=== PATIENT | male | born 1970 | race Caucasian/White ===

== ENCOUNTER 2016-11-17 18:11 | Emergency (ER) | payer OTHER ==
[~2016-11-17] VITALS: Ht 172.7 cm; Wt 118.9 kg
[~2016-11-17 18:11] MED LIST: ACTUNK; AMX500 PO; GLC500 PO; GLYUNK; LPRUNK; LPTUNK; MAGN400T6 PO
[2016-11-17 18:17] VITALS: Ht 172.7 cm; Wt 118.9 kg
[2016-11-17] MEDS ORDERED: PROPARACAINE HCL 0.5% OP SOLN 15 ML BTL OP STA (18:36)
[2016-11-17] MEDS ORDERED: EMPA1TAB3 PO (18:43)
[2016-11-17] MEDS ORDERED: ROSU40TA PO (18:43)
[2016-11-17] MEDS ORDERED: REPA2TAB13 PO (18:43)
[2016-11-17] MEDS ORDERED: DOCU-94 PO (18:43)
[2016-11-17] MEDS ORDERED: PRLSR20 PO (18:43)
[2016-11-17] MEDS ORDERED: LIRA18IN SC (18:43)
[2016-11-17] MEDS ORDERED: INSDGI SC (18:43)
[2016-11-17] MEDS ORDERED: MAGN400T6 PO (18:43)
[2016-11-17] MEDS ORDERED: METO50TA7 PO (18:43)
[2016-11-17] MEDS ORDERED: ASPI81TA28 PO (18:43)
[2016-11-17] MEDS ORDERED: ACT30 PO (18:43)
[2016-11-17] MEDS ORDERED: METF-384 PO (18:43)
[2016-11-17 19:31] VITALS: BP 138/86; PULSE 92; TEMP 36.5; O2SAT 95
--- NOTE | 2016-11-17 20:21 | EMERGENCY ROOM VISIT NOTE ---
History First contact with patient: 18:36 Chief Complaint: EYE ASSESSMENT Stated Complaint: L EYE REDNESS AND PRESSURE ON L SIDE OF FACE History of Present Illness The patient is a 46 year old male who presents to the Emergency Room with complaints of redness of his left eye. The patient reports that he and his were out eating dinner when she noticed that his eye was red. He then went to [place] and was referred to the emergency department for evaluation. The patient denies any trauma to the eye. He also does not recall extensive coughing, sneezing or other activities that could have caused this. He reports minimal pressure on the left side of his face here he has not noticed any rash, blurred vision or pain with movement of the eye. The patient denies any prior history of eye disease or glaucoma. He does have a history of diabetes. He denies any pain. Review of Systems 10 system review was performed and was negative except for pertinent positives and negatives as indicated in history of present illness Past Medical/Surgical History Medical Problems: (1) Anxiety State Nos (2) Diabetes type 2, controlled (3) Esophageal Reflux (4) Hypertension (5) Tobacco Use Disorder Surgical Problems: (1) No history of previous surgery Family History Unremarkable Social History Smoking Status: Former Smoker Alcohol Use: occasionally Marital Status: single Housing Status: lives alone Occupation Status: unemployed Current/Historical Medications Scheduled Aspirin (Aspirin Ec), 81 MG PO DAILY Docusate Sodium (Colace), 100 MG PO BID Empagliflozin (Jardiance), 25 MG PO DAILY Insulin Glargine (Lantus), 46 UNITS SC HS Liraglutide (Victoza), 1.2 MG SC DAILY Magnesium Oxide (Mag-Ox), 400 MG PO DAILY Metformin Hcl (Glucophage), 1,000 MG PO BIDM Metoprolol Succ (Toprol Xl) (Toprol-Xl), 75 MG PO DAILY Omeprazole (Prilosec), 20 MG PO DAILY Pioglitazone (Actos), 30 MG PO DAILY Repaglinide (Prandin), 2 MG PO AC Rosuvastatin Calcium (Crestor), 40 MG PO DAILY Physical Exam Vital Signs Date Time Temp Pulse Resp B/P (MAP) Pulse Ox O2 Delivery O2 Flow Rate FiO2 11/17/16 19:31 36.5 92 18 138/86 95 11/17/16 18:17 36.5 92 18 138/86 95 Room Air Right Eye Acuity: 20/25 Left Eye Acuity: 20/25 Pain Rating (0-10): 0 Physical Exam CONSTITUTIONAL: Healthy and well nourished. Alert and oriented X 3 with positive affect. Patient is not appear in any acute distress. HEENT: Examination shows what appears to be a subconjunctival hemorrhage over the lateral border of the left cornea. Pupils equal, round and reactive. EOMs intact without discomfort. No mucopurulent or bloody drainage from the eye. His and nares are clear. OROPHARYNX: No posterior pharyngeal erythema or tonsillar hypertrophy. NECK: Full active range of motion without discomfort. RESPIRATORY: Clear to auscultation bilaterally with no wheezing, crackles, rhonchi or stridor. CARDIOVASCULAR: Regular rate and rhythm with no murmurs, rubs or gallops. INTEGUMENTARY: No rash or other significant dermatologic conditions noted. NEUROLOGIC: Cranial nerves II-XII grossly intact. No focal neurologic deficits noted. Medical Decision & Procedures Medications Administered Medications (Trade) Dose Ordered Sig/Ramses Route Start Time Stop Time Status Last Admin Dose Admin Proparacaine HCl (Alcaine 0.5% Oph Soln) 2 drops NOW STAT OP 11/17/16 18:36 11/17/16 18:37 DC 11/17/16 18:44 2 DROPS Procedure Slit lamp and fluorescein exam were performed. 2 Alcaine drops were instilled into the left eye. Autonomic tonometry shows elevated intraocular pressures in both eyes with 24.3 on the right, 26.8 on the left. Soap exam shows no evidence for mucopurulent drainage. Negative hyphema, negative cell and flare. No mucopurulent drainage. No foreign debris is noted with eversion of the lower or upper eyelids. Fluorescein exam shows no corneal lesions, abrasions or foreign bodies. ED Course Patient history and physical exam were performed. Nurse's notes were reviewed. Vital signs were reviewed and normal. Visual acuity was also reviewed and normal. Slit lamp and fluorescein exam were performed and were normal. The patient was advised that his clinical exam is most consistent with a subconjunctival hemorrhage which is benign. However, because he does have elevated intraocular pressures, I did suggest that he follow up with Dr. Scott, investigative analyst aviation safety officer. He was instructed to return to the emergency department for any developing facial rash which could be herpes zoster. He was also instructed to return for any acute visual change, fever or other concerning symptoms. The patient was happy with plan of care, and denied any pain at the conclusion of my exam. Medical Decision See previous section. The patient does have mildly elevated intraocular pressures bilaterally. Extraocular is certainly a concern. I do not feel that emergent ophthalmology consultation is warranted given his equal pressures bilaterally. Examination also does not show any evidence for any abrasions or foreign bodies. Because he does have some mild left facial discomfort as well, herpes zoster was also considered. Medication Reconcilliation Current Medication List: was personally reviewed by me Blood Pressure Screening Patient's blood pressure: Normal blood pressure Impression Primary Impression: Subconjunctival hemorrhage of left eye Departure Information Dispostion Home / Self-Care Referrals Fred Scott MD Forms HOME CARE DOCUMENTATION FORM, IMPORTANT VISIT INFORMATION Patient Instructions Subconjunctival Hemorrhage, [facility] Additional Instructions Intermittently apply a cool compress to the eye. You may have mildly increasing redness of the eye which is not dangerous. Suggest follow-up with an investigative analyst (Dr. Scott) for reassessment as you have elevated pressure in both eyes. Definitely follow-up with ophthalmology, or return to the emergency department for any developing pain, blurred vision or facial rash.
== END 2016-11-17 19:32 | disposition home or self-care (01) ==
LOC: C.EDB 18:12 → C.EDD 19:32
DX: H11.33 Conjunctival hemorrhage, bilateral (principal); I10 Essential (primary) hypertension; E11.9 Type 2 diabetes mellitus without complications; K21.9 Gastro-esophageal reflux disease without esophagitis; F41.9 Anxiety disorder, unspecified; Z87.891 Personal history of nicotine dependence; Z79.82 Long term (current) use of aspirin; Z79.4 Long term (current) use of insulin; Z79.84 Long term (current) use of oral hypoglycemic drugs; Z79.899 Other long term (current) drug therapy

== ENCOUNTER → 2017-11-17 | Outpatient (CLI) | payer OTHER ==
[~2017-11-17] MED LIST changes: -ACTUNK; -AMX500 PO; +ASPI81TA28 PO; +EMPA1TAB3 PO; -GLC500 PO; -GLYUNK; +INSDGI SC; +LOSA50TA6 PO; -LPRUNK; -LPTUNK; +METF-384 PO; +METO50TA8 PO; +PRLSR20 PO; +ROSU40TA PO; +SEMA2INJ INJ
[2017-11-17 15:51] LABS: BASO % 0.6 %; BASO ABS # 0.03 K/uL (0-0.2); EOS % 3.7 %; EOS ABS # 0.18 K/uL (0-0.5); HEMATOCRIT 43.8 % (42-52); HEMOGLOBIN 15.5 g/dL (14.0-18.0); IG# 0.04 K/uL (0.00-0.02); LYMPH % 25.8 %; LYMPH ABS # 1.27 K/uL (1.2-3.4); MEAN CELL VOLUME 89.6 fL (80-100); MEAN CORPUSCULAR HEMOGLOBIN 31.7 pg (25-34); MEAN CORPUSCULAR HGB CONC 35.4 g/dl (32-36); MEAN PLATELET VOLUME 9.5 fL (7.4-10.4); MONO % 7.7 %; MONO ABS # 0.38 K/uL (0.11-0.59); NEUT % 61.4 %; NEUT ABS # 3.03 K/uL (1.4-6.5); PLATELET COUNT 168 K/uL (130-400); RED CELL DISTRIBUTION WIDTH CV 13.8 % (11.5-14.5); RED CELL DISTRIBUTION WIDTH SD 45.4 fL (36.4-46.3); WHITE BLOOD COUNT 4.93 K/uL (4.8-10.8)
[2017-11-17 16:10] LABS: BLOOD UREA NITROGEN 15 mg/dl (7-18); CALCIUM 9.1 mg/dl (8.5-10.1); CARBON DIOXIDE 26 mmol/L (21-32); CREATININE 0.78 mg/dl (0.60-1.40); GLUCOSE 257 mg/dl (70-99); POTASSIUM 4.2 mmol/L (3.5-5.1); SODIUM 133 mmol/L (136-145)
[2017-11-18 06:19] LABS: HEMOGLOBIN A1C 8.3 % (4.5-5.6)
== END | disposition home or self-care (01) ==
LOC: C.CPL 14:22
PROVIDERS: ATTEND Urology
DX: Z01.810 Encounter for preprocedural cardiovascular examination (principal); Z01.812 Encounter for preprocedural laboratory examination; R94.31 Abnormal electrocardiogram [ECG] [EKG]

== ENCOUNTER 2017-11-29 05:29 | Inpatient (IN) | payer OTHER ==
[2017-11-17 14:52] VITALS: BMI 37.0
--- NOTE | 2017-11-17 14:54 | PAT Medication Instructions ---
Service Date Nov 17, 2017. Current Home Medication List Aspirin (Aspirin Ec), 81 MG PO QPM Empagliflozin (Jardiance), 25 MG PO QAM Insulin Glargine (Lantus), 54 UNITS SC HS Losartan Potassium (Cozaar), 50 MG PO NOON Magnesium Oxide (Mag-Ox), 400 MG PO NOON Metformin Hcl (Glucophage), 1,000 MG PO BIDM Metoprolol Succ (Toprol Xl) (Toprol-Xl), 75 MG PO NOON Omeprazole (Prilosec), 20 MG PO NOON Rosuvastatin Calcium (Crestor), 40 MG PO HS Semaglutide (Ozempic), 0.5 DOSE INJ FRIDAYS Medication Instructions For Your Scheduled Surgery -Check with your surgeon: Aspirin (Aspirin Ec), 81 MG PO QPM -Continue as directed: Semaglutide (Ozempic), 0.5 DOSE INJ FRIDAYS - Hold the following medications the morning of surgery: Empagliflozin (Jardiance), 25 MG PO QAM Metformin Hcl (Glucophage), 1,000 MG PO BIDM - Take the following medications as scheduled the afternoon/night before surgery --NOTHING TO EAT OR DRINK AFTER MIDNIGHT: Insulin Glargine (Lantus), 54 UNITS SC HS Losartan Potassium (Cozaar), 50 MG PO NOON Magnesium Oxide (Mag-Ox), 400 MG PO NOON Metformin Hcl (Glucophage), 1,000 MG PO BIDM Metoprolol Succ (Toprol Xl) (Toprol-Xl), 75 MG PO NOON Omeprazole (Prilosec), 20 MG PO NOON Rosuvastatin Calcium (Crestor), 40 MG PO HS If you have any questions please call us at [phone] or [phone] or [phone]
[~2017-11-29] VITALS: Ht 172.7 cm; Wt 110.3 kg
[2017-11-29] VITALS (9 sets, daily range): BP systolic 135–160; BP diastolic 73–93; PULSE 92–112; TEMP 36.5–37.3; O2SAT 95–98; Ht 172.7 cm; Wt 110.3 kg
[2017-11-29] MEDS ORDERED: CEFAZOLIN 2000MG IV PUSH 15 ML IV SCH (06:00)
[2017-11-29] MEDS ORDERED: LACTATED RINGER'S 1000ML 1,000 ML IV SCH (06:00)
[2017-11-29] MEDS ORDERED: BUPIVACAINE 0.25% 30 ML VIAL ONE (06:58)
[2017-11-29] MEDS ORDERED: MIDAZOLAM HCL 1 MG/ML 2ML VIAL ONE (07:09)
[2017-11-29] MEDS ORDERED: LIDOCAINE HCL 2% 2 ML VIAL (20MG/ML) ONE (07:09)
[2017-11-29] MEDS ORDERED: FENTANYL CITRATE INJ 50 MCG/1 ML 2 ML VIAL ONE (07:09)
[2017-11-29] MEDS ORDERED: ROCURONIUM BROMIDE 10 MG/ML 5 ML VIAL ONE ×2 (07:09→08:22)
[2017-11-29] MEDS ORDERED: PROPOFOL IV EMULSION 10 MG/ML 20 ML VIAL ONE ×2 (07:09→08:34)
[2017-11-29] MEDS ORDERED: ACETAMINOPHEN 1000 MG/100 ML IV IV ONE (07:13)
[2017-11-29] MEDS ORDERED: MANNITOL 25% 50 ML VIAL ONE ×2 (07:13→12:33)
--- NOTE | 2017-11-29 07:33 | History & Physical Bridge Note ---
H&P Re-Evaluation Bridge Note: I have examined the patient, reviewed the History & Physical and in the interval since the performance of the History & Physical I have noted the following changes of clinical significance: No changes noted
[2017-11-29] MEDS ORDERED: ONDANSETRON INJ 2 MG/ML 2 ML VIAL ONE ×2 (08:19→09:57)
[2017-11-29] MEDS ORDERED: KETAMINE HCL INJ 50 MG/ML 10 ML VIAL ONE (08:20)
[2017-11-29] MEDS ORDERED: METOPROLOL TARTRATE 1 MG/ML VIAL ONE (08:34)
[2017-11-29] MEDS ORDERED: LABETALOL HCL IV 5 MG/ML 20ML ONE (08:34)
[2017-11-29] MEDS ORDERED: ONDANSETRON INJ 2 MG/ML 2 ML VIAL IV PRN ×2 (09:15→10:15)
[2017-11-29] MEDS ORDERED: EpHEDrine SULFATE INJ 50 MG/ML AMP IV PRN (09:15)
[2017-11-29] MEDS ORDERED: ATROPINE SULFATE 0.1 MG/ML 5ML SYR IV PRN (09:15)
[2017-11-29] MEDS ORDERED: PHENYLEPHRINE 100MCG/ML 5ML SYR IV PRN (09:15)
[2017-11-29] MEDS ORDERED: TISSEEL FIBRIN SEALANT 10ML TOP ONE (09:23)
[2017-11-29] MEDS ORDERED: GLYCOPYRROLATE INJ 0.2 MG/ML VIAL ONE (09:57)
[2017-11-29] MEDS ORDERED: NEOSTIGMINE METHYLSULFATE 5 MG/5 ML SYR ONE (09:57)
[2017-11-29] MEDS ORDERED: HYDROmorphone INJ 2 MG/ML SYR/VIAL ONE (10:00)
--- NOTE | 2017-11-29 10:06 | [facility] Post Operative Brief Note ---
Immediate Operative Summary Operative Date Nov 29, 2017. Pre-Operative Diagnosis Renal neoplasm Post-Operative Diagnosis Renal neoplasm Procedure(s) Performed Right hand assisted laparoscopic nephrectomy Surgeon Dr. Efraín Lam MD Certified Medication Aide Surgeon(s) JELANI Douglass Estimated Blood Loss 50ml Findings Consistent with Post-Op Diagnosis Specimens A. Right kidney Drains None Anesthesia Type General Disposition Accompanied Pt To Recover: yes Disposition: Recovery Room / PACU
[2017-11-29] MEDS ORDERED: MoRPHine SULFATE 4 MG/ML 1 ML CARP\\VIAL IV PRN (10:15)
[2017-11-29] MEDS ORDERED: ACETAMINOPHEN 325 MG TAB PO PRN (10:15)
[2017-11-29] MEDS ORDERED: ACETAMINOPHEN/CODEINE 300/30MG TAB PO PRN (10:15)
[2017-11-29] MEDS: HYDROmorphone INJ 2 MG/ML SYR/VIAL IV PRN ×2 (10:30→10:38)
[2017-11-29 10:34] LABS: BASO % 0.4 %; BASO ABS # 0.03 K/uL (0-0.2); EOS % 0.5 %; EOS ABS # 0.04 K/uL (0-0.5); HEMATOCRIT 44.1 % (42-52); HEMOGLOBIN 15.3 g/dL (14.0-18.0); IG# 0.03 K/uL (0.00-0.02); LYMPH % 12.5 %; LYMPH ABS # 1.02 K/uL (1.2-3.4); MEAN CELL VOLUME 90.7 fL (80-100); MEAN CORPUSCULAR HEMOGLOBIN 31.5 pg (25-34); MEAN PLATELET VOLUME 9.6 fL (7.4-10.4); MONO % 6.5 %; MONO ABS # 0.53 K/uL (0.11-0.59); NEUT % 79.7 %; NEUT ABS # 6.54 K/uL (1.4-6.5); PLATELET COUNT 168 K/uL (130-400); RED CELL DISTRIBUTION WIDTH CV 14.1 % (11.5-14.5); RED CELL DISTRIBUTION WIDTH SD 46.5 fL (36.4-46.3); WHITE BLOOD COUNT 8.19 K/uL (4.8-10.8)
[2017-11-29 10:39] LABS: MEAN CORPUSCULAR HGB CONC 34.7 g/dl (32-36)
--- NOTE | 2017-11-29 10:45 | [facility] Operative Report ---
Operative Report Operative Date Nov 29, 2017. Pre-Operative Diagnosis Renal neoplasm Post-Operative Diagnosis Renal neoplasm Procedure(s) Performed Right hand assisted laparoscopic nephrectomy Surgeon Dr. Efraín Lam MD Promotional Representative Surgeon(s) JELANI Douglass Estimated Blood Loss 50ml Specimens A. Right kidney Drains None Anesthesia Type General Complication(s) none Disposition yes Recovery Room / PACU Description of Procedure Patient was identified in the preoperative holding area, appropriate informed consents reviewed and completed and the patient was transported to the operating suite. Upon arrival in the operative suite, imaging was reviewed and brought on the large screens in the room. Patient subsequently received anesthesia and was placed in a left-sided down right-sided up lateral decubitus position where he was appropriately padded and braced. He received perioperative antibiotics in the form of Ancef. Following sterile prep and drape, I made a Pfannenstiel style incision in the right lower quadrant extending from the lateral border of the rectus muscle through approximately 8 cm of the oblique musculature. We carefully dissected each layer before sharply opening the peritoneum performing a finger sweep. There is no evidence of adhesive disease in this region. I expanded my peritoneal incision to match my skin incision, and placed a hand port. Utilizing this open incision, mobilized the colon by incising the white line of Toldt utilizing Metzenbaum scissors. And then put the gel port on top of the hand port and insufflated the abdomen through the GelPort to 15 mmHg. Passed a 10mm 30 lens and inspected the abdomen. There is no adhesive disease, the kidney was easily visualized, identified the lateral border of the rectus muscle near the costal margin and marked 2 sites on the skin side for port placement. I placed 2 - 12 mm ports, the higher of the 2 ports was at the rectus border, approximately 2 fingerbreadths below the costal margin. The second part was approximately 8 cm inferior to this. Both of these ports were placed onto my hand which had been inserted through the GelPort. To begin the laparoscopic portion of the case, continued mobilizing the white line of Toldt until the colon had been entirely medialized of the kidney. I then identified the duodenum and kocherized sharply to expose the medial aspect of the kidney. Turned my attention back to the inferior most aspect of the kidney, elevated the lower cone of Gerota's fascia and identified the gonadal vein. I dissected just lateral to it until I reached the psoas muscle and I left the ureter and remaining aspects Gerota's intact and elevated these towards the anterior abdominal wall. I traced the lateral edge of the gonadal vein to the IVC and then followed the anterior surface of the IVC until I visualized the renal vein. I dissected the tissue inferior to the renal vein, allowing my hand to move against and posterior to the hilar structures as I elevated the kidney. The renal artery was identified immediately superior to the renal vein, it was skeletonized and passage window immediately superior to the renal artery was created utilizing a finger passed posteriorly behind the hilar structures and dissection from the anterior surface utilizing the instruments. After feeling that those windows were adequately opened, I passed a staple device and stapled the renal artery and vein en bloc with a vascular staple load. A second staple load was placed further superior, separate the adrenal and the upper pole of the kidney. Given the size of the specimen, third device was placed further along the superior surface of the kidney. I then turned my attention the lateral edge of the kidney and mobilized it along the kidney to be entirely freed. The final connection was the most superior lateral corner adjacent to the liver, this was dissected utilizing the harmonic scalpel until the kidney was free. The ureter in the inferior cone of Gerota's fascia and fired a staple load across this area. I attempted to point to extract the specimen through my hand port, however the specimen was too large to fit through this port without expansion. I therefore talked it into the right lower quadrant and inspected the renal fossa. There is no active bleeding, however I did place Tisseel coagulant across the hilar structures and the fossa. I then removed the gel port and slightly expanded my incision to allow extraction of the specimen. The lap ports had their fascia closed using 0 Vicryl in simple interrupted fashion. Skin of these incisions was closed with 4-0 Monocryl and Dermabond. The hand port was closed in numerous layers, beginning with 0 Vicryl to reapproximate the peritoneum followed by closure of the transversalis with an additional 0 Vicryl followed by the internal oblique and ultimately the external oblique utilizing 0 Vicryl for all of these layers. The skin was reapproximated using 4-0 Monocryl and Dermabond. Quarter percent Marcaine was utilized to infiltrate all the incisions as well as the fascial layers. The case was subsequently concluded the patient was extubated and taken to the PACU in stable condition. Of note, Idalia Foley assisted me throughout the case from initial incision to closure. I attest to the content of the Intraoperative Record and any orders documented therein. Any exceptions are noted below.
[2017-11-29 10:53] LABS: CALCIUM 8.2 mg/dl (8.5-10.1); CREATININE 0.86 mg/dl (0.60-1.40)
[2017-11-29] MEDS ORDERED: GLUCOSE 10 TABS/TUBE PO PRN (12:15)
[2017-11-29] MEDS ORDERED: DEXTROSE 50% 50 ML SYR IV PRN (12:15)
[2017-11-29] MEDS ORDERED: GLUCOSE 40% GEL 15 GM TUBE PO PRN (12:15)
[2017-11-29] MEDS ORDERED: GLUCAGON FOR INJ 1 MG VIAL IM PRN (12:15)
[2017-11-29] MEDS ORDERED: PHARMACY GLYCEMIC MGMT CONSULT PRN (12:15)
[2017-11-29] MEDS ORDERED: CARBOHYDRATES FOR HYPOGLYCEMIA PO PRN (12:15)
[2017-11-29] MEDS: ACETAMINOPHEN/CODEINE 300/30MG TAB PO PRN ×2 (12:42→20:16)
[2017-11-29] MEDS: LACTATED RINGER'S 1000ML 1,000 ML IV SCH ×3 (12:43→23:59)
[2017-11-29] MEDS ORDERED: INSULIN GLARGINE SOLOSTAR 100 UNITS/ML 3 ML PEN SC ONE (12:45)
[2017-11-29] MEDS: PANTOprazole SOD 40 MG TAB PO SCH (13:18)
--- NOTE | 2017-11-29 13:18 | Anesthesiology Progress Note ---
Anesthesia Post Op Note Date & Time Nov 29, 2017 at 13:18 Vital Signs Pain Intensity: 6.0 Vital Signs Past 12 Hours Date Time Temp Pulse Resp B/P (MAP) Pulse Ox O2 Delivery O2 Flow Rate FiO2 11/29/17 12:24 36.9 102 16 160/81 (107) 96 2.0 11/29/17 11:45 92 16 158/82 (107) 95 2.0 11/29/17 11:15 98 Nasal Cannula 2.0 11/29/17 11:15 36.9 93 16 143/89 (107) 98 Nasal Cannula 2.0 11/29/17 11:15 98 Nasal Cannula 2.0 11/29/17 11:00 36.9 84 16 150/81 97 Nasal Cannula 4 11/29/17 10:50 86 12 165/88 98 Nasal Cannula 4 11/29/17 10:40 92 13 158/97 98 Nasal Cannula 4 11/29/17 10:30 81 19 157/95 99 Oxymask 10 11/29/17 10:20 87 20 160/88 100 Oxymask 10 11/29/17 10:14 36 88 17 155/82 99 Oxymask 10 11/29/17 06:05 36.8 92 18 147/93 96 Room Air Notes Mental Status: alert / awake / arousable, participated in evaluation Pt Amnestic to Procedure: Yes Nausea / Vomiting: adequately controlled Pain: adequately controlled Airway Patency, RR, SpO2: stable & adequate BP & HR: stable & adequate Hydration State: stable & adequate Anesthetic Complications: no major complications apparent
[2017-11-29] MEDS: INSULIN ASPART 100 UNITS/ML 3 ML PEN SC SCH ×3 (13:22→21:47)
--- NOTE | 2017-11-29 14:37 | Pharmacy Progress Note ---
Glycemic Control Intl Consult Date of Service Nov 29, 2017. Scope Glycemic Pharmacist consulted by JELANI Stiles on 11/29/17 for glycemic control and to write orders per [facility] inpatient glycemic control protocol. Objective Weight (Kilograms): 110.300 Accuchecks BSG (last 24hrs): Test 11/29/17 05:52 11/29/17 06:37 11/29/17 10:18 11/29/17 10:22 Bedside Glucose 116 mg/dl (70-99) 122 mg/dl (70-99) 222 mg/dl (70-99) Random Glucose 231 mg/dl (70-99) Test 11/29/17 12:07 Bedside Glucose 229 mg/dl (70-99) Laboratory Data (last 24hrs) Test 11/29/17 10:22 Anion Gap 13.0 mmol/L BUN/Creatinine Ratio 9.2 Blood Urea Nitrogen 8 mg/dl Creatinine 0.86 mg/dl Potassium Level 4.0 mmol/L Sodium Level 134 mmol/L White Blood Count 8.19 K/uL Red Blood Count 4.86 M/uL Hemoglobin 15.3 g/dL Hematocrit 44.1 % Mean Corpuscular Volume 90.7 fL Mean Corpuscular Hemoglobin 31.5 pg Mean Corpuscular Hemoglobin Concent 34.7 g/dl Platelet Count 168 K/uL Mean Platelet Volume 9.6 fL Neutrophils (%) (Auto) 79.7 % Lymphocytes (%) (Auto) 12.5 % Monocytes (%) (Auto) 6.5 % Eosinophils (%) (Auto) 0.5 % Basophils (%) (Auto) 0.4 % Neutrophils # (Auto) 6.54 K/uL Lymphocytes # (Auto) 1.02 K/uL Monocytes # (Auto) 0.53 K/uL Eosinophils # (Auto) 0.04 K/uL Basophils # (Auto) 0.03 K/uL Recent Pertinent Medications Outpatient Anti-diabetic Regimen: * Lantus 54 units SQ HS * Metformin 1000mg PO BID * Jardiance 25mg PO qAM * Semaglutide SQ weekly * A1c = 8.3% (11/17/17) Risk Factors for Insulin Resistance: * Steroids: n/a * Infection: Ancef angelique-operatively * IVF: LR @ 150mL/hr * Recent Surgery: POD 0, s/p laparoscopic nephrectomy * Diet: clear liquid Assessment & Plan ASSESSMENT: * Mr Campos is a 47yo diabetic male s/p laparoscopic nephrectomy this morning. * Post-op BSG elevated, likely d/t skipping Lantus dose last night. PLAN FOR INPATIENT GLYCEMIC CONTROL: * Basal insulin with LANTUS 54 units SQ qHS --> first dose given SHAYAN on arrival to floor post-op * Correctional Insulin with NOVOLOG per scale ACHS or Q6hrs while NPO * Goal Range: Low 110 mg/dL - High 140 mg/dL * Correction Factor: 20 mg/dL/unit * Nutritional / Prandial insulin per carb ratio of 1 unit per 7 grams CHO consumed * Metformin 1,000mg PO BID * Hold other home meds, as they are non-formulary * Please note that the plan above was derived based on current level of insulin resistance and hospital stress. These recommendations are appropriate for inpatient admission only. Plan of care upon discharge will need to be reassessed to avoid potential outpatient hypo/hyperglycemia. Thank you.
[2017-11-29] MEDS: CEFAZOLIN IV 1,000 MG in SYRINGE 0 ML IV SCH ×2 (15:58→23:58)
[2017-11-29] MEDS ORDERED: NURSING VERBAL MED ORDER ONE ×2 (18:30→22:45)
[2017-11-29] MEDS ORDERED: METOCLOPRAMIDE HCL INJ 5 MG/ML 2 ML VIAL IV PRN (18:45)
[2017-11-29] MEDS ORDERED: SUCRALFATE 1 GM/10 ML UDC PO PRN (18:45)
[2017-11-29] MEDS: DOCUSATE SODIUM 100 MG CAP PO SCH (20:15)
[2017-11-29] MEDS: ROSUVASTATIN CALCIUM 20 MG TAB PO SCH (20:16)
[2017-11-29] MEDS ORDERED: INSULIN GLARGINE SOLOSTAR 100 UNITS/ML 3 ML PEN SC SCH (21:00)
[2017-11-29] MEDS: HEPARIN SOD 5000 UNIT/0.5 ML CARP SQ SCH (21:46)
[2017-11-29] MEDS ORDERED: LORAZEPAM INJ 1 MG in SYRINGE 0.5 ML IV PRN (22:45)
[2017-11-30 03:08] VITALS: BP_SYST 164; BP_SYST 166; BP_DIAS 83; BP_DIAS 92; PULSE 111; TEMP 37.1; O2SAT 91
[2017-11-30] MEDS: LACTATED RINGER'S 1000ML 1,000 ML IV SCH ×3 (05:42→18:32)
[2017-11-30 06:28] LABS: BASO % 0.4 %; BASO ABS # 0.02 K/uL (0-0.2); EOS % 0.6 %; EOS ABS # 0.03 K/uL (0-0.5); HEMATOCRIT 40.4 % (42-52); HEMOGLOBIN 13.7 g/dL (14.0-18.0); IG# 0.01 K/uL (0.00-0.02); LYMPH % 20.2 %; MEAN CELL VOLUME 90.8 fL (80-100); MEAN CORPUSCULAR HEMOGLOBIN 30.8 pg (25-34); MEAN CORPUSCULAR HGB CONC 33.9 g/dl (32-36); MEAN PLATELET VOLUME 9.3 fL (7.4-10.4); MONO % 15.4 %; MONO ABS # 0.84 K/uL (0.11-0.59); NEUT % 63.2 %; NEUT ABS # 3.44 K/uL (1.4-6.5); PLATELET COUNT 174 K/uL (130-400); RED CELL DISTRIBUTION WIDTH CV 14.5 % (11.5-14.5); RED CELL DISTRIBUTION WIDTH SD 48.2 fL (36.4-46.3); WHITE BLOOD COUNT 5.44 K/uL (4.8-10.8)
[2017-11-30 07:00] LABS: CALCIUM 7.9 mg/dl (8.5-10.1); CREATININE 1.19 mg/dl (0.60-1.40); POTASSIUM 3.4 mmol/L (3.5-5.1)
[2017-11-30 07:30] VITALS: BP 147/79; PULSE 107; TEMP 36.9; O2SAT 94
--- NOTE | 2017-11-30 08:12 | Anesthesiology Progress Note ---
Anesthesia Post Op Note Date & Time Nov 30, 2017 at 08:11 Vital Signs Vital Signs Past 12 Hours Date Time Temp Pulse Resp B/P (MAP) Pulse Ox O2 Delivery O2 Flow Rate FiO2 11/30/17 07:30 36.9 107 16 147/79 (101) 94 Room Air 11/30/17 03:08 37.1 111 17 166/83 (110) 91 Room Air 164/92 (116) 11/29/17 22:44 37.3 112 18 145/73 (97) 95 Room Air 11/29/17 22:10 37.1 16 135/80 (98) 96 Room Air Notes Mental Status: alert / awake / arousable, participated in evaluation Pt Amnestic to Procedure: Yes Nausea / Vomiting: adequately controlled Pain: adequately controlled Airway Patency, RR, SpO2: stable & adequate BP & HR: stable & adequate Hydration State: stable & adequate Anesthetic Complications: no major complications apparent
--- NOTE | 2017-11-30 09:02 | Progress Note ---
Subjective Date of Service: Nov 30, 2017. Subjective Pt evaluation today including: conversation w/ patient, physical exam, chart review, lab review Voiding: no voiding problems Patient progressing very well since his right laparoscopic hand-assisted nephrectomy Minimal pain Ambulating Was nauseated yesterday afternoon, but no current problems Voiding without difficulty Labs stable and appropriate Problem List Medical Problems: (1) Subconjunctival hemorrhage of left eye Status: Acute Review of Systems Constitutional: No see HPI, No fever, No chills, No sweats, No weight loss, No weakness, No fatigue, No problem reported Eyes: No see HPI, No worsening of vision, No eye pain, No redness, No discharge , No diplopia, No problem reported Abdomen: + pain, + nausea Objective Vital Signs Date Time Temp Pulse Resp B/P (MAP) Pulse Ox O2 Delivery O2 Flow Rate FiO2 11/30/17 07:30 36.9 107 16 147/79 (101) 94 Room Air 11/30/17 03:08 37.1 111 17 166/83 (110) 91 Room Air 164/92 (116) 11/29/17 22:44 37.3 112 18 145/73 (97) 95 Room Air 11/29/17 22:10 37.1 16 135/80 (98) 96 Room Air 11/29/17 16:00 Nasal Cannula 11/29/17 15:26 36.9 111 18 138/83 (101) 95 Nasal Cannula 2.0 11/29/17 14:20 36.5 104 16 157/83 (107) 95 2.0 11/29/17 13:15 106 16 146/82 (103) 96 2.0 11/29/17 12:24 36.9 102 16 160/81 (107) 96 2.0 11/29/17 11:45 92 16 158/82 (107) 95 2.0 11/29/17 11:15 98 Nasal Cannula 2.0 11/29/17 11:15 36.9 93 16 143/89 (107) 98 Nasal Cannula 2.0 11/29/17 11:15 98 Nasal Cannula 2.0 11/29/17 11:00 36.9 84 16 150/81 97 Nasal Cannula 4 11/29/17 10:50 86 12 165/88 98 Nasal Cannula 4 11/29/17 10:40 92 13 158/97 98 Nasal Cannula 4 11/29/17 10:30 81 19 157/95 99 Oxymask 10 11/29/17 10:20 87 20 160/88 100 Oxymask 10 11/29/17 10:14 36 88 17 155/82 99 Oxymask 10 Physical Exam General Appearance: no apparent distress Eyes: normal inspection Abdomen: soft (Incisions appropriate, no signs of infection, appropriately tender) Laboratory Results Last 24 Hours Test 11/29/17 10:18 11/29/17 10:22 11/29/17 12:07 11/29/17 12:25 Bedside Glucose 222 mg/dl 229 mg/dl White Blood Count 8.19 K/uL Red Blood Count 4.86 M/uL Hemoglobin 15.3 g/dL Hematocrit 44.1 % Mean Corpuscular Volume 90.7 fL Mean Corpuscular Hemoglobin 31.5 pg Mean Corpuscular Hemoglobin Concent 34.7 g/dl Platelet Count 168 K/uL Mean Platelet Volume 9.6 fL Neutrophils (%) (Auto) 79.7 % Lymphocytes (%) (Auto) 12.5 % Monocytes (%) (Auto) 6.5 % Eosinophils (%) (Auto) 0.5 % Basophils (%) (Auto) 0.4 % Neutrophils # (Auto) 6.54 K/uL Lymphocytes # (Auto) 1.02 K/uL Monocytes # (Auto) 0.53 K/uL Eosinophils # (Auto) 0.04 K/uL Basophils # (Auto) 0.03 K/uL RDW Standard Deviation 46.5 fL RDW Coefficient of Variation 14.1 % Immature Granulocyte % (Auto) 0.4 % Immature Granulocyte # (Auto) 0.03 K/uL Sodium Level 134 mmol/L Potassium Level 4.0 mmol/L Chloride Level 100 mmol/L Carbon Dioxide Level 22 mmol/L Anion Gap 13.0 mmol/L Blood Urea Nitrogen 8 mg/dl Creatinine 0.86 mg/dl Est Creatinine Clear Calc Drug Dose 126.5 ml/min Estimated GFR () 118.8 Estimated GFR (Non- 102.5 BUN/Creatinine Ratio 9.2 Random Glucose 231 mg/dl Calcium Level 8.2 mg/dl Prothrombin Time 10.2 SECONDS Prothromb Time International Ratio 1.0 Test 11/29/17 17:10 11/29/17 21:40 11/30/17 05:53 11/30/17 08:17 Bedside Glucose 180 mg/dl 179 mg/dl 146 mg/dl White Blood Count 5.44 K/uL Red Blood Count 4.45 M/uL Hemoglobin 13.7 g/dL Hematocrit 40.4 % Mean Corpuscular Volume 90.8 fL Mean Corpuscular Hemoglobin 30.8 pg Mean Corpuscular Hemoglobin Concent 33.9 g/dl Platelet Count 174 K/uL Mean Platelet Volume 9.3 fL Neutrophils (%) (Auto) 63.2 % Lymphocytes (%) (Auto) 20.2 % Monocytes (%) (Auto) 15.4 % Eosinophils (%) (Auto) 0.6 % Basophils (%) (Auto) 0.4 % Neutrophils # (Auto) 3.44 K/uL Lymphocytes # (Auto) 1.10 K/uL Monocytes # (Auto) 0.84 K/uL Eosinophils # (Auto) 0.03 K/uL Basophils # (Auto) 0.02 K/uL RDW Standard Deviation 48.2 fL RDW Coefficient of Variation 14.5 % Immature Granulocyte % (Auto) 0.2 % Immature Granulocyte # (Auto) 0.01 K/uL Sodium Level 136 mmol/L Potassium Level 3.4 mmol/L Chloride Level 102 mmol/L Carbon Dioxide Level 22 mmol/L Anion Gap 12.0 mmol/L Blood Urea Nitrogen 8 mg/dl Creatinine 1.19 mg/dl Est Creatinine Clear Calc Drug Dose 91.4 ml/min Estimated GFR () 83.2 Estimated GFR (Non- 71.8 BUN/Creatinine Ratio 6.8 Random Glucose 128 mg/dl Calcium Level 7.9 mg/dl Assessment and Plan Postop day #1 status post right hand-assisted left nephrectomy Labs stable, kidney function appropriate Good urine output Voiding without difficulty Pain controlled We will observe him for the morning and see if he is ready for discharge home tonight versus tomorrow
[2017-11-30] MEDS: DOCUSATE SODIUM 100 MG CAP PO SCH ×2 (10:21→21:37)
[2017-11-30] MEDS: METOPROLOL SUCC 25MG EXT REL TAB PO SCH (10:22)
[2017-11-30] MEDS: MAGNESIUM OXIDE 400 MG TAB PO SCH (10:22)
[2017-11-30] MEDS: LOSARTAN POTASSIUM 50 MG TAB PO SCH (10:22)
[2017-11-30] MEDS: HEPARIN SOD 5000 UNIT/0.5 ML CARP SQ SCH ×2 (10:28→21:42)
[2017-11-30] MEDS: INSULIN ASPART 100 UNITS/ML 3 ML PEN SC SCH ×4 (10:29→21:40)
[2017-11-30] MEDS ORDERED: DOCU-94 PO (10:50)
[2017-11-30] MEDS ORDERED: ACET300T2 PO (10:50)
--- NOTE | 2017-11-30 10:53 | Discharge Instructions ---
Discharge Instructions Date of Service Nov 30, 2017. Admission Reason for Admission: Renal Mass Discharge Discharge Diagnosis / Problem: Renal mass Discharge Goals Goal(s): Improve disease control, Prevent Disease Progression Activity Recommendations Activity Limitations: as noted below 1. Do not lift >15lbs x 6 weeks. 2. No heavy exercise x 6 weeks. You may engage in light activity such as walking and stairs as tolerated. 3. Do not drive x [address] while taking narcotics. 4. Follow-up as scheduled. Please call our office at [phone] if you need to reschedule for any reason. . . Current Hospital Diet Patient's current hospital diet: Clear Liquid Diet Discharge Diet Recommended Diet: Diabetes Type 2 Diet Procedures Procedures Performed: Right hand assisted laparoscopic nephrectomy Pending Studies Studies pending at discharge: yes List of pending studies: Pathology Laboratory Results Hemoglobin A1c Test 11/17/17 15:10 Range/Units Estimated Average Glucose 192 mg/dl Hemoglobin A1c 8.3 H 4.5-5.6 % Medical Emergencies . Who to Call and When: Medical Emergencies: If at any time you feel your situation is an emergency, please call 911 immediately. . Non-Emergent Contact Non-Emergency issues call your: Urologist Call Non-Emergent contact if: temperature is above 101, your pain is not controlled, your pain is concerning you, wound has increased drainage, wound has increased redness, wound has increased pain, you have any medication questions . . "Provider Documentation" section prepared by Idalia Foley. . [place] Drug Monitoring Program Search Results: patient reviewed within database, no issues identified
[2017-11-30 11:35] VITALS: BP 148/80; PULSE 104; TEMP 36.9; O2SAT 95
[2017-11-30] MEDS: PANTOprazole SOD 40 MG TAB PO SCH (13:01)
[2017-11-30 15:09] VITALS: BP 150/87; PULSE 92; TEMP 36.8; O2SAT 95
[2017-11-30] MEDS: METFORMIN HCL 500 MG TAB PO SCH (18:09)
[2017-11-30] MEDS: ROSUVASTATIN CALCIUM 20 MG TAB PO SCH (21:37)
[2017-11-30 23:22] VITALS: BP_SYST 172; BP_SYST 177; BP_DIAS 100; BP_DIAS 95; PULSE 99; TEMP 37.2; O2SAT 94
[2017-12-01] MEDS: ACETAMINOPHEN/CODEINE 300/30MG TAB PO PRN (00:30)
[2017-12-01] MEDS: LACTATED RINGER'S 1000ML 1,000 ML IV SCH ×2 (01:46→08:44)
[2017-12-01 01:52] VITALS: BP 133/84
[2017-12-01 07:45] VITALS: BP 152/84; PULSE 99; TEMP 37.3; O2SAT 96
[2017-12-01 08:10] LABS: BASO % 0.8 %; BASO ABS # 0.04 K/uL (0-0.2); EOS % 2.4 %; EOS ABS # 0.12 K/uL (0-0.5); HEMATOCRIT 42.9 % (42-52); HEMOGLOBIN 14.6 g/dL (14.0-18.0); IG# 0.01 K/uL (0.00-0.02); LYMPH % 24.4 %; LYMPH ABS # 1.24 K/uL (1.2-3.4); MEAN CELL VOLUME 91.7 fL (80-100); MEAN CORPUSCULAR HEMOGLOBIN 31.2 pg (25-34); MEAN PLATELET VOLUME 9.3 fL (7.4-10.4); MONO % 11.2 %; MONO ABS # 0.57 K/uL (0.11-0.59); NEUT ABS # 3.11 K/uL (1.4-6.5); PLATELET COUNT 161 K/uL (130-400); RED CELL DISTRIBUTION WIDTH CV 14.2 % (11.5-14.5); RED CELL DISTRIBUTION WIDTH SD 47.1 fL (36.4-46.3); WHITE BLOOD COUNT 5.09 K/uL (4.8-10.8)
[2017-12-01 08:48] LABS: CALCIUM 8.7 mg/dl (8.5-10.1); CREATININE 1.14 mg/dl (0.60-1.40); POTASSIUM 3.7 mmol/L (3.5-5.1)
[2017-12-01] MEDS: INSULIN ASPART 100 UNITS/ML 3 ML PEN SC SCH (09:07)
--- NOTE | 2017-12-01 09:07 | Urology Progress Note ---
Progress Note Date of Service Dec 01, 2017. Subjective Pt evaluation today including: conversation w/ patient, physical exam, chart review, lab review Pain: diffuse abdominal, 3/10 PO Intake: tolerating Voiding: no voiding problems 47YO male, POD#2 s/p right HALN. Patient reports feeling well. Pain is well controlled. Tolerating diet, has been up walking the halls without difficulty. Has not moved bowels though he is passing gas. Voiding without difficulty. Constitutional: No fever, No chills Respiratory: No shortness of breath Cardiovascular: No chest pain Abdomen: + pain (diffuse; hand incision), No nausea, No vomiting Male : No dysuria, No urinary frequency, No incontinence, No slowing stream, No hematuria Neurologic: No numbness/tingling Objective Vital Signs Date Time Temp Pulse Resp B/P (MAP) Pulse Ox O2 Delivery O2 Flow Rate FiO2 12/01/17 07:45 37.3 99 18 152/84 (106) 96 Room Air 12/01/17 01:52 133/84 (100) 11/30/17 23:22 37.2 99 18 177/100 (125) 94 Room Air 172/95 (120) 11/30/17 16:00 Room Air 11/30/17 15:09 36.8 92 17 150/87 (108) 95 Room Air 11/30/17 11:35 36.9 104 14 148/80 (102) 95 Room Air 11/30/17 09:30 Room Air Physical Exam General Appearance: no apparent distress Eyes: normal inspection ENT: hearing grossly normal Neck: supple, no JVD Respiratory/Chest: no respiratory distress, no accessory muscle use Cardiovascular: no JVD Abdomen: soft, + tenderness Extremities: normal inspection Neurologic/Psychiatric: alert, normal mood/affect, oriented x 3 Skin: normal color Laboratory Results Last 24 Hours Test 11/30/17 12:11 11/30/17 17:04 11/30/17 20:56 12/01/17 07:53 Bedside Glucose 185 mg/dl 166 mg/dl 195 mg/dl White Blood Count 5.09 K/uL Red Blood Count 4.68 M/uL Hemoglobin 14.6 g/dL Hematocrit 42.9 % Mean Corpuscular Volume 91.7 fL Mean Corpuscular Hemoglobin 31.2 pg Mean Corpuscular Hemoglobin Concent 34.0 g/dl Platelet Count 161 K/uL Mean Platelet Volume 9.3 fL Neutrophils (%) (Auto) 61.0 % Lymphocytes (%) (Auto) 24.4 % Monocytes (%) (Auto) 11.2 % Eosinophils (%) (Auto) 2.4 % Basophils (%) (Auto) 0.8 % Neutrophils # (Auto) 3.11 K/uL Lymphocytes # (Auto) 1.24 K/uL Monocytes # (Auto) 0.57 K/uL Eosinophils # (Auto) 0.12 K/uL Basophils # (Auto) 0.04 K/uL RDW Standard Deviation 47.1 fL RDW Coefficient of Variation 14.2 % Immature Granulocyte % (Auto) 0.2 % Immature Granulocyte # (Auto) 0.01 K/uL Sodium Level 135 mmol/L Potassium Level 3.7 mmol/L Chloride Level 100 mmol/L Carbon Dioxide Level 26 mmol/L Anion Gap 9.0 mmol/L Blood Urea Nitrogen 7 mg/dl Creatinine 1.14 mg/dl Est Creatinine Clear Calc Drug Dose 95.4 ml/min Estimated GFR () 87.7 Estimated GFR (Non- 75.6 BUN/Creatinine Ratio 6.3 Random Glucose 136 mg/dl Calcium Level 8.7 mg/dl Test 12/01/17 08:07 Bedside Glucose 136 mg/dl Assessment and Plan 47YO male, POD#2 s/p right HALN. Incisions healing well. Ready for discharge. Follow up in outpatient office as scheduled. Discharge planning: home
[2017-12-01] MEDS: HEPARIN SOD 5000 UNIT/0.5 ML CARP SQ SCH (09:14)
[2017-12-01] MEDS: METFORMIN HCL 500 MG TAB PO SCH (09:30)
[2017-12-01] MEDS: DOCUSATE SODIUM 100 MG CAP PO SCH (09:31)
[2017-12-01] MEDS: LOSARTAN POTASSIUM 50 MG TAB PO SCH (09:32)
[2017-12-01] MEDS: MAGNESIUM OXIDE 400 MG TAB PO SCH (09:34)
[2017-12-01] MEDS: METOPROLOL SUCC 25MG EXT REL TAB PO SCH (09:35)
[2017-12-01 09:42] VITALS: BP 152/84; PULSE 99; TEMP 37.3; O2SAT 96
[2017-12-01 09:45] VITALS: O2SAT 96
[2017-12-02] MEDS ORDERED: ACET300T3 PO (11:44)
== END 2017-12-01 10:51 | disposition home or self-care (01) | DRG 658 ==
LOC: C.ACU 05:29 → C.MSW 07:32 → ENRESERV 10:30
PROVIDERS: ADMIT Urology; ATTEND Urology
PROC: 0TT00ZZ Resection of Right Kidney, Open Approach (ICD-10-PCS; principal; 2017-11-29 07:30)
DX: C64.1 Malignant neoplasm of right kidney, except renal pelvis (principal); Z79.4 Long term (current) use of insulin; Z79.82 Long term (current) use of aspirin; Z79.84 Long term (current) use of oral hypoglycemic drugs; Z79.899 Other long term (current) drug therapy

== ENCOUNTER 2017-12-02 10:24 | Inpatient (IN) | payer OTHER ==
[~2017-12-02] VITALS: Ht 172.7 cm; Wt 103.6 kg
[~2017-12-02 10:24] MED LIST changes: +ACET300T2 PO; -ASPI81TA28 PO; +DOCU-94 PO
[2017-12-02] MEDS ORDERED: SODIUM CHLORIDE 0.9% 500ML 500 ML IV STA (10:45)
[2017-12-02] MEDS ORDERED: SODIUM CHLORIDE 0.9% 1000ML 1,000 ML IV STA (10:45)
--- NOTE | 2017-12-02 10:49 | EMERGENCY ROOM VISIT NOTE ---
History Report prepared by Eric: Lulu Perez Under the Supervision of: Dr. Sharron Chong M.D. First contact with patient: 10:42 Chief Complaint: CONSTIPATION Stated Complaint: S/P KIDNEY REMOVAL,ABD PAIN,CONSTIPATION History of Present Illness The patient is a 47 year old male who presents to the Emergency Room with complaints of constipation beginning 4 days ago. He reports that his stomach is now "full" and states that his last bowel movement was 4 days ago. The patient states that he had a kidney removal done [address] Lam and was released yesterday. He reports having reflux but denies vomiting. The patient states that he is diabetic and that he has not taken his medications for his diabetes secondary to his symptoms. The patient states that he has not checked his blood sugar and states that he has been unable to eat. He states that he has taken Tylenol with codeine. Source of History: patient Onset: 4 days ago Position: abdomen Quality: other (constipation ) Timing: constant Associated Symptoms: No vomiting Review of Systems See HPI for pertinent positives & negatives. A total of 10 systems reviewed and were otherwise negative. Past Medical & Surgical Medical Problems: (1) Anxiety State Nos (2) DM type 2 (diabetes mellitus, type 2) (3) Esophageal Reflux (4) GERD (gastroesophageal reflux disease) (5) HLD (hyperlipidemia) (6) HTN (hypertension) (7) Hypertension (8) Renal neoplasm (9) Subconjunctival hemorrhage of left eye (10) Tobacco Use Disorder Surgical Problems: (1) H/O kidney removal (2) H/O kidney removal (3) S/p nephrectomy Family History Patient reports no known family medical history. Social History Smoking Status: Never Smoker Alcohol Use: occasionally Marital Status: single Housing Status: lives alone Occupation Status: unemployed Current/Historical Medications Scheduled Empagliflozin (Jardiance), 25 MG PO QAM Insulin Glargine (Lantus), 52 UNITS SC HS Losartan Potassium (Cozaar), 50 MG PO NOON Magnesium Oxide (Mag-Ox), 400 MG PO NOON Metformin Hcl (Glucophage), 1,000 MG PO BIDM Metoprolol Succ (Toprol Xl) (Toprol-Xl), 75 MG PO NOON Omeprazole (Prilosec), 20 MG PO NOON Rosuvastatin Calcium (Crestor), 40 MG PO HS Semaglutide (Ozempic), 1 MG INJ WK Scheduled PRN Acetaminophen/Codeine (Tylenol W/Codeine #3), 1 TAB PO Q6 PRN for Pain Allergies Coded Allergies: Iodinated Diagnostic Agents (Verified Allergy, Intermediate, NAUSEA, ) Physical Exam Vital Signs Date Time Temp Pulse Resp B/P (MAP) Pulse Ox O2 Delivery O2 Flow Rate FiO2 12/02/17 14:28 100 20 160/100 96 Room Air 12/02/17 13:18 104 12/02/17 12:11 104 20 149/91 96 Room Air 12/02/17 11:00 107 12/02/17 10:28 37.0 113 18 167/93 94 Room Air Physical Exam Vital signs reviewed. General: Disheveled, obese male, in no significant distress. HEENT: No scleral icterus, PERRLA, neck supple. Atraumatic. Poor dentition. Cardiovascular: Regular rate and rhythm, no extra sounds. Pulmonary: Clear to auscultation bilaterally, normal work of breathing. Abdomen: Soft, nontender, slightly distended, positive bowel sounds. No tympany. Well healing incision to the right mid abdomen. No surrounding erythema or drainage. Musculoskeletal: Atraumatic, no peripheral edema. Neurologic: Patient awake alert and oriented x 3 Skin: Warm, dry, no rash Medical Decision & Procedures ER Provider Diagnostic Interpretation: Radiology results as stated below per my review and radiologist interpretation: KUB CLINICAL HISTORY: contipation, post nephrectomy COMPARISON STUDY: No previous studies for comparison. FINDINGS: Air-filled colon. No significant small bowel distention. No secondary signs of free air or pneumatosis. IMPRESSION: Mild nonobstructive colonic ileus. The above report was generated using voice recognition software. It may contain grammatical, syntax or spelling errors. Electronically signed by: Judd Jackson M.D. 12/02/2017 12:00 PM Dictated Date/Time: 12/02/2017 12:00 PM Laboratory Results Test 12/02/17 11:10 Immature Granulocyte % (Auto) 0.3 % White Blood Count 6.63 K/uL (4.8-10.8) Red Blood Count 5.13 M/uL (4.7-6.1) Hemoglobin 16.0 g/dL (14.0-18.0) Hematocrit 46.6 % (42-52) Mean Corpuscular Volume 90.8 fL (80-100) Mean Corpuscular Hemoglobin 31.2 pg (25-34) Mean Corpuscular Hemoglobin Concent 34.3 g/dl (32-36) Platelet Count 182 K/uL (130-400) Mean Platelet Volume 9.5 fL (7.4-10.4) Neutrophils (%) (Auto) 79.5 % Lymphocytes (%) (Auto) 8.0 % Monocytes (%) (Auto) 11.3 % Eosinophils (%) (Auto) 0.6 % Basophils (%) (Auto) 0.3 % Neutrophils # (Auto) 5.27 K/uL (1.4-6.5) Lymphocytes # (Auto) 0.53 K/uL (1.2-3.4) Monocytes # (Auto) 0.75 K/uL (0.11-0.59) Eosinophils # (Auto) 0.04 K/uL (0-0.5) Basophils # (Auto) 0.02 K/uL (0-0.2) Immature Granulocyte # (Auto) 0.02 K/uL (0.00-0.02) Total Bilirubin 1.0 mg/dl (0.2-1) Direct Bilirubin 0.2 mg/dl (0-0.2) Aspartate Amino Transf (AST/SGOT) 14 U/L (15-37) Alanine Aminotransferase (ALT/SGPT) 25 U/L (12-78) Alkaline Phosphatase 100 U/L (45-117) Total Protein 8.0 gm/dl (6.4-8.2) Albumin 3.3 gm/dl (3.4-5.0) Lipase 67 U/L (73-393) Laboratory results per my review. Medications Administered Medications (Trade) Dose Ordered Sig/Ramses Route Start Time Stop Time Status Last Admin Dose Admin Sodium Chloride 500 ml @ 999 mls/hr Q31M STAT IV 12/02/17 10:45 12/02/17 11:15 DC 12/02/17 11:10 999 MLS/HR Sodium Chloride 1,000 ml @ 125 mls/hr Q8H STAT IV 12/02/17 10:45 12/02/17 16:36 DC 12/02/17 11:10 125 MLS/HR Morphine Sulfate (MoRPHine SULFATE INJ) 4 mg NOW STAT IV 12/02/17 14:11 12/02/17 14:12 DC 12/02/17 14:24 4 MG Ondansetron HCl (Zofran Inj) 4 mg NOW STAT IV 12/02/17 14:11 12/02/17 14:12 DC 12/02/17 14:23 4 MG Lactulose (Chronulac Syrup) 30 gm NOW STAT PO 12/02/17 15:04 12/02/17 15:21 DC 12/02/17 15:51 30 GM ED Course 1044: Past medical records reviewed. The patient was evaluated in room C8. A complete history and physical examination was performed. 1310: I checked on the patient. 1417: Upon reevaluation, the patient is still in pain. I discussed laboratory and radiographic results with him. He verbalized agreement of the treatment plan. The patient will be evaluated for further management and care by Wendy Rivera PA-C. Medical Decision Differential diagnosis: Etiologies such as appendicitis, diverticulitis, PUD, biliary pathology, UTI, pancreatitis, obstruction, mesenteric ischemia, aortic pathology, infections, inflammatory bowel disease, renal colic, as well as others were entertained. This patient was evaluated and appeared to be in no significant distress. Patient was given IV hydration with normal saline solution, IV morphine and Zofran. Abdominal x-ray series reveals evidence of ileus, there is no significant fecal retention appreciated. Laboratory work is fairly unrevealing. The patient was in significant discomfort on my reevaluation. The patient will require IV hydration until symptoms resolve. The hospitalist service was consulted and will evaluate the patient for definitive management. Medication Reconcilliation Current Medication List: was personally reviewed by me Blood Pressure Screening Patient's blood pressure: Elevated blood pressure will be monitored by hospitalist Consults Time Called: 1415 Consulting Physician: Wendy Juarez Returned Call: 1417 I reviewed the patient's case with Wendy Juarez. She will evaluate the patient for further management. Impression Primary Impression: Ileus Scribe Attestation The scribe's documentation has been prepared under my direction and personally reviewed by me in its entirety. I confirm that the note above accurately reflects all work, treatment, procedures, and medical decision making performed by me. Departure Information Dispostion Being Evaluated By Hospitalist Referrals Andreas Orona D.O. (PCP) Patient Instructions [facility]
[2017-12-02 11:26] LABS: BASO % 0.3 %; BASO ABS # 0.02 K/uL (0-0.2); EOS % 0.6 %; EOS ABS # 0.04 K/uL (0-0.5); HEMATOCRIT 46.6 % (42-52); IG# 0.02 K/uL (0.00-0.02); LYMPH ABS # 0.53 K/uL (1.2-3.4); MEAN CELL VOLUME 90.8 fL (80-100); MEAN CORPUSCULAR HEMOGLOBIN 31.2 pg (25-34); MEAN CORPUSCULAR HGB CONC 34.3 g/dl (32-36); MEAN PLATELET VOLUME 9.5 fL (7.4-10.4); MONO % 11.3 %; MONO ABS # 0.75 K/uL (0.11-0.59); NEUT % 79.5 %; NEUT ABS # 5.27 K/uL (1.4-6.5); PLATELET COUNT 182 K/uL (130-400); RED CELL DISTRIBUTION WIDTH CV 13.8 % (11.5-14.5); RED CELL DISTRIBUTION WIDTH SD 45.8 fL (36.4-46.3); WHITE BLOOD COUNT 6.63 K/uL (4.8-10.8)
[2017-12-02] MEDS ORDERED: ACET300T3 PO (11:44)
[2017-12-02 11:48] LABS: ALBUMIN 3.3 gm/dl (3.4-5.0); CALCIUM 8.9 mg/dl (8.5-10.1); CREATININE 1.06 mg/dl (0.60-1.40); POTASSIUM 4.3 mmol/L (3.5-5.1)
--- NOTE | 2017-12-02 12:01 | DIAGNOSTIC IMAGING REPORT ---
KUB CLINICAL HISTORY: contipation, post nephrectomy COMPARISON STUDY: No previous studies for comparison. FINDINGS: Air-filled colon. No significant small bowel distention. No secondary signs of free air or pneumatosis. IMPRESSION: Mild nonobstructive colonic ileus. The above report was generated using voice recognition software. It may contain grammatical, syntax or spelling errors. Electronically signed by: Judd Jackson M.D. 12/02/2017 12:00 PM Dictated Date/Time: 12/02/2017 12:00 PM
[2017-12-02] MEDS ORDERED: MoRPHine SULFATE 4 MG/ML 1 ML CARP\\VIAL IV STA (14:11)
[2017-12-02] MEDS ORDERED: ONDANSETRON INJ 2 MG/ML 2 ML VIAL IV STA (14:11)
[2017-12-02] MEDS ORDERED: LACTULOSE SYRUP 30 GM/45 ML UDP PO STA (15:04)
[2017-12-02] MEDS ORDERED: ONDANSETRON INJ 2 MG/ML 2 ML VIAL IV PRN (15:15)
[2017-12-02] MEDS ORDERED: CARBOHYDRATES FOR HYPOGLYCEMIA PO PRN (15:15)
[2017-12-02] MEDS ORDERED: DEXTROSE 50% 50 ML SYR IV PRN (15:15)
[2017-12-02] MEDS ORDERED: GLUCOSE 10 TABS/TUBE PO PRN (15:15)
[2017-12-02] MEDS ORDERED: GLUCOSE 40% GEL 15 GM TUBE PO PRN (15:15)
[2017-12-02] MEDS ORDERED: GLUCAGON FOR INJ 1 MG VIAL SQ PRN (15:15)
[2017-12-02] MEDS ORDERED: ACETAMINOPHEN 325 MG TAB PO PRN (15:15)
[2017-12-02] MEDS ORDERED: LACTULOSE SYRUP 30 GM/45 ML UDP PO PRN (15:15)
[2017-12-02] MEDS ORDERED: METOPROLOL SUCC 50MG EXT REL TAB PO STA (15:19)
[2017-12-02] MEDS ORDERED: LOSARTAN POTASSIUM 50 MG TAB PO STA (15:19)
[2017-12-02] MEDS ORDERED: PHARMACY GLYCEMIC MGMT CONSULT PRN (15:29)
--- NOTE | 2017-12-02 16:19 | History and Physical ---
History & Physical Date & Time of Service: Dec 02, 2017 at 15:21 Chief Complaint: S/P Kidney Removal,Abd Pain,Constipation Primary Care Physician: Andreas Orona D.O. History of Present Illness Source: patient, clinic records, hospital records Pt is 47 y/o M with PMH DM II, HTN, GERD, HLD, R renal mass s/p R nephrectomy on 11/29/[address] Lam presented to ER with c/o constipation. Patient was discharged yesterday at 12/01/17. Patient states returned home and drank a bottle of 7-Up and started with bloating sensation to abdomen. States throughout the evening abdomen became more uncomfortable and was only able to eat a few bites of watermelon. States took one Tylenol#3 yesterday. Recent inpatient, he also did receive narcotics s/p surgery. Pt reports last BM 4 days ago. Patient states that he has been unable to pass gas, stating "feel gas bubble in my butt, but it will not come out". He did not take any of his home medications as didn't feel he could drink anything. He states since here in the ER noticed once that when he took a deep breath he had a "twinge" to mid chest, denies further discomfort. Denies SOB. Patient states in ER had episode of dysuria, denies hematuria, urinary frequency, urinary urgency, urinary retention. Denies fever/chills, diaphoresis, vomiting, MALAVE, dizziness, syncope, vision changes, neck pain, orthopnea, palpitations, cough, extremity edema, rashes. Past Medical/Surgical History Medical Problems: (1) DM type 2 (diabetes mellitus, type 2) Status: Chronic (2) GERD (gastroesophageal reflux disease) Status: Chronic (3) HLD (hyperlipidemia) Status: Chronic (4) HTN (hypertension) Status: Chronic (5) Hypertension Status: Chronic (6) Renal neoplasm Status: Chronic (7) Subconjunctival hemorrhage of left eye Status: Resolved Surgical Problems: (1) H/O kidney removal Status: Resolved (2) H/O kidney removal Status: Resolved (3) S/p nephrectomy Permanent Comment: L nephrectomy - [facility] Dr Lam 11/29/17. Pathology report: clear cell renal cell carcinoma Status: Resolved Family History Patient reports no known family medical history. Social History Smoking Status: Former Smoker Smokeless Tobacco Use: No Alcohol Use: occasionally Drug Use: none Marital Status: single Occupational Status: unemployed Allergies Coded Allergies: Iodinated Diagnostic Agents (Verified Allergy, Intermediate, NAUSEA, ) Home Medications Scheduled Empagliflozin (Jardiance), 25 MG PO QAM Insulin Glargine (Lantus), 52 UNITS SC HS Losartan Potassium (Cozaar), 50 MG PO NOON Magnesium Oxide (Mag-Ox), 400 MG PO NOON Metformin Hcl (Glucophage), 1,000 MG PO BIDM Metoprolol Succ (Toprol Xl) (Toprol-Xl), 75 MG PO NOON Omeprazole (Prilosec), 20 MG PO NOON Rosuvastatin Calcium (Crestor), 40 MG PO HS Semaglutide (Ozempic), 1 MG INJ WK Scheduled PRN Acetaminophen/Codeine (Tylenol W/Codeine #3), 1 TAB PO Q6 PRN for Pain Review of Systems See HPI for pertinent positives & negatives. All other systems reviewed and were otherwise negative Physical Exam Vital Signs Date Time Temp Pulse Resp B/P (MAP) Pulse Ox O2 Delivery O2 Flow Rate FiO2 12/02/17 14:28 100 20 160/100 96 Room Air 12/02/17 13:18 104 12/02/17 12:11 104 20 149/91 96 Room Air 12/02/17 11:00 107 12/02/17 10:28 37.0 113 18 167/93 94 Room Air General Appearance: + pertinent finding (overweight, no apparent distress) Head: normocephalic, atraumatic Eyes: normal inspection, sclerae normal ENT: hearing grossly normal, pharynx normal, + pertinent finding (mucous membranes moist) Neck: supple, trachea midline Respiratory/Chest: lungs clear, normal breath sounds, no respiratory distress Cardiovascular: no murmur, + tachycardia (102, regular rhythm) Abdomen/GI: soft, + pertinent finding (hypoactive BS throughout, +diffuse tenderness to palpation, worse right side over incision site, incision site without discharge) Extremities/Musculoskelatal: no calf tenderness, normal capillary refill, no pedal edema, normal range of motion Neurologic/Psych: alert, normal mood/affect, oriented x 3 Skin: warm/dry Diagnostics Laboratory Results Results Past 24 Hours Test 12/02/17 11:10 12/02/17 14:53 12/02/17 15:15 Range/Units White Blood Count 6.63 4.8-10.8 K/uL Red Blood Count 5.13 4.7-6.1 M/uL Hemoglobin 16.0 14.0-18.0 g/dL Hematocrit 46.6 42-52 % Mean Corpuscular Volume 90.8 80-100 fL Mean Corpuscular Hemoglobin 31.2 25-34 pg Mean Corpuscular Hemoglobin Concent 34.3 32-36 g/dl Platelet Count 182 130-400 K/uL Mean Platelet Volume 9.5 7.4-10.4 fL Neutrophils (%) (Auto) 79.5 % Lymphocytes (%) (Auto) 8.0 % Monocytes (%) (Auto) 11.3 % Eosinophils (%) (Auto) 0.6 % Basophils (%) (Auto) 0.3 % Neutrophils # (Auto) 5.27 1.4-6.5 K/uL Lymphocytes # (Auto) 0.53 1.2-3.4 K/uL Monocytes # (Auto) 0.75 0.11-0.59 K/uL Eosinophils # (Auto) 0.04 0-0.5 K/uL Basophils # (Auto) 0.02 0-0.2 K/uL RDW Standard Deviation 45.8 36.4-46.3 fL RDW Coefficient of Variation 13.8 11.5-14.5 % Immature Granulocyte % (Auto) 0.3 % Immature Granulocyte # (Auto) 0.02 0.00-0.02 K/uL Sodium Level 130 136-145 mmol/L Potassium Level 4.3 3.5-5.1 mmol/L Chloride Level 98 98-107 mmol/L Carbon Dioxide Level 17 21-32 mmol/L Anion Gap 15.0 3-11 mmol/L Blood Urea Nitrogen 11 7-18 mg/dl Creatinine 1.06 0.60-1.40 mg/dl Est Creatinine Clear Calc Drug Dose 99.7 ml/min Estimated GFR () 95.7 Estimated GFR (Non- 82.6 BUN/Creatinine Ratio 10.0 10-20 Random Glucose 168 70-99 mg/dl Calcium Level 8.9 8.5-10.1 mg/dl Total Bilirubin 1.0 0.2-1 mg/dl Direct Bilirubin 0.2 0-0.2 mg/dl Aspartate Amino Transf (AST/SGOT) 14 15-37 U/L Alanine Aminotransferase (ALT/SGPT) 25 12-78 U/L Alkaline Phosphatase 100 45-117 U/L Total Protein 8.0 6.4-8.2 gm/dl Albumin 3.3 3.4-5.0 gm/dl Lipase 67 73-393 U/L Diagnostic Radiology KUB: IMPRESSION: Mild nonobstructive colonic ileus. Impression Assessment and Plan Pt is 47 y/o M with PMH DM II, HTN, GERD, HLD, R renal mass s/p R nephrectomy on 11/29/[address] Lam presented to ER with c/o constipation. POST-OP ILEUS ABDOMINAL DISCOMFORT Pt with no BM reported for 4 days and not having flatus. Increased bloating and abdominal discomfort today. No vomiting In ER afebrile, No leukocytosis, KUB: nonobstructive colonic ileus. Given total 1500ml NSS, zofran, 4mg morphine IV. -normal lactic acid -IVF -npo except for sips and ice chips for now -lactulose prn constipation -ambulate -incentive spirometry -try to avoid narcotic pain meds if able secondary to ileus, try to avoid NSAIDs post op and now solitary kidney, will try IV Tylenol -if no improvement consider surgery consult -KUB in am -cbc, prp, magnesium lab in AM S/P RIGHT NEPHRECTOMY FOR RIGHT RENAL MASS, POD#[address] Lam pathology report: clear cell renal cell carcinoma Pt reported some dysuria today. Cr: 1.06 and stable -pending UA -urology consult TACHYCARDIA PLEURITIC CHEST PAIN P:113 down to 100 after IVF. O2 sats: 94-96% on RA. No respiratory distress tachycardia may be secondary to dehydration and missed metoprolol dose -monitor -VQ scan to R/O PE, trying to avoid IV contrast with pt's solitary kidney -IVF METABOLIC ACIDOSIS compensated ABG: pH: 7.35, CO2: 33, O2: 81, HCO3: 18. normal lactic acid. Gluc: 168 -repeat prp at 1700 HYPONATREMIA Na: 131 corrected for glucose: 168 -IVF -monitor prp HTN 149/91, 160/100 in ER. Pt has not taken his BP meds -will give dose of home meds now -continue metoprolol, losartan DM II A1c: 8.3 on 10/2017. Gluc: 168 -hold metformin, jardiance, ozempic -basal bolus insulin per protocol, appreciate glycemic pharmacist management GERD -continue PPI HLD -continue crestor DVT Prophylaxis -heparin SQ Admit tele Full code Follows with Dr Orona for routine care Pt was seen with Dr Arreaga. See addendum ATTENDING ADDENDUM care coordinated with YANETH Bowser. please refer to her notes for full details, I agree with her notes patient seen and examined, records reviewed by myself as well on exam, patient seen resting in bed, comfortable states he still has intermittent abdominal cramps, but no nausea/vomiting (+) flatus no chest pain, dyspnea, palpitations no other symptoms VS noted and reviewed oriented x 3, not in distress, speaks in sentences with no effort nor accessory muscle use normal rate, regular rhythm, no murmurs clear breath sounds bilaterally non distended, soft, nontender, surgical scars healing well no bipedal edema, erythema, warmth no neuro deficits HCO3 16 AG [address] abdomen Ileus ASSESSMENT/PLAN> POST OPERATIVE ILEUS NPO, IV fluids monitor electrolytes Lactulose, and Tap water enema ACIDOSIS, LIKELY STARVATION KETOACIDOSIS HCO3 drip 500cc repeat Labs at 1am Nephro consulted, appreciate the recommendations other diagnoses and plan of care as per YANETH Bowser notes Dario Arreaga MD Resuscitation Status VTE Prophylaxis Will order VTE Prophylaxis: Yes Additional Copies To Andreas Orona D.O.
[2017-12-02 16:27] VITALS: BP 179/92; PULSE 108; TEMP 36.9; O2SAT 97; Ht 172.7 cm; Wt 103.6 kg
[2017-12-02] MEDS ORDERED: IV FLUIDS COMPLETED PRN (16:30)
[2017-12-02] MEDS ORDERED: SODIUM CHLORIDE 0.9% 1000ML 1,000 ML IV SCH (16:45)
[2017-12-02] MEDS ORDERED: INSULIN GLARGINE SOLOSTAR 100 UNITS/ML 3 ML PEN SC STA (16:56)
[2017-12-02 17:44] LABS: CALCIUM 8.6 mg/dl (8.5-10.1); CREATININE 1.01 mg/dl (0.60-1.40); POTASSIUM 4.2 mmol/L (3.5-5.1)
--- NOTE | 2017-12-02 18:01 | DIAGNOSTIC IMAGING REPORT ---
CT OF THE ABDOMEN AND PELVIS WITHOUT CONTRAST CLINICAL HISTORY: Abdominal pain. Ileus. Constipation. Status post right nephrectomy November 29, 2017. COMPARISON STUDY: CT of the abdomen and pelvis October 27, 2017 and [facility] December 02, 2017. TECHNIQUE: Axial images of the abdomen and pelvis were obtained without IV contrast. Images were reviewed in the axial, sagittal, and coronal planes. A dose lowering technique was utilized adhering to the principles of ALARA. FINDINGS: A calcified granuloma within the left lower lobe is noted. Evaluation of the abdomen and pelvis is suboptimal as unenhanced exam. Fatty infiltration of the liver is noted. The spleen, adrenal glands and pancreas are normal. There is no biliary or pancreatic ductal dilatation. A small pocket of low-attenuation fluid within the right nephrectomy bed measures 5.3 x 3.6 cm. Trace blood products are noted within the dependent aspect of this collection. These findings are not unexpected in the early postoperative setting. There is minimal infiltration and small amount of gas within the operative bed. There is no evidence for a bowel obstruction. Moderate colonic distention is noted. A small amount of stool is noted within the rectum and a sending colon. Trace gas within the bladder is present. There is no lymphadenopathy. There are no suspicious osseous lesions. The proximal appendix is mildly distended but is fluid-filled. There is no evidence for acute appendicitis. IMPRESSION: 1. Small amount of low-attenuation fluid which contains trace blood products within the right nephrectomy bed. Small amount of operative bed gas and infiltration. These findings are not unexpected in the early postoperative setting. 2. Moderate distention of the colon with a small to moderate amount of stool within the colon and rectum. The findings favor an ileus. No evidence for a bowel obstruction. 3. Trace gas within the bladder which is likely related to recent augmentation. Mild distention of the bladder. 4. Mildly dilated appendix. However, appendix gas-filled. No evidence for acute appendicitis. Electronically signed by: Herbert Rae M.D. 12/02/2017 6:00 PM Dictated Date/Time: 12/02/2017 5:47 PM
--- NOTE | 2017-12-02 19:03 | DIAGNOSTIC IMAGING REPORT ---
NUCLEAR MEDICINE VENTILATION/PERFUSION SCAN CLINICAL HISTORY: Status post nephrectomy. Abdominal pain. COMPARISON: Chest CT October 27, 2017. TECHNIQUE: For the ventilation portion of this exam, 30 2. mCi of DTPA was inhaled at 6:00 PM on December 02, 2017. Immediately following inhalation, imaging of the chest was carried out in the anterior, posterior, left lateral, right lateral, LPO, RPO, HEBREW and COSTELLO projections. For the perfusion portion of exam, 5.5 mCi of technetium 99m MAA was injected IV at 6:25 PM on December 02, 2017. Immediately following injection, imaging of the chest was carried out in the same projections. FINDINGS: Expected radiotracer deposition is noted on the ventilation and perfusion portions of this examination. There are no mismatched defects on this exam. This study is considered very low probability for pulmonary embolus. IMPRESSION: Very low probability for pulmonary embolus. Electronically signed by: Herbert Rae M.D. 12/02/2017 7:02 PM Dictated Date/Time: 12/02/2017 7:00 PM
[2017-12-02] MEDS: INSULIN ASPART 100 UNITS/ML 3 ML PEN SC SCH (19:05)
[2017-12-02 19:30] VITALS: BP 136/90; PULSE 107; TEMP 37; O2SAT 95
[2017-12-02] MEDS ORDERED: TAP WATER ENEMA PR ONE (19:45)
[2017-12-02] MEDS ORDERED: PANTOprazole INJ 40 MG in SYRINGE 0 ML IV ONE (19:45)
[2017-12-02] MEDS ORDERED: SODIUM BICARBONATE 8.4% INJ 150 MEQ in DEXTROSE 5% 1000ML 1,000 ML IV SCH (20:00)
--- NOTE | 2017-12-02 20:23 | Nephrology Consultation ---
Nephrology Consultation Date of Consultation: Dec 02, 2017. Requesting Physician: Gibson Bishop MD Reason for Consultation: Metabolic acidosis History of Present Illness Patient is a 47 year old male with history of type 2 diabetes, hypertension and renal cell mass status post right nephrectomy performed on 29 November who was admitted with constipation. Patient has not been eating well since the operation. Is a diabetic but his sugars fairly well controlled. He is being treated for ileus and currently receiving IV normal saline. Patient otherwise feels well denies any shortness of breath. We have been asked to evaluate him for etiology and management of his metabolic acidosis. Past Medical/Surgical History Medical Problems: (1) Ileus Status: Acute (2) Subconjunctival hemorrhage of left eye Status: Acute Family History Patient reports no known family medical history. Social History Smoking Status: Former Smoker Alcohol Use: occasionally Drug Use: none Marital Status: single Housing Status: lives alone Occupation Status: unemployed Allergies Coded Allergies: Iodinated Diagnostic Agents (Verified Allergy, Intermediate, NAUSEA, ) Medications Current Inpatient Medications Medications (Trade) Dose Ordered Sig/Ramses Route Start Time Stop Time Status Last Admin Dose Admin Acetaminophen (Tylenol Tab) 650 mg Q4H PRN PO 12/02/17 15:15 01/01/18 15:14 Ondansetron HCl (Zofran Inj) 4 mg Q6H PRN IV 12/02/17 15:15 01/01/18 15:14 Sodium Chloride 1,000 ml @ 125 mls/hr Q8H IV 12/02/17 16:45 01/01/18 16:44 12/02/17 17:11 125 MLS/HR Lactulose (Chronulac Syrup) 30 gm TID PRN PO 12/02/17 15:15 01/01/18 15:14 Heparin Sodium (Porcine) (Heparin Sq 5000 Unit/0.5ml) 5,000 unit Q8 SQ 12/02/17 22:00 01/01/18 21:59 Insulin Aspart (novoLOG ASPART) SLIDING SCALE If C... Q6 SC 12/02/17 18:00 01/01/18 17:59 12/02/17 19:05 1 UNITS Glucose (Glucose 40% Gel) 15-30 GRAMS 15 GRAMS... UD PRN PO 12/02/17 15:15 01/01/18 15:14 Glucose (Glucose Chew Tab) 4-8 Tablets 4 Tabl... UD PRN PO 12/02/17 15:15 01/01/18 15:14 Dextrose (Dextrose 50% 50ML Syringe) 25-50ML 25ML FOR ... UD PRN IV 12/02/17 15:15 01/01/18 15:14 Glucagon (Glucagon Inj) 1 mg UD PRN SQ 12/02/17 15:15 01/01/18 15:14 Carbohydrates (Carbohydrates For Hypoglycemia) 15-30 GRAMS 15 grams if BSG 54-69... UD PRN PO 12/02/17 15:15 01/01/18 15:14 Miscellaneous Information (Consult Glycemic Management Pharmacy) 1 ea UD PRN N/A 12/02/17 15:29 01/01/18 15:28 Losartan Potassium (coZAAR TAB) 50 mg DAILY PO 12/03/17 09:00 01/02/18 08:59 Magnesium Oxide (Mag-Ox Tab) 400 mg DAILY PO 12/03/17 09:00 01/02/18 08:59 Metoprolol Succinate (Toprol Xl Tab) 75 mg DAILY PO 12/03/17 09:00 01/02/18 08:59 Rosuvastatin Calcium (Crestor Tab) 40 mg HS PO 12/02/17 21:00 01/01/18 20:59 Pantoprazole Sodium (Protonix Tab) 40 mg DAILY PO 12/03/17 09:00 01/02/18 08:59 Acetaminophen 650 mg/Empty Bag 65 ml @ 260 mls/hr Q6H PRN IV 12/02/17 16:15 01/01/18 16:14 Miscellaneous (Iv Fluids Completed) 1 ea PRN PRN N/A 12/02/17 16:30 12/02/18 16:29 Insulin Glargine (Lantus Solostar Pen) PLEASE SEE PROTOCOL TE... HS ONCE SC 12/02/17 21:00 12/02/17 21:01 Sodium Bicarbonate 150 meq/Dextrose 1,150 ml @ 100 mls/hr [id number] IV 12/02/17 20:00 12/03/17 07:29 Home Meds and Scripts Medications Dose Route/Sig Max Daily Dose Days Date Category Dose Instructions Tylenol W/Codeine #3 (Acetaminophen/Codeine Phosphate) 300 Mg/30 Mg Tab 1 Tab PO Q6 PRN 12/02/17 Reported Cozaar (Losartan Potassium) 50 Mg Tab 50 Mg PO NOON 11/10/17 Reported Ozempic (Semaglutide) 2 Mg/1.5 Ml Inj 1 Mg INJ WK 11/10/17 Reported AM Toprol-Xl (Metoprolol Succinate) 50 Mg Tabcr 75 Mg PO NOON 11/17/16 Reported Crestor (Rosuvastatin Calcium) 40 Mg Tab 40 Mg PO HS 11/17/16 Reported Prilosec (Omeprazole) 20 Mg Capcr 20 Mg PO NOON 11/17/16 Reported Glucophage (Metformin Hcl) 1,000 Mg Tab 1,000 Mg PO BIDM 11/17/16 Reported Mag-Ox (Magnesium Oxide) 400 Mg Tab 400 Mg PO NOON 11/17/16 Reported Jardiance (Empagliflozin) 25 Mg Tab 25 Mg PO QAM 11/17/16 Reported Lantus (Insulin Glargine) 100 Unit/Ml Inj 52 Units SC HS 11/17/16 Reported Review of Systems Constitutional: No fever, No chills Eyes: No problem reported ENT: No hearing loss, No unusual epistaxis Respiratory: No cough, No shortness of breath Cardiac: No chest pain, No orthopnea Abdomen: + constipation, No pain Musculoskeletal: No joint pain Male : No dysuria, No urinary frequency Neuro: No memory loss Psych: No depression symptoms Heme: No abnormal bleeding/bruising Endo: No fatigue Skin: No rash Physical Exam Date Time Temp Pulse Resp B/P (MAP) Pulse Ox O2 Delivery O2 Flow Rate FiO2 12/02/17 19:30 37.0 107 24 136/90 (105) 95 Room Air 12/02/17 16:27 36.9 108 16 179/92 97 Room Air 12/02/17 15:59 93 20 155/95 97 12/02/17 14:28 100 20 160/100 96 Room Air 12/02/17 13:18 104 12/02/17 12:11 104 20 149/91 96 Room Air 12/02/17 11:00 107 12/02/17 10:28 37.0 113 18 167/93 94 Room Air General Appearance: no apparent distress Eyes: normal inspection, PERRL ENT: hearing grossly normal, TMs normal Neck: no adenopathy, no JVD Respiratory/Chest: lungs clear, normal breath sounds Cardiovascular: regular rate, rhythm, no edema, no gallop Abdomen: normal bowel sounds, non tender, soft, no organomegaly (Fresh surgical incision on the right lower quadrant) Extremities: normal range of motion, no pedal edema Neurologic/Psych: 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 as tested, alert, normal mood/affect, oriented x 3 Skin: no rash Diagnostics Last 24 Hours Test 12/02/17 11:10 12/02/17 15:15 12/02/17 15:25 12/02/17 16:36 White Blood Count 6.63 K/uL Red Blood Count 5.13 M/uL Hemoglobin 16.0 g/dL Hematocrit 46.6 % Mean Corpuscular Volume 90.8 fL Mean Corpuscular Hemoglobin 31.2 pg Mean Corpuscular Hemoglobin Concent 34.3 g/dl Platelet Count 182 K/uL Mean Platelet Volume 9.5 fL Neutrophils (%) (Auto) 79.5 % Lymphocytes (%) (Auto) 8.0 % Monocytes (%) (Auto) 11.3 % Eosinophils (%) (Auto) 0.6 % Basophils (%) (Auto) 0.3 % Neutrophils # (Auto) 5.27 K/uL Lymphocytes # (Auto) 0.53 K/uL Monocytes # (Auto) 0.75 K/uL Eosinophils # (Auto) 0.04 K/uL Basophils # (Auto) 0.02 K/uL RDW Standard Deviation 45.8 fL RDW Coefficient of Variation 13.8 % Immature Granulocyte % (Auto) 0.3 % Immature Granulocyte # (Auto) 0.02 K/uL Sodium Level 130 mmol/L Potassium Level 4.3 mmol/L Chloride Level 98 mmol/L Carbon Dioxide Level 17 mmol/L Anion Gap 15.0 mmol/L Blood Urea Nitrogen 11 mg/dl Creatinine 1.06 mg/dl Est Creatinine Clear Calc Drug Dose 99.7 ml/min Estimated GFR () 95.7 Estimated GFR (Non- 82.6 BUN/Creatinine Ratio 10.0 Random Glucose 168 mg/dl Calcium Level 8.9 mg/dl Magnesium Level 2.2 mg/dl Total Bilirubin 1.0 mg/dl Direct Bilirubin 0.2 mg/dl Aspartate Amino Transf (AST/SGOT) 14 U/L Alanine Aminotransferase (ALT/SGPT) 25 U/L Alkaline Phosphatase 100 U/L Total Protein 8.0 gm/dl Albumin 3.3 gm/dl Lipase 67 U/L Lactic Acid Level 1.0 mmol/L Arterial Blood pH 7.35 Arterial Blood Partial Pressure CO2 33 mmHg Arterial Blood Partial Pressure O2 81 mm/Hg Arterial Blood HCO3 18 mmol/L Arterial Blood Oxygen Saturation 96.0 % Arterial Blood Base Excess -6.8 mEq/L Arterial Blood Gas Delivery ROOM AIR Jagjit Test POS Bedside Glucose 133 mg/dl Test 12/02/17 17:18 12/02/17 19:01 Sodium Level 133 mmol/L Potassium Level 4.2 mmol/L Chloride Level 103 mmol/L Carbon Dioxide Level 16 mmol/L Anion Gap 14.0 mmol/L Blood Urea Nitrogen 11 mg/dl Creatinine 1.01 mg/dl Est Creatinine Clear Calc Drug Dose 104.6 ml/min Estimated GFR () 101.5 Estimated GFR (Non- 87.5 BUN/Creatinine Ratio 11.0 Random Glucose 143 mg/dl Calcium Level 8.6 mg/dl Beta-Hydroxybutyric Acid 45.55 mg/dL Bedside Glucose 165 mg/dl Assessment & Plan This is a 47-year-old male with type 2 diabetes, renal cell mass status post right nephrectomy 3 days ago was admitted with constipation now being evaluated for metabolic acidosis. 1. Metabolic acidosis: Etiology is likely in setting of ketoacidosis given patient has been not eating well for the past few days. It appears he has also not been getting his insulin regularly and this has driven ketosis. Is requiring some minimal maintenance fluids. Recommend stopping normal saline. Start isotonic bicarbonate infusion at 75 mL/h for 750 mL total. Check his BMP midway through the infusion to ensure patient does not get hypokalemia. He is likely to improve as the ketones are metabolized. 2.Hypertension: Partly due to pain. Monitor and resume his home medications when able to take p.o. Thank you for the contents of the consultation
[2017-12-02] MEDS ORDERED: NURSING VERBAL MED ORDER ONE ×2 (20:30→23:45)
[2017-12-02] MEDS: HEPARIN SOD 5000 UNIT/0.5 ML CARP SQ SCH (20:38)
[2017-12-02] MEDS ORDERED: ROSUVASTATIN CALCIUM 20 MG TAB PO SCH (21:00)
[2017-12-02] MEDS ORDERED: INSULIN GLARGINE SOLOSTAR 100 UNITS/ML 3 ML PEN SC ONE (21:00)
--- NOTE | 2017-12-02 22:48 | Pharmacy Progress Note ---
Glycemic Control Intl Consult Date of Service Dec 02, 2017. Scope Glycemic Pharmacist consulted by Buck on 12/02/17 for glycemic control and to write orders per [facility] inpatient glycemic control protocol Objective Weight (Kilograms): 104.200 Accuchecks BSG (last 24hrs): Test 12/02/17 11:10 12/02/17 16:36 12/02/17 17:18 12/02/17 19:01 Random Glucose 168 mg/dl (70-99) 143 mg/dl (70-99) Bedside Glucose 133 mg/dl (70-99) 165 mg/dl (70-99) Test 12/02/17 20:35 Bedside Glucose 178 mg/dl (70-99) Laboratory Data (last 24hrs) Test 12/02/17 11:10 12/02/17 17:18 Anion Gap 15.0 mmol/L 14.0 mmol/L BUN/Creatinine Ratio 10.0 11.0 Blood Urea Nitrogen 11 mg/dl 11 mg/dl Creatinine 1.06 mg/dl 1.01 mg/dl Potassium Level 4.3 mmol/L 4.2 mmol/L Sodium Level 130 mmol/L 133 mmol/L White Blood Count 6.63 K/uL Red Blood Count 5.13 M/uL Hemoglobin 16.0 g/dL Hematocrit 46.6 % Mean Corpuscular Volume 90.8 fL Mean Corpuscular Hemoglobin 31.2 pg Mean Corpuscular Hemoglobin Concent 34.3 g/dl Platelet Count 182 K/uL Mean Platelet Volume 9.5 fL Neutrophils (%) (Auto) 79.5 % Lymphocytes (%) (Auto) 8.0 % Monocytes (%) (Auto) 11.3 % Eosinophils (%) (Auto) 0.6 % Basophils (%) (Auto) 0.3 % Neutrophils # (Auto) 5.27 K/uL Lymphocytes # (Auto) 0.53 K/uL Monocytes # (Auto) 0.75 K/uL Eosinophils # (Auto) 0.04 K/uL Basophils # (Auto) 0.02 K/uL Recent Pertinent Medications Outpatient Anti-diabetic Regimen: * Lantus 52units HS, Metformin 1g BIDM, Jardiance 25mg QAM * A1c = 8.3 % 11/17/17 Risk Factors for Insulin Resistance: * Recent Surgery: S/p nephrectomy last week Assessment & Plan ASSESSMENT: * Mr. Campos is a 47yo M known to the pharmacy glycemic service from his admission earlier this week. He p/w BSG of 168, AG=15 CO2=17, and a serum osmolarity WNL. Ketosis likely due to poor PO intake 2/2 post-op ileus. A1C 8.3 % indicative of poor outpt glycemic management. Given his NPO status will ere on the side of conservatism with his home lantus dose. He is receiving a bicarb gtt, mixed in D5. Minimal other risk factors for insulin resistance at this point in time. PLAN FOR INPATIENT GLYCEMIC CONTROL: * Holding outpatient oral diabetes medications * Basal insulin with LANTUS 35 units this afternoon then lantus scale was set for tonight: he was given a total of 40 units of metabolic coverage, 77% of his home dose. No further lantus ordered at this juncture. * Correctional Insulin with NOVOLOG per scale Q6hrs while NPO * Goal Range: Low 110 mg/dL - High 140 mg/dL * Correction Factor: 25 mg/dL/unit * Nutritional / Prandial insulin per carb ratio of 1 unit per 8 grams CHO consumed * Adding 0400 check to ensure euglycemia * Please note that the plan above was derived based on current level of insulin resistance and hospital stress. These recommendations are appropriate for inpatient admission only. Plan of care upon discharge will need to be reassessed to avoid potential outpatient hypo/hyperglycemia. Thank you.
[2017-12-02 23:37] VITALS: BP 159/98; PULSE 104; TEMP 36.7; O2SAT 97
[2017-12-03] VITALS (8 sets, daily range): BP systolic 144–174; BP diastolic 86–101; PULSE 78–99; TEMP 36.6–37; O2SAT 95–98
[2017-12-03] MEDS ORDERED: SODIUM CHLORIDE 0.9% 1000ML 1,000 ML IV SCH (00:45)
[2017-12-03 01:27] LABS: CALCIUM 8.2 mg/dl (8.5-10.1); CREATININE 1.12 mg/dl (0.60-1.40); POTASSIUM 3.9 mmol/L (3.5-5.1)
[2017-12-03] MEDS ORDERED: INSULIN ASPART 100 UNITS/ML 3 ML PEN SC ONE (04:00)
[2017-12-03] MEDS: INSULIN ASPART 100 UNITS/ML 3 ML PEN SC SCH ×3 (05:56→18:10)
[2017-12-03] MEDS: HEPARIN SOD 5000 UNIT/0.5 ML CARP SQ SCH ×3 (05:58→21:14)
[2017-12-03 07:34] LABS: HEMATOCRIT 41.7 % (42-52); HEMOGLOBIN 14.3 g/dL (14.0-18.0); MEAN CELL VOLUME 90.7 fL (80-100); MEAN CORPUSCULAR HEMOGLOBIN 31.1 pg (25-34); MEAN CORPUSCULAR HGB CONC 34.3 g/dl (32-36); MEAN PLATELET VOLUME 9.2 fL (7.4-10.4); PLATELET COUNT 204 K/uL (130-400); RED CELL DISTRIBUTION WIDTH CV 14.1 % (11.5-14.5); RED CELL DISTRIBUTION WIDTH SD 46.6 fL (36.4-46.3); WHITE BLOOD COUNT 5.52 K/uL (4.8-10.8)
[2017-12-03 08:01] LABS: CALCIUM 8.6 mg/dl (8.5-10.1); CREATININE 1.06 mg/dl (0.60-1.40); POTASSIUM 3.9 mmol/L (3.5-5.1)
[2017-12-03] MEDS: MAGNESIUM OXIDE 400 MG TAB PO SCH (08:46)
[2017-12-03] MEDS: LOSARTAN POTASSIUM 50 MG TAB PO SCH (08:47)
[2017-12-03] MEDS: METOPROLOL SUCC 50MG EXT REL TAB PO SCH (08:47)
[2017-12-03] MEDS ORDERED: PANTOprazole SOD 40 MG TAB PO SCH (09:00)
[2017-12-03] MEDS ORDERED: INSULIN GLARGINE SOLOSTAR 100 UNITS/ML 3 ML PEN SC SCH (09:00)
--- NOTE | 2017-12-03 09:20 | DIAGNOSTIC IMAGING REPORT ---
[facility] CLINICAL HISTORY: Ileus. FINDINGS: 2 AP, portable, supine abdominal radiographs are compared to [facility] and abdominal CT dated 12/02/2017. There is no radiographic evidence of bowel obstruction. There is persistent gaseous distention of the colon, modestly improved from yesterday. There is diminished fecal burden in the right colon from yesterday. No evidence of intraperitoneal free air is seen on these supine images. There are no abnormal abdominal calcifications. Suture material is noted in the right upper quadrant. The bony structures are grossly intact. IMPRESSION: 1. Nonobstructed abdominal bowel gas pattern. 2. There is persistent gaseous distention of the colon, which has modestly improved from yesterday. 3. Fecal burden the right colon has decreased from yesterday. Electronically signed by: Israel Kumar M.D. 12/03/2017 9:19 AM Dictated Date/Time: 12/03/2017 9:17 AM
--- NOTE | 2017-12-03 09:48 | Pharmacy Progress Note ---
Pharmacy Glycemic Short Note 2 Date of Service Dec 03, 2017. OUTPATIENT ANTIDIABETIC REGIMEN: * Lantus 52units HS, Metformin 1g BIDM, Jardiance 25mg QAM * A1c = 8.3 % 11/17/17 Test 12/02/17 11:10 12/02/17 16:36 12/02/17 17:18 12/02/17 19:01 Random Glucose 168 mg/dl (70-99) 143 mg/dl (70-99) Bedside Glucose 133 mg/dl (70-99) 165 mg/dl (70-99) Test 12/02/17 20:35 12/02/17 23:57 12/03/17 00:58 12/03/17 03:37 Bedside Glucose 178 mg/dl (70-99) 200 mg/dl (70-99) 136 mg/dl (70-99) Random Glucose 162 mg/dl (70-99) Test 12/03/17 05:55 12/03/17 07:16 Bedside Glucose 131 mg/dl (70-99) Random Glucose 133 mg/dl (70-99) ASSESSMENT: 12/03/17 * Mr. Campos received 44 units of insulin yesterday with BSGs reasonably well controlled * He remains NPO * Will continue with similar reduced outpatient dose of basal but split evenly into BID dosing in case further adjustments need made * No changes to Novolog parameters 12/02/17 * Mr. Campos is a 47yo M known to the pharmacy glycemic service from his admission earlier this week. He p/w BSG of 168, AG=15 CO2=17, and a serum osmolarity WNL. Ketosis likely due to poor PO intake 2/2 post-op ileus. A1C 8.3 % indicative of poor outpt glycemic management. Given his NPO status will ere on the side of conservatism with his home lantus dose. He is receiving a bicarb gtt, mixed in D5. Minimal other risk factors for insulin resistance at this point in time. PLAN FOR INPATIENT GLYCEMIC CONTROL: * Continue to hold outpatient oral diabetes medications * Basal insulin - reduce slightly and split BID * Lantus 18 units SQ BID * Bolus insulin - no change * NovoLog per scale ACHS or Q6hrs while NPO * Goal Range: Low 110 mg/dL - High 140 mg/dL * Correction Factor: 25 mg/dL/unit * Nutritional / Prandial insulin per carb ratio of 1 unit per 8 grams CHO consumed PLAN FOR DISCHARGE: * A1c slightly above goal for age * Patient may need bolus insulin with meals if he is already compliant with current medications. Can consider recommending this for PCP to initiate.
--- NOTE | 2017-12-03 10:46 | Nephrology Progress Note ---
Nephrology Progress Note Date of Service: Dec 03, 2017. Subjective Patient feels better, denies any shortness of breath. He does have some angelique- incisional pain in the abdomen Objective Date Time Temp Pulse Resp B/P (MAP) Pulse Ox O2 Delivery O2 Flow Rate FiO2 12/03/17 07:37 36.9 94 18 155/97 (116) 95 Room Air 12/03/17 03:12 36.6 99 18 149/88 (108) 98 Room Air 12/03/17 00:00 Room Air 12/02/17 23:37 36.7 104 19 159/98 (118) 97 Room Air 12/02/17 20:00 Room Air 12/02/17 19:30 37.0 107 24 136/90 (105) 95 Room Air 12/02/17 16:27 36.9 108 16 179/92 97 Room Air 12/02/17 15:59 93 20 155/95 97 12/02/17 14:28 100 20 160/100 96 Room Air 12/02/17 13:18 104 12/02/17 12:11 104 20 149/91 96 Room Air 12/02/17 11:00 107 Physical Exam: Merbith-[id number]-[id number], no acute distress Eyes-pupils equal and reactive to light ENT-normal on inspection Neck-supple, no JVD Lungs-clear to auscultation bilaterally Heart-normal heart sounds S1 and S2, no murmurs Abdomen-soft, right incision in the lower quadrant, bowel sounds present Extremities-no edema peripheral pulses are present Neuro-oriented 3, no focal neurological deficits Current Inpatient Medications Medications (Trade) Dose Ordered Sig/Ramses Route Start Time Stop Time Status Last Admin Dose Admin Acetaminophen (Tylenol Tab) 650 mg Q4H PRN PO 12/02/17 15:15 01/01/18 15:14 Ondansetron HCl (Zofran Inj) 4 mg Q6H PRN IV 12/02/17 15:15 01/01/18 15:14 Lactulose (Chronulac Syrup) 30 gm TID PRN PO 12/02/17 15:15 01/01/18 15:14 12/03/17 08:46 30 GM Heparin Sodium (Porcine) (Heparin Sq 5000 Unit/0.5ml) 5,000 unit Q8 SQ 12/02/17 22:00 9/9/18 21:59 12/03/17 05:58 5,000 UNIT Insulin Aspart (novoLOG ASPART) SLIDING SCALE If C... Q6 SC 12/02/17 18:00 01/01/18 17:59 12/03/17 00:00 3 UNITS Glucose (Glucose 40% Gel) 15-30 GRAMS 15 GRAMS... UD PRN PO 12/02/17 15:15 01/01/18 15:14 Glucose (Glucose Chew Tab) 4-8 Tablets 4 Tabl... UD PRN PO 12/02/17 15:15 01/01/18 15:14 Dextrose (Dextrose 50% 50ML Syringe) 25-50ML 25ML FOR ... UD PRN IV 12/02/17 15:15 01/01/18 15:14 Glucagon (Glucagon Inj) 1 mg UD PRN SQ 12/02/17 15:15 01/01/18 15:14 Carbohydrates (Carbohydrates For Hypoglycemia) 15-30 GRAMS 15 grams if BSG 54-69... UD PRN PO 12/02/17 15:15 01/01/18 15:14 Miscellaneous Information (Consult Glycemic Management Pharmacy) 1 ea UD PRN N/A 12/02/17 15:29 01/01/18 15:28 Losartan Potassium (coZAAR TAB) 50 mg DAILY PO 12/03/17 09:00 01/02/18 08:59 12/03/17 08:47 50 MG Magnesium Oxide (Mag-Ox Tab) 400 mg DAILY PO 12/03/17 09:00 01/02/18 08:59 12/03/17 08:46 400 MG Metoprolol Succinate (Toprol Xl Tab) 75 mg DAILY PO 12/03/17 09:00 01/02/18 08:59 12/03/17 08:47 75 MG Rosuvastatin Calcium (Crestor Tab) 40 mg HS PO 12/02/17 21:00 01/01/18 20:59 12/02/17 20:21 40 MG Pantoprazole Sodium (Protonix Tab) 40 mg DAILY PO 12/03/17 09:00 01/02/18 08:59 12/03/17 08:47 40 MG Acetaminophen 650 mg/Empty Bag 65 ml @ 260 mls/hr Q6H PRN IV 12/02/17 16:15 01/01/18 16:14 Miscellaneous (Iv Fluids Completed) 1 ea PRN PRN N/A 12/02/17 16:30 12/02/18 16:29 Sodium Chloride 1,000 ml @ 75 mls/hr [id number] IV 12/03/17 00:45 01/02/18 00:44 12/03/17 01:32 75 MLS/HR Insulin Glargine (Lantus Solostar Pen) 18 units BID SC 12/03/17 09:00 01/02/18 08:59 12/03/17 08:50 18 UNITS Last 24 Hours Test 12/02/17 11:10 12/02/17 15:15 12/02/17 15:25 12/02/17 16:36 White Blood Count 6.63 K/uL Red Blood Count 5.13 M/uL Hemoglobin 16.0 g/dL Hematocrit 46.6 % Mean Corpuscular Volume 90.8 fL Mean Corpuscular Hemoglobin 31.2 pg Mean Corpuscular Hemoglobin Concent 34.3 g/dl Platelet Count 182 K/uL Mean Platelet Volume 9.5 fL Neutrophils (%) (Auto) 79.5 % Lymphocytes (%) (Auto) 8.0 % Monocytes (%) (Auto) 11.3 % Eosinophils (%) (Auto) 0.6 % Basophils (%) (Auto) 0.3 % Neutrophils # (Auto) 5.27 K/uL Lymphocytes # (Auto) 0.53 K/uL Monocytes # (Auto) 0.75 K/uL Eosinophils # (Auto) 0.04 K/uL Basophils # (Auto) 0.02 K/uL RDW Standard Deviation 45.8 fL RDW Coefficient of Variation 13.8 % Immature Granulocyte % (Auto) 0.3 % Immature Granulocyte # (Auto) 0.02 K/uL Sodium Level 130 mmol/L Potassium Level 4.3 mmol/L Chloride Level 98 mmol/L Carbon Dioxide Level 17 mmol/L Anion Gap 15.0 mmol/L Blood Urea Nitrogen 11 mg/dl Creatinine 1.06 mg/dl Est Creatinine Clear Calc Drug Dose 99.7 ml/min Estimated GFR () 95.7 Estimated GFR (Non- 82.6 BUN/Creatinine Ratio 10.0 Random Glucose 168 mg/dl Calcium Level 8.9 mg/dl Magnesium Level 2.2 mg/dl Total Bilirubin 1.0 mg/dl Direct Bilirubin 0.2 mg/dl Aspartate Amino Transf (AST/SGOT) 14 U/L Alanine Aminotransferase (ALT/SGPT) 25 U/L Alkaline Phosphatase 100 U/L Total Protein 8.0 gm/dl Albumin 3.3 gm/dl Lipase 67 U/L Lactic Acid Level 1.0 mmol/L Arterial Blood pH 7.35 Arterial Blood Partial Pressure CO2 33 mmHg Arterial Blood Partial Pressure O2 81 mm/Hg Arterial Blood HCO3 18 mmol/L Arterial Blood Oxygen Saturation 96.0 % Arterial Blood Base Excess -6.8 mEq/L Arterial Blood Gas Delivery ROOM AIR Jagjit Test POS Bedside Glucose 133 mg/dl Test 12/02/17 17:18 12/02/17 19:01 12/02/17 20:35 12/02/17 21:00 Sodium Level 133 mmol/L Potassium Level 4.2 mmol/L Chloride Level 103 mmol/L Carbon Dioxide Level 16 mmol/L Anion Gap 14.0 mmol/L Blood Urea Nitrogen 11 mg/dl Creatinine 1.01 mg/dl Est Creatinine Clear Calc Drug Dose 104.6 ml/min Estimated GFR () 101.5 Estimated GFR (Non- 87.5 BUN/Creatinine Ratio 11.0 Random Glucose 143 mg/dl Calcium Level 8.6 mg/dl Beta-Hydroxybutyric Acid 45.55 mg/dL Bedside Glucose 165 mg/dl 178 mg/dl Urine Color YELLOW Urine Appearance CLEAR Urine pH 6.0 Urine Specific [place] 1.029 Urine Protein 2+ Urine Glucose (UA) 3+ Urine Ketones 4+ Urine Occult Blood TRACE Urine Nitrite NEG Urine Bilirubin NEG Urine Urobilinogen NEG Urine Leukocyte Esterase NEG Urine WBC (Auto) 1-5 /hpf Urine RBC (Auto) 0-4 /hpf Urine Hyaline Casts (Auto) 1-5 /lpf Urine Epithelial Cells (Auto) 20-30 /lpf Urine Bacteria (Auto) NEG Test 12/02/17 23:57 12/03/17 00:58 12/03/17 03:37 12/03/17 05:55 Bedside Glucose 200 mg/dl 136 mg/dl 131 mg/dl Sodium Level 133 mmol/L Potassium Level 3.9 mmol/L Chloride Level 102 mmol/L Carbon Dioxide Level 18 mmol/L Anion Gap 13.0 mmol/L Blood Urea Nitrogen 11 mg/dl Creatinine 1.12 mg/dl Est Creatinine Clear Calc Drug Dose 94.4 ml/min Estimated GFR () 89.5 Estimated GFR (Non- 77.3 BUN/Creatinine Ratio 9.6 Random Glucose 162 mg/dl Calcium Level 8.2 mg/dl Test 12/03/17 07:16 White Blood Count 5.52 K/uL Red Blood Count 4.60 M/uL Hemoglobin 14.3 g/dL Hematocrit 41.7 % Mean Corpuscular Volume 90.7 fL Mean Corpuscular Hemoglobin 31.1 pg Mean Corpuscular Hemoglobin Concent 34.3 g/dl RDW Standard Deviation 46.6 fL RDW Coefficient of Variation 14.1 % Platelet Count 204 K/uL Mean Platelet Volume 9.2 fL Sodium Level 134 mmol/L Potassium Level 3.9 mmol/L Chloride Level 103 mmol/L Carbon Dioxide Level 19 mmol/L Anion Gap 13.0 mmol/L Blood Urea Nitrogen 11 mg/dl Creatinine 1.06 mg/dl Est Creatinine Clear Calc Drug Dose 99.2 ml/min Estimated GFR () 95.7 Estimated GFR (Non- 82.6 BUN/Creatinine Ratio 10.5 Random Glucose 133 mg/dl Calcium Level 8.6 mg/dl Magnesium Level 2.2 mg/dl Assessment & Plan This is a 47-year-old male with type 2 diabetes, renal cell mass status post right nephrectomy 3 days ago was admitted with constipation now being evaluated for metabolic acidosis. 1. Metabolic acidosis: Etiology is likely in setting of ketoacidosis given patient has been not eating well for the past few days. It appears he has also not been getting his insulin regularly and this has driven ketosis. Acidosis is improving and anion gap is only 13 today. Ensure that patient is getting adequate insulin. No need for bicarbonate supplementation. If IV fluids are required with use of Ringer's lactate. 2.Hypertension: Partly due to pain. Blood pressure is improving. Resume home antihypertensives 3. Status post nephrectomy: Patient creatinine is 1.06. Monitor renal function daily. Avoid nephrotoxins such as NSAIDs and contrast Thank you for the contents of the consultation
--- NOTE | 2017-12-03 10:54 | Progress Note ---
Medicine Progress Note Date & Time of Visit: Dec 03, 2017 at 10:53. Subjective seen resting in bed, comfortable states his abdomen feels slightly better today had 2 small bms and flatus yesterday, none today denies chest pain, dyspnea, palpitations, dizziness no other symptoms Objective Last 8 Hrs Date Time Temp Pulse Resp B/P (MAP) Pulse Ox O2 Delivery O2 Flow Rate FiO2 12/03/17 07:37 36.9 94 18 155/97 (116) 95 Room Air 12/03/17 03:12 36.6 99 18 149/88 (108) 98 Room Air Physical Exam: General- oriented x 3, not in distress, speaks in sentences with no effort Head- atraumatic Eyes- anicteric ENT- oropharynx clear Neck- supple, no JVD Lungs- clear breath sounds bilaterally Heart- regular rhythm; no murmur, normal rate Abdomen- normal bowel sounds, soft, nontender, mild distention Extremities- no pretibial edema, no calf tenderness; peripheral pulses intact Neuro- alert, oriented x 3; no gross focal deficits Skin- warm & dry Laboratory Results: Last 24 Hours Test 12/02/17 11:10 12/02/17 15:15 12/02/17 15:25 12/02/17 16:36 White Blood Count 6.63 K/uL Red Blood Count 5.13 M/uL Hemoglobin 16.0 g/dL Hematocrit 46.6 % Mean Corpuscular Volume 90.8 fL Mean Corpuscular Hemoglobin 31.2 pg Mean Corpuscular Hemoglobin Concent 34.3 g/dl Platelet Count 182 K/uL Mean Platelet Volume 9.5 fL Neutrophils (%) (Auto) 79.5 % Lymphocytes (%) (Auto) 8.0 % Monocytes (%) (Auto) 11.3 % Eosinophils (%) (Auto) 0.6 % Basophils (%) (Auto) 0.3 % Neutrophils # (Auto) 5.27 K/uL Lymphocytes # (Auto) 0.53 K/uL Monocytes # (Auto) 0.75 K/uL Eosinophils # (Auto) 0.04 K/uL Basophils # (Auto) 0.02 K/uL RDW Standard Deviation 45.8 fL RDW Coefficient of Variation 13.8 % Immature Granulocyte % (Auto) 0.3 % Immature Granulocyte # (Auto) 0.02 K/uL Sodium Level 130 mmol/L Potassium Level 4.3 mmol/L Chloride Level 98 mmol/L Carbon Dioxide Level 17 mmol/L Anion Gap 15.0 mmol/L Blood Urea Nitrogen 11 mg/dl Creatinine 1.06 mg/dl Est Creatinine Clear Calc Drug Dose 99.7 ml/min Estimated GFR () 95.7 Estimated GFR (Non- 82.6 BUN/Creatinine Ratio 10.0 Random Glucose 168 mg/dl Calcium Level 8.9 mg/dl Magnesium Level 2.2 mg/dl Total Bilirubin 1.0 mg/dl Direct Bilirubin 0.2 mg/dl Aspartate Amino Transf (AST/SGOT) 14 U/L Alanine Aminotransferase (ALT/SGPT) 25 U/L Alkaline Phosphatase 100 U/L Total Protein 8.0 gm/dl Albumin 3.3 gm/dl Lipase 67 U/L Lactic Acid Level 1.0 mmol/L Arterial Blood pH 7.35 Arterial Blood Partial Pressure CO2 33 mmHg Arterial Blood Partial Pressure O2 81 mm/Hg Arterial Blood HCO3 18 mmol/L Arterial Blood Oxygen Saturation 96.0 % Arterial Blood Base Excess -6.8 mEq/L Arterial Blood Gas Delivery ROOM AIR Jagjit Test POS Bedside Glucose 133 mg/dl Test 12/02/17 17:18 12/02/17 19:01 12/02/17 20:35 12/02/17 21:00 Sodium Level 133 mmol/L Potassium Level 4.2 mmol/L Chloride Level 103 mmol/L Carbon Dioxide Level 16 mmol/L Anion Gap 14.0 mmol/L Blood Urea Nitrogen 11 mg/dl Creatinine 1.01 mg/dl Est Creatinine Clear Calc Drug Dose 104.6 ml/min Estimated GFR () 101.5 Estimated GFR (Non- 87.5 BUN/Creatinine Ratio 11.0 Random Glucose 143 mg/dl Calcium Level 8.6 mg/dl Beta-Hydroxybutyric Acid 45.55 mg/dL Bedside Glucose 165 mg/dl 178 mg/dl Urine Color YELLOW Urine Appearance CLEAR Urine pH 6.0 Urine Specific [place] 1.029 Urine Protein 2+ Urine Glucose (UA) 3+ Urine Ketones 4+ Urine Occult Blood TRACE Urine Nitrite NEG Urine Bilirubin NEG Urine Urobilinogen NEG Urine Leukocyte Esterase NEG Urine WBC (Auto) 1-5 /hpf Urine RBC (Auto) 0-4 /hpf Urine Hyaline Casts (Auto) 1-5 /lpf Urine Epithelial Cells (Auto) 20-30 /lpf Urine Bacteria (Auto) NEG Test 12/02/17 23:57 12/03/17 00:58 12/03/17 03:37 12/03/17 05:55 Bedside Glucose 200 mg/dl 136 mg/dl 131 mg/dl Sodium Level 133 mmol/L Potassium Level 3.9 mmol/L Chloride Level 102 mmol/L Carbon Dioxide Level 18 mmol/L Anion Gap 13.0 mmol/L Blood Urea Nitrogen 11 mg/dl Creatinine 1.12 mg/dl Est Creatinine Clear Calc Drug Dose 94.4 ml/min Estimated GFR () 89.5 Estimated GFR (Non- 77.3 BUN/Creatinine Ratio 9.6 Random Glucose 162 mg/dl Calcium Level 8.2 mg/dl Test 12/03/17 07:16 White Blood Count 5.52 K/uL Red Blood Count 4.60 M/uL Hemoglobin 14.3 g/dL Hematocrit 41.7 % Mean Corpuscular Volume 90.7 fL Mean Corpuscular Hemoglobin 31.1 pg Mean Corpuscular Hemoglobin Concent 34.3 g/dl RDW Standard Deviation 46.6 fL RDW Coefficient of Variation 14.1 % Platelet Count 204 K/uL Mean Platelet Volume 9.2 fL Sodium Level 134 mmol/L Potassium Level 3.9 mmol/L Chloride Level 103 mmol/L Carbon Dioxide Level 19 mmol/L Anion Gap 13.0 mmol/L Blood Urea Nitrogen 11 mg/dl Creatinine 1.06 mg/dl Est Creatinine Clear Calc Drug Dose 99.2 ml/min Estimated GFR () 95.7 Estimated GFR (Non- 82.6 BUN/Creatinine Ratio 10.5 Random Glucose 133 mg/dl Calcium Level 8.6 mg/dl Magnesium Level 2.2 mg/dl Assessment & Plan Pt is 47 y/o M with PMH DM II, HTN, GERD, HLD, R renal mass s/p R nephrectomy on 11/29/[address] Lam presented to ER with c/o constipation. POST-OP ILEUS - s/p Nephrectomy POD 4 - repeat KUB mild improvement - given Lactulose, Enema (+) BMs yesterday - (+) improved bowel sounds today however, patient did not tolerate clear liquids for lunch - back to NPO GI consulted, Relistor ordered appreciate the recommendations - monitor S/P RIGHT NEPHRECTOMY FOR RIGHT RENAL MASS, POD#[address] Lam pathology report: clear cell renal cell carcinoma - UA trace RBC no hematuria - renal function stable METABOLIC ACIDOSIS secondary to Starvation Ketoacidosis given IV HCO3 PRP improving fluids changed to LR appreciate Nephro consult TACHYCARDIA PLEURITIC CHEST PAIN VQ scan low probability for PE resolved HTN -continue metoprolol, losartan - will order PRN Clonidine DM II A1c: 8.3 on 10/2017. Gluc: 168 -hold metformin, jardiance, ozempic -basal bolus insulin per protocol, appreciate glycemic pharmacist management GERD -continue PPI HLD -continue crestor DVT Prophylaxis -heparin SQ Disposition pending anticipate d/c home when medically stable Current Inpatient Medications: Current Inpatient Medications Medications (Trade) Dose Ordered Sig/Ramses Route Start Time Stop Time Status Last Admin Dose Admin Acetaminophen (Tylenol Tab) 650 mg Q4H PRN PO 12/02/17 15:15 01/01/18 15:14 Ondansetron HCl (Zofran Inj) 4 mg Q6H PRN IV 12/02/17 15:15 01/01/18 15:14 Lactulose (Chronulac Syrup) 30 gm TID PRN PO 12/02/17 15:15 01/01/18 15:14 12/03/17 08:46 30 GM Heparin Sodium (Porcine) (Heparin Sq 5000 Unit/0.5ml) 5,000 unit Q8 SQ 12/02/17 22:00 01/01/18 21:59 12/03/17 05:58 5,000 UNIT Glucose (Glucose 40% Gel) 15-30 GRAMS 15 GRAMS... UD PRN PO 12/02/17 15:15 01/01/18 15:14 Glucose (Glucose Chew Tab) 4-8 Tablets 4 Tabl... UD PRN PO 12/02/17 15:15 01/01/18 15:14 Dextrose (Dextrose 50% 50ML Syringe) 25-50ML 25ML FOR ... UD PRN IV 12/02/17 15:15 01/01/18 15:14 Glucagon (Glucagon Inj) 1 mg UD PRN SQ 12/02/17 15:15 01/01/18 15:14 Carbohydrates (Carbohydrates For Hypoglycemia) 15-30 GRAMS 15 grams if BSG 54-69... UD PRN PO 12/02/17 15:15 01/01/18 15:14 Miscellaneous Information (Consult Glycemic Management Pharmacy) 1 ea UD PRN N/A 12/02/17 15:29 01/01/18 15:28 Losartan Potassium (coZAAR TAB) 50 mg DAILY PO 12/03/17 09:00 01/02/18 08:59 12/03/17 08:47 50 MG Magnesium Oxide (Mag-Ox Tab) 400 mg DAILY PO 12/03/17 09:00 01/02/18 08:59 12/03/17 08:46 400 MG Metoprolol Succinate (Toprol Xl Tab) 75 mg DAILY PO 12/03/17 09:00 01/02/18 08:59 12/03/17 08:47 75 MG Rosuvastatin Calcium (Crestor Tab) 40 mg HS PO 12/02/17 21:00 01/01/18 20:59 12/02/17 20:21 40 MG Pantoprazole Sodium (Protonix Tab) 40 mg DAILY PO 12/03/17 09:00 01/02/18 08:59 12/03/17 08:47 40 MG Acetaminophen 650 mg/Empty Bag 65 ml @ 260 mls/hr Q6H PRN IV 12/02/17 16:15 01/01/18 16:14 Miscellaneous (Iv Fluids Completed) 1 ea PRN PRN N/A 12/02/17 16:30 12/02/18 16:29 Insulin Glargine (Lantus Solostar Pen) 18 units BID SC 12/03/17 09:00 01/02/18 08:59 12/03/17 08:50 18 UNITS Insulin Aspart (novoLOG ASPART) SLIDING SCALE If C... ACHS SC 12/03/17 11:00 01/02/18 10:59 Lactated Ringer's 1,000 ml @ 100 mls/hr Q10H IV 12/03/17 11:00 01/02/18 10:59 UNV
[2017-12-03] MEDS ORDERED: INSULIN ASPART 100 UNITS/ML 3 ML PEN SC SCH (11:00)
[2017-12-03] MEDS: LACTATED RINGER'S 1000ML 1,000 ML IV SCH ×2 (11:25→21:18)
[2017-12-03] MEDS: ACETAMINOPHEN IV 650 MG in EMPTY BAG 0 ML IV PRN (13:32)
--- NOTE | 2017-12-03 15:03 | Gastrointestinal Consultation ---
Gastrointestinal Consultation Date of Consultation: Dec 03, 2017 History of Present Illness Patient is a 47 year old male with diabetes, hypertension, heartburn, with a renal cell lesion status post right nephrectomy on November 29 with pathology revealing clear cell carcinoma. He was discharged home on December 01 2 days postoperatively, he states that he did not have a bowel movement until Tuesday or Tuesday previously from having surgery (5-6 days ago). And did not have a bowel movement prior to going home. After he went home he took one Tylenol 3, he began to have continued feelings of distention as well as gas in his abdomen with nausea without andrea abdominal pain but uncomfortable feeling. He has not had emesis, no andrea abdominal pain. He is mildly uncomfortable and upon presentation here he was noted to have a postoperative ileus on CT scan. Said no fevers or chills, no elevation of his white count, he is walking the halls and ate a full tray this morning however it did cause nausea. He did receive IV pain control for 2 days postoperatively, 1 dose of morphine yesterday but otherwise no other narcotics. Electrolytes are all within order. No chronic issues of obstruction, however he does seem to have a pattern of alterations of constipation with diarrhea. Xray today IMPRESSION: 1. Nonobstructed abdominal bowel gas pattern. 2. There is persistent gaseous distention of the colon, which has modestly improved from yesterday. 3. Fecal burden the right colon has decreased from yesterday. CT 12/02 1. Small amount of low-attenuation fluid which contains trace blood products within the right nephrectomy bed. Small amount of operative bed gas and infiltration. These findings are not unexpected in the early postoperative setting. 2. Moderate distention of the colon with a small to moderate amount of stool within the colon and rectum. The findings favor an ileus. No evidence for a bowel obstruction. 3. Trace gas within the bladder which is likely related to recent augmentation. Mild distention of the bladder. 4. Mildly dilated appendix. However, appendix gas-filled. No evidence for acute appendicitis. Past Medical/Surgical History Medical Problems: (1) Ileus Status: Acute (2) Subconjunctival hemorrhage of left eye Status: Acute Family History Patient reports no known family medical history. Social History Smoking Status: Former Smoker Alcohol Use: occasionally Drug Use: none Marital Status: single Housing Status: lives alone Occupation Status: unemployed Allergies Coded Allergies: Iodinated Diagnostic Agents (Verified Allergy, Intermediate, NAUSEA, ) Current Medications Home Meds and Scripts Medications Dose Route/Sig Max Daily Dose Days Date Category Dose Instructions Tylenol W/Codeine #3 (Acetaminophen/Codeine Phosphate) 300 Mg/30 Mg Tab 1 Tab PO Q6 PRN 12/02/17 Reported Cozaar (Losartan Potassium) 50 Mg Tab 50 Mg PO NOON 11/10/17 Reported Ozempic (Semaglutide) 2 Mg/1.5 Ml Inj 1 Mg INJ WK 11/10/17 Reported AM Toprol-Xl (Metoprolol Succinate) 50 Mg Tabcr 75 Mg PO NOON 11/17/16 Reported Crestor (Rosuvastatin Calcium) 40 Mg Tab 40 Mg PO HS 11/17/16 Reported Prilosec (Omeprazole) 20 Mg Capcr 20 Mg PO NOON 11/17/16 Reported Glucophage (Metformin Hcl) 1,000 Mg Tab 1,000 Mg PO BIDM 11/17/16 Reported Mag-Ox (Magnesium Oxide) 400 Mg Tab 400 Mg PO NOON 11/17/16 Reported Jardiance (Empagliflozin) 25 Mg Tab 25 Mg PO QAM 11/17/16 Reported Lantus (Insulin Glargine) 100 Unit/Ml Inj 52 Units SC HS 11/17/16 Reported Review of Systems Constitutional: + see HPI Eyes: No see HPI, No worsening of vision, No eye pain, No redness, No discharge , No diplopia, No problem reported ENT: No see HPI, No hearing loss, No unusual epistaxis, No nasal symptoms, No sore throat, No tinnitus, No dental problems, No trouble swallowing, No pain on swallowing, No problem reported Respiratory: No see HPI, No cough, No sputum, No wheezing, No shortness of breath, No dyspnea on exertion, No dyspnea at rest, No hemoptysis, No problem reported Cardiac: No see HPI, No chest pain, No orthopnea, No PND, No edema, No claudication, No palpitations, No problem reported Abdomen: + see HPI Musculoskeletal: No see HPI, No joint pain, No muscle pain, No swelling, No calf pain, No problem reported Male : No see HPI, No dysuria, No urinary frequency, No incontinence, No nocturia more than once/night, No slowing stream, No hematuria, No sexual dysfunction, No problem reported Neuro: No see HPI, No memory loss, No paralysis, No weakness, No numbness/ tingling, No vertigo, No balance problems, No problem reported Endo: No see HPI, No fatigue, No excessive thirst, No excessive urination, No problem reported Physical Exam Date Time Temp Pulse Resp B/P (MAP) Pulse Ox O2 Delivery O2 Flow Rate FiO2 12/03/17 11:27 36.7 94 18 144/94 (111) 96 Room Air 12/03/17 08:00 Room Air 12/03/17 07:37 36.9 94 18 155/97 (116) 95 Room Air 12/03/17 03:12 36.6 99 18 149/88 (108) 98 Room Air 12/03/17 00:00 Room Air 12/02/17 23:37 36.7 104 19 159/98 (118) 97 Room Air 12/02/17 20:00 Room Air 12/02/17 19:30 37.0 107 24 136/90 (105) 95 Room Air 12/02/17 16:27 36.9 108 16 179/92 97 Room Air 12/02/17 15:59 93 20 155/95 97 General Appearance: WD/WN, + pertinent finding (No apparent distress, sitting on the edge of the bed.) Neck: supple Respiratory/Chest: chest non-tender, lungs clear Cardiovascular: regular rate, rhythm, no edema, no gallop Abdomen: normal bowel sounds, + pertinent finding (Slightly hypoactive bowel sounds, mildly distended, no tenderness on palpation.) Extremities: normal range of motion, no calf tenderness Skin: normal color Laboratory Results Last 24 Hours Test 12/02/17 15:15 12/02/17 15:25 12/02/17 16:36 12/02/17 17:18 Lactic Acid Level 1.0 mmol/L Arterial Blood pH 7.35 Arterial Blood Partial Pressure CO2 33 mmHg Arterial Blood Partial Pressure O2 81 mm/Hg Arterial Blood HCO3 18 mmol/L Arterial Blood Oxygen Saturation 96.0 % Arterial Blood Base Excess -6.8 mEq/L Arterial Blood Gas Delivery ROOM AIR Jagjit Test POS Bedside Glucose 133 mg/dl Sodium Level 133 mmol/L Potassium Level 4.2 mmol/L Chloride Level 103 mmol/L Carbon Dioxide Level 16 mmol/L Anion Gap 14.0 mmol/L Blood Urea Nitrogen 11 mg/dl Creatinine 1.01 mg/dl Est Creatinine Clear Calc Drug Dose 104.6 ml/min Estimated GFR () 101.5 Estimated GFR (Non- 87.5 BUN/Creatinine Ratio 11.0 Random Glucose 143 mg/dl Calcium Level 8.6 mg/dl Beta-Hydroxybutyric Acid 45.55 mg/dL Test 12/02/17 19:01 12/02/17 20:35 12/02/17 21:00 12/02/17 23:57 Bedside Glucose 165 mg/dl 178 mg/dl 200 mg/dl Urine Color YELLOW Urine Appearance CLEAR Urine pH 6.0 Urine Specific [place] 1.029 Urine Protein 2+ Urine Glucose (UA) 3+ Urine Ketones 4+ Urine Occult Blood TRACE Urine Nitrite NEG Urine Bilirubin NEG Urine Urobilinogen NEG Urine Leukocyte Esterase NEG Urine WBC (Auto) 1-5 /hpf Urine RBC (Auto) 0-4 /hpf Urine Hyaline Casts (Auto) 1-5 /lpf Urine Epithelial Cells (Auto) 20-30 /lpf Urine Bacteria (Auto) NEG Test 12/03/17 00:58 12/03/17 03:37 12/03/17 05:55 12/03/17 07:16 Sodium Level 133 mmol/L 134 mmol/L Potassium Level 3.9 mmol/L 3.9 mmol/L Chloride Level 102 mmol/L 103 mmol/L Carbon Dioxide Level 18 mmol/L 19 mmol/L Anion Gap 13.0 mmol/L 13.0 mmol/L Blood Urea Nitrogen 11 mg/dl 11 mg/dl Creatinine 1.12 mg/dl 1.06 mg/dl Est Creatinine Clear Calc Drug Dose 94.4 ml/min 99.2 ml/min Estimated GFR () 89.5 95.7 Estimated GFR (Non- 77.3 82.6 BUN/Creatinine Ratio 9.6 10.5 Random Glucose 162 mg/dl 133 mg/dl Calcium Level 8.2 mg/dl 8.6 mg/dl Bedside Glucose 136 mg/dl 131 mg/dl White Blood Count 5.52 K/uL Red Blood Count 4.60 M/uL Hemoglobin 14.3 g/dL Hematocrit 41.7 % Mean Corpuscular Volume 90.7 fL Mean Corpuscular Hemoglobin 31.1 pg Mean Corpuscular Hemoglobin Concent 34.3 g/dl RDW Standard Deviation 46.6 fL RDW Coefficient of Variation 14.1 % Platelet Count 204 K/uL Mean Platelet Volume 9.2 fL Magnesium Level 2.2 mg/dl Test 12/03/17 11:10 Bedside Glucose 136 mg/dl Impression Patient is a 47 year old male 4 day days post operative for a right renal cell carcinoma. Now with an apparent postoperative ileus. Is no andrea abdominal distention or uncomfortable pain, he does have a mild metabolic acidosis, likely related to his uncontrolled blood sugars. He took lactulose without improvement, has mildly moved his bowels today, we will give him a dose of Relistor today see how he does. KUB in the morning, continue to monitor his electrolytes avoid both nonsteroidal anti-inflammatories as well as opioids if possible. Call with questions.
[2017-12-03] MEDS: METHYLNALTREXONE BROMIDE INJ 12 MG/0.6 ML SYR SQ SCH (16:07)
[2017-12-03] MEDS: INSULIN GLARGINE SOLOSTAR 100 UNITS/ML 3 ML PEN SC SCH (21:14)
[2017-12-03] MEDS: CLONIDINE HCL 0.1 MG TAB PO PRN (22:59)
[2017-12-04 03:58] VITALS: BP 148/90; PULSE 87; TEMP 36.5; O2SAT 97
[2017-12-04] MEDS: INSULIN ASPART 100 UNITS/ML 3 ML PEN SC SCH ×4 (05:42→18:32)
[2017-12-04] MEDS: HEPARIN SOD 5000 UNIT/0.5 ML CARP SQ SCH ×3 (05:44→20:53)
[2017-12-04 06:46] VITALS: BP 137/84; PULSE 86; TEMP 36.8; O2SAT 95
[2017-12-04] MEDS: LACTATED RINGER'S 1000ML 1,000 ML IV SCH ×2 (07:00→16:34)
[2017-12-04] MEDS: MAGNESIUM OXIDE 400 MG TAB PO SCH (08:54)
[2017-12-04] MEDS: METOPROLOL SUCC 50MG EXT REL TAB PO SCH (08:54)
[2017-12-04] MEDS: LOSARTAN POTASSIUM 50 MG TAB PO SCH (08:54)
[2017-12-04] MEDS: INSULIN GLARGINE SOLOSTAR 100 UNITS/ML 3 ML PEN SC SCH ×2 (08:56→20:52)
[2017-12-04] MEDS ORDERED: NURSING VERBAL MED ORDER ONE (09:15)
--- NOTE | 2017-12-04 09:40 | Nephrology Progress Note ---
Nephrology Progress Note Date of Service: Dec 04, 2017. Subjective Patient feels better, denies any shortness of breath. He does have some angelique- incisional pain in the abdomen. He has not been able to eat, did not tolerate liquid diet yesterday Objective Date Time Temp Pulse Resp B/P (MAP) Pulse Ox O2 Delivery O2 Flow Rate FiO2 12/04/17 06:46 36.8 86 20 137/84 (101) 95 12/04/17 03:58 36.5 87 20 148/90 (109) 97 Room Air 12/03/17 23:58 163/96 (118) 12/03/17 22:54 37.0 92 20 163/94 (117) 98 Room Air 161/86 (111) 12/03/17 20:00 Room Air 12/03/17 19:45 164/93 (116) 12/03/17 19:42 36.7 78 19 174/101 (125) 96 Room Air 12/03/17 16:00 Room Air 12/03/17 15:29 36.7 93 20 159/95 (116) 95 Room Air 12/03/17 11:27 36.7 94 18 144/94 (111) 96 Room Air Physical Exam: [id number], no acute distress Eyes-pupils equal and reactive to light ENT-normal on inspection Neck-supple, no JVD Lungs-clear to auscultation bilaterally Heart-normal heart sounds S1 and S2, no murmurs Abdomen-soft, surgical incision in the lower quadrant, bowel sounds present Extremities-no edema peripheral pulses are present Neuro-oriented 3, no focal neurological deficits Current Inpatient Medications Medications (Trade) Dose Ordered Sig/Ramses Route Start Time Stop Time Status Last Admin Dose Admin Acetaminophen (Tylenol Tab) 650 mg Q4H PRN PO 12/02/17 15:15 01/01/18 15:14 Ondansetron HCl (Zofran Inj) 4 mg Q6H PRN IV 12/02/17 15:15 01/01/18 15:14 Lactulose (Chronulac Syrup) 30 gm TID PRN PO 12/02/17 15:15 01/01/18 15:14 12/03/17 08:46 30 GM Heparin Sodium (Porcine) (Heparin Sq 5000 Unit/0.5ml) 5,000 unit Q8 SQ 12/02/17 22:00 01/01/18 21:59 12/04/17 05:44 5,000 UNIT Glucose (Glucose 40% Gel) 15-30 GRAMS 15 GRAMS... UD PRN PO 12/02/17 15:15 01/01/18 15:14 Glucose (Glucose Chew Tab) 4-8 Tablets 4 Tabl... UD PRN PO 12/02/17 15:15 01/01/18 15:14 Dextrose (Dextrose 50% 50ML Syringe) 25-50ML 25ML FOR ... UD PRN IV 12/02/17 15:15 01/01/18 15:14 Glucagon (Glucagon Inj) 1 mg UD PRN SQ 12/02/17 15:15 01/01/18 15:14 Carbohydrates (Carbohydrates For Hypoglycemia) 15-30 GRAMS 15 grams if BSG 54-69... UD PRN PO 12/02/17 15:15 01/01/18 15:14 Miscellaneous Information (Consult Glycemic Management Pharmacy) 1 ea UD PRN N/A 12/02/17 15:29 01/01/18 15:28 Losartan Potassium (coZAAR TAB) 50 mg DAILY PO 12/03/17 09:00 01/02/18 08:59 12/04/17 08:54 50 MG Magnesium Oxide (Mag-Ox Tab) 400 mg DAILY PO 12/03/17 09:00 01/02/18 08:59 12/04/17 08:54 400 MG Metoprolol Succinate (Toprol Xl Tab) 75 mg DAILY PO 12/03/17 09:00 01/02/18 08:59 12/04/17 08:54 75 MG Acetaminophen 650 mg/Empty Bag 65 ml @ 260 mls/hr Q6H PRN IV 12/02/17 16:15 01/01/18 16:14 12/03/17 13:32 260 MLS/HR Miscellaneous (Iv Fluids Completed) 1 ea PRN PRN N/A 12/02/17 16:30 12/02/18 16:29 Lactated Ringer's 1,000 ml @ 100 mls/hr Q10H IV 12/03/17 11:00 01/02/18 10:59 12/04/17 07:00 100 MLS/HR Insulin Glargine (Lantus Solostar Pen) SEE PROTOCOL TEXT BID SC 12/03/17 21:00 01/02/18 20:59 12/04/17 08:56 18 UNITS Insulin Aspart (novoLOG ASPART) SLIDING SCALE If C... Q6 SC 12/03/17 18:00 01/02/18 17:59 12/03/17 18:10 1 UNITS Methylnaltrexone [place] (Relistor Inj) 12 mg Q2D SQ 12/03/17 15:00 12/05/17 18:00 12/03/17 16:07 12 MG Pantoprazole Sodium 40 mg/ Syringe 10 ml @ 5 mls/min DAILY@11 IV 12/04/17 11:00 01/03/18 10:59 Clonidine HCl (Catapres Tab) 0.1 mg Q6H PRN PO 12/03/17 17:00 01/02/18 16:59 12/03/17 22:59 0.1 MG Polyethylene (Miralax Powder Packet) 17 gm DAILY PRN PO 12/04/17 09:15 01/03/18 09:14 Last 24 Hours Test 12/03/17 11:10 12/03/17 18:01 12/03/17 21:12 12/03/17 23:58 Bedside Glucose 136 mg/dl 152 mg/dl 117 mg/dl 118 mg/dl Test 12/04/17 05:41 12/04/17 09:18 Bedside Glucose 116 mg/dl Assessment & Plan This is a 47-year-old male with type 2 diabetes, renal cell mass status post right nephrectomy 3 days ago was admitted with constipation now being evaluated for metabolic acidosis. 1. Metabolic acidosis: Etiology is likely in setting of ketoacidosis given patient has been not eating well for the past few days. It appears he has also not been getting his insulin regularly and this has driven ketosis. Acidosis is improving and anion gap is closing. Ensure that patient is getting adequate insulin. Continue maintenance fluids with Ringer's lactate. 2.Hypertension: Blood pressure is improving. Resume home antihypertensives when able to take orally 3. Status post nephrectomy: Patient creatinine is 1.06. Monitor renal function daily. Avoid nephrotoxins such as NSAIDs and contrast Thank you for the contents of the consultation
[2017-12-04 09:44] LABS: BASO % 0.7 %; BASO ABS # 0.03 K/uL (0-0.2); EOS ABS # 0.27 K/uL (0-0.5); HEMATOCRIT 41.2 % (42-52); HEMOGLOBIN 14.2 g/dL (14.0-18.0); IG# 0.01 K/uL (0.00-0.02); LYMPH % 23.2 %; LYMPH ABS # 1.05 K/uL (1.2-3.4); MEAN CELL VOLUME 89.4 fL (80-100); MEAN CORPUSCULAR HEMOGLOBIN 30.8 pg (25-34); MEAN CORPUSCULAR HGB CONC 34.5 g/dl (32-36); MEAN PLATELET VOLUME 9.3 fL (7.4-10.4); MONO % 13.7 %; MONO ABS # 0.62 K/uL (0.11-0.59); NEUT % 56.2 %; NEUT ABS # 2.55 K/uL (1.4-6.5); PLATELET COUNT 192 K/uL (130-400); RED CELL DISTRIBUTION WIDTH CV 13.5 % (11.5-14.5); RED CELL DISTRIBUTION WIDTH SD 44.4 fL (36.4-46.3); WHITE BLOOD COUNT 4.53 K/uL (4.8-10.8)
--- NOTE | 2017-12-04 10:02 | Gastroenterology Progress Note ---
Progress Note Date of Service: Dec 04, 2017 Subjective Pt evaluation today including: conversation w/ patient, conversation w/ life consultant Improved today overall, still with some mild bloating but improved since receiving Relistor yesterday. Still with postsurgical pain in the right lower quadrant is appropriate. Medications Current Inpatient Medications Medications (Trade) Dose Ordered Sig/Ramses Route Start Time Stop Time Status Last Admin Dose Admin Acetaminophen (Tylenol Tab) 650 mg Q4H PRN PO 12/02/17 15:15 01/01/18 15:14 Ondansetron HCl (Zofran Inj) 4 mg Q6H PRN IV 12/02/17 15:15 01/01/18 15:14 Lactulose (Chronulac Syrup) 30 gm TID PRN PO 12/02/17 15:15 01/01/18 15:14 12/03/17 08:46 30 GM Heparin Sodium (Porcine) (Heparin Sq 5000 Unit/0.5ml) 5,000 unit Q8 SQ 12/02/17 22:00 01/01/18 21:59 12/04/17 05:44 5,000 UNIT Glucose (Glucose 40% Gel) 15-30 GRAMS 15 GRAMS... UD PRN PO 12/02/17 15:15 01/01/18 15:14 Glucose (Glucose Chew Tab) 4-8 Tablets 4 Tabl... UD PRN PO 12/02/17 15:15 01/01/18 15:14 Dextrose (Dextrose 50% 50ML Syringe) 25-50ML 25ML FOR ... UD PRN IV 12/02/17 15:15 01/01/18 15:14 Glucagon (Glucagon Inj) 1 mg UD PRN SQ 12/02/17 15:15 01/01/18 15:14 Carbohydrates (Carbohydrates For Hypoglycemia) 15-30 GRAMS 15 grams if BSG 54-69... UD PRN PO 12/02/17 15:15 01/01/18 15:14 Miscellaneous Information (Consult Glycemic Management Pharmacy) 1 ea UD PRN N/A 12/02/17 15:29 01/01/18 15:28 Losartan Potassium (coZAAR TAB) 50 mg DAILY PO 12/03/17 09:00 01/02/18 08:59 12/04/17 08:54 50 MG Magnesium Oxide (Mag-Ox Tab) 400 mg DAILY PO 12/03/17 09:00 01/02/18 08:59 12/04/17 08:54 400 MG Metoprolol Succinate (Toprol Xl Tab) 75 mg DAILY PO 12/03/17 09:00 01/02/18 08:59 12/04/17 08:54 75 MG Acetaminophen 650 mg/Empty Bag 65 ml @ 260 mls/hr Q6H PRN IV 12/02/17 16:15 01/01/18 16:14 12/03/17 13:32 260 MLS/HR Miscellaneous (Iv Fluids Completed) 1 ea PRN PRN N/A 12/02/17 16:30 12/02/18 16:29 Lactated Ringer's 1,000 ml @ 100 mls/hr Q10H IV 12/03/17 11:00 01/02/18 10:59 12/04/17 07:00 100 MLS/HR Insulin Glargine (Lantus Solostar Pen) SEE PROTOCOL TEXT BID SC 12/03/17 21:00 01/02/18 20:59 12/04/17 08:56 18 UNITS Insulin Aspart (novoLOG ASPART) SLIDING SCALE If C... Q6 SC 12/03/17 18:00 01/02/18 17:59 12/03/17 18:10 1 UNITS Methylnaltrexone [place] (Relistor Inj) 12 mg Q2D SQ 12/03/17 15:00 12/05/17 18:00 12/03/17 16:07 12 MG Pantoprazole Sodium 40 mg/ Syringe 10 ml @ 5 mls/min DAILY@11 IV 12/04/17 11:00 01/03/18 10:59 Clonidine HCl (Catapres Tab) 0.1 mg Q6H PRN PO 12/03/17 17:00 01/02/18 16:59 12/03/17 22:59 0.1 MG Polyethylene (Miralax Powder Packet) 17 gm DAILY PRN PO 12/04/17 09:15 01/03/18 09:14 Objective Vital Signs Date Time Temp Pulse Resp B/P (MAP) Pulse Ox O2 Delivery O2 Flow Rate FiO2 12/04/17 06:46 36.8 86 20 137/84 (101) 95 12/04/17 03:58 36.5 87 20 148/90 (109) 97 Room Air 12/03/17 23:58 163/96 (118) 12/03/17 22:54 37.0 92 20 163/94 (117) 98 Room Air 161/86 (111) 12/03/17 20:00 Room Air 12/03/17 19:45 164/93 (116) 12/03/17 19:42 36.7 78 19 174/101 (125) 96 Room Air 12/03/17 16:00 Room Air 12/03/17 15:29 36.7 93 20 159/95 (116) 95 Room Air 12/03/17 11:27 36.7 94 18 144/94 (111) 96 Room Air Physical Exam General Appearance: WD/WN, no apparent distress, + pertinent finding (Appears improved and more comfortable than yesterday) ENT: normal ENT inspection Respiratory/Chest: chest non-tender, lungs clear Cardiovascular: regular rate, rhythm, no edema Abdomen: normal bowel sounds, non tender, soft Extremities: normal range of motion, non-tender, normal inspection Neurologic/Psych: compliance field technician II-XII nml as tested Laboratory Results Last 24 Hours Test 12/03/17 11:10 12/03/17 18:01 12/03/17 21:12 12/03/17 23:58 Bedside Glucose 136 mg/dl 152 mg/dl 117 mg/dl 118 mg/dl Test 12/04/17 05:41 12/04/17 09:18 Bedside Glucose 116 mg/dl White Blood Count 4.53 K/uL Red Blood Count 4.61 M/uL Hemoglobin 14.2 g/dL Hematocrit 41.2 % Mean Corpuscular Volume 89.4 fL Mean Corpuscular Hemoglobin 30.8 pg Mean Corpuscular Hemoglobin Concent 34.5 g/dl Platelet Count 192 K/uL Mean Platelet Volume 9.3 fL Neutrophils (%) (Auto) 56.2 % Lymphocytes (%) (Auto) 23.2 % Monocytes (%) (Auto) 13.7 % Eosinophils (%) (Auto) 6.0 % Basophils (%) (Auto) 0.7 % Neutrophils # (Auto) 2.55 K/uL Lymphocytes # (Auto) 1.05 K/uL Monocytes # (Auto) 0.62 K/uL Eosinophils # (Auto) 0.27 K/uL Basophils # (Auto) 0.03 K/uL RDW Standard Deviation 44.4 fL RDW Coefficient of Variation 13.5 % Immature Granulocyte % (Auto) 0.2 % Immature Granulocyte # (Auto) 0.01 K/uL Assessment and Plan 47-year-old male status post right nephrectomy earlier this past week with obstipation/constipation consistent with postoperative ileus. Seems to be overall improved, the Relistor did seem to manage some of his symptoms. Repeat Relistor dose tomorrow Patient request another tap water enema As needed MiraLAX Encourage ambulation Monitor and replete electrolytes as necessary Avoid opioid analgesia or other anti-cholinergic If has return or increased distention, abdomen much less distended and painful than yesterday, but if it does return and then suggest NG tube. If does okay this morning try clears later today
[2017-12-04 10:16] LABS: CALCIUM 8.4 mg/dl (8.5-10.1); CREATININE 0.97 mg/dl (0.60-1.40); POTASSIUM 3.5 mmol/L (3.5-5.1)
[2017-12-04] MEDS: PANTOprazole INJ 40 MG in SYRINGE 0 ML IV SCH (11:34)
[2017-12-04 11:48] VITALS: BP 154/90; PULSE 84; TEMP 37; O2SAT 95
[2017-12-04 15:29] VITALS: BP 130/84; PULSE 87; TEMP 36.7; O2SAT 97
--- NOTE | 2017-12-04 15:40 | Progress Note ---
Medicine Progress Note Date & Time of Visit: Dec 04, 2017 at 15:35. Subjective seen resting in bed, comfortable no BM overnight but (+) flatus no nausea surgical site is sore but improving denies other symptoms Objective Last 8 Hrs Date Time Temp Pulse Resp B/P (MAP) Pulse Ox O2 Delivery O2 Flow Rate FiO2 12/04/17 15:29 36.7 87 19 130/84 (99) 97 Room Air 12/04/17 11:48 37.0 84 18 154/90 (111) 95 Room Air 12/04/17 08:00 Room Air Physical Exam: General- oriented x 3, not in distress, speaks in sentences with no effort Eyes- anicteric Neck- supple Lungs- clear breath sounds bilaterally no rales/wheezes Heart- regular rhythm; no murmur, normal rate Abdomen- hypoactive BS but improving, soft, nontender Extremities- no pretibial edema, no calf tenderness; peripheral pulses intact Neuro- alert, oriented x 3; no gross focal deficits Skin- warm & dry Laboratory Results: Last 24 Hours Test 12/03/17 18:01 12/03/17 21:12 12/03/17 23:58 12/04/17 05:41 Bedside Glucose 152 mg/dl 117 mg/dl 118 mg/dl 116 mg/dl Test 12/04/17 09:18 12/04/17 11:59 White Blood Count 4.53 K/uL Red Blood Count 4.61 M/uL Hemoglobin 14.2 g/dL Hematocrit 41.2 % Mean Corpuscular Volume 89.4 fL Mean Corpuscular Hemoglobin 30.8 pg Mean Corpuscular Hemoglobin Concent 34.5 g/dl Platelet Count 192 K/uL Mean Platelet Volume 9.3 fL Neutrophils (%) (Auto) 56.2 % Lymphocytes (%) (Auto) 23.2 % Monocytes (%) (Auto) 13.7 % Eosinophils (%) (Auto) 6.0 % Basophils (%) (Auto) 0.7 % Neutrophils # (Auto) 2.55 K/uL Lymphocytes # (Auto) 1.05 K/uL Monocytes # (Auto) 0.62 K/uL Eosinophils # (Auto) 0.27 K/uL Basophils # (Auto) 0.03 K/uL RDW Standard Deviation 44.4 fL RDW Coefficient of Variation 13.5 % Immature Granulocyte % (Auto) 0.2 % Immature Granulocyte # (Auto) 0.01 K/uL Sodium Level 135 mmol/L Potassium Level 3.5 mmol/L Chloride Level 101 mmol/L Carbon Dioxide Level 23 mmol/L Anion Gap 11.0 mmol/L Blood Urea Nitrogen 9 mg/dl Creatinine 0.97 mg/dl Est Creatinine Clear Calc Drug Dose 109.3 ml/min Estimated GFR () 106.6 Estimated GFR (Non- 91.9 BUN/Creatinine Ratio 8.9 Random Glucose 113 mg/dl Calcium Level 8.4 mg/dl Bedside Glucose 127 mg/dl Assessment & Plan Pt is 47 y/o M with PMH DM II, HTN, GERD, HLD, R renal mass s/p R nephrectomy on 11/29/[address] Lam presented to ER with c/o constipation. POST-OP ILEUS - s/p Nephrectomy POD 5 - repeat KUB mild improvement - 12/03 given Lactulose, Enema (+) BMs yesterday - (+) improved bowel sounds today however, patient did not tolerate clear liquids for lunch - back to NPO GI consulted, Relistor ordered - 12/04 no BM Tap water enema ordered again will monitor PRN Miralax appreciate GI service recommendations S/P RIGHT NEPHRECTOMY FOR RIGHT RENAL MASS, POD#[address] Lam pathology report: clear cell renal cell carcinoma - UA trace RBC no hematuria - renal function stable METABOLIC ACIDOSIS secondary to Starvation Ketoacidosis given IV HCO3 PRP improving fluids changed to LR appreciate Nephro consult TACHYCARDIA PLEURITIC CHEST PAIN VQ scan low probability for PE resolved HTN -continue metoprolol, losartan - will order PRN Clonidine DM II A1c: 8.3 on 10/2017. Gluc: 168 -hold metformin, jardiance, ozempic -basal bolus insulin per protocol, appreciate glycemic pharmacist management GERD -continue PPI HLD -continue crestor DVT Prophylaxis -heparin SQ Disposition pending anticipate d/c home when medically stable Current Inpatient Medications: Current Inpatient Medications Medications (Trade) Dose Ordered Sig/Ramses Route Start Time Stop Time Status Last Admin Dose Admin Acetaminophen (Tylenol Tab) 650 mg Q4H PRN PO 12/02/17 15:15 01/01/18 15:14 Ondansetron HCl (Zofran Inj) 4 mg Q6H PRN IV 12/02/17 15:15 01/01/18 15:14 Lactulose (Chronulac Syrup) 30 gm TID PRN PO 12/02/17 15:15 01/01/18 15:14 12/03/17 08:46 30 GM Heparin Sodium (Porcine) (Heparin Sq 5000 Unit/0.5ml) 5,000 unit Q8 SQ 12/02/17 22:00 01/01/18 21:59 12/04/17 14:57 5,000 UNIT Glucose (Glucose 40% Gel) 15-30 GRAMS 15 GRAMS... UD PRN PO 12/02/17 15:15 01/01/18 15:14 Glucose (Glucose Chew Tab) 4-8 Tablets 4 Tabl... UD PRN PO 12/02/17 15:15 01/01/18 15:14 Dextrose (Dextrose 50% 50ML Syringe) 25-50ML 25ML FOR ... UD PRN IV 12/02/17 15:15 01/01/18 15:14 Glucagon (Glucagon Inj) 1 mg UD PRN SQ 12/02/17 15:15 01/01/18 15:14 Carbohydrates (Carbohydrates For Hypoglycemia) 15-30 GRAMS 15 grams if BSG 54-69... UD PRN PO 12/02/17 15:15 01/01/18 15:14 Miscellaneous Information (Consult Glycemic Management Pharmacy) 1 ea UD PRN N/A 12/02/17 15:29 01/01/18 15:28 Losartan Potassium (coZAAR TAB) 50 mg DAILY PO 12/03/17 09:00 01/02/18 08:59 12/04/17 08:54 50 MG Magnesium Oxide (Mag-Ox Tab) 400 mg DAILY PO 12/03/17 09:00 01/02/18 08:59 12/04/17 08:54 400 MG Metoprolol Succinate (Toprol Xl Tab) 75 mg DAILY PO 12/03/17 09:00 01/02/18 08:59 12/04/17 08:54 75 MG Acetaminophen 650 mg/Empty Bag 65 ml @ 260 mls/hr Q6H PRN IV 12/02/17 16:15 01/01/18 16:14 12/03/17 13:32 260 MLS/HR Miscellaneous (Iv Fluids Completed) 1 ea PRN PRN N/A 12/02/17 16:30 12/02/18 16:29 Lactated Ringer's 1,000 ml @ 100 mls/hr Q10H IV 12/03/17 11:00 01/02/18 10:59 12/04/17 07:00 100 MLS/HR Insulin Glargine (Lantus Solostar Pen) SEE PROTOCOL TEXT BID SC 12/03/17 21:00 01/02/18 20:59 12/04/17 08:56 18 UNITS Insulin Aspart (novoLOG ASPART) SLIDING SCALE If C... Q6 SC 12/03/17 18:00 01/02/18 17:59 12/03/17 18:10 1 UNITS Methylnaltrexone [place] (Relistor Inj) 12 mg Q2D SQ 12/03/17 15:00 12/05/17 18:00 12/03/17 16:07 12 MG Pantoprazole Sodium 40 mg/ Syringe 10 ml @ 5 mls/min DAILY@11 IV 12/04/17 11:00 01/03/18 10:59 12/04/17 11:34 5 MLS/MIN Clonidine HCl (Catapres Tab) 0.1 mg Q6H PRN PO 12/03/17 17:00 01/02/18 16:59 12/03/17 22:59 0.1 MG Polyethylene (Miralax Powder Packet) 17 gm DAILY PRN PO 12/04/17 09:15 01/03/18 09:14
[2017-12-04 19:27] VITALS: BP 169/96; PULSE 80; TEMP 36.9; O2SAT 97
[2017-12-04] MEDS: CLONIDINE HCL 0.1 MG TAB PO PRN (20:50)
[2017-12-04] MEDS: POLYETHYLENE (MIRALAX) 17 GM PACK PO PRN (20:58)
[2017-12-04 23:33] VITALS: BP 161/94; PULSE 92; TEMP 36.9; O2SAT 98
[2017-12-05] VITALS (7 sets, daily range): BP systolic 157–175; BP diastolic 91–105; PULSE 64–81; TEMP 36.6–36.8; O2SAT 96–98
[2017-12-05] MEDS: LACTATED RINGER'S 1000ML 1,000 ML IV SCH ×3 (03:08→21:21)
[2017-12-05] MEDS: CLONIDINE HCL 0.1 MG TAB PO PRN ×2 (04:14→15:23)
[2017-12-05] MEDS: INSULIN ASPART 100 UNITS/ML 3 ML PEN SC SCH ×5 (05:54→21:00)
[2017-12-05 06:08] LABS: HEMATOCRIT 40.3 % (42-52); HEMOGLOBIN 14.1 g/dL (14.0-18.0); MEAN CORPUSCULAR HEMOGLOBIN 30.8 pg (25-34); PLATELET COUNT 172 K/uL (130-400); RED CELL DISTRIBUTION WIDTH CV 13.3 % (11.5-14.5); RED CELL DISTRIBUTION WIDTH SD 42.8 fL (36.4-46.3); WHITE BLOOD COUNT 4.35 K/uL (4.8-10.8)
[2017-12-05] MEDS: HEPARIN SOD 5000 UNIT/0.5 ML CARP SQ SCH ×3 (06:09→21:17)
[2017-12-05 09:15] LABS: CALCIUM 8.5 mg/dl (8.5-10.1); CREATININE 0.86 mg/dl (0.60-1.40); POTASSIUM 3.4 mmol/L (3.5-5.1)
[2017-12-05] MEDS: METOPROLOL SUCC 50MG EXT REL TAB PO SCH (09:24)
[2017-12-05] MEDS: LOSARTAN POTASSIUM 50 MG TAB PO SCH (09:25)
[2017-12-05] MEDS: MAGNESIUM OXIDE 400 MG TAB PO SCH (09:25)
[2017-12-05] MEDS: INSULIN GLARGINE SOLOSTAR 100 UNITS/ML 3 ML PEN SC SCH ×2 (09:28→21:17)
--- NOTE | 2017-12-05 10:13 | Nephrology Progress Note ---
Nephrology Progress Note Date of Service: Dec 05, 2017. Subjective passing gas; c/o some RUQ pain w/ bearing down else feeling better; eager for po , for home d/c>>to start clears today; no N; no voiding concerns; no edema or sob Objective Date Time Temp Pulse Resp B/P (MAP) Pulse Ox O2 Delivery O2 Flow Rate FiO2 12/05/17 07:06 36.7 78 18 158/96 (116) 97 Room Air 12/05/17 04:07 36.6 80 16 162/91 (114) 98 Room Air 12/04/17 23:33 36.9 92 18 161/94 (116) 98 Room Air 12/04/17 20:00 Room Air 12/04/17 19:27 36.9 80 20 169/96 (120) 97 12/04/17 15:29 36.7 87 19 130/84 (99) 97 Room Air 12/04/17 11:48 37.0 84 18 154/90 (111) 95 Room Air Physical Exam: [id number], no acute distress, on RA Eyes-eomi, tracks ENT-mmm Neck-supple, no JVD Lungs-clear to auscultation bilaterally Heart-normal heart sounds S1 and S2, no murmurs Abdomen-soft, surgical incision in the lower quadrant, bowel sounds present, not distended Extremities-no edema peripheral pulses are present Neuro-oriented 3, no focal neurological deficits, fluent speech Current Inpatient Medications Medications (Trade) Dose Ordered Sig/Ramses Route Start Time Stop Time Status Last Admin Dose Admin Acetaminophen (Tylenol Tab) 650 mg Q4H PRN PO 12/02/17 15:15 01/01/18 15:14 Ondansetron HCl (Zofran Inj) 4 mg Q6H PRN IV 12/02/17 15:15 01/01/18 15:14 Lactulose (Chronulac Syrup) 30 gm TID PRN PO 12/02/17 15:15 01/01/18 15:14 12/03/17 08:46 30 GM Heparin Sodium (Porcine) (Heparin Sq 5000 Unit/0.5ml) 5,000 unit Q8 SQ 12/02/17 22:00 01/01/18 21:59 12/05/17 06:09 5,000 UNIT Glucose (Glucose 40% Gel) 15-30 GRAMS 15 GRAMS... UD PRN PO 12/02/17 15:15 01/01/18 15:14 Glucose (Glucose Chew Tab) 4-8 Tablets 4 Tabl... UD PRN PO 12/02/17 15:15 01/01/18 15:14 Dextrose (Dextrose 50% 50ML Syringe) 25-50ML 25ML FOR ... UD PRN IV 12/02/17 15:15 01/01/18 15:14 Glucagon (Glucagon Inj) 1 mg UD PRN SQ 12/02/17 15:15 01/01/18 15:14 Carbohydrates (Carbohydrates For Hypoglycemia) 15-30 GRAMS 15 grams if BSG 54-69... UD PRN PO 12/02/17 15:15 01/01/18 15:14 Miscellaneous Information (Consult Glycemic Management Pharmacy) 1 ea UD PRN N/A 12/02/17 15:29 01/01/18 15:28 Losartan Potassium (coZAAR TAB) 50 mg DAILY PO 12/03/17 09:00 01/02/18 08:59 12/04/17 08:54 50 MG Magnesium Oxide (Mag-Ox Tab) 400 mg DAILY PO 12/03/17 09:00 01/02/18 08:59 12/04/17 08:54 400 MG Metoprolol Succinate (Toprol Xl Tab) 75 mg DAILY PO 12/03/17 09:00 01/02/18 08:59 12/04/17 08:54 75 MG Acetaminophen 650 mg/Empty Bag 65 ml @ 260 mls/hr Q6H PRN IV 12/02/17 16:15 01/01/18 16:14 12/03/17 13:32 260 MLS/HR Miscellaneous (Iv Fluids Completed) 1 ea PRN PRN N/A 12/02/17 16:30 12/02/18 16:29 Lactated Ringer's 1,000 ml @ 100 mls/hr Q10H IV 12/03/17 11:00 01/02/18 10:59 12/05/17 03:08 100 MLS/HR Insulin Glargine (Lantus Solostar Pen) SEE PROTOCOL TEXT BID SC 12/03/17 21:00 01/02/18 20:59 12/04/17 20:52 18 UNITS Insulin Aspart (novoLOG ASPART) SLIDING SCALE If C... Q6 SC 12/03/17 18:00 01/02/18 17:59 12/03/17 18:10 1 UNITS Methylnaltrexone [place] (Relistor Inj) 12 mg Q2D SQ 12/03/17 15:00 12/05/17 18:00 12/03/17 16:07 12 MG Pantoprazole Sodium 40 mg/ Syringe 10 ml @ 5 mls/min DAILY@11 IV 12/04/17 11:00 01/03/18 10:59 12/04/17 11:34 5 MLS/MIN Clonidine HCl (Catapres Tab) 0.1 mg Q6H PRN PO 12/03/17 17:00 01/02/18 16:59 12/05/17 04:14 0.1 MG Polyethylene (Miralax Powder Packet) 17 gm DAILY PRN PO 12/04/17 09:15 01/03/18 09:14 12/04/17 20:58 17 GM Last 24 Hours Test 12/04/17 09:18 12/04/17 11:59 12/04/17 18:11 12/04/17 20:37 White Blood Count 4.53 K/uL Red Blood Count 4.61 M/uL Hemoglobin 14.2 g/dL Hematocrit 41.2 % Mean Corpuscular Volume 89.4 fL Mean Corpuscular Hemoglobin 30.8 pg Mean Corpuscular Hemoglobin Concent 34.5 g/dl Platelet Count 192 K/uL Mean Platelet Volume 9.3 fL Neutrophils (%) (Auto) 56.2 % Lymphocytes (%) (Auto) 23.2 % Monocytes (%) (Auto) 13.7 % Eosinophils (%) (Auto) 6.0 % Basophils (%) (Auto) 0.7 % Neutrophils # (Auto) 2.55 K/uL Lymphocytes # (Auto) 1.05 K/uL Monocytes # (Auto) 0.62 K/uL Eosinophils # (Auto) 0.27 K/uL Basophils # (Auto) 0.03 K/uL RDW Standard Deviation 44.4 fL RDW Coefficient of Variation 13.5 % Immature Granulocyte % (Auto) 0.2 % Immature Granulocyte # (Auto) 0.01 K/uL Sodium Level 135 mmol/L Potassium Level 3.5 mmol/L Chloride Level 101 mmol/L Carbon Dioxide Level 23 mmol/L Anion Gap 11.0 mmol/L Blood Urea Nitrogen 9 mg/dl Creatinine 0.97 mg/dl Est Creatinine Clear Calc Drug Dose 109.3 ml/min Estimated GFR () 106.6 Estimated GFR (Non- 91.9 BUN/Creatinine Ratio 8.9 Random Glucose 113 mg/dl Calcium Level 8.4 mg/dl Bedside Glucose 127 mg/dl 118 mg/dl 98 mg/dl Test 12/04/17 23:55 12/05/17 05:53 12/05/17 06:00 Bedside Glucose 122 mg/dl 105 mg/dl White Blood Count 4.35 K/uL Red Blood Count 4.58 M/uL Hemoglobin 14.1 g/dL Hematocrit 40.3 % Mean Corpuscular Volume 88.0 fL Mean Corpuscular Hemoglobin 30.8 pg Mean Corpuscular Hemoglobin Concent 35.0 g/dl RDW Standard Deviation 42.8 fL RDW Coefficient of Variation 13.3 % Platelet Count 172 K/uL Mean Platelet Volume 9.0 fL Assessment & Plan 47-year-old male with type 2 diabetes, renal cell mass status post right nephrectomy 12/01 was admitted with constipation who then developed metabolic acidosis. 1. Metabolic acidosis: attributed to combined starvation ketoacidosis w/ several missed insulin doses in patient who has been not eating well or getting his insulin regularly in few days prior to admission. Acidosis as of 12/04 had been improving and anion gap closing. -Ensure that patient is getting adequate insulin. -lowered maintenance fluids with Ringer's lactate to 50 mL/ hr; when on regular diet stop IVF -ordered bmp for this am which is pending>> shows no acidosis but very mild low K >>OK to resume metformin tomorrow; recheck bmp on , again next Tuesday w / PCP to monitor bicarb, AG, creat; ckd clinic f/u prn 2.Hypertension: Blood pressure elevated again and has been taking prn clonidine. -increase metoprolol to 100 mg bid -cont prn clonidine -low threshold to lower losartan dose if renal function worsens; for now cont same 3. Status post nephrectomy: Patient creatinine has been 1.06> 0.9 today. Monitor renal function daily. Avoid nephrotoxins such as NSAIDs and contrast; take care w/ ACEI/ARB dosing Thank you for the consultation.
[2017-12-05] MEDS: PANTOprazole INJ 40 MG in SYRINGE 0 ML IV SCH (11:06)
[2017-12-05] MEDS: POTASSIUM CHLR 10 MEQ / WTR 100 ML IV SCH ×4 (11:06→17:11)
--- NOTE | 2017-12-05 12:05 | Gastroenterology Progress Note ---
Progress Note Date of Service: Dec 05, 2017 Subjective Pt evaluation today including: conversation w/ patient, physical exam, chart review, lab review, review of studies Patient is a 47 year old male post operative for a right renal cell carcinoma with postoperative ileus. Improved with Miralax, Relistor, and additional tap water enemas. He tells me that he was given another enema last evening, with positive results, however I do not see this documented in his chart. He is feeling well today and denies any abdominal pain, n/v. Labs show mild hypokalemia - currently receiving potassium IV. Tolerating a clear liquid diet. KUB 12/03/17: IMPRESSION: 1. Nonobstructed abdominal bowel gas pattern. 2. There is persistent gaseous distention of the colon, which has modestly improved from yesterday. 3. Fecal burden the right colon has decreased from yesterday. Review of Systems Constitutional: No fever, No chills Eyes: No worsening of vision, No eye pain ENT: No hearing loss, No sore throat Respiratory: No cough, No shortness of breath Cardiac: No chest pain Abdomen: + see HPI Musculoskeletal: No joint pain Male : No dysuria Neuro: No memory loss Psych: No problem reported Heme: No abnormal bleeding/bruising Endo: No excessive thirst, No excessive urination Skin: No rash, No itch Medications Current Inpatient Medications Medications (Trade) Dose Ordered Sig/Ramses Route Start Time Stop Time Status Last Admin Dose Admin Acetaminophen (Tylenol Tab) 650 mg Q4H PRN PO 12/02/17 15:15 01/01/18 15:14 Ondansetron HCl (Zofran Inj) 4 mg Q6H PRN IV 12/02/17 15:15 01/01/18 15:14 Lactulose (Chronulac Syrup) 30 gm TID PRN PO 12/02/17 15:15 01/01/18 15:14 12/03/17 08:46 30 GM Heparin Sodium (Porcine) (Heparin Sq 5000 Unit/0.5ml) 5,000 unit Q8 SQ 12/02/17 22:00 01/01/18 21:59 12/05/17 06:09 5,000 UNIT Glucose (Glucose 40% Gel) 15-30 GRAMS 15 GRAMS... UD PRN PO 12/02/17 15:15 01/01/18 15:14 Glucose (Glucose Chew Tab) 4-8 Tablets 4 Tabl... UD PRN PO 12/02/17 15:15 01/01/18 15:14 Dextrose (Dextrose 50% 50ML Syringe) 25-50ML 25ML FOR ... UD PRN IV 12/02/17 15:15 01/01/18 15:14 Glucagon (Glucagon Inj) 1 mg UD PRN SQ 12/02/17 15:15 01/01/18 15:14 Carbohydrates (Carbohydrates For Hypoglycemia) 15-30 GRAMS 15 grams if BSG 54-69... UD PRN PO 12/02/17 15:15 01/01/18 15:14 Miscellaneous Information (Consult Glycemic Management Pharmacy) 1 ea UD PRN N/A 12/02/17 15:29 01/01/18 15:28 Losartan Potassium (coZAAR TAB) 50 mg DAILY PO 12/03/17 09:00 01/02/18 08:59 12/05/17 09:25 50 MG Magnesium Oxide (Mag-Ox Tab) 400 mg DAILY PO 12/03/17 09:00 01/02/18 08:59 12/05/17 09:25 400 MG Metoprolol Succinate (Toprol Xl Tab) 75 mg DAILY PO 12/03/17 09:00 01/02/18 08:59 12/05/17 09:24 75 MG Acetaminophen 650 mg/Empty Bag 65 ml @ 260 mls/hr Q6H PRN IV 12/02/17 16:15 01/01/18 16:14 12/03/17 13:32 260 MLS/HR Miscellaneous (Iv Fluids Completed) 1 ea PRN PRN N/A 12/02/17 16:30 12/02/18 16:29 Lactated Ringer's 1,000 ml @ 100 mls/hr Q10H IV 12/03/17 11:00 01/02/18 10:59 12/05/17 03:08 100 MLS/HR Insulin Glargine (Lantus Solostar Pen) SEE PROTOCOL TEXT BID SC 12/03/17 21:00 01/02/18 20:59 12/05/17 09:28 18 UNITS Insulin Aspart (novoLOG ASPART) SLIDING SCALE If C... Q6 SC 12/03/17 18:00 01/02/18 17:59 12/03/17 18:10 1 UNITS Methylnaltrexone [place] (Relistor Inj) 12 mg Q2D SQ 12/03/17 15:00 12/05/17 18:00 12/03/17 16:07 12 MG Pantoprazole Sodium 40 mg/ Syringe 10 ml @ 5 mls/min DAILY@11 IV 12/04/17 11:00 01/03/18 10:59 12/05/17 11:06 5 MLS/MIN Clonidine HCl (Catapres Tab) 0.1 mg Q6H PRN PO 12/03/17 17:00 01/02/18 16:59 12/05/17 04:14 0.1 MG Polyethylene (Miralax Powder Packet) 17 gm DAILY PRN PO 12/04/17 09:15 01/03/18 09:14 12/04/17 20:58 17 GM Potassium Chloride 100 ml @ 100 mls/hr Q1H IV 12/05/17 10:15 12/05/17 14:14 12/05/17 11:06 100 MLS/HR Objective Vital Signs Date Time Temp Pulse Resp B/P (MAP) Pulse Ox O2 Delivery O2 Flow Rate FiO2 12/05/17 08:00 Room Air 12/05/17 07:06 36.7 78 18 158/96 (116) 97 Room Air 12/05/17 04:07 36.6 80 16 162/91 (114) 98 Room Air 12/04/17 23:33 36.9 92 18 161/94 (116) 98 Room Air 12/04/17 20:00 Room Air 12/04/17 19:27 36.9 80 20 169/96 (120) 97 12/04/17 15:29 36.7 87 19 130/84 (99) 97 Room Air Physical Exam General Appearance: no apparent distress Eyes: normal inspection ENT: hearing grossly normal Neck: supple Respiratory/Chest: lungs clear, normal breath sounds, no respiratory distress Cardiovascular: regular rate, rhythm Abdomen: normal bowel sounds, non tender, soft, no organomegaly Extremities: no pedal edema Neurologic/Psych: alert, normal mood/affect Skin: no jaundice, warm/dry Laboratory Results Last 24 Hours Test 12/04/17 18:11 12/04/17 20:37 12/04/17 23:55 12/05/17 05:53 Bedside Glucose 118 mg/dl 98 mg/dl 122 mg/dl 105 mg/dl Test 12/05/17 06:00 12/05/17 06:02 12/05/17 11:33 White Blood Count 4.35 K/uL Red Blood Count 4.58 M/uL Hemoglobin 14.1 g/dL Hematocrit 40.3 % Mean Corpuscular Volume 88.0 fL Mean Corpuscular Hemoglobin 30.8 pg Mean Corpuscular Hemoglobin Concent 35.0 g/dl RDW Standard Deviation 42.8 fL RDW Coefficient of Variation 13.3 % Platelet Count 172 K/uL Mean Platelet Volume 9.0 fL Sodium Level 135 mmol/L Potassium Level 3.4 mmol/L Chloride Level 101 mmol/L Carbon Dioxide Level 26 mmol/L Anion Gap 8.0 mmol/L Blood Urea Nitrogen 8 mg/dl Creatinine 0.86 mg/dl Est Creatinine Clear Calc Drug Dose 123.0 ml/min Estimated GFR () 118.8 Estimated GFR (Non- 102.5 BUN/Creatinine Ratio 9.3 Random Glucose 111 mg/dl Calcium Level 8.5 mg/dl Bedside Glucose 129 mg/dl Assessment and Plan 47 year old male with post-op ileus, improved with miralax and relistor with additional enemas PRN. Will give one additional dose of Relistor today (last dose was 12/03/17). Would continue to monitor and correct electrolytes during admission. OK to advance diet further as tolerated - would start with low residue. GI will sign off. Plan for OP colonoscopy. I performed a history and physical examination of the patient, including specifically no abdominal tenderness. I have discussed the patient's management with Mayra Valdez. Please refer to the [employer]'s note for the documented findings and plan of care. Passing gas and BM after enema. Encourage ambulation. Colonoscopy as OP. Recall GI if needed.
--- NOTE | 2017-12-05 12:23 | Urology Consultation ---
History General Date of Service: Dec 05, 2017. Chief Complaint: Constipation Primary Care Physician: Andreas Orona D.O. Pt seen a urologist before?: Yes History of Present Illness Male with RCC s/p hand asst Nx Has constipation and bowel issues at baseline. Had worsening distension and trouble with straining after surgery. POD2-3 became bothesome. Went to ER and was admitted for ileus vs constipation. Patient has since had reg and now improved bowel function. Spontaneous flatus. much improved from pain and discomfort. Laboratory Labs were reviewed and are within normal limits unless listed below. Labs are available in the chart and at [facility] Problem List Medical Problems: (1) Ileus Status: Acute (2) Subconjunctival hemorrhage of left eye Status: Acute Family History Patient reports no known family medical history. Social History Hx Tobacco Use In Past Year?: No Marital status: single Occupation status: unemployed History of MDRO No Allergies Coded Allergies: Iodinated Diagnostic Agents (Verified Allergy, Intermediate, NAUSEA, ) Medications Home Medications: Home Meds and Scripts Medications Dose Route/Sig Max Daily Dose Days Date Category Dose Instructions Tylenol W/Codeine #3 (Acetaminophen/Codeine Phosphate) 300 Mg/30 Mg Tab 1 Tab PO Q6 PRN 12/02/17 Reported Cozaar (Losartan Potassium) 50 Mg Tab 50 Mg PO NOON 11/10/17 Reported Ozempic (Semaglutide) 2 Mg/1.5 Ml Inj 1 Mg INJ WK 11/10/17 Reported AM Toprol-Xl (Metoprolol Succinate) 50 Mg Tabcr 75 Mg PO NOON 11/17/16 Reported Crestor (Rosuvastatin Calcium) 40 Mg Tab 40 Mg PO HS 11/17/16 Reported Prilosec (Omeprazole) 20 Mg Capcr 20 Mg PO NOON 11/17/16 Reported Glucophage (Metformin Hcl) 1,000 Mg Tab 1,000 Mg PO BIDM 11/17/16 Reported Mag-Ox (Magnesium Oxide) 400 Mg Tab 400 Mg PO NOON 11/17/16 Reported Jardiance (Empagliflozin) 25 Mg Tab 25 Mg PO QAM 11/17/16 Reported Lantus (Insulin Glargine) 100 Unit/Ml Inj 52 Units SC HS 11/17/16 Reported Inpatient Medications: Current Inpatient Medications Medications (Trade) Dose Ordered Sig/Ramses Route Start Time Stop Time Status Last Admin Dose Admin Acetaminophen (Tylenol Tab) 650 mg Q4H PRN PO 12/02/17 15:15 01/01/18 15:14 Ondansetron HCl (Zofran Inj) 4 mg Q6H PRN IV 12/02/17 15:15 01/01/18 15:14 Lactulose (Chronulac Syrup) 30 gm TID PRN PO 12/02/17 15:15 01/01/18 15:14 12/03/17 08:46 30 GM Heparin Sodium (Porcine) (Heparin Sq 5000 Unit/0.5ml) 5,000 unit Q8 SQ 12/02/17 22:00 01/01/18 21:59 12/05/17 06:09 5,000 UNIT Glucose (Glucose 40% Gel) 15-30 GRAMS 15 GRAMS... UD PRN PO 12/02/17 15:15 01/01/18 15:14 Glucose (Glucose Chew Tab) 4-8 Tablets 4 Tabl... UD PRN PO 12/02/17 15:15 01/01/18 15:14 Dextrose (Dextrose 50% 50ML Syringe) 25-50ML 25ML FOR ... UD PRN IV 12/02/17 15:15 01/01/18 15:14 Glucagon (Glucagon Inj) 1 mg UD PRN SQ 12/02/17 15:15 01/01/18 15:14 Carbohydrates (Carbohydrates For Hypoglycemia) 15-30 GRAMS 15 grams if BSG 54-69... UD PRN PO 12/02/17 15:15 01/01/18 15:14 Miscellaneous Information (Consult Glycemic Management Pharmacy) 1 ea UD PRN N/A 12/02/17 15:29 01/01/18 15:28 Losartan Potassium (coZAAR TAB) 50 mg DAILY PO 12/03/17 09:00 01/02/18 08:59 12/04/17 08:54 50 MG Magnesium Oxide (Mag-Ox Tab) 400 mg DAILY PO 12/03/17 09:00 01/02/18 08:59 12/04/17 08:54 400 MG Metoprolol Succinate (Toprol Xl Tab) 75 mg DAILY PO 12/03/17 09:00 01/02/18 08:59 12/04/17 08:54 75 MG Acetaminophen 650 mg/Empty Bag 65 ml @ 260 mls/hr Q6H PRN IV 12/02/17 16:15 01/01/18 16:14 12/03/17 13:32 260 MLS/HR Miscellaneous (Iv Fluids Completed) 1 ea PRN PRN N/A 12/02/17 16:30 12/02/18 16:29 Lactated Ringer's 1,000 ml @ 100 mls/hr Q10H IV 12/03/17 11:00 01/02/18 10:59 12/05/17 03:08 100 MLS/HR Insulin Glargine (Lantus Solostar Pen) SEE PROTOCOL TEXT BID SC 12/03/17 21:00 01/02/18 20:59 12/04/17 20:52 18 UNITS Insulin Aspart (novoLOG ASPART) SLIDING SCALE If C... Q6 SC 12/03/17 18:00 01/02/18 17:59 12/03/17 18:10 1 UNITS Methylnaltrexone [place] (Relistor Inj) 12 mg Q2D SQ 12/03/17 15:00 12/05/17 18:00 12/03/17 16:07 12 MG Pantoprazole Sodium 40 mg/ Syringe 10 ml @ 5 mls/min DAILY@11 IV 12/04/17 11:00 01/03/18 10:59 12/04/17 11:34 5 MLS/MIN Clonidine HCl (Catapres Tab) 0.1 mg Q6H PRN PO 12/03/17 17:00 01/02/18 16:59 12/05/17 04:14 0.1 MG Polyethylene (Miralax Powder Packet) 17 gm DAILY PRN PO 12/04/17 09:15 01/03/18 09:14 12/04/17 20:58 17 GM Review of Systems Review of Systems All Other Systems: Reviewed and Negative Physical Exam Vital Signs: Vital Signs Past 12 Hours Date Time Temp Pulse Resp B/P (MAP) Pulse Ox O2 Delivery O2 Flow Rate FiO2 12/05/17 07:06 36.7 78 18 158/96 (116) 97 Room Air 12/05/17 04:07 36.6 80 16 162/91 (114) 98 Room Air Physical Exam: General Appearance: WD/WN, no apparent distress Eyes: bilateral eyes normal inspection ENT: normal ENT inspection, hearing grossly normal Neck: no JVD Respiratory/Chest: no respiratory distress, no accessory muscle use Cardiovascular: regular rate, rhythm Gastrointestinal: Abdomen: normal abdomen, pertinent finding (Obese. 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 Postop constipation vs ileus, resolving 2. RCC s/p HALNx Continue supportive care. Short conversation about pathology results which have now returned. Discussed importance of monitoring. [place] Grade 3 T2 RCC clear cell. Monitor and increase activity. Advance diet. Follow as outpatient.
--- NOTE | 2017-12-05 12:32 | Pharmacy Progress Note ---
Pharmacy Glycemic Short Note 2 Date of Service Dec 05, 2017. OUTPATIENT ANTIDIABETIC REGIMEN: * Lantus 52units HS, Metformin 1g BIDM, Jardiance 25mg QAM * A1c = 8.3 % 11/17/17 Item Value Date Time Bedside Glucose 116 mg/dl H 12/04/17 0541 Bedside Glucose 127 mg/dl H 12/04/17 1159 Bedside Glucose 118 mg/dl H 12/04/17 1811 Bedside Glucose 98 mg/dl 12/04/17 2037 Bedside Glucose 122 mg/dl H 12/04/17 2355 Bedside Glucose 105 mg/dl H 12/05/17 0553 Bedside Glucose 129 mg/dl H 12/05/17 1133 ASSESSMENT: 12/05/17 * Excellent glycemic control over the past 24 hours. * Marco received a total of 36 units of insulin on 12/04 (all basal). His diet was advanced to clear liquids/T2DM, starting with lunch today. * No changes will be made to insulin orders today. May need to adjust Novolog parameters tomorrow once effect of diet change is seen. 12/03/17 * Mr. Campos received 44 units of insulin yesterday with BSGs reasonably well controlled * He remains NPO * Will continue with similar reduced outpatient dose of basal but split evenly into BID dosing in case further adjustments need made * No changes to Novolog parameters 12/02/17 * Mr. Campos is a 47yo M known to the pharmacy glycemic service from his admission earlier this week. He p/w BSG of 168, AG=15 CO2=17, and a serum osmolarity WNL. Ketosis likely due to poor PO intake 2/2 post-op ileus. A1C 8.3 % indicative of poor outpt glycemic management. Given his NPO status will ere on the side of conservatism with his home lantus dose. He is receiving a bicarb gtt, mixed in D5. Minimal other risk factors for insulin resistance at this point in time. PLAN FOR INPATIENT GLYCEMIC CONTROL: * Continue to hold outpatient oral diabetes medications * Basal insulin * Lantus 18 units SQ BID * Bolus insulin * NovoLog per scale ACHS or Q6hrs while NPO * Goal Range: Low 110 mg/dL - High 140 mg/dL * Correction Factor: 25 mg/dL/unit * Nutritional / Prandial insulin per carb ratio of 1 unit per 8 grams CHO consumed PLAN FOR DISCHARGE: * A1c slightly above goal for age * Patient may need bolus insulin with meals if he is already compliant with current medications. Can consider recommending this for PCP to initiate.
[2017-12-05] MEDS ORDERED: NURSING VERBAL MED ORDER ONE (15:30)
[2017-12-05] MEDS: METHYLNALTREXONE BROMIDE INJ 12 MG/0.6 ML SYR SQ SCH (15:34)
[2017-12-05] MEDS ORDERED: AMLODIPINE BESYLATE 5 MG TAB PO ONE (19:45)
[2017-12-05] MEDS: POLYETHYLENE (MIRALAX) 17 GM PACK PO PRN (21:16)
[2017-12-06 04:09] VITALS: BP 158/85; PULSE 85; TEMP 36.6; O2SAT 97
[2017-12-06] MEDS: HEPARIN SOD 5000 UNIT/0.5 ML CARP SQ SCH ×3 (05:54→20:57)
[2017-12-06 06:36] VITALS: BP 148/87; PULSE 80; TEMP 36.7; O2SAT 96
--- NOTE | 2017-12-06 07:05 | Progress Note ---
Medicine Progress Note Date & Time of Visit: Dec 06, 2017 at 07:00. Subjective seen resting in bed comfortable states he feels better less abdominal pain no nausea had BM after enema yesterday no other symptoms Objective Last 8 Hrs Date Time Temp Pulse Resp B/P (MAP) Pulse Ox O2 Delivery O2 Flow Rate FiO2 12/06/17 06:36 36.7 80 18 148/87 (107) 96 Room Air 12/06/17 04:09 36.6 85 20 158/85 (109) 97 Room Air 12/06/17 04:02 Room Air 12/05/17 23:34 36.6 81 18 157/96 (116) 97 Room Air Physical Exam: General- oriented x 3, not in distress, speaks in sentences with no effort Eyes- anicteric Neck- supple Lungs- clear BS bilaterally no rales/wheezes Heart- regular rhythm; no murmur, normal rate Abdomen- hypoactive BS but improving, soft, nontender, non distended Extremities- no pretibial edema, no calf tenderness; peripheral pulses intact Neuro- alert, oriented x 3; no gross focal deficits Skin- warm & dry Laboratory Results: Last 24 Hours Test 12/05/17 11:33 12/05/17 16:27 12/05/17 20:51 Bedside Glucose 129 mg/dl 111 mg/dl 97 mg/dl Assessment & Plan Pt is 47 y/o M with PMH DM II, HTN, GERD, HLD, R renal mass s/p R nephrectomy on 11/29/[address] Lam presented to ER with c/o constipation. POST-OP ILEUS - s/p Nephrectomy POD 5 - repeat KUB mild improvement - 12/03 given Lactulose, Enema (+) BMs yesterday - (+) improved bowel sounds today however, patient did not tolerate clear liquids for lunch - back to NPO GI consulted, Relistor ordered - 12/04 no BM Tap water enema ordered again will monitor PRN Miralax appreciate GI service recommendations 12/05 non distended, feels improved (+) flatus only Relistor 2nd dose ordered diet advanced to clear liquids advance further as tolerated S/P RIGHT NEPHRECTOMY FOR RIGHT RENAL MASS, POD#[address] Lam RENAL CELL CARCINOMA pathology report: clear cell renal cell carcinoma - UA trace RBC no hematuria - renal function stable - pathology: Renal Cell Carcinoma close outpatient follow up METABOLIC ACIDOSIS secondary to Starvation Ketoacidosis given IV HCO3 PRP improving fluids changed to LR appreciate Nephro consult TACHYCARDIA PLEURITIC CHEST PAIN VQ scan low probability for PE resolved HTN -continue metoprolol, losartan - PRN Clonidine DM II A1c: 8.3 on 10/2017. Gluc: 168 -hold metformin, jardiance, ozempic -basal bolus insulin per protocol, appreciate glycemic pharmacist management GERD -continue PPI HLD -continue crestor DVT Prophylaxis -heparin SQ Disposition pending anticipate d/c home when medically stable Current Inpatient Medications: Current Inpatient Medications Medications (Trade) Dose Ordered Sig/Ramses Route Start Time Stop Time Status Last Admin Dose Admin Acetaminophen (Tylenol Tab) 650 mg Q4H PRN PO 12/02/17 15:15 01/01/18 15:14 Ondansetron HCl (Zofran Inj) 4 mg Q6H PRN IV 12/02/17 15:15 01/01/18 15:14 Lactulose (Chronulac Syrup) 30 gm TID PRN PO 12/02/17 15:15 01/01/18 15:14 12/03/17 08:46 30 GM Heparin Sodium (Porcine) (Heparin Sq 5000 Unit/0.5ml) 5,000 unit Q8 SQ 12/02/17 22:00 01/01/18 21:59 12/06/17 05:54 5,000 UNIT Glucose (Glucose 40% Gel) 15-30 GRAMS 15 GRAMS... UD PRN PO 12/02/17 15:15 01/01/18 15:14 Glucose (Glucose Chew Tab) 4-8 Tablets 4 Tabl... UD PRN PO 12/02/17 15:15 01/01/18 15:14 Dextrose (Dextrose 50% 50ML Syringe) 25-50ML 25ML FOR ... UD PRN IV 12/02/17 15:15 01/01/18 15:14 Glucagon (Glucagon Inj) 1 mg UD PRN SQ 12/02/17 15:15 01/01/18 15:14 Carbohydrates (Carbohydrates For Hypoglycemia) 15-30 GRAMS 15 grams if BSG 54-69... UD PRN PO 12/02/17 15:15 01/01/18 15:14 Miscellaneous Information (Consult Glycemic Management Pharmacy) 1 ea UD PRN N/A 12/02/17 15:29 01/01/18 15:28 Losartan Potassium (coZAAR TAB) 50 mg DAILY PO 12/03/17 09:00 01/02/18 08:59 12/05/17 09:25 50 MG Magnesium Oxide (Mag-Ox Tab) 400 mg DAILY PO 12/03/17 09:00 01/02/18 08:59 12/05/17 09:25 400 MG Metoprolol Succinate (Toprol Xl Tab) 75 mg DAILY PO 12/03/17 09:00 01/02/18 08:59 12/05/17 09:24 75 MG Acetaminophen 650 mg/Empty Bag 65 ml @ 260 mls/hr Q6H PRN IV 12/02/17 16:15 01/01/18 16:14 12/03/17 13:32 260 MLS/HR Miscellaneous (Iv Fluids Completed) 1 ea PRN PRN N/A 12/02/17 16:30 12/02/18 16:29 Lactated Ringer's 1,000 ml @ 100 mls/hr Q10H IV 12/03/17 11:00 01/02/18 10:59 12/05/17 21:21 100 MLS/HR Insulin Glargine (Lantus Solostar Pen) SEE PROTOCOL TEXT BID SC 12/03/17 21:00 01/02/18 20:59 12/05/17 21:17 18 UNITS Pantoprazole Sodium 40 mg/ Syringe 10 ml @ 5 mls/min DAILY@11 IV 12/04/17 11:00 01/03/18 10:59 12/05/17 11:06 5 MLS/MIN Clonidine HCl (Catapres Tab) 0.1 mg Q6H PRN PO 12/03/17 17:00 01/02/18 16:59 12/05/17 15:23 0.1 MG Polyethylene (Miralax Powder Packet) 17 gm DAILY PRN PO 12/04/17 09:15 01/03/18 09:14 12/05/17 21:16 17 GM Insulin Aspart (novoLOG ASPART) SLIDING SCALE If C... ACHS SC 12/05/17 16:15 01/04/18 16:14 12/05/17 17:13 7 UNITS Amlodipine Besylate (Norvasc Tab) 5 mg QAM PO 12/06/17 09:00 01/05/18 08:59
[2017-12-06] MEDS: LACTATED RINGER'S 1000ML 1,000 ML IV SCH (07:26)
[2017-12-06] MEDS: AMLODIPINE BESYLATE 5 MG TAB PO SCH (07:26)
[2017-12-06] MEDS: METOPROLOL SUCC 50MG EXT REL TAB PO SCH (07:27)
[2017-12-06] MEDS: MAGNESIUM OXIDE 400 MG TAB PO SCH (07:27)
[2017-12-06] MEDS: LOSARTAN POTASSIUM 50 MG TAB PO SCH (07:27)
[2017-12-06] MEDS: INSULIN GLARGINE SOLOSTAR 100 UNITS/ML 3 ML PEN SC SCH ×2 (07:32→20:56)
[2017-12-06] MEDS: INSULIN ASPART 100 UNITS/ML 3 ML PEN SC SCH ×4 (07:34→20:53)
--- NOTE | 2017-12-06 10:20 | Pharmacy Progress Note ---
Pharmacy Glycemic Short Note 2 Date of Service Dec 06, 2017. OUTPATIENT ANTIDIABETIC REGIMEN: * Lantus 52units HS, Metformin 1g BIDM, Jardiance 25mg QAM * A1c = 8.3 % 11/17/17 Item Value Date Time Bedside Glucose 116 mg/dl H 12/04/17 0541 Bedside Glucose 127 mg/dl H 12/04/17 1159 Bedside Glucose 118 mg/dl H 12/04/17 1811 Bedside Glucose 98 mg/dl 12/04/17 2037 Bedside Glucose 122 mg/dl H 12/04/17 2355 Bedside Glucose 105 mg/dl H 12/05/17 0553 Bedside Glucose 129 mg/dl H 12/05/17 1133 ASSESSMENT: Please refer to progress note from 12/02 for background info, in short: * Excellent glycemic control over the past 48 hours. * Diet advanced from clear liquids to T2DM. * Carb ratio of 1 unit for every 8 grams of CHO appeared to provide too much coverage for the patient yesterday as evidenced by BSG trending downward with meals. Will loosen to 10 today. * Fasting BSG is at goal. No changes to basal insulin. PLAN FOR INPATIENT GLYCEMIC CONTROL: * Continue to hold outpatient oral diabetes medications * Basal insulin * Continue Lantus 18 units SQ BID * Bolus insulin - loosen carb ratio * NovoLog per scale ACHS or Q6hrs while NPO * Goal Range: Low 110 mg/dL - High 140 mg/dL * Correction Factor: 25 mg/dL/unit * Nutritional / Prandial insulin per carb ratio of 1 unit per 10 grams CHO consumed PLAN FOR DISCHARGE: * A1c slightly above goal for age * Patient may need bolus insulin with meals if he is already compliant with current medications. Can consider recommending this for PCP to initiate.
--- NOTE | 2017-12-06 10:24 | Progress Note ---
Internal Med Progress Note Date of Service: Dec 06, 2017. Provider Documentation: SUBJECTIVE: Seen and examined at bedside Feels much better today Had BM this morning Has some Abdominal discomfort at surgical site Denies chest pain, SOB, dizziness Eager to get discharged No other complaints OBJECTIVE: Vital Signs-as noted below Physical Exam: General Appearance:Moderately built and nourished, no apparent distress Head: normocephalic, Atraumatic Eyes: normal inspection, EOMI, PERRL Neck: supple, Trachea midline Respiratory/Chest: Normal breath sounds, CTA Cardiovascular: S1, S2, No murmur Abdomen/GI:Soft, Non tender, Bowel sounds present, +Surgical scar on Right side of Abd Extremities/Musculoskelatal:normal inspection, no edema Neurologic/Psych:AAOX3, grossly no focal neurological deficits Skin: normal color, warm Lab data as noted below. ASSESSMENT & PLAN: Patient is a 47 yr male with PMH DM II, HTN, GERD, HLD, R renal mass s/p R nephrectomy on 11/29/[address] Lam presented to ER with c/o constipation. Post Op Ileus: S/P Nephrectomy Day # 7 Received Lactulose, Enema, Relistor X 2 Repeat Imaging Improved Ileus Appreciate GI Input Had BM today Advance diet today Decrease IV fluids S/P Right Nephrectomy by Renal Cell Carcinoma Renal Function Stable Needs follow up with Surgery upon discharge Metabolic Acidosis Secondary to starvation Ketoacidosis Received IV bicarbonate Resolved Appreciate Nephrology Input Tachycardia Pleuritic Chest Pain VQ scan low probability for PE resolved HTN: Continue Metoprolol, Losartan DM II: A1C: 8.3 on 10/2017 Hold home meds ISS, Basal Insulin GERD: Continue PPI DVT Px: Heparin SQ Disposition: Plan to discharge home Vital Signs: Date Time Temp Pulse Resp B/P (MAP) Pulse Ox O2 Delivery O2 Flow Rate FiO2 12/06/17 08:00 Room Air 12/06/17 06:36 36.7 80 18 148/87 (107) 96 Room Air 12/06/17 04:09 36.6 85 20 158/85 (109) 97 Room Air 12/06/17 04:02 Room Air 12/05/17 23:34 36.6 81 18 157/96 (116) 97 Room Air 12/05/17 21:22 163/96 (118) 12/05/17 20:00 Room Air 12/05/17 19:32 36.7 80 20 175/100 (125) 98 Room Air 12/05/17 15:13 36.8 78 20 173/105 (127) 98 Room Air 12/05/17 12:00 Room Air 12/05/17 11:30 36.8 64 20 167/96 (119) 96 Room Air 168/101 (123) Lab Results: Results Past 24 Hours Test 12/05/17 11:33 12/05/17 16:27 12/05/17 20:51 12/06/17 07:19 Range/Units Bedside Glucose 129 111 97 109 70-99 mg/dl
[2017-12-06] MEDS: PANTOprazole INJ 40 MG in SYRINGE 0 ML IV SCH (10:45)
[2017-12-06 10:50] VITALS: BP 157/91; PULSE 82; TEMP 36.7; O2SAT 94
[2017-12-06 15:39] VITALS: BP 131/89; PULSE 88; TEMP 36.7; O2SAT 97
--- NOTE | 2017-12-06 16:03 | Progress Note ---
Progress Note Date of Service Dec 06, 2017. Progress Note Patient seen and evaluated Reports that he has been tolerating solid diet today Bowel movement No abdominal discomfort, no nausea Physical exam Incisions healing appropriately, abdomen soft, nondistended, nontender, nontympanitic Assessment and plan: Status post right radical nephrectomy Discussed pathology: clear cell renal cell carcinoma Postoperative ileus/bowel dysfunction -On reviewing his history, he reports that this was occurring prior to his surgery and was actually the indication that prompted his imaging to identify his tumor -Fortunately, his bowel function right now is quite tolerable From a standpoint, likely stable for discharge home at any point
[2017-12-06 19:16] VITALS: BP 133/83; PULSE 91; TEMP 36.9; O2SAT 96
[2017-12-06] MEDS: POLYETHYLENE (MIRALAX) 17 GM PACK PO PRN (20:54)
[2017-12-06 23:09] VITALS: BP 157/89; PULSE 86; TEMP 36.8; O2SAT 95
[2017-12-07] MEDS: LACTATED RINGER'S 1000ML 1,000 ML IV SCH (01:40)
[2017-12-07 03:10] VITALS: BP 150/88; PULSE 81; TEMP 36.7; O2SAT 96
[2017-12-07] MEDS: HEPARIN SOD 5000 UNIT/0.5 ML CARP SQ SCH (06:18)
[2017-12-07 06:51] LABS: CALCIUM 8.3 mg/dl (8.5-10.1); CREATININE 1.03 mg/dl (0.60-1.40); POTASSIUM 3.4 mmol/L (3.5-5.1)
[2017-12-07 07:20] VITALS: BP 163/99; PULSE 78; TEMP 36.6; O2SAT 98
[2017-12-07] MEDS ORDERED: ALUMINUM/MAGNESIUM/SIMETH (MAALOX MAX) 30 ML UDC PO PRN (07:45)
[2017-12-07] MEDS: LOSARTAN POTASSIUM 50 MG TAB PO SCH (07:56)
[2017-12-07] MEDS: AMLODIPINE BESYLATE 5 MG TAB PO SCH (07:57)
[2017-12-07] MEDS: METOPROLOL SUCC 50MG EXT REL TAB PO SCH (07:57)
[2017-12-07] MEDS: MAGNESIUM OXIDE 400 MG TAB PO SCH (07:57)
[2017-12-07] MEDS: INSULIN GLARGINE SOLOSTAR 100 UNITS/ML 3 ML PEN SC SCH (08:04)
[2017-12-07] MEDS: INSULIN ASPART 100 UNITS/ML 3 ML PEN SC SCH ×2 (08:05→11:56)
[2017-12-07] MEDS ORDERED: POTASSIUM CHLORIDE 10 MEQ TABCR PO STA (08:33)
[2017-12-07] MEDS: ACETAMINOPHEN IV 650 MG in EMPTY BAG 0 ML IV PRN (08:44)
--- NOTE | 2017-12-07 08:53 | Progress Note ---
Internal Med Progress Note Date of Service: Dec 07, 2017. Provider Documentation: SUBJECTIVE: Seen and examined at bedside States having epigastric heartburn like sensation Also had abdominal cramps earlier today which resolved after bowel movement Had Soft BM this morning Denies chest pain, SOB, dizziness No other complaints OBJECTIVE: Vital Signs-as noted below Physical Exam: General Appearance:Moderately built and nourished, no apparent distress Head: normocephalic, Atraumatic Eyes: normal inspection, EOMI, PERRL Neck: supple, Trachea midline Respiratory/Chest: Normal breath sounds, CTA Cardiovascular: S1, S2, No murmur Abdomen/GI:Soft, Non tender, Bowel sounds present, +Surgical scar on Right side of Abd Extremities/Musculoskelatal:normal inspection, no edema Neurologic/Psych:AAOX3, grossly no focal neurological deficits Skin: normal color, warm Lab data as noted below. ASSESSMENT & PLAN: Patient is a 47 yr male with PMH DM II, HTN, GERD, HLD, R renal mass s/p R nephrectomy on 11/29/[address] Lam presented to ER with c/o constipation. Post Op Ileus: S/P Nephrectomy Day # 8 Received Lactulose, Enema, Relistor X 2 Appreciate GI Input Had BM today KUB today: No acute pathology S/P Right Nephrectomy by Renal Cell Carcinoma Renal Function Stable Needs follow up with Surgery upon discharge Metabolic Acidosis Secondary to starvation Ketoacidosis Received IV bicarbonate Resolved Appreciate Nephrology Input Tachycardia Pleuritic Chest Pain VQ scan low probability for PE resolved HTN: Continue Metoprolol, Losartan, Amlodipine DM II: A1C: 8.3 on 10/2017 Hold home meds ISS, Basal Insulin GERD: Continue PPI Maalox PRN DVT Px: Heparin SQ Disposition: Plan to discharge home today Follow up with for routine Care on 12/09/17 at 12:45pm Follow up with your Surgeon in 1 week as scheduled Seek immediate medical attention if your symptoms reoccur or worsen Vital Signs: Date Time Temp Pulse Resp B/P (MAP) Pulse Ox O2 Delivery O2 Flow Rate FiO2 12/07/17 11:15 36.7 84 18 153/90 (111) 96 Room Air 12/07/17 08:20 Room Air 12/07/17 07:20 36.6 78 20 163/99 (120) 98 Room Air 8/15/18 03:10 36.7 81 18 150/88 (108) 96 Room Air 12/06/17 23:09 36.8 86 17 157/89 (111) 95 Room Air 12/06/17 20:00 Room Air 12/06/17 19:16 36.9 91 20 133/83 (100) 96 Room Air 12/06/17 15:39 36.7 88 20 131/89 (103) 97 Room Air Lab Results: Results Past 24 Hours Test 12/06/17 16:16 12/06/17 20:45 12/07/17 06:12 12/07/17 07:18 Range/Units Bedside Glucose 151 138 163 70-99 mg/dl Sodium Level 135 136-145 mmol/L Potassium Level 3.4 3.5-5.1 mmol/L Chloride Level 100 98-107 mmol/L Carbon Dioxide Level 28 21-32 mmol/L Anion Gap 7.0 3-11 mmol/L Blood Urea Nitrogen 7 7-18 mg/dl Creatinine 1.03 0.60-1.40 mg/dl Est Creatinine Clear Calc Drug Dose 102.3 ml/min Estimated GFR () 99.1 Estimated GFR (Non- 85.5 BUN/Creatinine Ratio 6.5 10-20 Random Glucose 179 70-99 mg/dl Calcium Level 8.3 8.5-10.1 mg/dl Magnesium Level 2.1 1.8-2.4 mg/dl Test 12/07/17 11:06 Range/Units Bedside Glucose 201 70-99 mg/dl
[2017-12-07] MEDS ORDERED: PANTOprazole SOD 40 MG TAB PO STA (09:00)
[2017-12-07] MEDS ORDERED: METHYLNALTREXONE BROMIDE INJ 12 MG/0.6 ML SYR SQ SCH (09:00)
--- NOTE | 2017-12-07 09:58 | DIAGNOSTIC IMAGING REPORT ---
KUB CLINICAL HISTORY: 47 years-old Male presenting with Abdominal pain. TECHNIQUE: Single supine view of the abdomen was obtained. COMPARISON: 12/03/2017. FINDINGS: Mottled lucencies in the right abdomen likely stool. Possibly of small bowel gas, nonspecific. No gross evidence of bowel obstruction. No gross free air allowing for supine technique. No gross pneumoperitoneum. Suture margins noted in the right upper quadrant/right mid abdomen consistent with the patient's right nephrectomy. Atherosclerotic calcifications. No radiographic evidence of renal or ureteral calcifications. Prostatic calcifications suspected. Transitional lumbosacral anatomy with sacralization of the right transverse process of L5. Lung bases clear. IMPRESSION: 1. No acute intra-abdominal pathology. Electronically signed by: Navi Shore M.D. 12/07/2017 9:56 AM Dictated Date/Time: 12/07/2017 9:54 AM
--- NOTE | 2017-12-07 10:14 | Pharmacy Progress Note ---
Pharmacy Glycemic Short Note 2 Date of Service Dec 07, 2017. OUTPATIENT ANTIDIABETIC REGIMEN: * Lantus 52units HS, Metformin 1g BIDM, Jardiance 25mg QAM * A1c = 8.3 % 11/17/17 Item Value Date Time Bedside Glucose 109 mg/dl H 12/06/17 0719 Bedside Glucose 145 mg/dl H 12/06/17 1131 Bedside Glucose 151 mg/dl H 12/06/17 1616 Bedside Glucose 138 mg/dl H 12/06/17 2045 Random Glucose 179 mg/dl H 12/07/17 0612 Bedside Glucose 163 mg/dl H 12/07/17 0718 ASSESSMENT: Please refer to progress note from 12/02 for background info, in short: * Excellent glycemic control on 52 units of insulin per day * 36 units of basal insulin * 16 units of bolus insulin * Diet was advanced yesterday, therefore I anticipate increased bolus insulin moving forward. * Changes needed to insulin regimen: * Fasting BSG of 163 mg/dL is above goal, therefore I will increase basal insulin. * Post prandial BSGs are near goal. Yesterday, I had loosened carb ratio from 8 to 10 due to suspicion of too much carb coverage being administered based on downward trend in meal-time BSGs on 12/05 (129 -> 111 -> 97).The opposite trend was noted yesterday (possibly due to increased oral intake with advancing diet?) . I will trial using a carb ratio in-between the previous values. PLAN FOR INPATIENT GLYCEMIC CONTROL: * Continue to hold outpatient oral diabetes medications * Basal insulin - increase * Lantus 18-22 units SQ BID * Bolus insulin - slightly tighten carb ratio * NovoLog per scale ACHS or Q6hrs while NPO * Goal Range: Low 110 mg/dL - High 140 mg/dL * Correction Factor: 25 mg/dL/unit * Nutritional / Prandial insulin per carb ratio of 1 unit per 9 grams CHO consumed PLAN FOR DISCHARGE: * A1c slightly above goal for age * Patient may need bolus insulin with meals if he is already compliant with current medications. Can consider recommending this for PCP to initiate.
[2017-12-07 11:15] VITALS: BP 153/90; PULSE 84; TEMP 36.7; O2SAT 96
--- NOTE | 2017-12-07 14:20 | Progress Note ---
Progress Note Date of Service Dec 07, 2017. Progress Note Patient was reassessed and is doing much better. Denies abdominal pain. KUB normal. Patient eager to get discharged.
[2017-12-07] MEDS ORDERED: MRLP17X PO (14:27)
[2017-12-07] MEDS ORDERED: NRV5 PO (14:27)
[2017-12-07] MEDS ORDERED: PANT40TA2 PO (14:27)
[2017-12-07] MEDS ORDERED: DOCU-94 PO (14:27)
--- NOTE | 2017-12-07 14:29 | Discharge Summary ---
Discharge Summary Date of Service Dec 07, 2017. Discharge Summary Admission Date: Dec 05, 2017 at 11:39 Discharge Date: Dec 07, 2017 Discharge Disposition: Home Principal Diagnosis: Ileus Procedures: CT ABD: 1. Small amount of low-attenuation fluid which contains trace blood products within the right nephrectomy bed. Small amount of operative bed gas and infiltration. These findings are not unexpected in the early postoperative setting. 2. Moderate distention of the colon with a small to moderate amount of stool within the colon and rectum. The findings favor an ileus. No evidence for a bowel obstruction. 3. Trace gas within the bladder which is likely related to recent augmentation. Mild distention of the bladder. 4. Mildly dilated appendix. However, appendix gas-filled. No evidence for acute appendicitis. KUB: No acute intra-abdominal pathology. V/Q Scan: Very low probability for pulmonary embolus. Consultations: Nephrology, Urology, GI Pending Studies/Follow-Up: Follow up with for routine Care on 12/09/17 at 12:45pm Follow up with your Surgeon in 1 week as scheduled Seek immediate medical attention if your symptoms reoccur or worsen Medication Reconciliation New Medications: Docusate Sodium (Colace) 100 Mg Cap 1 CAP PO BID for 15 Days, #30 CAP Amlodipine Besylate (Amlodipine Besylate) 5 Mg Tab 5 MG PO QAM for 30 Days, #30 TAB 1 Refill Pantoprazole (Pantoprazole Sodium) 40 Mg Tab 40 MG PO QAM for 30 Days, #30 TAB 1 Refill Polyethylene (Miralax) 17 Gm Pow 17 GM PO DAILY PRN for Constipation for 30 Days, #30 EA Continued Medications: Acetaminophen/Codeine (Tylenol W/Codeine #3) 300 Mg/30 Mg Tab 1 TAB PO Q6 PRN for Pain Empagliflozin (Jardiance) 25 Mg Tab 25 MG PO QAM Insulin Glargine (Lantus) 100 Unit/Ml Inj 52 UNITS SC HS Losartan Potassium (Cozaar) 50 Mg Tab 50 MG PO NOON, TAB Magnesium Oxide (Mag-Ox) 400 Mg Tab 400 MG PO NOON, TAB Metformin Hcl (Glucophage) 1,000 Mg Tab 1000 MG PO BIDM, TAB Metoprolol Succ (Toprol Xl) (Toprol-Xl) 50 Mg Tabcr 75 MG PO NOON, #30 TAB Rosuvastatin Calcium (Crestor) 40 Mg Tab 40 MG PO HS, TAB Semaglutide (Ozempic) 2 Mg/1.5 Ml Inj 1 MG INJ WK AM Discontinued Medications: Omeprazole (Prilosec) 20 Mg Capcr 20 MG PO NOON, CAP Admission Information HPI (per Admitting provider): Pt is 47 y/o M with PMH DM II, HTN, GERD, HLD, R renal mass s/p R nephrectomy on 11/29/[address] Lam presented to ER with c/o constipation. Patient was discharged yesterday at 12/01/17. Patient states returned home and drank a bottle of 7-Up and started with bloating sensation to abdomen. States throughout the evening abdomen became more uncomfortable and was only able to eat a few bites of watermelon. States took one Tylenol#3 yesterday. Recent inpatient, he also did receive narcotics s/p surgery. Pt reports last BM 4 days ago. Patient states that he has been unable to pass gas, stating "feel gas bubble in my butt, but it will not come out". He did not take any of his home medications as didn't feel he could drink anything. He states since here in the ER noticed once that when he took a deep breath he had a "twinge" to mid chest, denies further discomfort. Denies SOB. Patient states in ER had episode of dysuria, denies hematuria, urinary frequency, urinary urgency, urinary retention. Denies fever/chills, diaphoresis, vomiting, MALAVE, dizziness, syncope, vision changes, neck pain, orthopnea, palpitations, cough, extremity edema, rashes. Physical Exam (per Admitting): General Appearance: + pertinent finding (overweight, no apparent distress) Head: normocephalic, atraumatic Eyes: normal inspection, sclerae normal ENT: hearing grossly normal, pharynx normal, + pertinent finding (mucous membranes moist) Neck: supple, trachea midline Respiratory/Chest: lungs clear, normal breath sounds, no respiratory distress Cardiovascular: no murmur, + tachycardia (102, regular rhythm) Abdomen/GI: soft, + pertinent finding (hypoactive BS throughout, +diffuse tenderness to palpation, worse right side over incision site, incision site without discharge) Extremities/Musculoskelatal: no calf tenderness, normal capillary refill, no pedal edema, normal range of motion Neurologic/Psych: alert, normal mood/affect, oriented x 3 Skin: warm/dry Hospital Course Patient is a 47 yr male with PMH DM II, HTN, GERD, HLD, R renal mass s/p R nephrectomy on 11/29/[address] Lam presented to ER with c/o constipation. Post Op Ileus: S/P Nephrectomy Day # 8 Received Lactulose, Enema, Relistor X 2 Appreciate GI Input Had BM today KUB today: No acute pathology S/P Right Nephrectomy by Renal Cell Carcinoma Renal Function Stable Needs follow up with Surgery upon discharge Metabolic Acidosis Secondary to starvation Ketoacidosis Received IV bicarbonate Resolved Appreciate Nephrology Input Tachycardia Pleuritic Chest Pain VQ scan low probability for PE resolved HTN: Continue Metoprolol, Losartan, Amlodipine DM II: A1C: 8.3 on 10/2017 Hold home meds ISS, Basal Insulin GERD: Continue PPI Maalox PRN DVT Px: Heparin SQ Disposition: Plan to discharge home today Follow up with for routine Care on 12/09/17 at 12:45pm Follow up with your Surgeon in 1 week as scheduled Seek immediate medical attention if your symptoms reoccur or worsen Total time spent on discharge = 40 minutes This includes examination of the patient, discharge planning, medication reconciliation, and communication with other providers. Discharge Instructions Discharge Instructions Date of Service Dec 07, 2017. Admission Reason for Admission: ILEUS Discharge Discharge Diagnosis / Problem: Ileus Discharge Goals Goal(s): Decrease discomfort, Improve function Activity Recommendations Activity Limitations: per Instructions/Follow-up section Lifting Limitations: gradually increase as tolerated Exercise/Sports Limitations: gradually increase as tolerated . Instructions / Follow-Up Instructions / Follow-Up Follow up with for routine Care on 12/09/17 at 12:45pm Follow up with your Surgeon in 1 week as scheduled Seek immediate medical attention if your symptoms reoccur or worsen Current Hospital Diet Patient's current hospital diet: AHA Diet (Heart Healthy), Diabetes Type 2 Diet , Low Fiber Diet Discharge Diet Recommended Diet: AHA Diet (Heart Healthy), Diabetes Type 2 Diet, Low Fiber Diet Pending Studies Studies pending at discharge: no Laboratory Results Hemoglobin A1c Test 11/17/17 15:10 Range/Units Estimated Average Glucose 192 mg/dl Hemoglobin A1c 8.3 H 4.5-5.6 % Medical Emergencies . Who to Call and When: Medical Emergencies: If at any time you feel your situation is an emergency, please call 911 immediately. . Non-Emergent Contact Non-Emergency issues call your: Primary Care Provider, Surgeon Call Non-Emergent contact if: you have a fever, your pain is not controlled, your pain is worsening, your pain is unusual for you, your pain is concerning you, wound has increased drainage, wound has increased redness, wound has increased pain, you have any medication questions Seek immediate medical attention if your symptoms reoccur or worsen . . "Provider Documentation" section prepared by Jamal Rivas. .
[2017-12-07 14:45] VITALS: BP 153/90; PULSE 84; TEMP 36.7; O2SAT 96
[2017-12-08] MEDS ORDERED: PANTOprazole SOD 40 MG TAB PO SCH (09:00)
== END 2017-12-07 14:55 | disposition home or self-care (01) | DRG 394 ==
LOC: C.EDB 10:26 → C.2T 15:13 → EDBEDREQ 15:20 → ENRESERV 15:43 → OBSVTOIN 12-05 11:39 → EEVIPCON 12-05 11:39
PROVIDERS: ADMIT Internal Medicine; ATTEND Internal Medicine
DX: K91.81 Other intraoperative complications of digestive system (principal); E87.2 Acidosis; E87.1 Hypo-osmolality and hyponatremia; E11.9 Type 2 diabetes mellitus without complications; I10 Essential (primary) hypertension; K21.9 Gastro-esophageal reflux disease without esophagitis; E78.5 Hyperlipidemia, unspecified; Z90.5 Acquired absence of kidney; F17.200 Nicotine dependence, unspecified, uncomplicated; Z79.4 Long term (current) use of insulin; R07.81 Pleurodynia; R49.22 Hyponasality

== ENCOUNTER 2020-07-16 15:41 | Inpatient (IN) ==
[2020-07-16 16:43] LABS: Appearance Urine Clear (Clear); Bacteria Urine Automated Negative (Negative); Bilirubin Urine Negative (Negative); Blood Urine 2+ (Negative); Color Urine Yellow; Epithelial Cell Urine Auto >30 /lpf (0-5); Glucose Urine UA 3+ (Negative); Ketones Urine 1+ (Negative); Leukocyte Esterase Urine Negative (Negative); Nitrite Urine Negative (Negative); Protein Urine 3+ (Negative); Specific Gravity Urine > 1.045 (1.000-1.030); Urobilinogen Urine Negative (Negative)
[2020-07-16 17:05] LABS: Basophils # (auto) 0.02 K/uL (0-0.2); Basophils % (auto) 0.1 %; Eosinophils # (auto) 0.01 K/uL (0-0.5); Eosinophils % (auto) 0.1 %; Hematocrit (blood only) 45.9 % (42-52); Hemoglobin 16.1 g/dL (14.0-18.0); Immature Granulocytes # (auto) 0.03 K/uL (0.00-0.02); Immature Granulocytes % (auto) 0.2 %; Lymphocytes # (auto) 1.24 K/uL (1.2-3.4); Lymphocytes % (auto) 8.7 %; Mean Corpuscular Hemoglobin 31.4 pg (25-34); Mean Corpuscular Hgb Conc 35.1 g/dL (32-36); Mean Corpuscular Volume 89.5 fL (80-100); Mean Platelet Volume 9.2 fL (7.4-10.4); Monocytes # (auto) 0.94 K/uL (0.11-0.59); Monocytes % (auto) 6.6 %; Neutrophils % (auto) 84.3 %; Platelet Count 217 K/uL (130-400); RDW Standard Deviation 46.1 fL (36.4-46.3); Red Blood Count 5.13 M/uL (4.7-6.1); White Blood Count 14.24 K/uL (4.8-10.8)
[2020-07-16 17:08] LABS: Alanine Aminotransferase 50 U/L (12-78); Albumin Level 3.7 gm/dl (3.4-5.0); Aspartate Aminotransferase 17 U/L (15-37); BUN Creatinine Ratio 8.7 (10-20); Blood Urea Nitrogen 14 mg/dl (7-18); Calcium 10.1 mg/dl (8.5-10.1); Carbon Dioxide 26 mmol/L (21-32); Chloride 99 mmol/L (98-107); Creatinine Clr Calc Pharmacy 67.6 ml/min; Est GFR (African American) 55.3; Est GFR (Non-African American) 47.7; Glucose 149 mg/dl (70-99); Lipase 68 U/L (73-393); Potassium 4.6 mmol/L (3.5-5.1); Sodium 132 mmol/L (136-145)
[2020-07-16 17:11] LABS: Albumin Globulin Ratio 0.8 (0.9-2); Alkaline Phosphatase 87 U/L (45-117); Bilirubin,Total 1.1 mg/dl (0.2-1); Globulin 4.8 gm/dl (2.5-4.0); Total Protein 8.5 gm/dl (6.4-8.2)
[2020-07-16] MEDS ORDERED: SODIUM CHLORIDE 0.9% 1000ML 1,000 ML IV ONE (17:13)
[2020-07-16] MEDS ORDERED: FAMOTIDINE 20MG IV PUSH 20 MG/5 ML SYR IV STA (17:13)
[2020-07-16] MEDS ORDERED: diphenhydrAMINE 50 MG/ML VIAL IV STA (17:13)
[2020-07-16] MEDS ORDERED: METOCLOPRAMIDE HCL INJ 5 MG/ML 2 ML VIAL IV STA (17:13)
[2020-07-16] MEDS ORDERED: ACETAMINOPHEN 1,000 MG/100 ML VIAL IV STA (17:14)
[2020-07-16 17:35] LABS: Bilirubin Direct 0.2 mg/dl (0-0.2); Magnesium 2.7 mg/dl (1.8-2.4); Phosphorus 3.1 mg/dl (2.5-4.9)
[2020-07-16 17:44] LABS: Troponin I < 0.015 ng/ml (0-0.045)
--- NOTE | 2020-07-16 18:21 | CT Scan Report ---
CT SCAN OF THE ABDOMEN AND PELVIS WITHOUT CONTRAST CLINICAL HISTORY: left/upper abd pain, nausea COMPARISON STUDY: January 08, 2020 TECHNIQUE: CT scan of the abdomen and pelvis was performed from the lung bases to the proximal femurs . Images are reviewed in the axial, sagittal, and coronal planes. IV contrast was not administered fo r this examination. A dose lowering technique was utilized adhering to the principles of ALARA. CT DOSE: 1108.89 mGycm FINDINGS: Lower chest: Postsurgical changes are present within the right hemithorax. There is a 3 mm right lowe r lobe pulmonary nodule. There is a 5 mm calcified left lower lobe granuloma. Liver: There is severe hepatic steatosis. No focal hepatic masses are visualized. There there is a nuñez ture line marginating the medial aspect of the right hepatic lobe Gallbladder: The gallbladder is distended. The gallbladder is of increased density. There is perichol ecystic stranding. Clinical correlation with regards to acute cholecystitis is recommended.. Spleen: Normal in size and attenuation. Pancreas: Unremarkable. Adrenal glands: Unremarkable. Kidneys: The right kidney is absent. There is no left-sided hydronephrosis. Bowel: There are no transition zones indicate bowel obstruction. The appendix appears normal. There i s no acute diverticulitis. Peritoneum: There is no intraperitoneal free air or abdominal ascites. Vasculature: There is no evidence of abdominal aortic aneurysm. There are aortoiliac atheromatous stone nges. Adenopathy: None. Pelvic viscera: The bladder, and pelvic viscera are unremarkable. Skeletal structures: No destructive osseous lesions are seen. IMPRESSION: 1. No evidence of bowel obstruction. No evidence of free air 2. Normal appendix. No evidence of acute diverticulitis 3. Severe hepatic steatosis 4. Distended gallbladder which demonstrates increased attenuation. There is significant infiltration of the pericholecystic fat. Clinical correlation with regards to acute cholecystitis is recommended. A nuclear medicine hepatobiliary study could be obtained in follow-up to assess cystic duct patency i f deemed clinically necessary. ACT 112: Negative or not required by law. Electronically signed by: Quintin Becker M.D. 07/16/2020 6:19 PM
[2020-07-16 18:42] LABS: Influenza A virus by PCR Negative (Neg); Influenza B virus by PCR Negative (Neg); RSV by PCR Negative (Neg); SARS CoV2 RNA(COVID-19) InHosp NEGATIVE (Negative)
--- NOTE | 2020-07-16 18:52 | Emergency Department Note ---
Impression & Plan Acute upper abdominal pain, Hypertension, Nausea, Leukocytosis ED Provider Note NAME: KONG FITZGERALD AGE: 50 SEX: M ARRIVES VIA: Walk-In INFORMANT: Patient, ED PROVIDER(S): Jaswinder Jamil MD CHIEF COMPLAINT: Abdominal pain PLAN: Disposition: Admit MEDICAL DECISION MAKING: The patient is a pleasant 50-year-old gentleman with a past medical history of prior renal cell carcinoma with history of right nephrectomy and then recent (0 05/2020) right lung lobectomy for metastases related to his renal cell carcinoma, COPD, hypertension who presents to the emergency department with worsening epigastric pain and nausea and vomiting that has been evolving for the past several days. He denies any fevers, cough, shortness of breath. He did feel as though he was constipated due to straining with bowel movements but has moved his bowels daily but reports no improvement after taking laxative. He was seen at the [facility] today and referred to emergency department. On arrival the patient is uncomfortable no acute distress, afebrile, tachycardic in 120s, hypertensive, and otherwise stable vital signs. He has mild epigastric and left sided abdominal pain without guarding or rebound. Negative sierra's sign. WBC 14K nonspecific. H/H and platelets within normal limits. Chemistry without metabolic acidosis. Creatinine 1.6 proximal to prior values. Total bilirubin is 1.1 with direct bilirubin 0.29 FTs otherwise without significant abnormality. Lipase is not elevated. UA with blood and ketones but no evidence of inf ection. COVID-19, influenza and RSV PCR's were negative. CT of the pelvis demonstrates distended gallbladder with infiltration of pericholecystic fat to raise the possibility of cholecystitis. Formal RUQ US performed redemonstrates minimal pericholecystic fluid/edema with negative sonographic sierra's sign. Repeat abdomen exam still without RUQ tenderness. He also reported improved in sx following IVF hydration, Reglan, Diphenhydramine, Famotidine, and Apap, However, given symptoms, leukocytosis, and imaging findings, reasonable to proceed with admission for further evaluation. The patient was agreeable. Will defer decision for ABX to admitting team. Case was discussed with Dr. Winston, [facility] hospitalist, who will evaluate the patient for admission. Triage Nursing notes reviewed and agree them. Prior medical records reviewed Vital Signs: reviewed and remarkable for tachycardia. Differential diagnosis: Appendicitis, testicular torsion, infections, diverticulitis, UTI, obstruction, mesenteric ischemia, aortic pathology, inflammatory bowel disease, renal colic, PUD, pancreatitis, biliary pathology, hernia, volvulus, constipation, as well as other pathologies. ER treatment provided: See below. Diagnostics interpreted by and right: ECG: Sinus tachycardia, 111 bpm, no ectopy, no overt ST elevation or depression. Cardiac Monitoring: An order for continuous cardiac monitoring was placed and demonstrated Sinus tachycardia, 111 bpm, no ectopy. Laboratory studies: See below Imaging studies: CT SCAN OF THE ABDOMEN AND PELVIS WITHOUT CONTRAST CLINICAL HISTORY: left/upper abd pain, nausea COMPARISON STUDY: January 08, 2020 TECHNIQUE: CT scan of the abdomen and pelvis was performed from the lung bases to the proximal femurs. Images are reviewed in the axial, sagittal, and coronal planes. IV contrast was not administered for this examination. A dose lowering technique was utilized adhering to the principles of ALARA. CT DOSE: 1108.89 mGycm FINDINGS: Lower chest: Postsurgical changes are present within the right hemithorax. There is a 3 mm right lower lobe pulmonary nodule. There is a 5 mm calcified left lower lobe granuloma. Liver: There is severe hepatic steatosis. No focal hepatic masses are visualized. There there is a suture line marginating the medial aspect of the right hepatic lobe Gallbladder: The gallbladder is distended. The gallbladder is of increased density. There is pericholecystic stranding. Clinical correlation with regards to acute cholecystitis is recommended.. Spleen: Normal in size and attenuation. Pancreas: Unremarkable. Adrenal glands: Unremarkable. Kidneys: The right kidney is absent. There is no left-sided hydronephrosis. Bowel: There are no transition zones indicate bowel obstruction. The appendix appears normal. There is no acute diverticulitis. Peritoneum: There is no intraperitoneal free air or abdominal ascites. Vasculature: There is no evidence of abdominal aortic aneurysm. There are aortoiliac atheromatous changes. Adenopathy: None. Pelvic viscera: The bladder, and pelvic viscera are unremarkable. Skeletal structures: No destructive osseous lesions are seen. IMPRESSION: 1. No evidence of bowel obstruction. No evidence of free air 2. Normal appendix. No evidence of acute diverticulitis 3. Severe hepatic steatosis 4. Distended gallbladder which demonstrates increased attenuation. There is significant infiltration of the pericholecystic fat. Clinical correlation with regards to acute cholecystitis is recommended. A nuclear medicine hepatobiliary study could be obtained in follow-up to assess cystic duct patency if deemed clinically necessary. ACT 112: Negative or not required by law. Electronically signed by: Quintin Becker M.D. 07/16/2020 6:19 PM --- BILIARY ULTRASOUND CLINICAL HISTORY: upper abd pain, nausea COMPARISON STUDY: CT scan dated 07/16/2020 FINDINGS: The pancreas appears sonographically normal. The liver is of increased echogenicity, a nonspecific finding most often seen in hepatic steatosis. There is no ductal dilatation. The common bile duct measures 5 mm. The gallbladder is mildly distended. There is gallbladder sludge but no shadowing calculi. The wall is at the upper limits of normal in thickness. There is minimal pericholecystic edema/fluid. The technologist reports a negative sonographic Sierra sign. IMPRESSION: 1. Hepatic steatosis 2. No ductal dilatation 3. Distended gallbladder containing sludge but no shadowing calculi. Minimal pericholecystic fluid/edema. The technologist reports a negative sonographic Sierra sign. ACT 112: Negative or not required by law. Electronically signed by: Quintin Becker M.D. 07/16/2020 8:00 PM Consultation(s): Case was discussed with Dr. Winston, [facility] hospitalist, who will evaluate the patient for admission. HPI: The patient is a pleasant 50-year-old gentleman with a past medical history of prior renal cell carcinoma with history of right nephrectomy and then recent (05/2020) right lung lobectomy for metastases related to his renal cell carcinoma, COPD, hypertension who presents to the emergency department with worsening epigastric pain and nausea and vomiting that has been evolving for the past several days. He denies any fevers, cough, shortness of breath. He did feel as though he was constipated due to straining with bowel movements but has moved his bowels daily but reports no improvement after taking laxative. He was seen at the [facility] today and referred to emergency department. ROS: See above HPI for pertinent positives & negatives. A total of 10 systems reviewed and were otherwise negative. PAST MEDICAL HISTORY:See Below PAST SURGICAL HISTORY:See Below FAMILY HISTORY:See Below SOCIAL HISTORY:See Below HOME MEDICATIONS:See Below ALLERGIES:See Below VITALS:See Below PHYSICAL EXAMINATION: GENERAL: Awake, alert, uncomfortable-appearing, in no distress HENT: Normocephalic, atraumatic. Oropharynx with dry mucous membranes and otherwise unremarkable. EYES: Normal conjunctiva. Sclera non-icteric. NECK: Supple. No nuchal rigidity. FROM. No JVD. RESPIRATORY: Clear to auscultation. CARDIAC: Regular rate, normal rhythm. Extremities warm and well perfused. Pulses equal. ABDOMEN: Soft, non-distended. Mild epigastric and left sided abdominal pain without guarding or rebound. Negative sierra's sign. No masses. RECTAL: Deferred. MUSCULOSKELETAL: Chest examination reveals no tenderness. The back is symm etrical on inspection without obvious abnormality. There is no CVA tenderness to palpation. No joint edema. LOWER EXTREMITIES: Calves are equal size bilaterally and non-tender. No edema. No discoloration. NEURO: Normal sensorium. No sensory or motor deficits noted. SKIN: No rash or jaundice noted. Jaswinder Jamil MD Past Med/Surg History Medical History (Updated 07/17/20 @ 03:50 by Jaswinder Jamil MD) Anxiety Cardiac murmur No significant valve issues per 2018 stress ECHO COPD (chronic obstructive pulmonary disease) no inh Diabetes mellitus, type 2 IDDM Fatty liver disease, nonalcoholic GERD (gastroesophageal reflux disease) Hyperlipidemia Hypertension Intellectual disability Per records Irregular heartbeat Obesity Poor historian Pulmonary nodule Renal cancer 11/2017--Sx, no chemo/radiation Solitary left kidney Surgical History History of colonoscopy History of esophagogastroduodenoscopy (EGD) History of nephrectomy Right 11/29/2017 @ [facility]--Renal Cancer History of tooth extraction all top teeth Family History Mother Family history of diabetes mellitus Father Family history of esophageal cancer Other No family history of adverse response to anesthesia Social History Smoking Status: Former smoker Tobacco Type: Cigarettes packs per day: 1.5; Years Smoked: 28; Number of Years Since Quit: 7; Second Hand Exposure: No; Do You Dip or Chew Tobacco: No; Tobacco Cessation Education Requested by Patient: No Hx Alcohol Use: No Hx Substance Use: No Preferred Language: [place] Communication Ability: Effective 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 Beliefs That Will Affect Care: None Current Living Situation: Significant Other Other Information That Helps Us Care for You: No Feels Safe at Home: Yes Safety Concerns: Feels Safe At This Time Assistive Devices: None Allergies Allergies Allergy/AdvReac Type Severity Reaction Status Date / Time Iodinated Contrast Media Allergy Intermediate Nausea Verified 07/16/20 18:33 Home Meds Home Medications Medication Instructions Recorded Confirmed Jardiance 25 mg PO QDL 01/27/18 07/16/20 aspirin 81 mg PO QDL 01/27/18 07/16/20 magnesium oxide 400 mg PO QDL 01/27/18 07/16/20 metformin 1,000 mg PO BIDM 01/27/18 07/16/20 metoprolol succinate 75 mg PO QDL 01/27/18 07/16/20 pantoprazole 40 mg PO DAILY 01/27/18 07/16/20 rosuvastatin 40 mg PO HS 01/27/18 07/16/20 insulin aspart U-100 100 unit/mL See Rx Instructions .ROUTE 10/29/19 07/16/20 subcutaneous solution .COMPLEX ml insulin degludec 100 unit/mL See Rx Instructions SQ HS ml 10/29/19 07/16/20 subcutaneous solution losartan 100 mg PO QDL 11/20/19 07/16/20 montelukast 10 mg tablet 10 mg PO HS 01/15/20 07/16/20 naproxen 500 mg PO BID PRN 07/16/20 07/16/20 Results & Data (ED) Vital Signs Vital Signs - 24 hr 07/16/20 16:02 07/16/20 16:43 07/16/20 16:51 Temperature 36.3 C L Temperature Source Temporal Artery Scan Pulse Rate 121 H 105 H 108 H Pulse Rate [Right Finger] Pulse Rate from SpO2 Sensor 107 H 107 H Respiratory Rate 18 28 H 27 H Respiratory Effort / Characteristics Respiratory Depth Blood Pressure 156/88 H 181/97 H Blood Pressure [Right Arm] Blood Pressure Mean 110 125 Blood Pressure Mean [Right Arm] Pulse Oximetry 95 93 93 Oxygen Delivery Method Room Air Sepsis Recent Fever Within 48 Hours No Sepsis New/Unexplained Change in Mental Status N/A Sepsis Action Taken by Nursing No Action Required 07/16/20 17:00 07/16/20 17:30 07/16/20 17:31 Temperature Temperature Source Pulse Rate 106 H 112 H Pulse Rate [Right Finger] 109 H Pulse Rate from SpO2 Sensor 107 H 110 H Respiratory Rate 26 H 18 21 Respiratory Effort / Characteristics Respiratory Depth Blood Pressure 189/96 H 207/105 H Blood Pressure [Right Arm] 201/100 H Blood Pressure Mean 127 139 Blood Pressure Mean [Right Arm] 133 Pulse Oximetry 95 95 95 Oxygen Delivery Method Room Air Sepsis Recent Fever Within 48 Hours Sepsis New/Unexplained Change in Mental Status Sepsis Action Taken by Nursing 07/16/20 17:32 07/16/20 18:11 07/16/20 18:24 Temperature Temperature Source Pulse Rate 111 H 103 H Pulse Rate [Right Finger] 107 H Pulse Rate from SpO2 Sensor 111 H Respiratory Rate 27 H 26 H 23 Respiratory Effort / Characteristics Non-Labored Respiratory Depth Normal Blood Pressure 201/100 H Blood Pressure [Right Arm] 174/100 H Blood Pressure Mean 133 Blood Pressure Mean [Right Arm] 124 Pulse Oximetry 93 97 Oxygen Delivery Method Room Air Sepsis Recent Fever Within 48 Hours Sepsis New/Unexplained Change in Mental Status Sepsis Action Taken by Nursing 07/16/20 18:27 07/16/20 18:30 07/16/20 19:00 Temperature Temperature Source Pulse Rate 108 H 103 H 103 H Pulse Rate [Right Finger] Pulse Rate from SpO2 Sensor 107 H 103 H 102 H Respiratory Rate 24 25 H 24 Respiratory Effort / Characteristics Respiratory Depth Blood Pressure 174/100 H 178/98 H 167/91 H Blood Pressure [Right Arm] Blood Pressure Mean 124 124 116 Blood Pressure Mean [Right Arm] Pulse Oximetry 95 94 95 Oxygen Delivery Method Sepsis Recent Fever Within 48 Hours Sepsis New/Unexplained Change in Mental Status Sepsis Action Taken by Nursing 07/16/20 20:02 07/16/20 20:03 07/16/20 20:30 Temperature Temperature Source Pulse Rate 105 H 114 H Pulse Rate [Right Finger] Pulse Rate from SpO2 Sensor 105 H 112 H Respiratory Rate 18 26 H 22 Respiratory Effort / Characteristics Respiratory Depth Blood Pressure 184/102 H 192/149 H Blood Pressure [Right Arm] Blood Pressure Mean 129 163 Blood Pressure Mean [Right Arm] Pulse Oximetry 95 97 Oxygen Delivery Method Sepsis Recent Fever Within 48 Hours Sepsis New/Unexplained Change in Mental Status Sepsis Action Taken by Nursing 07/16/20 20:38 07/16/20 20:40 07/16/20 20:44 Temperature Temperature Source Pulse Rate 113 H 106 H 106 H Pulse Rate [Right Finger] Pulse Rate from SpO2 Sensor 112 H 106 H Respiratory Rate 27 H 30 H Respiratory Effort / Characteristics Respiratory Depth Blood Pressure 204/109 H 204/109 H Blood Pressure [Right Arm] Blood Pressure Mean 140 Blood Pressure Mean [Right Arm] Pulse Oximetry 97 98 Oxygen Delivery Method Sepsis Recent Fever Within 48 Hours Sepsis New/Unexplained Change in Mental Status Sepsis Action Taken by Nursing 07/16/20 20:50 07/16/20 21:00 07/16/20 21:01 Temperature Temperature Source Pulse Rate 98 H 99 H 101 H Pulse Rate [Right Finger] Pulse Rate from SpO2 Sensor Respiratory Rate 31 H 22 22 Respiratory Effort / Characteristics Respiratory Depth Blood Pressure 211/114 H Blood Pressure [Right Arm] Blood Pressure Mean 146 Blood Pressure Mean [Right Arm] Pulse Oximetry Oxygen Delivery Method Sepsis Recent Fever Within 48 Hours Sepsis New/Unexplained Change in Mental Status Sepsis Action Taken by Nursing 07/16/20 21:10 07/16/20 21:20 07/16/20 21:30 Temperature Temperature Source Pulse Rate 102 H 103 H 105 H Pulse Rate [Right Finger] Pulse Rate from SpO2 Sensor Respiratory Rate 29 H 20 23 Respiratory Effort / Characteristics Respiratory Depth Blood Pressure 189/110 H Blood Pressure [Right Arm] Blood Pressure Mean 136 Blood Pressure Mean [Right Arm] Pulse Oximetry Oxygen Delivery Method Sepsis Recent Fever Within 48 Hours Sepsis New/Unexplained Change in Mental Status Sepsis Action Taken by Nursing 07/16/20 21:40 07/16/20 21:50 07/16/20 22:00 Temperature Temperature Source Pulse Rate 104 H 105 H 105 H Pulse Rate [Right Finger] Pulse Rate from SpO2 Sensor Respiratory Rate 24 29 H 30 H Respiratory Effort / Characteristics Respiratory Depth Blood Pressure 191/100 H Blood Pressure [Right Arm] Blood Pressure Mean 130 Blood Pressure Mean [Right Arm] Pulse Oximetry Oxygen Delivery Method Sepsis Recent Fever Within 48 Hours Sepsis New/Unexplained Change in Mental Status Sepsis Action Taken by Nursing Laboratory Data Attestation: I reviewed the patient's lab results. Result diagrams: 07/16/20 16:43 07/16/20 16:43 Lab Results 07/16/20 07/16/20 07/16/20 Range/Units 16:07 16:43 16:43 WBC 14.24 H (4.8-10.8) K/uL RBC 5.13 (4.7-6.1) M/uL Hgb 16.1 (14.0-18.0) g/dL Hct 45.9 (42-52) % MCV 89.5 (80-100) fL MCH 31.4 (25-34) pg MCHC 35.1 (32-36) g/dL RDW Std Deviation 46.1 (36.4-46.3) fL RDW Coeff of Faye 14.0 (11.5-14.5) % Plt Count 217 (130-400) K/uL MPV 9.2 (7.4-10.4) fL Immature Gran % (Auto) 0.2 % Neut % (Auto) 84.3 % Lymph % (Auto) 8.7 % [place] % (Auto) 6.6 % Eos % (Auto) 0.1 % Baso % (Auto) 0.1 % Neut # (Auto) 12.00 H (1.4-6.5) K/uL Lymph # (Auto) 1.24 (1.2-3.4) K/uL [place] # (Auto) 0.94 H (0.11-0.59) K/uL Eos # (Auto) 0.01 (0-0.5) K/uL Baso # (Auto) 0.02 (0-0.2) K/uL Immature Gran # (Auto) 0.03 H (0.00-0.02) K/uL Sodium 132 L (136-145) mmol/L Potassium 4.6 (3.5-5.1) mmol/L Chloride 99 (98-107) mmol/L Carbon Dioxide 26 (21-32) mmol/L Anion Gap 6.0 (3-11) BUN 14 (7-18) mg/dl Creatinine 1.64 H (0.6-1.4) mg/dl Est Cr Clr Drug Dosing 67.6 ml/min Est GFR ( Amer) 55.3 Est GFR (Non-Af Amer) 47.7 BUN/Creatinine Ratio 8.7 L (10-20) Glucose 149 H (70-99) mg/dl Calcium 10.1 (8.5-10.1) mg/dl Phosphorus 3.1 (2.5-4.9) mg/dl Magnesium 2.7 H (1.8-2.4) mg/dl Total Bilirubin 1.1 H (0.2-1) mg/dl Direct Bilirubin 0.2 (0-0.2) mg/dl AST 17 (15-37) U/L ALT 50 (12-78) U/L Alkaline Phosphatase 87 (45-117) U/L Troponin I < 0.015 (0-0.045) ng/ml Total Protein 8.5 H (6.4-8.2) gm/dl Albumin 3.7 (3.4-5.0) gm/dl Globulin 4.8 H (2.5-4.0) gm/dl Albumin/Globulin Ratio 0.8 L (0.9-2) Lipase 68 L (73-393) U/L Procalcitonin (0-0.5) ng/ml TSH 1.540 (0.300-4.500) uIu/ml Urine Color Yellow Urine Appearance Clear (Clear) Urine pH 7.0 (4.5-7.5) Ur Specific [place] > 1.045 H (1.000-1.030) Urine Protein 3+ H (Negative) Urine Glucose (UA) 3+ H (Negative) Urine Ketones 1+ H (Negative) Urine Blood 2+ H (Negative) Urine Nitrite Negative (Negative) Urine Bilirubin Negative (Negative) Urine Urobilinogen Negative (Negative) Ur Leukocyte Esterase Negative (Negative) Urine WBC (Auto) 1-5 (0-5) /hpf Urine RBC (Auto) 10-30 H (0-4) /hpf U Hyaline Cast (Auto) 1-5 (0-5) /lpf U Epithel Cells (Auto) >30 H (0-5) /lpf Urine Bacteria (Auto) Negative (Negative) COVID-19 Eval Order SARS-CoV-2 (PCR) (Negative) Influenza Type A (PCR) (Neg) Influenza Type B (PCR) (Neg) RSV (RT-PCR) (Neg) 07/16/20 07/16/20 07/16/20 Range/Units 16:43 16:43 17:35 WBC (4.8-10.8) K/uL RBC (4.7-6.1) M/uL Hgb (14.0-18.0) g/dL Hct (42-52) % MCV (80-100) fL MCH (25-34) pg MCHC (32-36) g/dL RDW Std Deviation (36.4-46.3) fL RDW Coeff of Faye (11.5-14.5) % Plt Count (130-400) K/uL MPV (7.4-10.4) fL Immature Gran % (Auto) % Neut % (Auto) % Lymph % (Auto) % [place] % (Auto) % Eos % (Auto) % Baso % (Auto) % Neut # (Auto) (1.4-6.5) K/uL Lymph # (Auto) (1.2-3.4) K/uL [place] # (Auto) (0.11-0.59) K/uL Eos # (Auto) (0-0.5) K/uL Baso # (Auto) (0-0.2) K/uL Immature Gran # (Auto) (0.00-0.02) K/uL Sodium (136-145) mmol/L Potassium (3.5-5.1) mmol/L Chloride (98-107) mmol/L Carbon Dioxide (21-32) mmol/L Anion Gap (3-11) BUN (7-18) mg/dl Creatinine (0.6-1.4) mg/dl Est Cr Clr Drug Dosing ml/min Est GFR ( Amer) Est GFR (Non-Af Amer) BUN/Creatinine Ratio (10-20) Glucose (70-99) mg/dl Calcium (8.5-10.1) mg/dl Phosphorus Cancelled (2.5-4.9) mg/dl Magnesium Cancelled (1.8-2.4) mg/dl Total Bilirubin (0.2-1) mg/dl Direct Bilirubin Cancelled (0-0.2) mg/dl AST (15-37) U/L ALT (12-78) U/L Alkaline Phosphatase (45-117) U/L Troponin I Cancelled (0-0.045) ng/ml Total Protein (6.4-8.2) gm/dl Albumin (3.4-5.0) gm/dl Globulin (2.5-4.0) gm/dl Albumin/Globulin Ratio (0.9-2) Lipase (73-393) U/L Procalcitonin 0.47 (0-0.5) ng/ml TSH (0.300-4.500) uIu/ml Urine Color Urine Appearance (Clear) Urine pH (4.5-7.5) Ur Specific [place] (1.000-1.030) Urine Protein (Negative) Urine Glucose (UA) (Negative) Urine Ketones (Negative) Urine Blood (Negative) Urine Nitrite (Negative) Urine Bilirubin (Negative) Urine Urobilinogen (Negative) Ur Leukocyte Esterase (Negative) Urine WBC (Auto) (0-5) /hpf Urine RBC (Auto) (0-4) /hpf U Hyaline Cast (Auto) (0-5) /lpf U Epithel Cells (Auto) (0-5) /lpf Urine Bacteria (Auto) (Negative) COVID-19 Eval Order CovFluRsv at [facility] SARS-CoV-2 (PCR) (Negative) Influenza Type A (PCR) (Neg) Influenza Type B (PCR) (Neg) RSV (RT-PCR) (Neg) 07/16/20 Range/Units 17:35 WBC (4.8-10.8) K/uL RBC (4.7-6.1) M/uL Hgb (14.0-18.0) g/dL Hct (42-52) % MCV (80-100) fL MCH (25-34) pg MCHC (32-36) g/dL RDW Std Deviation (36.4-46.3) fL RDW Coeff of Faye (11.5-14.5) % Plt Count (130-400) K/uL MPV (7.4-10.4) fL Immature Gran % (Auto) % Neut % (Auto) % Lymph % (Auto) % [place] % (Auto) % Eos % (Auto) % Baso % (Auto) % Neut # (Auto) (1.4-6.5) K/uL Lymph # (Auto) (1.2-3.4) K/uL [place] # (Auto) (0.11-0.59) K/uL Eos # (Auto) (0-0.5) K/uL Baso # (Auto) (0-0.2) K/uL Immature Gran # (Auto) (0.00-0.02) K/uL Sodium (136-145) mmol/L Potassium (3.5-5.1) mmol/L Chloride (98-107) mmol/L Carbon Dioxide (21-32) mmol/L Anion Gap (3-11) BUN (7-18) mg/dl Creatinine (0.6-1.4) mg/dl Est Cr Clr Drug Dosing ml/min Est GFR ( Amer) Est GFR (Non-Af Amer) BUN/Creatinine Ratio (10-20) Glucose (70-99) mg/dl Calcium (8.5-10.1) mg/dl Phosphorus (2.5-4.9) mg/dl Magnesium (1.8-2.4) mg/dl Total Bilirubin (0.2-1) mg/dl Direct Bilirubin (0-0.2) mg/dl AST (15-37) U/L ALT (12-78) U/L Alkaline Phosphatase (45-117) U/L Troponin I (0-0.045) ng/ml Total Protein (6.4-8.2) gm/dl Albumin (3.4-5.0) gm/dl Globulin (2.5-4.0) gm/dl Albumin/Globulin Ratio (0.9-2) Lipase (73-393) U/L Procalcitonin (0-0.5) ng/ml TSH (0.300-4.500) uIu/ml Urine Color Urine Appearance (Clear) Urine pH (4.5-7.5) Ur Specific [place] (1.000-1.030) Urine Protein (Negative) Urine Glucose (UA) (Negative) Urine Ketones (Negative) Urine Blood (Negative) Urine Nitrite (Negative) Urine Bilirubin (Negative) Urine Urobilinogen (Negative) Ur Leukocyte Esterase (Negative) Urine WBC (Auto) (0-5) /hpf Urine RBC (Auto) (0-4) /hpf U Hyaline Cast (Auto) (0-5) /lpf U Epithel Cells (Auto) (0-5) /lpf Urine Bacteria (Auto) (Negative) COVID-19 Eval Order SARS-CoV-2 (PCR) NEGATIVE (Negative) Influenza Type A (PCR) Negative (Neg) Influenza Type B (PCR) Negative (Neg) RSV (RT-PCR) Negative (Neg) Administered Medications Sodium Chloride (Nss 1000ml) 1,000 mls @ 75 mls/hr IV .[id number] KARSON Stop: 08/15/20 23:54 Last Admin: 07/17/20 00:08 Dose: 75 mls/hr Documented by: [id number] Insulin Aspart (Insulin Aspart 100 Units/Ml 3 Ml Pen) 0 units SC Q6 KARSON Stop: 08/16/20 00:14 Last Admin: 07/17/20 00:43 Dose: Not Given Documented by: [id number] Cosigned by: [id number] Discontinued Medications Acetaminophen (Acetaminophen 325 Mg Tab) 650 mg PO NOW STA Stop: 07/17/20 00:02 Last Admin: 07/17/20 01:04 Dose: 650 mg Documented by: [id number] Diphenhydramine HCl (Diphenhydramine 50 Mg/Ml Vial) 25 mg IV NOW STA Stop: 07/16/20 17:14 Last Admin: 07/16/20 17:30 Dose: 25 mg Documented by: [id number] Hydralazine HCl (Hydralazine Hcl 20 Mg/Ml Vial) 10 mg IV NOW STA Stop: 07/16/20 22:46 Last Admin: 07/17/20 00:42 Dose: Not Given Documented by: [id number] Sodium Chloride (Nss 1000ml) 1,000 mls @ 999 mls/hr IV .[id number] ONE Stop: 07/16/20 18:13 Last Infusion: 07/16/20 18:23 Dose: 0 mls/hr Documented by: [id number] Admin: 07/16/20 17:30 Dose: 999 mls/hr Documented by: [id number] Famotidine (Pepcid 20mg Iv Push) 20 mg in 5 mls @ 2.5 mls/min IV NOW STA Stop: 07/16/20 17:14 Last Admin: 07/16/20 17:30 Dose: 2.5 mls/min Documented by: [id number] Acetaminophen (Ofirmev) 1,000 mg in 100 mls @ 400 mls/hr IV NOW STA Stop: 07/16/20 17:28 Last Infusion: 07/16/20 17:48 Dose: 0 mls/hr Documented by: [id number] Admin: 07/16/20 17:30 Dose: 400 mls/hr Documented by: [id number] Sodium Chloride (Nss 1000ml) 1,000 mls @ 80 mls/hr IV .[id number] KARSON Stop: 08/15/20 19:59 Last Infusion: 07/17/20 00:38 Dose: 0 mls/hr Documented by: [id number] Admin: 07/16/20 20:08 Dose: 125 mls/hr Documented by: [id number] Piperacillin Sod/Tazobactam (Sod 4.5 gm/ Dextrose) 120 mls @ 200 mls/hr IV NOW ONE; Protocol Stop: 07/17/20 01:05 Last Infusion: 07/17/20 03:03 Dose: 0 mls/hr Documented by: [id number] Admin: 07/17/20 01:07 Dose: 200 mls/hr Documented by: [id number] Insulin Glargine (Insulin Glargine Solostar 100 Units/Ml 3 Ml Pen) 5 units SC NOW STA Stop: 07/16/20 23:56 Last Admin: 07/17/20 01:05 Dose: 5 units Documented by: [id number] Cosigned by: [id number] Metoclopramide HCl (Metoclopramide Hcl Inj 5 Mg/Ml 2 Ml Vial) 10 mg IV NOW STA Stop: 07/16/20 17:14 Last Admin: 07/16/20 17:30 Dose: 10 mg Documented by: [id number] Metoprolol Tartrate (Metoprolol Tartrate 1 Mg/Ml Vial) 5 mg IV NOW STA Stop: 07/16/20 20:39 Last Admin: 07/16/20 20:56 Dose: Not Given Documented by: [id number] Metoprolol Tartrate (Metoprolol Tartrate 1 Mg/Ml Vial) Confirm Administered Dose 5 mg IV .STK-MED ONE Stop: 07/16/20 20:43 Last Admin: 07/16/20 20:44 Dose: 5 mg Documented by: [id number] Metoprolol Tartrate (Metoprolol Tartrate 1 Mg/Ml Vial) 5 mg IV NOW STA Stop: 07/17/20 00:02 Last Admin: 07/17/20 01:05 Dose: 5 mg Documented by: [id number] Discharge Plan Visit Data Chief Complaint: Abdominal Pain Stated Complaint: Abdominal Pain, nausea, cramps ED Provider: Jaswinder Jamil Discharge Problem: Acute upper abdominal pain, Hypertension, Nausea, Leukocytosis Patient Disposition: Admitted As Inpatient Discharge Instructions Interventions: ED Discharge Assessment Last Done: 07/16/20 22:44 Discharge Problem: Hypertension Qualifiers: Hypertension type: unspecified Qualified Code(s): I10 - Essential (primary) hypertension Leukocytosis Qualifiers: Leukocytosis type: unspecified Qualified Code(s): D72.829 - Elevated white blood cell count, unspecified
[2020-07-16] MEDS ORDERED: SODIUM CHLORIDE 0.9% 1000ML 1,000 ML IV SCH (20:00)
--- NOTE | 2020-07-16 20:02 | Ultrasound Report ---
BILIARY ULTRASOUND CLINICAL HISTORY: upper abd pain, nausea COMPARISON STUDY: CT scan dated 07/16/2020 FINDINGS: The pancreas appears sonographically normal. The liver is of increased echogenicity, a nonspecific finding most often seen in hepatic steatosis. There is no ductal dilatation. The common bile duct measures 5 mm. The gallbladder is mildly distended. There is gallbladder sludge but no shadowing calculi. The wall i s at the upper limits of normal in thickness. There is minimal pericholecystic edema/fluid. The techn ologist reports a negative sonographic Sierra sign. IMPRESSION: 1. Hepatic steatosis 2. No ductal dilatation 3. Distended gallbladder containing sludge but no shadowing calculi. Minimal pericholecystic fluid/ed darren. The technologist reports a negative sonographic Sierra sign. ACT 112: Negative or not required by law. Electronically signed by: Quintin Becker M.D. 07/16/2020 8:00 PM
[2020-07-16] MEDS ORDERED: METOPROLOL TARTRATE 1 MG/ML VIAL IV STA (20:38)
[2020-07-16] MEDS ORDERED: METOPROLOL TARTRATE 1 MG/ML VIAL IV ONE (20:42)
--- NOTE | 2020-07-16 21:03 | History & Physical Report ---
Date of Service July 16, 2020 Assessment & Plan (1) Abdominal pain: - Admit - Possible cholecystitis with WBC 14 K, gallbladder sludge on imaging without calculi, afebrile currently, tenderness with palpation of the RUQ and epigastric region, mild distention with hypoactive bowel sounds on exam - Gen Surg and/or GI consultation for possible HIDA - HIDA scan to further determine if cholelithiasis, monitor for cholecystitis - Obtain blood cultures, procal, esr, crp and consider start IV abx for prophylactic coverage with concern for impending sepsis with elevated BP and HR. - NPO for now- allow chips/sips tonight - Continue NSS x 1 day for hydration while NPO - Noted Cr. 1.6, appears to be slightly above baseline of 1.3-1.4, monitor with am PRP, possibly dehydration with laxative? Poor oral intake? - Antiemetics IV prn - Cont famotidine for GI prophlaxis with IV push - Avoid narcotic, do not administer narcotic prior to HIDA. - Allow tylenol prn (2) Hypertension: - Continue antihypertensives including losartan 100 mg daily, metoprolol 75 mg daily, ASA 81 mg daily - Tachycardic during exam, given lopressor 5 mg IV in ER, order home antihypertensives for PM meds to be given how for improvement in this, monitor. (3) HLD (hyperlipidemia): -Continue rosuvastatin 40 mg at bedtime (4) COPD (chronic obstructive pulmonary disease): -History of such, does not smoke, does not wear supplemental O2 at baseline - Follows with Dr. Wyman with pulm as outpt (5) DM type 2 (diabetes mellitus, type 2): -ISS with Accu-Cheks AC at bedtime -holding metformin -continue Jardiance, continue Tresiba 140 units/day -Last A1c 9.3 on 06/12/2020 (6) Renal cell carcinoma: - S/p Right nephrectomy in the November 2017, recent right middle lobe lobectomy for metastatic cancer on 06/11/2020 - Follows with Dr. Duke (7) Obesity: -BMI 36.3, diet and exercise to be encouraged throughout admission (8) GERD (gastroesophageal reflux disease): -Continue pantoprazole -Question if inciting GERD versus cholecystitis as above (9) DVT prophylaxis: - teds, scds, heparin subq CODE: Full code Dispo: From home, likely to remain in the hospital x 1-2 days. History of Present Illness Primary Care Provider: Andreas Orona DO This is a 50-year-old male with PMHx of HTN, HLD, renal cell carcinoma with mets to right middle lobe of lung s/p lobectomy (06/11/20) and previous nephrectomy, GERD, DM type II, COPD, and learning disability who presents with acute onset of abdominal pain, nausea, vomiting with concern for cholecystitis. Patient was in to see his PCP, Dr. Peng earlier today for complaints of severe heartburn and abdominal pain which started Tuesday night, so he took Pepto-Bismol but with minimal relief. He had abdominal bloating and fullness on the right side, pain radiated to his back from the epigastric region as well as the left upper quadrant. He took a liquid laxative yesterday around 9 PM and subsequently had 6 loose bowel movements. Prior to this he had hard stools so thought was constipated. Pt denies nausea, vomiting or excessive belching but feels a fullness in his abdomen. Denies fever or chills. Ate a yogurt around 10 AM and his pain worsened. He now reports he is hungry and is requesting another yogurt or ice chips. Patient mentions he received the first dose of Loopster COVID-19 vaccine last Tuesday and suffered fatigue where he spent most of the day Tuesday in bed. He thought his sx were due to the vaccine, and still thinks this may be what is going on. He reports similar abdominal complaints whenever he has been exposed to anesthesia, like when he had his lobectomy in mid May. Allergies Allergy/AdvReac Type Severity Reaction Status Date / Time Iodinated Contrast Media Allergy Intermediate Nausea Verified 07/16/20 18:33 Home Medications Medication Instructions Recorded Confirmed Type Jardiance 25 mg PO QDL 01/27/18 07/16/20 History aspirin 81 mg PO QDL 01/27/18 07/16/20 History magnesium oxide 400 mg PO QDL 01/27/18 07/16/20 History metformin 1,000 mg PO BIDM 01/27/18 07/16/20 History metoprolol succinate 75 mg PO QDL 01/27/18 07/16/20 History pantoprazole 40 mg PO DAILY 10/05/18 03/24/21 History rosuvastatin 40 mg PO HS 01/27/18 07/16/20 History insulin aspart U-100 100 unit/mL See Rx Instructions .ROUTE 10/29/19 07/16/20 History subcutaneous solution .COMPLEX ml insulin degludec 100 unit/mL See Rx Instructions SQ HS ml 10/29/19 07/16/20 History subcutaneous solution losartan 100 mg PO QDL 11/20/19 07/16/20 History montelukast 10 mg tablet 10 mg PO HS 01/15/20 07/16/20 History naproxen 500 mg PO BID PRN 07/16/20 07/16/20 History Past Med/Surg History Medical History (Updated 07/17/20 @ 03:50 by Jaswinder Jamil MD) Anxiety Cardiac murmur No significant valve issues per 2018 stress ECHO COPD (chronic obstructive pulmonary disease) no inh Diabetes mellitus, type 2 IDDM Fatty liver disease, nonalcoholic GERD (gastroesophageal reflux disease) Hyperlipidemia Hypertension Intellectual disability Per records Irregular heartbeat Obesity Poor historian Pulmonary nodule Renal cancer 11/2017--Sx, no chemo/radiation Solitary left kidney Surgical History History of colonoscopy History of esophagogastroduodenoscopy (EGD) History of nephrectomy Right 11/29/2017 @ [facility]--Renal Cancer History of tooth extraction all top teeth Family History Mother Family history of diabetes mellitus Father Family history of esophageal cancer Other No family history of adverse response to anesthesia Social History Smoking Status: Former smoker Tobacco Type: Cigarettes packs per day: 1.5; Years Smoked: 28; Number of Years Since Quit: 7; Second Hand Exposure: No; Do You Dip or Chew Tobacco: No; Tobacco Cessation Education Requested by Patient: No Hx Alcohol Use: No Hx Substance Use: No Preferred Language: Turkmen Communication Ability: Effective Geological Scout Required: No Beliefs That Will Affect Care: None Current Living Situation: Significant Other Other Information That Helps Us Care for You: No Feels Safe at Home: Yes Safety Concerns: Feels Safe At This Time Assistive Devices: None Review of Systems Review of Systems: Constitutional: No fever, sweats or chills Eyes: No diplopia, no worsening or blurred vision ENT: normal hearing, no trouble swallowing Respiratory: No cough, sputum, dyspnea at rest or on exertion, no tenderness over healing incisions from lobectomy Cardiovascular: No chest pain, tightness or palpitations Abdomen: As per HPI Musculoskeletal: No joint pain, calf pain, swelling Neurologic: No weakness, numbness/tingling, or balance problems Psychiatric: No anxiety or depression Skin: No rash or itch Physical Exam Physical Exam: General: awake, alert, no apparent distress, obese with BMI 36.3 Head: Normocephalic, atraumatic ENT: PERRL, EOMI, no pharyngeal exudate, mucous membranes slightly dry Chest: Clear to auscultation, on room air, no adventitious breath sounds. Several small areas over right chest wall s/p lobectomy healing well, no surrounding erythema, nontender to touch. Cardiac: Regular rhythm, slightly tachycardic, no murmur, no JVD, normal peripheral pulses, good capillary refill Abdominal: Hypoactive BS x 4 quadrants, soft, + distended in RUQ, + epigastric tender to palpation, no rebound or guarding Extremities: Normal inspection, no peripheral edema or erythema, calfs nontender to palpation Psych: Normal mood and affect Neuro: AAO x 3, strength intact bilaterally and rated 5/5, no motor deficits, speech is clear, no peripheral sensory deficits Results & Data Results & Data ([facility]) Vital Signs (Past 12 Hours) Vital Signs Temp Pulse Pulse Resp BP BP Pulse Ox 07/16/20 20:38 113 H 27 H 204/109 H 97 07/16/20 20:30 114 H 22 192/149 H 97 07/16/20 20:03 105 H 26 H 184/102 H 95 07/16/20 20:02 18 07/16/20 19:00 103 H 24 167/91 H 95 07/16/20 18:30 103 H 25 H 178/98 H 94 07/16/20 18:27 108 H 24 174/100 H 95 07/16/20 18:24 107 H 23 174/100 H 97 07/16/20 18:11 103 H 26 H 07/16/20 17:32 111 H 27 H 201/100 H 93 07/16/20 17:31 109 H 21 201/100 H 95 07/16/20 17:30 112 H 18 207/105 H 95 07/16/20 17:00 106 H 26 H 189/96 H 95 07/16/20 16:51 108 H 27 H 93 07/16/20 16:43 105 H 28 H 181/97 H 93 07/16/20 16:02 36.3 C L 121 H 18 156/88 H 95 Diagnostic Findings BILIARY ULTRASOUND CLINICAL HISTORY: upper abd pain, nausea COMPARISON STUDY: CT scan dated 07/16/2020 FINDINGS: The pancreas appears sonographically normal. The liver is of increased echogenicity, a nonspecific finding most often seen in hepatic steatosis. There is no ductal dilatation. The common bile duct measures 5 mm. The gallbladder is mildly distended. There is gallbladder sludge but no shadowing calculi. The wall is at the upper limits of normal in thickness. There is minimal pericholecystic edema/fluid. The technologist reports a negative sonographic Sierra sign. IMPRESSION: 1. Hepatic steatosis 2. No ductal dilatation 3. Distended gallbladder containing sludge but no shadowing calculi. Minimal pericholecystic fluid/edema. The technologist reports a negative sonographic Sierra sign. ADDENDUM Addendum: There is a wedge-shaped focus of increased attenuation within the right lobe of the liver. This likely represents focal fatty sparing or a benign perfusional defect. Electronically signed by: Quintin Becker M.D. 07/16/2020 8:[address] SCAN OF THE ABDOMEN AND PELVIS WITHOUT CONTRAST CLINICAL HISTORY: left/upper abd pain, nausea COMPARISON STUDY: January 08, 2020 TECHNIQUE: CT scan of the abdomen and pelvis was performed from the lung bases to the proximal femurs. Images are reviewed in the axial, sagittal, and coronal planes. IV contrast was not administered for this examination. A dose lowering technique was utilized adhering to the principles of ALARA. CT DOSE: 1108.89 mGycm FINDINGS: Lower chest: Postsurgical changes are present within the right hemithorax. There is a 3 mm right lower lobe pulmonary nodule. There is a 5 mm calcified left lower lobe granuloma. Liver: There is severe hepatic steatosis. No focal hepatic masses are visual ized. There there is a suture line marginating the medial aspect of the right hepatic lobe Gallbladder: The gallbladder is distended. The gallbladder is of increased density. There is pericholecystic stranding. Clinical correlation with regards to acute cholecystitis is recommended.. Spleen: Normal in size and attenuation. Pancreas: Unremarkable. Adrenal glands: Unremarkable. Kidneys: The right kidney is absent. There is no left-sided hydronephrosis. Bowel: There are no transition zones indicate bowel obstruction. The appendix appears normal. There is no acute diverticulitis. Peritoneum: There is no intraperitoneal free air or abdominal ascites. Vasculature: There is no evidence of abdominal aortic aneurysm. There are aortoiliac atheromatous changes. Adenopathy: None. Pelvic viscera: The bladder, and pelvic viscera are unremarkable. Skeletal structures: No destructive osseous lesions are seen. IMPRESSION: 1. No evidence of bowel obstruction. No evidence of free air 2. Normal appendix. No evidence of acute diverticulitis 3. Severe hepatic steatosis 4. Distended gallbladder which demonstrates increased attenuation. There is significant infiltration of the pericholecystic fat. Clinical correlation with regards to acute cholecystitis is recommended. A nuclear medicine hepatobiliary study could be obtained in follow-up to assess cystic duct patency if deemed clinically necessary. Code Status & VTE Plan Code Status Full code-discussed with the patient at bedside Supervising Physician Co-Signing Physician Notes IM ATTENDING : Patient seen and examined. History obtained from patient and records. Preceding documentation by Ms. Agata Gutierrez, PAC reviewed. FINAL ASSESSMENT AND PLAN as follows : Hypertensive urgency secondary to abdominal pain, possible cholecystitis ARF secondary to illness Metastatic RCCA, R sp surgery COPD, not in acute exacerbation DM2 insulin requiring, suboptimal control as of recent hemoglobin A1c of 9.3 last May 2020 Hyperlipidemia on statin Rx Past tobacco abuse OBS Medical telemetry Analgesia Titrate home beta-salma, initiate Amlodipine if BP still uncontrolled HIDA scan in a.m. N.p.o. until patient seen by Surgery Monitor creatinine response to IVF Hold losartan until creatinine back to baseline Basal insulin adjusted for n.p.o. status, ISS BG goal [id number] DVT prophylaxis. SCDs RE possible procedure Recommend pharmacologic anticoagulation with Heparin 5000 units subcutaneous every 8 hours once bleeding risk is deemed to be minimal and negligible pending General Surgery evaluation. Full code Text document was generated using Dragon voice recognition software. It may contain grammatical or spelling errors. Kindly contact undersigned for clarification of any documentation item in question.
[2020-07-16] MEDS ORDERED: hydrALAZINE HCL 20 MG/ML VIAL IV STA (22:45)
[2020-07-16] MEDS ORDERED: traMADol HCL 50 MG TABLET PO PRN (23:55)
[2020-07-16] MEDS ORDERED: ACETAMINOPHEN 325 MG TAB PO PRN (23:55)
[2020-07-16] MEDS ORDERED: GLUCOSE 40% GEL 15 GM TUBE PO PRN (23:55)
[2020-07-16] MEDS ORDERED: GLUCAGON FOR INJ 1 MG VIAL SQ PRN (23:55)
[2020-07-16] MEDS ORDERED: GLUCOSE 10 TABS/TUBE PO PRN (23:55)
[2020-07-16] MEDS ORDERED: INSULIN GLARGINE SOLOSTAR 100 UNITS/ML 3 ML PEN SC STA (23:55)
[2020-07-16] MEDS ORDERED: HYDROmorphone INJ 0.5 MG/0.5 ML SYR IV PRN (23:55)
[2020-07-16] MEDS ORDERED: DEXTROSE 50% 50 ML SYRINGE IV PRN (23:55)
[2020-07-16] MEDS ORDERED: PROMETHAZINE HCL 12.5 MG in SODIUM CHLORIDE 0.9% 50 ML IV PRN (23:55)
[2020-07-16] MEDS ORDERED: CARBOHYDRATES FOR HYPOGLYCEMIA PO PRN (23:55)
[2020-07-17] MEDS ORDERED: ACETAMINOPHEN 325 MG TAB PO STA (00:01)
[2020-07-17] MEDS ORDERED: PIPERACILL/TAZOBAC CONSULT ACTIVE PRN (00:01)
[2020-07-17] MEDS ORDERED: METOPROLOL TARTRATE 1 MG/ML VIAL IV STA ×2 (00:01→06:45)
[2020-07-17] MEDS: SODIUM CHLORIDE 0.9% 1000ML 1,000 ML IV SCH ×2 (00:08→06:36)
--- NOTE | 2020-07-17 00:19 | Communication Note ---
Date of Service: July 17, 2020 Temperature elevation at 38C, persistent tachycardia noted upon patient arrival at the floor. AP Sepsis Possible cholecystitis Change to full admission Cultures, check lactic acid Zosyn Await surgery input.
[2020-07-17] MEDS ORDERED: PIPERACILLIN/TAZOBACTAM 4.5 GM in DEXTROSE 5% 100 ML IV ONE (00:30)
[2020-07-17] MEDS: INSULIN ASPART 100 UNITS/ML 3 ML PEN SC SCH ×5 (00:43→20:46)
[2020-07-17] MEDS: METOPROLOL SUCC 50MG EXT REL TAB PO SCH (04:00)
[2020-07-17] MEDS ORDERED: amLODIPine BESYLATE 5 MG TAB PO SCH (04:10)
--- NOTE | 2020-07-17 04:38 | Surgery Consultation ---
Date of Consultation July 17, 2020 Assessment & Plan (1) Acute upper abdominal pain: Based on patient's symptomatology as well as abdominal imaging there is concern patient has cholecystitis. He has been admitted by the medical service with the following interventions: He has been made n.p.o.: He has been placed on antibiotics in form of Zosyn He is being hydrated with IV fluids Been provided with analgesics and antiemetics In order to ascertain if patient's symptoms are indeed from cholecystitis a HIDA scan has been ordered. If this scan shows evidence of cholecystitis we may proceed with a cholecystectomy. We will follow for the results of the study with further recommendations forthcoming. pt seen. has had multiple prior epidsodes. +RUQ ttp and nausea. pericholecystic fluid. discussed options. discussed risks ( bleeding/infection/dvt/pe/mi/cva/bile leaks/injury to other organs etc.... questions answered. will proceed with lap silas today. History of Present Illness Reason for Consultation: Cholecystitis Attending Physician: Armond Romano MD History of Present Illness Now who presented to emergency department yesterday evening secondary to abdominal pain and bloating. Patient notes that he was having severe heartburn for approximately the past 3 days without any modifying factors. He denies any fevers, shakes, chills. He denies any nausea vomiting. The time of my interview the patient noted that his abdomen felt bloated and he was having some significant pain most prominent in the right upper quadrant. He notes the pain does not radiate anywhere. He does report that he had a history of a right lung lobectomy in May of this year at [facility] in [place]. He does feel as though his pain is near some of his surgical incisions from that procedure. Since admission the patient has had numerous labs and imaging studies which were independently reviewed by myself. A CT scan of his abdomen showed a distended gallbladder with some inflammation of the pericholecystic fat. Gallbladder ultrasound also showed a distended gallbladder with some pericholecystic fluid. There was sludge noted in the gallbladder but no gallstones. A chest x-ray did not show any evidence of CHF or pneumonia. CBC showed his white blood cell count was 14.2, but his hemoglobin, hematocrit, and platelet count were within normal range. Chemistry profile showed a sodium of 132 with a normal potassium. His creatinine was noted to be 1.6 which was near his baseline levels. Patient had a slight elevation of his total bilirubin at 1.1 with no elevation of his LFTs. His lipase was also not elevated. A Covid test has been performed and is noted to be negative. Time of my interview the patient was resting comfortably in bed and was in no distress Allergies Allergy/AdvReac Type Severity Reaction Status Date / Time Iodinated Contrast Media Allergy Intermediate Nausea Verified 07/16/20 18:33 Home Medications Medication Instructions Recorded Confirmed Type Jardiance 25 mg PO QDL 01/27/18 07/16/20 History aspirin 81 mg PO QDL 01/27/18 07/16/20 History magnesium oxide 400 mg PO QDL 01/27/18 07/16/20 History metformin 1,000 mg PO BIDM 01/27/18 07/16/20 History metoprolol succinate 75 mg PO QDL 01/27/18 07/16/20 History pantoprazole 40 mg PO DAILY 01/27/18 07/16/20 History rosuvastatin 40 mg PO HS 01/27/18 07/16/20 History insulin aspart U-100 100 unit/mL See Rx Instructions .ROUTE 10/29/19 07/16/20 History subcutaneous solution .COMPLEX ml insulin degludec 100 unit/mL See Rx Instructions SQ HS ml 10/29/19 07/16/20 History subcutaneous solution losartan 100 mg PO QDL 11/20/19 07/16/20 History montelukast 10 mg tablet 10 mg PO HS 01/15/20 07/16/20 History naproxen 500 mg PO BID PRN 07/16/20 07/16/20 History Patient History Medical History Anxiety Cardiac murmur No significant valve issues per 2018 stress ECHO COPD (chronic obstructive pulmonary disease) no inh Diabetes mellitus, type 2 IDDM Fatty liver disease, nonalcoholic GERD (gastroesophageal reflux disease) Hyperlipidemia Hypertension Intellectual disability Per records Irregular heartbeat Obesity Poor historian Pulmonary nodule Renal cancer 11/2017--Sx, no chemo/radiation Solitary left kidney Surgical History History of colonoscopy History of esophagogastroduodenoscopy (EGD) History of nephrectomy Right 11/29/2017 @ [facility]--Renal Cancer History of tooth extraction all top teeth Family History Mother Family history of diabetes mellitus Father Family history of esophageal cancer Other No family history of adverse response to anesthesia Social History Smoking Status: Former smoker Tobacco Type: Cigarettes packs per day: 1.5; Years Smoked: 28; Number of Years Since Quit: 7; Second Hand Exposure: No; Do You Dip or Chew Tobacco: No; Tobacco Cessation Education Requested by Patient: No Hx Alcohol Use: No Hx Substance Use: No Preferred Language: Albanian Communication Ability: Effective Neuropsychologist Required: No Beliefs That Will Affect Care: None Current Living Situation: Significant Other Other Information That Helps Us Care for You: No Feels Safe at Home: Yes Safety Concerns: Feels Safe At This Time Assistive Devices: None Review of Systems Constitutional: no fever and no chills Eyes: no diplopia Ear, Nose, Mouth, Throat: no ear pain Respiratory: no cough and no dyspnea Cardiovascular: no chest pain Gastrointestinal: + abdominal pain and + heartburn; no nausea and no vomiting Genitourinary: no dysuria Musculoskeletal: no back pain Integumentary: no rash Neurologic: no localized weakness Physical Exam Constitutional: well developed and well nourished; no acute distress Eyes: no conjunctival abnormality ENMT: Ears: no hearing impairment Neck: trachea midline Respiratory: normal respiratory effort; no respiratory distress and no labored breathing Slight decrease of breath sounds noted at the bases. No wheezing Cardiovascular: Rate/Rhythm: regular rate and regular rhythm Gastrointestinal (Abdomen): Abdomen is noted to have mild distention. Bowel sounds are hypoactive. There is no rebound tenderness or guarding however there is pain noted with palpation in the right upper quadrant. Musculoskeletal: No calf tenderness Skin: no rashes, warm and dry Neurologic: moves all extremities Psychiatric: A+Ox3, euthymic affect Results & Data ([facility]) Vital Signs (Past 12 Hours) Vital Signs Temp Pulse Pulse Resp BP BP Pulse Ox 07/17/20 03:43 37.4 C 100 H 20 190/104 H 96 07/17/20 01:05 114 H 190/94 H 07/16/20 23:55 38 C H 102 H 114 H 20 190/94 H 95 07/16/20 23:48 38.0 C H 114 H 20 190/94 H 95 07/16/20 22:30 205/101 H 07/16/20 22:21 106 H 07/16/20 22:10 102 H 07/16/20 22:00 105 H 30 H 191/100 H 07/16/20 21:50 105 H 29 H 07/16/20 21:40 104 H 24 07/16/20 21:30 105 H 23 189/110 H 07/16/20 21:20 103 H 20 07/16/20 21:10 102 H 29 H 07/16/20 21:01 101 H 22 211/114 H 07/16/20 21:00 99 H 22 07/16/20 20:50 98 H 31 H 07/16/20 20:44 106 H 204/109 H 07/16/20 20:40 106 H 30 H 98 07/16/20 20:38 113 H 27 H 204/109 H 97 07/16/20 20:30 114 H 22 192/149 H 97 07/16/20 20:03 105 H 26 H 184/102 H 95 07/16/20 20:02 18 07/16/20 19:00 103 H 24 167/91 H 95 07/16/20 18:30 103 H 25 H 178/98 H 94 07/16/20 18:27 108 H 24 174/100 H 95 07/16/20 18:24 107 H 23 174/100 H 97 07/16/20 18:11 103 H 26 H 07/16/20 17:32 111 H 27 H 201/100 H 93 07/16/20 17:31 109 H 21 201/100 H 95 07/16/20 17:30 112 H 18 207/105 H 95 07/16/20 17:00 106 H 26 H 189/96 H 95 07/16/20 16:51 108 H 27 H 93 07/16/20 16:43 105 H 28 H 181/97 H 93 Pulse Ox 07/17/20 03:43 07/17/20 01:05 07/16/20 23:55 95 07/16/20 23:48 07/16/20 22:30 07/16/20 22:21 07/16/20 22:10 03/24/21 22:00 07/16/20 21:50 07/16/20 21:40 07/16/20 21:30 07/16/20 21:20 07/16/20 21:10 07/16/20 21:01 07/16/20 21:00 07/16/20 20:50 07/16/20 20:44 07/16/20 20:40 07/16/20 20:38 07/16/20 20:30 07/16/20 20:03 07/16/20 20:02 07/16/20 19:00 07/16/20 18:30 07/16/20 18:27 07/16/20 18:24 07/16/20 18:11 07/16/20 17:32 07/16/20 17:31 07/16/20 17:30 07/16/20 17:00 07/16/20 16:51 07/16/20 16:43 PG Care Time/CCT Total # of Minutes Spent Total Time Spent with Patient: Total time spent is greater than 50% in cook morning rdination of care (as documented) at patient's floor/unit and/or counseling patient: Coding Level of Care Code 79446 Inpt Consult Level 5 Diagnoses Acute upper abdominal pain R10.10
[2020-07-17] MEDS: PIPERACILLIN/TAZOBACTAM 4.5 GM in DEXTROSE 5% 100 ML IV SCH ×3 (05:44→21:37)
[2020-07-17 06:21] LABS: Basophils # (auto) 0.01 K/uL (0-0.2); Basophils % (auto) 0.1 %; Hematocrit (blood only) 43.3 % (42-52); Immature Granulocytes # (auto) 0.03 K/uL (0.00-0.02); Immature Granulocytes % (auto) 0.2 %; Lymphocytes % (auto) 6.8 %; Mean Corpuscular Hemoglobin 31.4 pg (25-34); Mean Corpuscular Hgb Conc 34.6 g/dL (32-36); Mean Corpuscular Volume 90.8 fL (80-100); Mean Platelet Volume 9.7 fL (7.4-10.4); Monocytes # (auto) 0.97 K/uL (0.11-0.59); Monocytes % (auto) 6.6 %; Neutrophils # (auto) 12.73 K/uL (1.4-6.5); Neutrophils % (auto) 86.3 %; Platelet Count 214 K/uL (130-400); RDW Coefficient of Variation 14.3 % (11.5-14.5); RDW Standard Deviation 47.9 fL (36.4-46.3); Red Blood Count 4.77 M/uL (4.7-6.1); White Blood Count 14.74 K/uL (4.8-10.8)
[2020-07-17] MEDS ORDERED: amLODIPine BESYLATE 5 MG TAB PO ONE (06:45)
[2020-07-17 06:49] LABS: BUN Creatinine Ratio 8.9 (10-20); Creatinine Clr Calc Pharmacy 81.5 ml/min; Est GFR (African American) 69.3; Est GFR (Non-African American) 59.8; Magnesium 2.5 mg/dl (1.8-2.4); Potassium 4.3 mmol/L (3.5-5.1)
[2020-07-17 06:51] LABS: Albumin Globulin Ratio 0.6 (0.9-2); Bilirubin,Total 1.2 mg/dl (0.2-1); Globulin 4.8 gm/dl (2.5-4.0); Total Protein 7.8 gm/dl (6.4-8.2)
--- NOTE | 2020-07-17 07:58 | XRay Report ---
XR chest 1V portable CLINICAL HISTORY: tachypnea COMPARISON STUDY: 06/27/2020 FINDINGS: The heart is at the upper limits of normal in size. There is no failure. There is no focal pulmonary consolidation. There are no pleural effusions. Postsurgical changes are present on the righ t.[ IMPRESSION: No active disease in the chest. ACT 112: Negative or not required by law. Electronically signed by: Quintin Becker M.D. 07/17/2020 7:56 AM
[2020-07-17] MEDS ORDERED: MIDAZOLAM HCL 1 MG/ML 2ML VIAL ONE ×2 (08:05→09:39)
[2020-07-17] MEDS ORDERED: fentaNYL citrate 100 MCG/2 ML VIAL ONE ×4 (08:05→09:50)
[2020-07-17] MEDS ORDERED: BUPIVACAINE/EPINEPHRINE 0.5% MPF 1:200,000 30 ML VIAL ONE (08:26)
--- NOTE | 2020-07-17 08:45 | Anesthesiology Consultation ---
Date of Service July 17, 2020 Assessment & Plan Chart Review Chart Review: Acceptable Risk for Surgery Consults Requested none History Surgery Operation Date: 07/17/20 10:20 Proposed Procedures p Laparoscopic Cholecystectomy - Kimo Velez DO Height/Weight Height: 5 ft 10 in Weight: 114.7 kg Allergies Allergy/AdvReac Type Severity Reaction Status Date / Time Iodinated Contrast Media Allergy Intermediate Nausea Verified 07/16/20 18:33 Medications Home Medications Medication Instructions Recorded Confirmed Last Taken Jardiance 25 mg PO QDL 01/27/18 07/16/20 01/01/20 13:00 aspirin 81 mg PO QDL 01/27/18 07/16/20 01/01/20 13:00 magnesium oxide 400 mg PO QDL 01/27/18 07/16/20 01/01/20 13:00 metformin 1,000 mg PO BIDM 01/27/18 07/16/20 01/01/20 21:00 metoprolol succinate 75 mg PO QDL 01/27/18 07/16/20 01/01/20 13:00 pantoprazole 40 mg PO DAILY 01/27/18 07/16/20 01/01/20 13:00 rosuvastatin 40 mg PO HS 01/27/18 07/16/20 01/01/20 21:00 insulin aspart U-100 100 unit/mL See Rx Instructions .ROUTE 10/29/19 07/16/20 07/16/20 10:00 subcutaneous solution .COMPLEX ml 28 UNITS insulin degludec 100 unit/mL See Rx Instructions SQ HS ml 10/29/19 07/16/20 07/15/20 subcutaneous solution losartan 100 mg PO QDL 11/20/19 07/16/20 01/01/20 13:00 montelukast 10 mg tablet 10 mg PO HS 01/15/20 07/16/20 07/15/20 naproxen 500 mg PO BID PRN 07/16/20 07/16/20 Unknown Active Medications Generic Name Dose Route Start Last Admin Trade Name Freq PRN Reason Stop Dose Admin Sodium Chloride 1,000 mls @ 75 mls/hr 07/16/20 23:55 07/17/20 06:36 Nss 1000ml IV 08/15/20 23:54 75 mls/hr .[id number] KARSON Administration Piperacillin Sod/Tazobactam 120 mls @ 30 mls/hr 07/17/20 06:00 07/17/20 05:44 Sod 4.5 gm/ Dextrose IV 07/27/20 05:59 30 mls/hr Q8H KARSON Administration Insulin Aspart 0 units 07/17/20 00:15 07/17/20 06:01 Insulin Aspart 100 Units/Ml 3 Ml Pen SC 08/16/20 00:14 Not Given Q6 KARSON Metoprolol Succinate 100 mg 07/17/20 03:50 07/17/20 04:00 Metoprolol Succ 50mg Ext Rel Tab PO 08/16/20 03:49 100 mg DAILY KARSON Administration NPO Date Last Intake of Fluids: 07/16/20 Time Last Intake of Fluids: 23:55 Last Intake of Fluids Comment: Ice chips at 0300 Date Last Intake of Solids: 07/16/20 Time Last Intake of Solids: 12:00 Past Medical History Medical History Anxiety Cardiac murmur No significant valve issues per 2018 stress ECHO COPD (chronic obstructive pulmonary disease) no inh Diabetes mellitus, type 2 IDDM Fatty liver disease, nonalcoholic GERD (gastroesophageal reflux disease) Hyperlipidemia Hypertension Intellectual disability Per records Irregular heartbeat Obesity Poor historian Pulmonary nodule Renal cancer 11/2017--Sx, no chemo/radiation Solitary left kidney Past Family History Family History Mother Family history of diabetes mellitus Father Family history of esophageal cancer Other No family history of adverse response to anesthesia Past Surgical History Surgical History History of colonoscopy History of esophagogastroduodenoscopy (EGD) History of nephrectomy Right 11/29/2017 @ [facility]--Renal Cancer History of tooth extraction all top teeth Social History Smoking Status: Former smoker tobacco type: cigarettes Do You Dip or Chew Tobacco: No Hx Alcohol Use: No Alcohol type: beer alcohol intake frequency: holidays/special occasions only Hx Substance Use: No substance use type: does not use Last Used Substance Other:: 2000 Physical Exam Vital Signs Last Vital Signs Temp 37.7 C H 07/17/20 08:17 Pulse 103 H 07/17/20 08:17 Resp 18 07/17/20 08:17 BP 186/99 H 07/17/20 08:17 Pulse Ox 95 07/17/20 08:17 Testing Laboratory Results 07/17/20 05:31 07/17/20 05:31 Urine Color Yellow 07/16/20 16:07 Urine Appearance Clear (Clear) 07/16/20 16:07 Urine pH 7.0 (4.5-7.5) 07/16/20 16:07 Ur Specific [place] > 1.045 (1.000-1.030) H 07/16/20 16:07 Urine Protein 3+ (Negative) H 07/16/20 16:07 Urine Glucose (UA) 3+ (Negative) H 07/16/20 16:07 Urine Ketones 1+ (Negative) H 07/16/20 16:07 Urine Nitrite Negative (Negative) 07/16/20 16:07 Ur Leukocyte Esterase Negative (Negative) 07/16/20 16:07 Urine WBC (Auto) 1-5 /hpf (0-5) 07/16/20 16:07 Urine RBC (Auto) 10-30 /hpf (0-4) H 07/16/20 16:07 U Hyaline Cast (Auto) 1-5 /lpf (0-5) 07/16/20 16:07 U Epithel Cells (Auto) >30 /lpf (0-5) H 07/16/20 16:07 Urine Bacteria (Auto) Negative (Negative) 07/16/20 16:07 07/17/20 07/17/20 05:57 00:25 POC Glucose 126 H 130 H
[2020-07-17] MEDS ORDERED: HYDROmorphone INJ 2 MG/ML SYR/VIAL IV PRN (08:46)
[2020-07-17] MEDS ORDERED: METOCLOPRAMIDE HCL INJ 5 MG/ML 2 ML VIAL IV PRN (08:46)
[2020-07-17] MEDS ORDERED: fentaNYL citrate 100 MCG/2 ML VIAL IV PRN (08:46)
[2020-07-17] MEDS ORDERED: ONDANSETRON INJ 2 MG/ML 2 ML VIAL IV PRN ×2 (08:46→10:10)
[2020-07-17] MEDS ORDERED: ePHEDrine sulfate 50 MG/ML AMP IV PRN (08:46)
[2020-07-17] MEDS ORDERED: ATROPINE SULFATE 0.1 MG/ML 10ML SYR IV PRN (08:46)
[2020-07-17] MEDS ORDERED: PROMETHAZINE HCL 12.5 MG in SODIUM CHLORIDE 0.9% 50 ML IV PRN (08:46)
[2020-07-17] MEDS ORDERED: INSULIN GLARGINE SOLOSTAR 100 UNITS/ML 3 ML PEN SC SCH (09:00)
[2020-07-17] MEDS ORDERED: METOPROLOL SUCC 50MG EXT REL TAB PO SCH (09:00)
[2020-07-17] MEDS ORDERED: METOPROLOL SUCC 25MG EXT REL TAB PO SCH (09:00)
[2020-07-17] MEDS ORDERED: GLYCOPYRROLATE 0.2 MG/ML VIAL ONE (09:29)
[2020-07-17] MEDS ORDERED: ONDANSETRON INJ 2 MG/ML 2 ML VIAL ONE (09:29)
[2020-07-17] MEDS ORDERED: PROPOFOL IV EMULSION 10 MG/ML 20 ML VIAL IV ONE (09:29)
[2020-07-17] MEDS ORDERED: DEXAMETHASONE SOD INJ 4 MG/ML VIAL ONE (09:29)
[2020-07-17] MEDS ORDERED: SUCCINYLCHOLINE 100MG/5ML SYR IV ONE (09:29)
[2020-07-17] MEDS ORDERED: ROCURONIUM BROMIDE 10 MG/ML 5 ML VIAL IV ONE (09:29)
[2020-07-17] MEDS ORDERED: NEOSTIGMINE METHYLSULFATE 5 MG/5 ML SYR ONE (09:29)
[2020-07-17] MEDS ORDERED: LIDOCAINE HCL 2% 2 ML VIAL/AMP(20MG/ML) INFIL ONE (09:29)
--- NOTE | 2020-07-17 10:03 | Operative Report ---
PG Post Operative Report Pre & Post Diagnosis Operation Date: 07/17/20 10:20 Pre-Op Diagnosis: Acute cholecystitis Post-Op Diagnosis: Acute cholecystitis I identified the patient and participated in the time-out.: Yes Procedure Operation Date: 07/17/20 10:20 Actual Procedures p Laparoscopic Cholecystectomy - Kimo Velez DO Surgeon Kimo Velez DO Childcare Aide karina Red Estimated Blood Loss 15 Findings Consistent with Post-Op Diagnosis Specimens gallbladder Description of Procedure After informed consent was obtained the patient was taken to the operating room and placed in supine position. After successful intubation the abdomen was shaved and sterilely prepped and draped in usual fashion. A supraumbilical incision was made with an 11 blade scalpel. This was carried down through the soft tissue using cautery. The anterior rectus fascia was opened using cautery and two #0 Vicryl stay sutures were placed. Peritoneum was entered using blunt finger penetration. A finger sweep was performed. A 12 mm Trimble trocar was placed and the abdomen was insufflated to 20 mmHg. Laparoscope was inserted. There was acute inflammation in the right upper quadrant. A subxiphoid 5 mm port and 2 right upper quadrant 5 mm ports were placed under direct vision. When we pulled down the omentum there was a necrotic gallbladder with some bilious fluid already through the gallbladder wall. We first began by decompressing the gallbladder with a gallbladder needle and we withdrew about 40 cc of thick dark bile. We then grabbed the gallbladder and elevated it superiorly and laterally. The dissection was quite tedious because of the inflammation. I primarily used blunt dissection with the suction assistant production manager. Eventually I was able to delineate the cystic duct which I skeletonized clipped twice proximally once distally and transected. In similar fashion I was able to identify the cystic artery clipped and divided that as well. The gallbladder was removed from the gallbladder fossa. During the dissection there was some leakage of bile from grasper holes into the right upper quadrant. Once we remove the gallbladder and place it into an Endo Catch bag we thoroughly irrigated the right upper quadrant with several liters of irrigation. Once irrigation was cleared we then examined the rest of the abdomen. No other gross abnormalities were identified. Several small bleeding points in the gallbladder fossa were controlled using cautery. Final irrigation was performed and a 10 flat Simeon-Randhawa drain was placed in the gallbladder fossa and brought out through one of the 5 mm trocar sites. There was secured to skin using 2-0 nylon. The trochars were all removed and the abdomen desufflated. The fascia of the camera port was closed using 0 Vicryl in a [id number] fashion. All the wounds were irrigated and closed using 4-0 Monocryl. Marcaine with epinephrine were injected around them for postoperative analgesia. Skin glue was used as a dressing. Patient was awakened extubated and transferred to recovery in stable condition. My physician primary teaching assistant was present for the entire case. She will prep the patient. She helped run the camera and with gallbladder retraction throughout my dissection as well as with wound closure and dressing placement. I attest to the content of the Intraoperative Record and any orders documented therein. Any exceptions are noted below.
[2020-07-17] MEDS ORDERED: MoRPHine SULFATE 4 MG/ML 1 ML CARP\\VIAL IV PRN (10:10)
[2020-07-17] MEDS ORDERED: MoRPHine SULFATE 2 MG/ML CARP IV PRN (10:10)
[2020-07-17] MEDS ORDERED: HYDROCODONE/ACETAMOPHEN 5/325MG TAB PO PRN (10:10)
--- NOTE | 2020-07-17 11:49 | Anesthesiology Progress Note ---
Date of Service July 17, 2020 Anesthesia Post Procedure Vital Signs Vital Signs: Temp Pulse Pulse Pulse Resp BP BP 07/17/20 11:30 36.4 C L 108 H 22 134/82 07/17/20 11:28 105 H 07/17/20 11:15 37.3 C 104 H 18 130/83 07/17/20 10:35 94 H 25 H 198/93 H 07/17/20 10:25 90 30 H 177/90 H 07/17/20 10:15 84 19 186/85 H 07/17/20 10:06 36.3 C L 92 H 25 H 198/93 H 07/17/20 08:17 37.7 C H 103 H 18 186/99 H 07/17/20 07:39 110 H 182/108 H 07/17/20 07:35 37.4 C 110 H 22 182/108 H 07/17/20 07:16 98 H 07/17/20 06:37 182/102 H 07/17/20 05:43 182/103 H 07/17/20 03:43 37.4 C 100 H 20 07/17/20 01:05 114 H 190/94 H 07/16/20 23:55 38 C H 102 H 114 H 20 07/16/20 23:48 38.0 C H 114 H 20 07/16/20 22:30 205/101 H 07/16/20 22:21 106 H 07/16/20 22:10 102 H 07/16/20 22:00 105 H 30 H 191/100 H 07/16/20 21:50 105 H 29 H 07/16/20 21:40 104 H 24 07/16/20 21:30 105 H 23 189/110 H 07/16/20 21:20 103 H 20 07/16/20 21:10 102 H 29 H 07/16/20 21:01 101 H 22 211/114 H 07/16/20 21:00 99 H 22 07/16/20 20:50 98 H 31 H 07/16/20 20:44 106 H 204/109 H 07/16/20 20:40 106 H 30 H 07/16/20 20:38 113 H 27 H 204/109 H 07/16/20 20:30 114 H 22 192/149 H 07/16/20 20:03 105 H 26 H 184/102 H 07/16/20 20:02 18 07/16/20 19:00 103 H 24 167/91 H 07/16/20 18:30 103 H 25 H 178/98 H 07/16/20 18:27 108 H 24 174/100 H 07/16/20 18:24 107 H 23 07/16/20 18:11 103 H 26 H 07/16/20 17:32 111 H 27 H 201/100 H 07/16/20 17:31 109 H 21 07/16/20 17:30 112 H 18 207/105 H 07/16/20 17:00 106 H 26 H 189/96 H 07/16/20 16:51 108 H 27 H 07/16/20 16:43 105 H 28 H 181/97 H 07/16/20 16:02 36.3 C L 121 H 18 156/88 H BP Pulse Ox Pulse Ox 07/17/20 11:30 91 07/17/20 11:28 07/17/20 11:15 92 07/17/20 10:35 95 07/17/20 10:25 94 07/17/20 10:15 95 07/17/20 10:06 95 07/17/20 08:17 95 07/17/20 07:39 07/17/20 07:35 93 07/17/20 07:16 07/17/20 06:37 07/17/20 05:43 07/17/20 03:43 190/104 H 96 07/17/20 01:05 07/16/20 23:55 190/94 H 95 95 07/16/20 23:48 190/94 H 95 07/16/20 22:30 07/16/20 22:21 07/16/20 22:10 07/16/20 22:00 07/16/20 21:50 07/16/20 21:40 07/16/20 21:30 07/16/20 21:20 07/16/20 21:10 07/16/20 21:01 07/16/20 21:00 07/16/20 20:50 07/16/20 20:44 07/16/20 20:40 98 07/16/20 20:38 97 07/16/20 20:30 97 07/16/20 20:03 95 07/16/20 20:02 07/16/20 19:00 95 07/16/20 18:30 94 07/16/20 18:27 95 07/16/20 18:24 174/100 H 97 07/16/20 18:11 07/16/20 17:32 93 07/16/20 17:31 201/100 H 95 07/16/20 17:30 95 07/16/20 17:00 95 07/16/20 16:51 93 07/16/20 16:43 93 07/16/20 16:02 95 Transfer of Care Handoff Completed per policy Notes Mental Status: alert / awake / arousable and participated in evaluation Patient Amnestic to Procedure: Yes Nausea / Vomiting: adequately controlled Pain: adequately controlled Airway Patency, RR, SpO2: stable & adequate BP & HR: stable & adequate Hydration State: stable & adequate Anesthetic Complications: no major complications apparent
[2020-07-17] MEDS: ASPIRIN 81 MG ECTAB PO SCH (13:02)
[2020-07-17] MEDS: PANTOprazole 40 MG TAB PO SCH (13:02)
--- NOTE | 2020-07-17 13:03 | Hospitalist Progress Note ---
Date of Service July 17, 2020 Assessment & Plan (1) Abdominal pain: Cholecystitis S/p laparoscopic cholecystectomy 07/17 Appreciate general surgery input. Blood cultures are pending. Continue with Zosyn for now. Can likely be discontinued tomorrow if cultures remain negative. Continue maintenance IV fluids. Morphine/hydrocodone for pain control. Zofran as needed for nausea. Currently remains on clear liquid diet. (2) Hypertension: - Continue antihypertensives including losartan 100 mg daily, metoprolol 75 mg daily, ASA 81 mg daily. (3) HLD (hyperlipidemia): -Continue rosuvastatin 40 mg at bedtime (4) COPD (chronic obstructive pulmonary disease): Stable, currently on room air. (5) DM type 2 (diabetes mellitus, type 2): -ISS with Accu-Cheks AC at bedtime -holding metformin -continue Jardiance, continue Tresiba 140 units/day -Last A1c 9.3 on 06/12/2020 (6) Renal cell carcinoma: - S/p Right nephrectomy in the November 2017, recent right middle lobe lobectomy for metastatic cancer on 06/11/2020 - Follows with Dr. Duke (7) Obesity: -BMI 36.3, diet and exercise to be encouraged throughout admission (8) GERD (gastroesophageal reflux disease): -Continue pantoprazole (9) DVT prophylaxis: - teds, scds, heparin subq CODE: Full code Dispo: From home, likely to remain in the hospital x 1-2 days. Admission and Anticipated Discharge Date Admission Date: July 16, 2020 Subjective Patient was seen postoperatively in his room. Reports he is feeling much better abdominal pain is improved. No further episodes of nausea or vomiting. Denies any chest pain or shortness of breath. Hemodynamically doing better now. Rest of the review of system is negative. Review of Systems Review of Systems: All systems reviewed & are unremarkable except as noted in HPI & below Physical Exam Physical Exam: General: A&Ox3 HENT: NCAT, MMM, EOMI Eyes: PERRLA Neck: Supple, normal range of motion CVS: normal rate and rhythm Resp: b/l decreased breath sounds Abdomen: Soft, incisional tenderness appreciated Extremities: No c/c/e Neuro: face symmetric, strength grossly equal, no focal deficit Skin: warm and dry, no rashes/lesions/errythema MSK: normal ROM, no joint swelling/erythema Results & Data Results & Data ([facility]) Vital Signs (Past 12 Hours) Vital Signs Temp Pulse Pulse Pulse Resp BP BP 07/17/20 12:55 37.6 C H 91 H 18 134/82 07/17/20 12:19 37.6 C H 114 H 20 143/84 H 07/17/20 11:50 37.7 C H 108 H 18 137/79 07/17/20 11:30 36.4 C L 108 H 22 134/82 07/17/20 11:28 105 H 07/17/20 11:15 37.3 C 104 H 18 130/83 07/17/20 10:35 94 H 25 H 198/93 H 07/17/20 10:25 90 30 H 177/90 H 07/17/20 10:15 84 19 186/85 H 07/17/20 10:06 36.3 C L 92 H 25 H 198/93 H 07/17/20 08:17 37.7 C H 103 H 18 186/99 H 07/17/20 07:39 110 H 182/108 H 07/17/20 07:35 37.4 C 110 H 22 182/108 H 07/17/20 07:16 98 H 07/17/20 06:37 182/102 H 07/17/20 05:43 182/103 H 07/17/20 03:43 37.4 C 100 H 20 07/17/20 01:05 114 H 190/94 H BP Pulse Ox 07/17/20 12:55 91 07/17/20 12:19 92 07/17/20 11:50 07/17/20 11:30 91 07/17/20 11:28 07/17/20 11:15 92 07/17/20 10:35 95 07/17/20 10:25 94 07/17/20 10:15 95 07/17/20 10:06 95 07/17/20 08:17 95 07/17/20 07:39 07/17/20 07:35 93 07/17/20 07:16 07/17/20 06:37 07/17/20 05:43 07/17/20 03:43 190/104 H 96 07/17/20 01:05
[2020-07-17] MEDS: LACTATED RINGER'S 1,000 ML IV SCH (13:08)
[2020-07-17] MEDS ORDERED: Nursing to Pharmacy Communication SCH (15:00)
--- NOTE | 2020-07-17 16:43 | Electrocardiogram Report ---
Test Reason : Blood Pressure : / mmHG Vent. Rate : 111 BPM Atrial Rate : 111 BPM P-R Int : 162 ms QRS Dur : 090 ms QT Int : 304 ms P-R-T Axes : 051 -17 062 degrees QTc Int : 413 ms Sinus tachycardia possible Inferior infarct (cited on or before 17-NOV-2017) Abnormal ECG When compared with ECG of 02-DEC-2017 17:13, No significant change was found Confirmed by Efraín Fowler ([id number]) on 07/17/2020 4:43:30 PM Referred By: REFERRED SELF Confirmed By:Cooper Fowler
[2020-07-17] MEDS: ROSUVASTATIN CALCIUM 20 MG TAB PO SCH (20:46)
[2020-07-17] MEDS: INSULIN GLARGINE SOLOSTAR 100 UNITS/ML 3 ML PEN SC SCH (20:46)
[2020-07-17] MEDS: MONTELUKAST SODIUM 10 MG TABLET PO SCH (20:47)
[2020-07-17] MEDS: HYDROCODONE/ACETAMOPHEN 5/325MG TAB PO PRN (20:52)
[2020-07-18] MEDS: LACTATED RINGER'S 1,000 ML IV SCH ×2 (01:31→12:15)
[2020-07-18] MEDS: PIPERACILLIN/TAZOBACTAM 4.5 GM in DEXTROSE 5% 100 ML IV SCH ×3 (05:38→21:11)
[2020-07-18 06:45] LABS: Hematocrit (blood only) 37.6 % (42-52); Hemoglobin 12.3 g/dL (14.0-18.0); Mean Corpuscular Hemoglobin 30.3 pg (25-34); Mean Corpuscular Hgb Conc 32.7 g/dL (32-36); Mean Corpuscular Volume 92.6 fL (80-100); Mean Platelet Volume 9.3 fL (7.4-10.4); Platelet Count 199 K/uL (130-400); RDW Coefficient of Variation 14.4 % (11.5-14.5); RDW Standard Deviation 48.6 fL (36.4-46.3); Red Blood Count 4.06 M/uL (4.7-6.1); White Blood Count 10.79 K/uL (4.8-10.8)
[2020-07-18 07:21] LABS: Albumin Level 2.3 gm/dl (3.4-5.0); BUN Creatinine Ratio 18.9 (10-20); Bilirubin Direct 0.2 mg/dl (0-0.2); Calcium 8.7 mg/dl (8.5-10.1); Creatinine Clr Calc Pharmacy 84.7 ml/min; Est GFR (African American) 72.5; Est GFR (Non-African American) 62.6; Potassium 4.3 mmol/L (3.5-5.1)
[2020-07-18 07:23] LABS: Bilirubin,Total 0.8 mg/dl (0.2-1); Total Protein 7.1 gm/dl (6.4-8.2)
--- NOTE | 2020-07-18 08:20 | Surgery Progress Note ---
Date of Service July 18, 2020 Assessment & Plan (1) Acute cholecystitis: POD#1 laparoscopic cholecystectomy WBC: 10.7, LFT's within normal limits DIEGO drain 70cc serosang output. Pain manageable on current regimen Patient tolerating clear liquids, but wants to pass gas until further advancem ent From our standpoint patient can slowly advance diet as tolerates Will remove DIEGO drain today Can be discharged to home from our standpoint once patient is tolerating regular food either today or tomorrow Admission and Anticipated Discharge Date Admission Date: July 16, 2020 Subjective Patient states his pain is improved since prior to admission. He does have some expected angelique-incisional ttp post operatively. He is having some gas discomfort and wants to remain on clear liquids until he can pass flatus. Otherwise he has been tolerating liquids without n/v. Physical Exam Physical Exam: awake/alert Constitutional: no acute distress Gastrointestinal (Abdomen): Inspection/Auscultation: + abdomen distended (mild), + abdominal surgical incision (c/d/i with dermabond overtop) and + abdominal surgical drain present (71cc serosang.) Percussion/Palpation: + abdomen tender (angelique- RUQ incisions) and abdomen soft Results & Data ([facility]) Vital Signs (Past 12 Hours) Vital Signs Temp Pulse Pulse Pulse Resp BP Pulse Ox 07/18/20 07:43 37.1 C 102 H 20 176/83 H 93 07/18/20 07:22 94 H 07/18/20 02:56 37.3 C 91 H 20 155/83 H 94 07/18/20 00:00 102 H 07/17/20 23:03 37.1 C 91 H 20 125/73 92 PG Care Time/CCT Total # of Minutes Spent Total Time Spent with Patient: Total time spent is greater than 50% in coordination of care (as documented) at patient's floor/unit and/or counseling patient: Coding Level of Care Code None Diagnoses Acute cholecystitis K81.0
[2020-07-18] MEDS: METOPROLOL SUCC 50MG EXT REL TAB PO SCH (08:26)
[2020-07-18] MEDS: INSULIN ASPART 100 UNITS/ML 3 ML PEN SC SCH ×4 (08:27→20:48)
[2020-07-18] MEDS: amLODIPine BESYLATE 5 MG TAB PO SCH (08:27)
[2020-07-18] MEDS: PANTOprazole 40 MG TAB PO SCH (08:27)
[2020-07-18] MEDS: HYDROCODONE/ACETAMOPHEN 5/325MG TAB PO PRN (09:23)
[2020-07-18] MEDS: LOSARTAN POTASSIUM 50 MG TAB PO SCH (09:23)
[2020-07-18] MEDS: ASPIRIN 81 MG ECTAB PO SCH (12:15)
[2020-07-18] MEDS ORDERED: SIMETHICONE 80 MG CHEW PO PRN (15:04)
[2020-07-18] MEDS ORDERED: GLYCERIN ADULT 12 SUPP/BOX SUPP PR ONE (15:04)
--- NOTE | 2020-07-18 20:16 | Hospitalist Progress Note ---
Date of Service July 18, 2020 Assessment & Plan (1) Acute cholecystitis: s/p lap silas POD 1. bloating is severe has a h/o this post anesthesia. Simethicone and glycerin suppository trial. Cont supportive care. Cont clears as tolerated. Avoid dairy or other trigger foods . (2) Hypertension: - Continue antihypertensives including losartan 100 mg daily metoprolol 75 mg daily and aggressive pain control. (3) HLD (hyperlipidemia): -Continue rosuvastatin 40 mg at bedtime per home regimen. (4) COPD (chronic obstructive pulmonary disease): chronic, no evidence of exacerbation. (5) DM type 2 (diabetes mellitus, type 2): uncontrolled, last A1C 8.3 in [facility] system. Repeat A1C in am. Cont Novolog/Lantus while admitted to maintain good postoperative glucose control. (6) Renal cell carcinoma: - S/p Right nephrectomy in the November 2017, recent right middle lobe lobectomy for metastatic cancer on 06/11/2020 - Follows with Dr. Duke (7) Obesity: -BMI 36.3, diet and exercise to be encouraged throughout admission (8) GERD (gastroesophageal reflux disease): -Continue pantoprazole (9) DVT prophylaxis: SCD/ambulation as tolerated. DVT chemoprophylaxis once ok by surgery. CODE: Full code Dispo: To home when medically stable. Neela Melgar DO [facility] Hospitalist Admission and Anticipated Discharge Date Admission Date: July 18, 2020 Subjective 50 yo M admitted with abdominal pain, found to have acute cholecystitis and is s/p lap silas, POD #1. Pt reporting a significant amount of gas and bloating which is uncomfortable for him He reports having this issue with anesthesia in the past Reports things were better with a fleets enema but that he suffered for several days Difficulty tolerating even clear liquids at this point. Review of Systems Review of Systems: All systems reviewed & are unremarkable except as noted in Subjective Physical Exam Physical Exam: CONSTITUTIONAL: obese, vitals as above, generally appears uncomfortable. EYES: normal conjunctivae, no scleral icterus ENT: external ear and nose normal, oropharynx clear, MMM RESPIRATORY: clear to auscultation bilaterally, no crackles, rales or wheezes, normal respiratory effort CARDIOVASCULAR: regular rate and rhythm, S1 and 2 heard without murmurs, gallops or rubs, no JVD, no peripheral edema GASTROINTESTINAL: soft, nontender but diffusely uncomfortable, bloated, nondistended, incision sites closed MUSCULOSKELETAL: strength 5/5 throughout, head is normocephalic and atraumatic, neck supple, normal palpation of chest wall without tenderness SKIN: warm and dry NEUROLOGIC: CN 2-12 grossly intact, no sensory deficit, normal cognition PSYCHIATRIC: alert cooperative and oriented to person, place and time. Results & Data Results & Data ([facility]) Vital Signs (Past 12 Hours) Vital Signs Temp Pulse Pulse Resp BP BP Pulse Ox 07/18/20 19:25 37.5 C 94 H 20 172/96 H 94 07/18/20 15:14 36.8 C 94 H 18 158/89 H 93 07/18/20 12:40 37.2 C 99 H 20 151/87 H 93 Laboratory Results Short CBC 07/18/20 Range/Units 06:27 WBC 10.79 (4.8-10.8) K/uL Hgb 12.3 L (14.0-18.0) g/dL Hct 37.6 L (42-52) % Plt Count 199 (130-400) K/uL BMP 07/18/20 06:27 Sodium 134 L Potassium 4.3 Chloride 104 Carbon Dioxide 24 BUN 25 H D Creatinine 1.31 Glucose 168 H Calcium 8.7 Liver Function 07/18/20 Range/Units 06:27 Total Bilirubin 0.8 (0.2-1) mg/dl Direct Bilirubin 0.2 (0-0.2) mg/dl AST 31 (15-37) U/L ALT 67 (12-78) U/L Alkaline Phosphatase 72 (45-117) U/L Albumin 2.3 L (3.4-5.0) gm/dl Medications Administered Current Inpatient Medications Hydrocodone Bitart/Acetaminophen (Hydrocodone/Acetamophen 5/325mg Tab) 1 tab PO Q4H PRN PRN Reason: Pain Stop: 07/31/20 10:09 Hydrocodone Bitart/Acetaminophen (Hydrocodone/Acetamophen 5/325mg Tab) 2 tab PO Q4H PRN PRN Reason: Pain Stop: 07/31/20 10:09 Last Admin: 07/18/20 09:23 Dose: 2 tab Documented by: Amlodipine Besylate (Amlodipine Besylate 5 Mg Tab) 5 mg PO QAM [facility] Stop: 08/17/20 08:59 Last Admin: 07/18/20 08:27 Dose: 5 mg Documented by: Aspirin (Aspirin 81 Mg Ectab) 81 mg PO QDL KARSON Stop: 08/16/20 11:29 Last Admin: 07/18/20 12:15 Dose: 81 mg Documented by: Dextrose (Dextrose 50% 50 Ml Syringe) 25 - 50 ml IV UD PRN; Protocol PRN Reason: Hypoglycemia Protocol Stop: 08/15/20 23:54 Glucagon (Glucagon For Inj 1 Mg Vial) 1 mg SQ UD PRN; Protocol PRN Reason: Hypoglycemia Protocol Stop: 08/15/20 23:54 Glucose (Glucose 10 Tabs/Tube) 4 - 8 tabs PO UD PRN; Protocol PRN Reason: Hypoglycemia Protocol Stop: 08/15/20 23:54 Glucose (Glucose 40% Gel 15 Gm Tube) 15 - 30 gm PO UD PRN; Protocol PRN Reason: Hypoglycemia Protocol Stop: 08/15/20 23:54 Piperacillin Sod/Tazobactam (Sod 4.5 gm/ Dextrose) 120 mls @ 30 mls/hr IV Q8H KARSON Stop: 07/27/20 05:59 Last Infusion: 07/18/20 17:58 Dose: Infused Documented by: Lactated Ringer's (Lr) 1,000 mls @ 80 mls/hr IV .[id number] [facility] Stop: 08/16/20 10:09 Last Admin: 07/18/20 12:15 Dose: 80 mls/hr Documented by: Insulin Aspart (Insulin Aspart 100 Units/Ml 3 Ml Pen) 0 units SC ACHS KARSON Stop: 08/16/20 16:29 Last Admin: 07/18/20 17:12 Dose: 5 units Documented by: Insulin Glargine (Insulin Glargine Solostar 100 Units/Ml 3 Ml Pen) 5 units SC HS [facility] Stop: 08/16/20 20:59 Last Admin: 07/17/20 20:46 Dose: 5 units Documented by: Losartan Potassium (Losartan Potassium 50 Mg Tab) 100 mg PO QAM [facility] Stop: 08/17/20 08:59 Last Admin: 07/18/20 09:23 Dose: 100 mg Documented by: Metoprolol Succinate (Metoprolol Succ 50mg Ext Rel Tab) 100 mg PO DAILY [facility] Stop: 08/16/20 03:49 Last Admin: 07/18/20 08:26 Dose: 100 mg Documented by: Miscellaneous (Carbohydrates For Hypoglycemia ) 15 - 30 gm PO UD PRN PRN Reason: Hypoglycemia Protocol Stop: 08/15/20 23:54 Miscellaneous Information (Piperacill/Tazobac Consult Active) 1 ea N/A UD PRN PRN Reason: Consult Stop: 08/16/20 00:00 Montelukast Sodium (Montelukast Sodium 10 Mg Tablet) 10 mg PO HS K[facility]SON Stop: 08/16/20 20:59 Last Admin: 07/17/20 20:47 Dose: 10 mg Documented by: Morphine Sulfate (Morphine Sulfate 2 Mg/Ml Carp) 2 mg IV Q3H PRN PRN Reason: Pain Stop: 07/31/20 10:09 Morphine Sulfate (Morphine Sulfate 4 Mg/Ml 1 Ml Carp\Vial) 4 mg IV Q3H PRN PRN Reason: Pain Stop: 07/31/20 10:09 Ondansetron HCl (Ondansetron Inj 2 Mg/Ml 2 Ml Vial) 4 mg IV Q4H PRN PRN Reason: Nausea Stop: 08/16/20 10:09 Pantoprazole Sodium (Pantoprazole 40 Mg Tab) 40 mg PO DAILY [facility] Stop: 08/16/20 08:59 Last Admin: 07/18/20 08:27 Dose: 40 mg Documented by: Rosuvastatin Calcium (Rosuvastatin Calcium 20 Mg Tab) 40 mg PO HS [facility] Stop: 08/16/20 20:59 Last Admin: 07/17/20 20:46 Dose: 40 mg Documented by: Simethicone (Simethicone 80 Mg Chew) 80 mg PO Q6H PRN PRN Reason: gassiness/bloating Stop: 08/17/20 15:03
[2020-07-18] MEDS: MONTELUKAST SODIUM 10 MG TABLET PO SCH (20:48)
[2020-07-18] MEDS: INSULIN GLARGINE SOLOSTAR 100 UNITS/ML 3 ML PEN SC SCH ×2 (20:48→21:11)
[2020-07-18] MEDS: ROSUVASTATIN CALCIUM 20 MG TAB PO SCH (20:49)
[2020-07-19] MEDS: LACTATED RINGER'S 1,000 ML IV SCH (00:24)
[2020-07-19] MEDS: PIPERACILLIN/TAZOBACTAM 4.5 GM in DEXTROSE 5% 100 ML IV SCH (05:16)
--- NOTE | 2020-07-19 07:45 | Surgery Progress Note ---
Date of Service July 19, 2020 Assessment & Plan (1) History of laparoscopic cholecystectomy: POD#2 laparoscopic cholecystectomy Patient feeling better today, passing BM's and flatus now DIEGO drain removed yesterday Advance diet as tolerates No need for further abx Plan for discharge to home today, pt is working on finding a ride Pt seen by Dr. Rico earlier this AM Follow up in clinic with Dr. Velez within 1-2 weeks Admission and Anticipated Discharge Date Admission Date: July 18, 2020 Subjective Patient seen and examined at bedside. Says he had about 3 BM's overnight and is passing gas. He is feeling better than yesterday. Tolerating liquids, no n/v. Physical Exam Physical Exam: awake/alert Constitutional: no acute distress Respiratory: normal respiratory effort Gastrointestinal (Abdomen): Inspection/Auscultation: + abdomen distended (improving) and + abdominal surgical incision (c/d/i) Percussion/Palpation: abdomen soft Results & Data ([facility]) Vital Signs (Past 12 Hours) Vital Signs Temp Pulse Pulse Resp BP Pulse Ox 07/19/20 07:13 86 07/19/20 04:25 36.8 C 89 20 162/92 H 96 07/19/20 01:58 98 H 07/18/20 23:07 36.8 C 94 H 20 168/91 H 95 PG Care Time/CCT Total # of Minutes Spent Total Time Spent with Patient: Total time spent is greater than 50% in coordination of care (as documented) at patient's floor/unit and/or counseling patient: Coding Level of Care Code None Diagnoses History of laparoscopic cholecystectomy Z90.49
--- NOTE | 2020-07-19 07:57 | Discharge Summary ---
Date of Service July 19, 2020 Admission HPI Per Admitting Provider This is a 50-year-old male with PMHx of HTN, HLD, renal cell carcinoma with mets to right middle lobe of lung s/p lobectomy (06/11/20) and previous nephrectomy, GERD, DM type II, COPD, and learning disability who presents with acute onset of abdominal pain, nausea, vomiting with concern for cholecystitis. Patient was in to see his PCP, Dr. Peng earlier today for complaints of severe heartburn and abdominal pain which started Tuesday night, so he took Pepto-Bismol but with minimal relief. He had abdominal bloating and fullness on the right side, pain radiated to his back from the epigastric region as well as the left upper quadrant. He took a liquid laxative yesterday around 9 PM and subsequently had 6 loose bowel movements. Prior to this he had hard stools so thought was constipated. Pt denies nausea, vomiting or excessive belching but feels a fullness in his abdomen. Denies fever or chills. Ate a yogurt around 10 AM and his pain worsened. He now reports he is hungry and is requesting another yogurt or ice chips. Patient mentions he received the first dose of [employer] COVID-19 vaccine last Tuesday and suffered fatigue where he spent most of the day Tuesday in bed. He thought his sx were due to the vaccine, and still thinks this may be what is going on. He reports similar abdominal complaints whenever he has been exposed to anesthesia, like when he had his lobectomy in mid May. Admission Exam Per Admitting Provider General: awake, alert, no apparent distress, obese with BMI 36.3 Head: Normocephalic, atraumatic ENT: PERRL, EOMI, no pharyngeal exudate, mucous membranes slightly dry Chest: Clear to auscultation, on room air, no adventitious breath sounds. Several small areas over right chest wall s/p lobectomy healing well, no surrounding erythema, nontender to touch. Cardiac: Regular rhythm, slightly tachycardic, no murmur, no JVD, normal peripheral pulses, good capillary refill Abdominal: Hypoactive BS x 4 quadrants, soft, + distended in RUQ, + epigastric tender to palpation, no rebound or guarding Extremities: Normal inspection, no peripheral edema or erythema, calfs nontender to palpation Psych: Normal mood and affect Neuro: AAO x 3, strength intact bilaterally and rated 5/5, no motor deficits, speech is clear, no peripheral sensory deficits Principal Diagnosis Cholecystitis status post laparoscopic cholecystectomy Acute renal failure-resolved Discharge Exam CONSTITUTIONAL: obese, vitals stable, NAD EYES: normal conjunctivae, no scleral icterus ENT: external ear and nose normal, oropharynx clear, MMM RESPIRATORY: clear to auscultation bilaterally, no crackles, rales or wheezes, normal respiratory effort CARDIOVASCULAR: regular rate and rhythm, S1 and 2 heard without murmurs, gallops or rubs, no JVD, no peripheral edema GASTROINTESTINAL: soft, nontender nondistended, discomfort from yesterday has resolved, incision sites closed without drainage or surrounding erythema MUSCULOSKELETAL: strength 5/5 throughout, head is normocephalic and atraumatic, neck supple, normal palpation of chest wall without tenderness SKIN: warm and dry NEUROLOGIC: CN 2-12 grossly intact, no sensory deficit, normal cognition PSYCHIATRIC: alert cooperative and oriented to person, place and time. Discharge Data Allergies Allergy/AdvReac Type Severity Reaction Status Date / Time Iodinated Contrast Media Allergy Intermediate Nausea Verified 07/16/20 18:33 Consultations 07/16/20 20:31 ED Decision to Admit Stat 07/16/20 23:55 Consult General Surgery Routine Procedures Performed Operation Date: 07/17/20 10:20 Actual Procedures p Laparoscopic Cholecystectomy - Kimo Velez, Ordered Studies 07/16/20 17:13 CT abd pelvis wo con Stat 07/16/20 18:57 US gallbladder Stat Hospital Course (1) Acute cholecystitis: (2) Post-operative state: (3) Hypertension: (4) Acute renal failure: The patient is a 50-year-old man who presented with acute upper abdominal pain and nausea. White blood cell count was 14 K, H&H and platelets were within normal limits. Creatinine was elevated at 1.6. Lipase was not elevated. CT of the abdomen and pelvis demonstrated distended gallbladder with concerns for possible cholecystitis. Formal right upper quadrant ultrasound redemonstrated minimal pericholecystic fluid/edema. On abdominal exam the patient had no right upper quadrant tenderness. He also reported improvement in symptoms following IV hydration treatment with Reglan diphenhydramine famotidine and Tylenol. However given symptoms leukocytosis and imaging findings he was admitted to the hospitalist service on antibiotics for further evaluation by surgery. Per surgical consultation a laparoscopic cholecystectomy was recommended and performed on 07/[address] Kimo Velez. His recovery was uneventful other than some bloating. He was discharged on postoperative day 2 after passing flatus and bowel movements and having some relief of bloating prior to discharge. DIEGO drain was removed on postoperative day 1. At time of discharge he was mentating and ambulating at baseline and tolerating p.o. His creatinine had improved to baseline and he was discharged in stable condition with close primary care follow-up recommended. Total Time Total Time Spent Total Time Spent (In Minutes): 60 Total Time Includes: Examination of the Patient, Discharge Planning, Medication Reconciliation and Communication With Other Providers Discharge Plan Discharge Items Patient Disposition: Home - Self-Care Reason For Visit: HTN URG Discharge Diagnosis: cholecystitis Activity: Per Instructions section Lifting: No more than 10 pounds Bathing Comment: may shower; no soaking in tubs/pools Exercise/Sports: Wait until after follow-up appointment Driving/Machine Use: do not resume driving while taking narcotics for pain Non-emergency contact: Primary Care Provider and Surgeon Call non-emergency contact if: you have any medication questions, your symptoms worsen, your pain is not controlled, your pain is worsening, your pain is concerning for you, you have a fever, your temperature is above 101.5, your wound has increased redness, your wound has increased drainage and your wound pain has increased Follow-up/Referrals: Kimo Velez DO [Surgeon] - (Please call to schedule follow up in clinic within 1 week) Andreas Orona DO [Primary Care Provider] - (Date & Time 07/23/2020 11:20 AM Provider Andreas Orona DO Department General Internal Medicine [facility] ) Diet: Carb Consistent or DM2 Addtl Attending Provider Instructions: SPECIAL CARE INSTRUCTIONS: * Cover incisions and change daily for comfort/drainage. * May use ibuprofen for pain as tolerated. * * Avoid constipation- * May Use Senokot S and Milk of Magnesium twice daily as directed on the package * * Expect some swelling and bruising. Call your doctor if: * Temperature above 101 degrees * Pain not relieved by pain medicine ordered * There is increased drainage or redness from any incision * You have any unanswered questions or concerns [phone]. FOLLOW UP VISIT: If not already scheduled, please call the office for a follow-up visit. for 1-2 weeks- checkup* OFFICE PHONE NUMBER: Dr. Velez's Office You may change the dressing around your abdominal drain site daily until it is healed with dry 4x4 gauze and medical tape Pending Studies at Discharge: Yes Studies:: surgical pathology Stand-Alone Forms: My [facility] [place], Smoking Cessation Medications and DC Order Prescriptions: New hydrocodone-acetaminophen 5-325 mg tablet 1 - 2 tab PO .q4h- q6h PRN (Reason: pain, for initial therapy, max 6 tabs per day ) Qty: 12 RF: 0 Continued Tresiba U-100 Insulin 100 unit/mL solution See Rx Instructions SQ HS RF: 0 insulin aspart U-100 [Novolog U-100 Insulin aspart] 100 unit/mL solution See Rx Instructions .ROUTE .COMPLEX RF: 0 losartan 100 mg tablet 100 mg PO QDL RF: 0 montelukast 10 mg tablet 10 mg PO HS RF: 0 metoprolol succinate 50 mg Tablet Extended Release 24 Hr 75 mg PO QDL RF: 0 aspirin 81 mg Tablet,Delayed Release (Dr/Ec) 81 mg PO QDL RF: 0 pantoprazole 40 mg Tablet,Delayed Release (Dr/Ec) 40 mg PO DAILY RF: 0 metformin 1,000 mg Tablet 1,000 mg PO BIDM RF: 0 rosuvastatin 40 mg Tablet 40 mg PO HS RF: 0 magnesium oxide 400 mg Capsule 400 mg PO QDL RF: 0 Jardiance 25 mg Tablet 25 mg PO QDL RF: 0 naproxen 500 mg tablet 500 mg PO BID PRN (Reason: Pain) RF: 0 Discharge Orders: Discharge Order (Routine); Ordered 07/19/20 Ordered By: Neela Melgar Admission Data Admit Date/Time: 07/16/20 22:08 Attending Provider: Neela Melgar Admit Provider: Munir Winston Primary Care Provider: Andreas Orona Other Providers: Kimo Velez ; Duncan Vidales ; Marcial Rico Other Interventions: Discharge Summary Assessment (RN) Last Done: 07/19/20 07:56
[2020-07-19 08:12] LABS: Hematocrit (blood only) 37.8 % (42-52); Hemoglobin 12.8 g/dL (14.0-18.0); Mean Corpuscular Hemoglobin 31.1 pg (25-34); Mean Corpuscular Hgb Conc 33.9 g/dL (32-36); Mean Corpuscular Volume 91.7 fL (80-100); Platelet Count 202 K/uL (130-400); RDW Standard Deviation 47.2 fL (36.4-46.3); Red Blood Count 4.12 M/uL (4.7-6.1); White Blood Count 7.76 K/uL (4.8-10.8)
[2020-07-19] MEDS: PANTOprazole 40 MG TAB PO SCH (08:23)
[2020-07-19] MEDS: METOPROLOL SUCC 50MG EXT REL TAB PO SCH (08:23)
[2020-07-19] MEDS: amLODIPine BESYLATE 5 MG TAB PO SCH (08:23)
[2020-07-19] MEDS: LOSARTAN POTASSIUM 50 MG TAB PO SCH (08:23)
[2020-07-19] MEDS: INSULIN ASPART 100 UNITS/ML 3 ML PEN SC SCH (08:26)
[2020-07-19] MEDS: INSULIN GLARGINE SOLOSTAR 100 UNITS/ML 3 ML PEN SC SCH (08:27)
[2020-07-19 08:41] LABS: BUN Creatinine Ratio 15.7 (10-20); Calcium 8.7 mg/dl (8.5-10.1); Creatinine Clr Calc Pharmacy 96.9 ml/min; Est GFR (African American) 84.9; Est GFR (Non-African American) 73.3; Magnesium 2.2 mg/dl (1.8-2.4); Potassium 3.9 mmol/L (3.5-5.1)
[2020-07-19 10:41] LABS: Estimated Average Glucose 189 mg/dl; Hemoglobin A1C 8.2 % (4.5-5.6)
--- NOTE | 2020-07-22 09:03 | Coding Query ---
CODING QUERY To promote full compliance with coding requirements relating to patient care, provider participation is requested in all cases of studio grip uncertainty. Please assist us with the question(s) below: Coding Question(s): The H&P documents, "Obtain blood cultures, procal, esr, crp and consider start IV abx for prophylactic coverage with concern for impending sepsis with elevated BP and HR" and the 07/17 Communication Note documents, "Temperature elevation at 38C, persistent tachycardia noted upon patient arrival at the floor. AP Sepsis Possible cholecystitis Change to full admission Cultures, check lactic acid Zosyn Await surgery input.". Sepsis is not documented on the Discharge Summary. Please specify below, in your clinical opinion, regarding Sepsis. ( x ) Sepsis was treated during this admission. Please Specify below, regarding the source of Sepsis: ( x ) source of Sepsis is likely Cholecystitis ( ) source of Sepsis is likely Other: Please Specify ( ) source of Sepsis is Unknown likely source ( ) Sepsis is Ruled-Out ( ) Other: Please Specify Physician's Response(s): This was updated in the discharge notes, thank you. Neela Melgar, DO Thank you Reina Thompson Principal Diagnosis: "that condition established after study, to be chiefly responsible for occasioning the admission of the patient to the hospital for care." Co-Existing Principal Diagnosis: "when two or more diagnoses equally meet the criteria for principal diagnosis as determined by the circumstances of admission, diagnostic work up, and/or therapy provided, and the Alphabetic Index, Tabular List, or another coding guideline does not provide sequencing direction, any one of the diagnoses may be sequenced first." "When the physician has documented what appears to be a current diagnosis in the body of the record, but has not included the diagnosis in the final diagnostic statement, the physician should be asked whether the diagnosis should be added." (Source Coding [facility] 2 QTR90. p3-4) JENNIFER
--- NOTE | 2020-07-22 09:11 | Coding Query ---
CODING QUERY To promote full compliance with coding requirements relating to patient care, provider participation is requested in all cases of hardwood flooring specialist uncertainty. Please assist us with the question(s) below: Coding Question(s): The H&P documents, "ARF secondary to illness" and, "Monitor creatinine response to IVF Hold losartan until creatinine back to baseline". ARF is not documented in the rest of the record. Please specify below, in your clinical opinion regarding ARF. ( x ) ARF means Acute Renal Failure treated with treatment including IV Fluids and holding losartan ( ) ARF means Acute Respiratory Failure. Please document treatment: ( ) ARF means Other: Please Specify and document treatment: ( ) ARF is Ruled-Out Physician's Response(s): Acute renal failure was updated in the discharge summary notes, thank you. Thank you Reina Thompson Principal Diagnosis: "that condition established after study, to be chiefly responsible for occasioning the admission of the patient to the hospital for care." Co-Existing Principal Diagnosis: "when two or more diagnoses equally meet the criteria for principal diagnosis as determined by the circumstances of admission, diagnostic work up, and/or therapy provided, and the Alphabetic Index, Tabular List, or another coding guideline does not provide sequencing direction, any one of the diagnoses may be sequenced first." "When the physician has documented what appears to be a current diagnosis in the body of the record, but has not included the diagnosis in the final diagnostic statement, the physician should be asked whether the diagnosis should be added." (Source Coding Clinic 2 QTR90. p3-4) JENNIFER
== END 2020-07-19 09:45 | disposition home or self-care (01) | DRG 854 ==
LOC: 2N 15:41 → ED 15:41 → SUATTDRO 22:08 → 2N 22:44

== ENCOUNTER 2024-08-13 21:09 | Observation (INO) ==
--- NOTE | 2024-08-13 21:33 | Emergency Department Note ---
Impression & Plan Precordial chest pain, Palpitations, CRF (chronic renal failure), Renal cancer ED Provider Note NAME: KONG FITZGERALD AGE: 54 SEX: M : 1970 ARRIVES VIA: Walk-In INFORMANT: [Patient] ED PROVIDER(S): [Israel Zapata MD] CHIEF COMPLAINT: Chest pain HISTORY OF PRESENT ILLNESS: The patient is a 54-year-old male who states a month ago, he developed chest pain that lingered for a week. Since that timeframe, the pain has come and gone. Sometimes the pain is exertional, sometimes it comes on at rest. He does occasionally feel the pain go to his left arm and his left neck. Sometimes, he feels short of breath, sometimes he is sweaty. No nausea. Patient had a test outpatient that showed the possibility of an injury to his lower heart. He thinks it was a nuclear stress test. He is scheduled for a cardiac catheterization on August 30, just under 3 weeks from today. Currently, the patient seems chest pain-free. Of note, in addition to the pain, he has felt some palpitations from time to time, he thinks he may be having a few extra beats. PMHx/PSHx/Social Hx: See Below PHYSICAL EXAM: GENERAL: Patient is in no acute distress. HEENT: No acute trauma, normocephalic atraumatic, mucous membranes moist, no nasal congestion. NECK: No stridor, no adenopathy, no meningismus, trachea is midline. LUNGS: Clear to auscultation bilaterally, no wheeze, no rhonchi, breath sounds equal. HEART: Without murmurs gallops or rubs, regular rate and rhythm. Heart tones distant. Chest: Nontender on exam. ABDOMEN: Soft, nontender, no peritonitis. EXTREMITIES: No cyanosis, full range of motion of all the joints without pain or difficulty. Mild bilateral pedal edema. NEUROLOGIC: Oriented x 3, no acute motor or sensory deficits, no focal weakness. SKIN: No jaundice, no diaphoresis. DIFFERENTIAL DIAGNOSIS: ME, angina, musculoskeletal pain, dysrhythmia, among others. EMERGENCY DEPARTMENT PROCEDURES: MEDICAL DECISION MAKING: There is no leukocytosis. A mild anemia was present. Platelet count slightly low at 129. No coagulopathy. Sodium slightly low but not in need of emergent correction. Creatinine was mildly elevated however, the patient does have some renal disease looking back at previous testing. A few of the liver enzymes were slightly elevated, the bilirubin however was normal. BNP was not elevated making CHF unlikely. There was no pancreatitis. ECG showed a normal sinus rhythm, no ST elevation, there were some inverted T waves in the high lateral leads. Cardiac enzyme testing x 1 was not consistent with acute cardiac injury. Chest x-ray does not show CHF or pneumonia. The patient was given nitroglycerin paste. He already takes a baby aspirin daily. The patient presents with chest pain that has been intermittent for a month. Sometimes the pain is exertional. Sometimes he does have have sweating, sometimes the pain radiates to his shoulder and neck. He did have an outpatient stress test that, by his report, was abnormal. Given the circumstances, I do think hospitalization indicated for further cardiac workup. I spoke with the patient and case management, the on-call hospitalist was consulted. Prior/Outside records/notes reviewed: None ECG per my interpretation: Indication was chest pain. The ECG shows a normal sinus rhythm with a rate of 82. There is an incomplete right bundle branch block. There is poor R wave progression. There are some inverted T waves seen in the high lateral leads. No ST elevation. No PVCs. The QTc is 413. Continuous Cardiac Monitoring per my interpretation: An order was placed for continuous cardiac monitoring. The monitor shows a rate of 78 with normal sinus rhythm. Imaging/x-ray results per my interpretation: Chest x-ray shows some chronic change, I see no pneumonia or CHF. Chronic Medical/Social conditions affecting care: None Care/Management discussed with: Case management, the on-call hospitalist. Level of care consideration(s): After review of the information above and other included data: --I believe the patient requires escalation of care to admission DISPOSITION: Admission Past Med/Surg History Problem List Renal cancer (Acute) CRF (chronic renal failure) (Acute) Palpitations (Acute) Precordial chest pain (Acute) Hypertension Tobacco use disorder Solitary kidney, acquired S/p nephrectomy Hyponatremia Diabetes mellitus Clear cell renal cell carcinoma CKD (chronic kidney disease) stage 3, GFR 30-59 ml/min Metastatic renal cell carcinoma to lung (Chronic 09/07/21) Solitary lung nodule (Chronic) Restrictive lung disease Change in bowel habit Encounter for pre-operative examination Hypertension (Chronic) DM type 2 (diabetes mellitus, type 2) (Chronic) HTN (hypertension) (Chronic) Renal neoplasm (Chronic) GERD (gastroesophageal reflux disease) (Chronic) HLD (hyperlipidemia) (Chronic) Encounter for pre-operative examination Encounter for pre-operative examination Constipation Pulmonary nodule COPD (chronic obstructive pulmonary disease) Allergic rhinitis Renal cell carcinoma Abdominal pain DVT prophylaxis Acute upper abdominal pain (Acute) Nausea (Acute) Leukocytosis (Acute) Acute cholecystitis History of laparoscopic cholecystectomy Post-operative state Acute renal failure Pulmonary nodule Obesity Solitary left kidney Medical History History of COVID-19 12/2020 (COUGH/HEADACHE ONLY>NO CURRENT PROBLEMS) Intellectual disability Per records Irregular heartbeat COPD (chronic obstructive pulmonary disease) no inh Fatty liver disease, nonalcoholic GERD (gastroesophageal reflux disease) Diabetes mellitus, type 2 IDDM Renal cancer 11/2017--Sx, no chemo/radiation Anxiety Hyperlipidemia Cardiac murmur NO CARDS>HAD FOLLOWED WITH EDWARD ANDREWS IN PAST Hypertension Surgical History History of anesthesia reaction History of colonoscopy History of esophagogastroduodenoscopy (EGD) History of lung surgery (06/11/20) History of nephrectomy History of tooth extraction Hx laparoscopic cholecystectomy (07/17/20) Family History Mother Family history of diabetes mellitus Father Esophageal cancer Sister Breast cancer Brother No problems noted. Brother No problems noted. Brother No problems noted. Other Has no children No family history of adverse response to anesthesia Social History Smoking Status: Former smoker Tobacco Type: Cigarettes packs per day: 1.5; Second Hand Exposure: Yes ( A CHILD); Do You Dip or Chew Tobacco: No; Hx Alcohol Use: Yes Alcohol type: beer Preferred Language: Hebrew Communication Ability: Effective Communication Ability Comment: Has difficulty recalling numbers, letters....only attended to 5th grade Visual Impairment: Limited Hearing Ability: Hard of Hearing Creative Coordinator Required: No Beliefs That Will Affect Care: None marital status: Single Current Living Situation: Significant Other Current Living Situation Comment: GIRLFRIEND AND "HER KID" How many Children do You have: 0 Feels Safe at Home: Yes Diet: regular caffeine: Yes (soda) during the past year weight has: remained stable Dental Care, Regularly: No Assistive Devices: Glasses Allergies Allergies Allergy/AdvReac Type Severity Reaction Status Date / Time Iodinated Contrast Media AdvReac Mild Nausea Verified 05/18/23 16:41 Home Meds Home Medications Medication Instructions Recorded Confirmed magnesium oxide 400 mg PO QDL 01/27/18 08/25/23 metformin 1,000 mg tablet 1,000 mg PO BIDM 01/27/18 08/25/23 pantoprazole 40 mg tablet,delayed 40 mg PO QAM 01/27/18 08/25/23 release rosuvastatin 40 mg tablet 40 mg PO HS 01/27/18 08/25/23 metoprolol succinate 50 mg 100 mg PO QAM 11/05/20 08/25/23 tablet,extended release 24 hr fluticasone propionate 50 1 spray intranasal Q12H PRN 05/07/21 08/25/23 mcg/actuation nasal Congestion spray,suspension losartan 100 mg tablet 100 mg PO QAM 05/07/21 08/25/23 amlodipine 10 mg tablet 10 mg PO DAILY 10/21/21 08/25/23 insulin aspart U-100 100 unit/mL 40 unit subcut .Sliding scale 07/23/22 08/25/23 (3 mL) subcutaneous pen (Novolog FlexPen U-100 Insulin aspart) insulin degludec 100 unit/mL 360 unit subcut HS 07/23/22 08/25/23 subcutaneous solution (Tresiba U-100 Insulin) Previous Rx's Medication Instructions Recorded ipratropium 0.5 mg-albuterol 3 mg 3 ml inhalation Q8H PRN shortness 07/27/22 (2.5 mg base)/3 mL nebulization of breath or wheezing #180 mL soln nebulizers (Aeroneb Go Nebulizer) #1 ea 07/27/22 sodium chloride 7 % for 1 inh inhalation BID #240 mL 07/27/22 nebulization sildenafil 100 mg tablet 100 mg PO DAILY PRN sexual 05/18/23 activity #20 tabs nystatin 100,000 unit/gram topical 1 applic topical BID #15 grams 07/11/24 cream Results & Data (ED) Vital Signs Vital Signs - 24 hr 08/13/24 21:10 08/13/24 21:25 08/13/24 21:36 Temperature 36.6 C Temperature Source Temporal Artery Scan Pulse Rate 87 78 Pulse Rate [Left Apical] 78 Pulse Rate from SpO2 Sensor Respiratory Rate 18 16 Respiratory Effort / Characteristics Non-Labored Spontaneous Non-Labored Spontaneous Respiratory Depth Normal Normal Respiratory Pattern Regular Regular Blood Pressure 177/79 H Blood Pressure [Left Arm] 142/75 H Blood Pressure Mean 111 Blood Pressure Mean [Left Arm] 97 Pulse Oximetry 95 98 Oxygen Delivery Method Room Air Room Air Sepsis Recent Fever Within 48 Hours No Sepsis New/Unexplained Change in Mental Status N/A Sepsis Action Taken by Nursing No Action Required 08/13/24 21:45 08/13/24 21:54 08/13/24 22:00 Temperature Temperature Source Pulse Rate 77 Pulse Rate [Left Apical] Pulse Rate from SpO2 Sensor 77 Respiratory Rate 17 Respiratory Effort / Characteristics Respiratory Depth Respiratory Pattern Blood Pressure 135/67 Blood Pressure [Left Arm] Blood Pressure Mean 89 Blood Pressure Mean [Left Arm] Pulse Oximetry 97 98 Oxygen Delivery Method Room Air Room Air Sepsis Recent Fever Within 48 Hours Sepsis New/Unexplained Change in Mental Status Sepsis Action Taken by Nursing 08/13/24 22:06 Temperature Temperature Source Pulse Rate Pulse Rate [Left Apical] Pulse Rate from SpO2 Sensor 77 Respiratory Rate Respiratory Effort / Characteristics Respiratory Depth Respiratory Pattern Blood Pressure Blood Pressure [Left Arm] Blood Pressure Mean Blood Pressure Mean [Left Arm] Pulse Oximetry 95 Oxygen Delivery Method Room Air Sepsis Recent Fever Within 48 Hours Sepsis New/Unexplained Change in Mental Status Sepsis Action Taken by Care Home Medications Current Medication List: was personally reviewed by me Laboratory Data Attestation: I reviewed the patient's lab results. 08/13/24 21:20 08/13/24 21:20 Lab Results 08/13/24 Range/Units 21:20 WBC 6.40 (4.8-10.8) K/ul RBC 4.53 L (4.70-6.10) M/uL Hgb 13.7 L (14.0-18.0) g/dl Hct 40.0 L (42.0-52.0) % MCV 88.3 (80.0-100.0) fL MCH 30.2 (25.0-34.0) pg MCHC 34.3 (32.0-36.0) g/dL RDW Std Deviation 42.9 (36.4-46.3) fL RDW Coeff of Faye 13.3 (11.5-14.5) % Plt Count 129 L (130-400) K/uL MPV 9.6 (9.4-12.4) fL Immature Gran % (Auto) 0.5 % Neut % (Auto) 59.1 % Lymph % (Auto) 26.7 % [place] % (Auto) 9.2 % Eos % (Auto) 3.9 % Baso % (Auto) 0.6 % Neut # (Auto) 3.78 (1.40-6.50) K/uL Lymph # (Auto) 1.71 (1.20-3.40) K/uL [place] # (Auto) 0.59 (0.11-0.59) K/uL Eos # (Auto) 0.25 (0.00-0.50) K/uL Baso # (Auto) 0.04 (0.00-0.20) K/uL Immature Gran # (Auto) 0.03 (0.01-0.20) K/uL PT 10.9 (9.0-12.0) Seconds INR 1.0 (0.9-1.1) APTT 27 (21-31) Seconds PTT Ratio 1.0 Sodium 131 L (136-145) mmol/L Potassium 4.8 (3.5-5.1) mmol/L Chloride 97 L (98-107) mmol/L Carbon Dioxide 27 (21-32) mmol/L Anion Gap 7 (3-11) BUN 22 (6-23) mg/dl Creatinine 1.53 H (0.6-1.4) mg/dl Est Cr Clr Drug Dosing 73.6 ml/min eGFR 53.36 BUN/Creatinine Ratio 14.4 (10-20) Glucose 210 H (70-99(Fasting)) mg/dl Calcium 9.5 (8.6-10.3) mg/dl Magnesium 1.8 (1.7-2.4) mg/dl Total Bilirubin 0.9 (0.2-1.0) mg/dl AST 53 H (13-39) U/L ALT 72 H (7-52) U/L Alkaline Phosphatase 89 (34-104) U/L Troponin I High Sens 8.1 (0-20) pg/ml B-Natriuretic Peptide 15 (0-100) pg/ml Total Protein 7.1 (6.0-8.3) gm/dl Albumin 3.9 (3.4-5.0) gm/dl Globulin 3.2 (2.5-4.0) gm/dl Albumin/Globulin Ratio 1.2 (0.9-2) Lipase 24 (11-82) U/L Administered Medications Discontinued Medications Nitroglycerin (Nitroglycerin 2% Ointment 30gm Tube) 1 inch EXT NOW STA Stop: 08/13/24 21:34 Last Admin: 08/13/24 21:39 Dose: 1 inch Documented By: [facility] Discharge Plan Visit Data Chief Complaint: Chest Pain Stated Complaint: CHEST DISCOMFORT, ARM PAIN ED Provider: Israel Zapata Discharge Problem: Precordial chest pain, Palpitations, CRF (chronic renal failure), Renal cancer Patient Disposition: Admitted As Inpatient Condition: Fair Forms Stand Alone Forms: My [facility] Prescriptions Prescriptions: No Action amlodipine 10 mg tablet 10 mg PO DAILY ipratropium-albuterol 0.5 mg-3 mg(2.5 mg base)/3 mL solution for nebulization 3 ml inhalation Q8H PRN (Reason: shortness of breath or wheezing) Qty: 180 2RF (DME) nebulizers [Aeroneb Go Nebulizer] [facility] [place] Rx Instructions .MEDSUPPLY Qty: 1 0RF Rx Instructions: With tubing and supplies. J44.9. J45.9. sodium chloride 7 % solution for nebulization 1 inh inhalation BID Qty: 240 2RF nystatin 100,000 unit/gram cream 1 applic topical BID Qty: 15 2RF Tresiba U-100 Insulin 100 unit/mL solution 360 unit SQ HS sildenafil 100 mg tablet 100 mg PO DAILY PRN (Reason: sexual activity) Qty: 20 11RF Rx Instructions: administer 30 minutes to 4 hours before activity pantoprazole 40 mg Tablet,Delayed Release (Dr/Ec) 40 mg PO QAM Rx Instructions: TAKE THIS MEDICATION ONCE DAILY 30 MINUTES BEFORE FIRST MEAL OF THE DAY metformin 1,000 mg Tablet 1,000 mg PO BIDM rosuvastatin 40 mg Tablet 40 mg PO HS magnesium oxide 400 mg Capsule 400 mg PO QDL metoprolol succinate 50 mg tablet extended release 24 hr 100 mg PO QAM insulin aspart U-100 [Novolog FlexPen U-100 Insulin] 100 unit/mL (3 mL) insulin pen 40 unit subcut .Sliding scale Patient Comments: Takes at lunch, supper, and bedtime Rx Instructions: sliding scale fluticasone propionate 50 mcg/actuation [place],Suspension 1 spray INTRANASAL Q12H PRN (Reason: Congestion) losartan 100 mg tablet 100 mg PO QAM Referrals Referrals: Damion Cheung MD [Primary Care Provider] - Discharge Problem: CRF (chronic renal failure) Qualifiers: Chronic kidney disease stage: unspecified stage Qualified Code(s): N18.9 - Chronic kidney disease, unspecified Renal cancer Qualifiers: Laterality: unspecified laterality Qualified Code(s): C64.9 - Malignant neoplasm of unspecified kidney, except renal pelvis
[2024-08-13] MEDS: NITROGLYCERIN 2% OINTMENT 30GM TUBE EXT STA (21:39)
[2024-08-13 21:42] LABS: Basophils # (auto) 0.04 K/uL (0.00-0.20); Basophils % (auto) 0.6 %; Eosinophils # (auto) 0.25 K/uL (0.00-0.50); Eosinophils % (auto) 3.9 %; Hemoglobin 13.7 g/dl (14.0-18.0); Immature Granulocytes # (auto) 0.03 K/uL (0.01-0.20); Immature Granulocytes % (auto) 0.5 %; Lymphocytes # (auto) 1.71 K/uL (1.20-3.40); Lymphocytes % (auto) 26.7 %; Mean Corpuscular Hemoglobin 30.2 pg (25.0-34.0); Mean Corpuscular Hgb Conc 34.3 g/dL (32.0-36.0); Mean Corpuscular Volume 88.3 fL (80.0-100.0); Mean Platelet Volume 9.6 fL (9.4-12.4); Monocytes # (auto) 0.59 K/uL (0.11-0.59); Monocytes % (auto) 9.2 %; Neutrophils # (auto) 3.78 K/uL (1.40-6.50); Neutrophils % (auto) 59.1 %; Platelet Count 129 K/uL (130-400); RDW Coefficient of Variation 13.3 % (11.5-14.5); RDW Standard Deviation 42.9 fL (36.4-46.3); Red Blood Count 4.53 M/uL (4.70-6.10)
[2024-08-13 21:49] LABS: Albumin Globulin Ratio 1.2 (0.9-2); Albumin Level 3.9 gm/dl (3.4-5.0); BUN Creatinine Ratio 14.4 (10-20); Bilirubin,Total 0.9 mg/dl (0.2-1.0); Calcium 9.5 mg/dl (8.6-10.3); Creatinine Clr Calc Pharmacy 73.6 ml/min; Globulin 3.2 gm/dl (2.5-4.0); Magnesium 1.8 mg/dl (1.7-2.4); Potassium 4.8 mmol/L (3.5-5.1); Total Protein 7.1 gm/dl (6.0-8.3)
[2024-08-13 21:55] LABS: Troponin I High Sensitivity 8.1 pg/ml (0-20)
[2024-08-13 22:06] LABS: Partial Thromboplastin Time 27 Seconds (21-31); Prothrombin Time 10.9 Seconds (9.0-12.0)
[2024-08-13 23:30] LABS: Thyroid Stimulating Hormone 2.959 uIu/ml (0.300-4.500)
--- NOTE | 2024-08-13 23:30 | XRay Report ---
Exam(s): XR CXR 1 VIEW EXAM: XR Chest, 1 View CLINICAL HISTORY: Reason for exam: Chest pain, nonspecific. TECHNIQUE: Frontal view of the chest. COMPARISON: Chest x-ray 09/23/2020 FINDINGS: Lungs: No consolidation. No overt edema. Pleural space: No pleural effusion. No pneumothorax. Heart: Unremarkable. No cardiomegaly. IMPRESSION: No acute cardiopulmonary abnormality. Electronically signed by: Jaswinder Smallwood MD 08/13/24 23:29 PM
[2024-08-14] MEDS: PROMETHAZINE 12.5 MG/50.5 ML BAG IV STA (00:04)
[2024-08-14] MEDS: OPTIRAY 320 125ml IV ONE (00:09)
--- NOTE | 2024-08-14 00:51 | CT Scan Report ---
EXAM: CT angio chest PE protocol CLINICAL HISTORY: cp TECHNIQUE: Contiguous axial images were obtained from the neck base through the upper abdomen following intravenous administration of iodinated contrast material. Angiographic images were processed, 3D MIP images were acquired for interpretation. If IV contrast material had not been administered, the likelihood of detecting abnormalities relevant to the patient's condition would have been substantially decreased. Coronal and sagittal 3-D MIPs were likewise performed and indicated to increase the sensitivity of detectin diffuse clinically relevant pathology. CT scan was performed according to ALARA (as low as reasonably achievable). COMPARISON: CT , 08/22/2023 14:10:28 LAUNDRY TECH FINDINGS: Adequate contrast bolus without evidence of pulmonary embolism. The central airways are patent. Small patchy consolidation in posterobasal segment of right lower lobe. No pleural effusion. The heart, aorta, and pulmonary arteries are of normal size and configuration. There are no appreciable coronary artery and aortic atherosclerotic calcifications. No pericardial effusion is identified. The thyroid is unremarkable. No mediastinal, hilar, or axillary lymphadenopathy is noted. No suspicious lytic or sclerotic osseous lesions are identified. IMPRESSION: 1. No evidence of pulmonary embolism. 2. Small patchy consolidation in posterobasal segment of right lower lobe. No significant interval change. Electronically signed by Byron Thompson 08-14-2024 12:51 AM
[2024-08-14] MEDS: SODIUM CHLORIDE 0.9% 1,000 ML IV ONE (01:58)
--- OUTSIDE RECORDS SUMMARY | 2024-08-14 02:02 | External Medical Summary | Summary of Care ---
Author Name Unknown Organization [facility] Address [address] [place] [address] Phone [phone] Care Team Providers Care Work And Family Life Consultant Name Role Phone Damion Cheung MD Primary Care Provider + Reason for Visit * Reason Onset Date Comments Test Results 08/06/2024 Encounter Details Date Type Department Care Team ([facility] st Contact Info) Description 08/06/2024 Telephone Cardiology, [place] [address] [facility] [place] [address] Peyton Ingram PA-C [address] [facility] [place] [address] Test Results Allergies Active Allergy Reactions Criticality Noted Date Comments Iodinated Contrast Media Other (Please comment) Low 09/04/2009 Pt stated IV dye made him feel funny. Can't quite remember. documented as of this encounter (statuses as of 08/10/2024) Medications Polyethylene Glycol 3350 17 GM/SCOOP Oral Powder (MiraLax)Indicat ions:Constipatio n, unspecified constipation type Take 17 g by mouth daily. Dissolve one heaping tablespoon in 8 ounces of water or juice. 578 g 5 12/18/19 21 Active Additional Information Patient not taking.Informant: Patient, Reported on 07/20/2024 Nebulizer Use as directed. Active Magnesium Oxide -Mg Supplement 400 (240 Mg) MG Oral Tablet (Mag-Ox)Indicati ons:Low blood magnesium Take 1 Tablet by mouth in the morning. 90 Tablet 2 04/29/19 24 Active Pantoprazole Sodium 40 MG Oral Tablet Delayed Release (Protonix)Indica tions:Diaphragma tic hernia without obstruction and without gangrene TAKE 1 TABLET BY MOUTH DAILY 30 MINUTES PRIOR TO THE FIRST MEAL OF THE DAY 90 Tablet 1 06/07/19 24 Active OneTouch Delbebeto Lancets 33GIndications:T ype 2 diabetes mellitus with hemoglobin A1c goal of less than 7.0% (HCC) Use to test blood sugar before meals and snacks and as needed up to 4 times a day 400 Each 3 07/27/19 24 Active OneTouch Verio In Vitro StripIndications :Type 2 diabetes mellitus with hemoglobin A1c goal of less than 7.0% (HCC) Test blood sugar before meals and snacks and as needed up to 4 times a day 400 Strip 3 07/28/2023 3:31 PM EDT 07/27/19 24 Active BD Pen Needle Mini U/F 31G X 5 MM (Insulin Pen Needle) Use with pen needles as directed 100 Each 3 02/22/2024 4:20 PM EDT 09/12/19 24 Active Rosuvastatin Calcium 40 MG Oral Tablet (Crestor)Indicat ions:Dyslipidemi a, goal LDL below 100 Take 1 Tablet by mouth daily. 90 Tablet 2 01/24/2024 2:52 PM EDT 10/05/19 24 Active Toujeo Max SoloStar 300 UNIT/ML Subcutaneous Solution Pen-injector (Insulin Glargine (2 Unit Dial))Indication s:Type 2 diabetes mellitus with hemoglobin A1c goal of less than 7.0% ([facility]) Inject 360 Units under the skin at bedtime. 108 mL 2 03/02/2024 8:35 AM EST 12/19/19 24 Active Triamcinolone Acetonide 0.5 % External Cream (Aristocort)Viridiana cations:Contact dermatitis of lower leg Apply topically to affected area 2 times a day. To affected area. 60 g 5 01/05/2024 1:00 PM EDT 01/05/20 24 Active Losartan Potassium 100 MG Oral Tablet (Cozaar) Take 1 Tablet by mouth in the morning. 90 Tablet 1 01/24/2024 2:52 PM EDT 01/19/20 24 Active Nystatin 692602 UNIT/GM External Cream apply to affected area twice a day FOR 10 DAYS 30 g 03/06/2024 4:43 PM EST 03/05/20 24 Active Terazosin HCl 1 MG Oral Capsule (Hytrin)Indicati ons:HTN, goal below 140/90 Take 1 Capsule by mouth at bedtime. 100 Capsule 3 04/12/20 24 Active Mucinex DM 30-600 MG Oral Tablet Extended Release 12 HourIndications: Viral URI with cough Take 1 Tablet by mouth 2 times a day as needed for Cough. Take with plenty of water. Do not cut, crush or chew 40 Tablet 2 04/21/20 24 Active Ventolin HFA 108 (90 Base) MCG/ACT Inhalation Aerosol SolutionIndicati ons:Viral URI with cough Inhale 2 Puffs by mouth every 4 hours as needed for Wheezing. 8 g 3 04/21/20 24 Active Additional Information Patient not taking.Reported on 07/20/2024 Spacer/Aero-Hold ing Chambers DeviceIndication s:COPD exacerbation (HCC) Use with inhaler. 1 Each 04/26/19 25 Active Furosemide 20 MG Oral Tablet (Lasix)Indicatio ns:HTN, goal below 140/90 TAKE 1 TABLET BY MOUTH ON Tuesday AND TUESDAY ONLY 40 Tablet 2 06/12/19 25 Active Fluticasone Propionate 50 MCG/ACT Nasal Suspension (Flonase)Indicat ions:Allergy, subsequent encounter Administer 2 Sprays into each nostril in the morning. 16 g 5 06/20/19 25 Active Metoprolol Succinate ER 100 MG Oral Tablet Extended Release 24 Hour (toPROL XL)Indications:H TN, goal below 140/90 Take 1 Tablet by mouth in the morning. 30 Tablet 5 06/20/19 25 Active amLODIPine Besylate 10 MG Oral Tablet (Norvasc)Indicat ions:HTN, goal below 140/90 Take 1 Tablet by mouth in the morning. 90 Tablet 3 06/20/19 25 Active metFORMIN HCl 1000 MG Oral Tablet (Glucophage)Viridiana cations:Type 2 diabetes mellitus with hemoglobin A1c goal of less than 7.0% (HCC) Take 1 Tablet by mouth in the morning and 1 Tablet before bedtime. With food.. 180 Tablet 2 06/20/19 25 Active NovoLOG FlexPen 100 UNIT/ML Subcutaneous Solution Pen-injectorIndi cations:Type 2 diabetes mellitus with hemoglobin A1c goal of less than 7.0% (HCC) INJECT 48 UNITS UNDER THE SKIN BEFORE LUNCH, 48 UNITS FOR DINNER AND 35 UNITS FOR EVENING SNACK PLUS CORRECTION CF 1:18 over 140. UP TO 150 UNITS MAX DAILY 45 mL 2 06/20/19 25 Active Aspirin 81 MG Oral Tablet Delayed ReleaseIndicatio ns:Chest pain, unspecified type,Coronary artery calcification,Hy perlipidemia with target LDL less than 70 Take 1 Tablet by mouth in the morning. 07/21/19 25 Active Ezetimibe 10 MG Oral Tablet (Zetia)Indicatio ns:Chest pain, unspecified type,Coronary artery calcification,Hy perlipidemia with target LDL less than 70 Take 1 Tablet by mouth in the morning. 90 Tablet 3 07/21/19 25 Active Amoxicillin-Pot Clavulanate 875-125 MG Oral Tablet (Augmentin)Indic ations:Acute cough Take 1 Tablet by mouth in the morning and 1 Tablet before bedtime. Do all this for 7 days. 14 Tablet 06/20/19 25 025 Discontin ued(Medic ation List Clean Up) Hospital, Clinic, or Other Facility Administered Medication Ordered Dose Route Frequency Start Date End Date Status bevaCIZumab (Avastin) inj 1.25 mgIndications:Prolifer ative diabetic retinopathy of right eye with macular edema associated with type 2 diabetes mellitus (HCC) 1.25 mg IZ PRN 07/12/2024 07/12/2025 Active ROPivacaine (Naropin) inj 1.5 mgIndications:Prolifer ative diabetic retinopathy of right eye with macular edema associated with type 2 diabetes mellitus (HCC) 1.5 mg PERINEURAL PRN 07/12/2024 07/12/2025 Active documented as of this encounter (statuses as of 08/10/2024) Active Problems Problem Noted Date Diagnosed Date Diabetes mellitus 05/24/2024 Food insecurity 12/05/2023 Overview: Per [facility] Protocol Chronic diastolic (congestive) heart failure 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, with long-term current use of insulin 05/20/2023 Type 2 diabetes mellitus wit h diabetic cataract, with long-term current use of insulin 05/20/2023 Cirrhosis of liver without ascites 02/09/2021 Nodule of lower lobe of right lung 10/14/2020 Diabetes mellitus due to und erlying condition with 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, left eye 07/03/2020 History of lobectomy of lung 07/03/2020 Allergic rhinitis 01/30/2020 Cigarette nicotine dependence in remission 10/08 softball winder (current) use of insulin 07/03/2019 Type 2 diabetes mellitus with polyneuropathy 01/2020 COPD, group A, by GOLD 2013 classification 01/20 History of renal cell cancer 12/05/2017 H/O unilateral nephrectomy 12/05/2017 HTN, goal below 140/90 06/30/2015 Overview: Per HTN Protocol #27. Mixed hyperlipidemia 04/10/2009 Overview (04/10/2009): Per Lipid Taxonomy. Type 2 diabetes mellitus wit h hemoglobin A1c goal of less than 7.0% 02/20/2009 Overview (08/19/2015): Per Diabetes Taxonomy. ICD-10 update of inactive term Gastroesophageal reflux disease without esophagi tis 03/25/2004 Diaphragmatic hernia 04/30/2003 documented as of this encounter (statuses as of 08/10/2024) Resolved Problems Problem Noted Date Diagnosed Date Resolved Date Hypertensive heart disease w ith congestive heart failure 01/05/2024 05/24/2024 Morbid obesity with BMI of 40.0-44.9, adult 01/05/2024 05/24/2024 Type 2 diabetes mellitus wit h stage 3 chronic kidney disease, with long-term current use of insulin 05/20/2023 05/24/2024 Vitreous hemorrhage of right eye 05/20/2023 05/24/2024 Food insecurity 11/01/2022 07/07/2023 Overview: Per [facility] Protocol Body mass index (BMI) of 40. 0 to 44.9 in adult 01/04/2022 01/05/2024 Overview: Per Obesity protocol Morbid (severe) obesity due to excess calories 08/10/2021 11/14/2023 Cirrhosis of liver with ascites 04/27/2021 07/27/2021 Secondary hyperparathyroidism of renal origin 07/04/19 21 06/14/2023 Metastatic renal cell carcin zuleyka to lung, right 07/03/2020 01/05/2024 Type 2 diabetes mellitus wit h chronic kidney disease 01/20/2019 03/13/2019 Stage 3 chronic kidney disease 01/09/2019 03/13/2019 Overview (01/24/2020): ICD-10 update of inactive term Encounter for examination fo r normal comparison and control in clinical research program 11/29/2018 01/28/2020 Overview (08/11/2020): [facility]: A Randomized Controlled Trial (Project # [id number]). The [facility] program provides food-insecure diabetics with healthy food for their entire household (2 meals/ day X 5 days/week). The program also provides education on food preparation, healthy living, and diabetes self management. The research measures the effects of the program on patient health and wellbeing. Subject will begin the [facility] program (11/2018). Contact Information: Manager Laboratory: Dr. Jaleel Harris ([phone]) CRC: Cindy Alonso ([phone]) RA: Lizzie Natarajan ([phone]) Diagnosis changed due to Research Module. Go to Snapshot for study details. 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 HTN, GOAL BELOW 130/80 05/22/200912/15 Overview (05/22/2009): Per HTN Taxonomy. Other premature beats 04/23/20082023 HTN, goal below 140/90 03/04/200805/22 Overview (05/22/2009): Per HTN Taxonomy. Problems with learning 09/13/200605/20 PURE HYPERCHOLESTEROLEM 04/06/200603/25 Overview (04/10/2009): Per Lipid Taxonomy. Type 2 diabetes mellitus wit h hemoglobin A1c goal of less than 7.0% 04/30/2003 02/20/2009 Overview (08/19/2015): Per Diabetes Taxonomy. ICD-10 update of inactive term documented as of this encounter (statuses as of 08/10/2024) Immunizations Name Administration Dates Next Due COVID-19 mRNA, LNP-s, No Pre serve, 2-Dose Series ([employer]) 08/02/2020,07/12/2020 Covid-19, Mrna, Lnp-s, Pf, B ivalent, 30 Mcg, IM, 12 yrs and above (Pfizer) 02/04/2022 Hepatitis B, 20+ yrs 01/17/2014,08/16/2013,07/16 Pneumococcal Conjugate Vacci ne, 20-valent ([id number]) 10/07/2021 Pneumococcal Polysaccharide PPV23 (Pneumovax) 09/04/2009 Seasonal Influenza Vac., MDV , IM, 0.5 mL (Fluzone) 01/04/2022,03/14/2013,01/26/2010,04/06 Seasonal Influenza, PF, 6 M & above, IM , (FluLaval or Fluzone) 03/18/2021,02/08/2020,04/05/2017 Seasonal Influenza, Quadriva lent, No Preserve, IM 02/10/2015 TDAP, Age 7 and older, IM (Adacel) 08/12/2016 documented as of this encounter Social History Tobacco Use Types Packs/Day Years Used Date Smoking Tobacco: Former Cigarettes 2 20 1 05/17/1992 - 03/17/2013 Smokeless Tobacco: Never Alcohol Use Standard Drinks/Week Comments Not Currently 0 (1 standard drink = 0.6 oz pur e alcohol) PHQ-2 Answer Date Recorded PHQ Adult Total Score 6 07/21/2023 Hunger Vital Sign Answer Date Recorded Within the past 12 months, y ou worried that your food would run out before you got the money to buy more. Sometimes true Within the past 12 months, t he food you bought just didn't last and you didn't have money to get more. Sometimes true Childcare Answer Date Recorded Do you feel overwhelmed with taking care of a child, family member or friend? No 11/15/2023 Does your family need help f inding childcare? (Household - for ages 0-17 years) Not on file 11/15/2023 Clothing Answer Date Recorded Have you been unable to get clothing when it was really needed? No 11/15/2023 Is your family able to get c lothes or diapers when needed? (Household - for ages 0-17 years) Not on file 11/15/2023 Personal Safety Answer Date Recorded Do you feel unsafe or have concerns for your saf ety? No 11/15/2023 Do you have concerns for you r family's safety? (Household - for ages 0-17 years) Not on file 11/15/2023 Utilities Answer Date Recorded Do you have trouble paying y our heating, water, or electric bill? No 11/15/2023 Is your family able to pay t he heat, water, or electric bill? (Household - for ages 0-17 years) Not on file 11/15/2023 Does your family have access to good internet? (Household - for ages 0-17 years) Not on file 11/15/2023 Employment Status Answer Date Recorded Are you unemployed or without regular income? No 11/15/2023 Does the household have a re gular source of income? (Household - for ages 0-17 years) Not on file 11/15/2023 Social Connections Answer Date Recorded How often do you feel lonely or isolated from th ose around you? Rarely 11/15/2023 Financial Resource Strain Answer Date R ecorded Do you have any trouble payi ng for your medications, or do you think you might in the future? No 11/15/2023 Does your family have troubl e paying for medicine? (Household - for ages 0-17 years) Not on file 11/15/2023 Transportation Needs Answer Date Record ed Do you have trouble getting a ride to medical visits or work? (Adult - for ages 18 years and over) Not on file 11/15/2023 Does your family have a hard time getting a ride to doctors visits? (Household - for ages 0-17 years) Not on file 11/15/2023 Has lack of transportation k ept you from medical appointments, meetings, work, or from getting things needed for daily living? Check all that apply. No 11/15/2023 Do you (or your family) have trouble finding or paying for a ride (transportation)? (Household - for ages 0-17 years) Not on file 11/15/2023 Housing Stability Answer Date Recorded Do you currently live in a s helter or have no steady place to sleep at night? No 11/15/2023 Do you think you are at risk of becoming homeless? (Adult - for ages 18 years and over) Not on file 11/15/2023 Does your family worry about paying for your home or becoming homeless? (Household - for ages 0-17 years) Not on file 0 11/15/2023 Are you homeless or worried that you might be in the future? No 11/15/2023 Are you (or your family) day eless or worried that you might be in the future? (Household - for ages 0-17 years) Not on file Food Insecurity Answer Date Recorded Do you need food for this week? Yes 11/15/2023 Are you able to get enough f ood for your family? (Household - for ages 0-17 years) Not on file 11/15/2023 Does your family need food t his week? (Household - for ages 0-17 years) Not on file 11/15/2023 Do you always have enough fo od for your family? (Household - for ages 0-17 years) Not on file 11/15/2023 Food Insecurity Answer Date Recorded Within the past 12 months, y ou worried that your food would run out before you got the money to buy more. Sometimes true Within the past 12 months, t he food you bought just didn't last and you didn't have money to get more. Sometimes true Do you need food for this week? Yes 11/15/2023 Sex and Gender Information Value Date Recorded Sex Assigned at Male 08/09/2019 4:30 PM EDT Legal Sex Male 7:18 AM EST Gender Identity Male 08/09/2019 4:30 PM EDT Sexual Orientation Straight 08/09/2019 4: 30 PM EDT documented as of this encounter Functional Status * Are you deaf or do you have serious difficulty hearing? Answer Date of Assessment Author No 06/11/2020 4:28 PM EST Alix Blancas RN * Are you blind or do you have serious difficulty seeing, even when wearing glasses? Answer Date of Assessment Author No 06/11/2020 4:28 PM EST Alix Blancas RN * Do you have serious difficulty walking or climbing stairs? (5 years old or older) Answer Date of Assessment Author No 06/11/2020 4:28 PM Alix Colindres RN * Do you have difficulty dressing or bathing? (5 years old or older) Answer Date of Assessment Author No 06/11/2020 4:28 PM Alix Colindres RN * Because of a physical, mental, or emotional condition, do you have difficulty doing errands alone such as visiting a doctor’s office or shopping? (15 years old or older) Answer Date of Assessment Author No 06/11/2020 4:28 PM Alix Colindres RN documented as of this encounter Mental Status * Because of a physical, mental, or emotional condition, do you have serious difficulty concentrating, remembering, or making decisions? (5 years old or older) Answer Entry Date Author No 06/11/2020 4:28 PM Alix Colindres RN documented in this encounter Miscellaneous Notes * Addendum Note - Peyton Ingram PA-C - 08/10/2024 7:58 AM EDT Addended by: PEYTON INGRAM on: 08/10/2024 07:58 AM Modules accepted: Orders * Telephone Encounter - Peyton Ingram PA-C - 08/10/2024 7:58 AM EDT Orders placed. Please schedule * Addendum Note - Damián Velazco LPN - 08/09/2024 3:47 PM EDTAddended by: DAMIÁN VELAZCO on: 08/09/2024 03:47 PM Modules accepted: Orders * Telephone Encounter - Damián Velazco LPN - 08/09/2024 3:31 PM EDT Pt called back in. He wants to have the heart cath. Denies he never said he wasn't having one done.All he said was he wanted to talk it over with his girlfriend. Pt denies saying anything he said onthe phone to Lianne 3 days ago. Argumentative on phone again today. Stating he has been having chest pain for the past month. Pt drives himself to his appts but when I asked him if he had a nascar driver for the cath he yelled againand said NO SHE SAID SHE WOULD GET ME TRANSPORTATION! Pt does not use public transportation such asCARS. I told pt I'd ask Lianne to place orders for the cath when she returns tomorrow. Pt c/o pain in neck, shoulder, chest, tingling and needles in bilat arms and hands. Adamant he willnot go to ER because they will just " tell me it's all in my head that's all they ever do". Pt kept repeating he was upset on the phone with Lianne the other day because "she told me I was going to and no one tells me that!" * Telephone Encounter - Peyton Ingram PA-C - 08/06/2024 2:45 PM EDT Called patient to discuss abnormal nuclear stress test results. Recommended cardiac catheterization. Explained procedure and reviewed risks. Patient belligerent on the phone. Screaming and swearing that he does not want a heart CATH. Offered to discuss procedure and risks in person at office visit.Patient declined, stating "no one will put a needle in my ass" and "I will look a needle in the eyebefore I go through let someone put something in my ass". Explained to patient a small catheter would be used to access the heart through the artery in the wrist or groin. Patient stated "No one willput a needle in my heart". Stated he has chest pain at rest throughout the day with tingling in hisarms. Recommended evaluation in the ED. Patient screaming stating "I've gone there and they tell meits all in my head". Reviewed risk of [place] and . Patient voiced understanding and accepted risk.Advised patient to call back if he changes his mind. Call was then dropped. * Telephone Encounter - Nathalie Riley OSA - 08/06/2024 2:33 PM EDT Person calling: [place] Relationship to patient: self Phone/Fax to return call: [phone] Reason for call(brief): returning call Pharmacy: NA Provider Name: Peyton Ingram PA-C Detailed message to office: pt calling for Lianne waldrop transferred to clinic nurse in [place] * Telephone Encounter - Peyton Ingram PA-C - 08/06/2024 1:00 PM EDT Called patient to discuss abnormal nuclear stress test. No answer. LMOM to call back. FYI nurses Peyton Ingram PA-C documented in this encounter Plan of Treatment Upcoming Encounters Date Type Department Care Team (Late st Contact Info) Description 08/15/2024 3:00 PM EDT Pharmacy Pharmacy, [address] [place] [address] [address], [facility] [address] [place] [address] 08/15/2024 3:30 PM EDT Office Visit Pharmacy, [place] [address] [place] [address] [address] [facility] [address] [place] [address] 09/10/2024 2:00 PM EDT Appointment Cardiac Studies, [facility] [address] [place] [address] 09/20/2024 1:00 PM EDT [facility] [address] [place] [id number] Efraín Galindo DO [address] [place] [address] Nurse Johnathon Pascal [address] [place] [address] Photographer Jayna Pascal [address] [place] [address] 01/03/2025 3:30 PM EDT Office Visit Cardiology, [place] [address] [facility] [place] [address] P[facility] [address] [facility] [address] Scheduled Orders Name Type Priority Associated Diagnoses Orde r Schedule APTT Lab Routine Chest pain, unspecified type Abnormal stress test Expected: 08/10/2024, Expires: 08/10/2025 BASIC METABOLIC PANEL Lab Routine Chest pain, unspecified type Abnormal stress test Expected: 08/10/2024, Expires: 08/10/2025 CARDIAC CATH-CARDIOLOGY ONLY Procedures Routine Chest pain, unspecified type Abnormal stress test Ordered: 08/10/2024 CBC Lab Routine Chest pain, unspecified type Abnormal stress test Expected: 08/10/2024, Expires: 08/10/2025 PT INR Lab Routine Chest pain, unspecified type Abnormal stress test Expected: 08/10/2024, Expires: 08/10/2025 XR CHEST 1 VIEW Medical Imaging Routine Chest pain, unspecified type Abnormal stress test Ordered: 08/10/2024 EKG COMPLETE (TRACING AND INTERP) EKG Routine Chest pain, unspecified type Abnormal stress test Expected: 08/10/2024, Expires: 09/09/2025 Scheduled Procedures Name Priority Associated Diagnoses Date/Ti me COLONOSCOPY FLEXIBLE PROXIMAL DIAGNOSTIC Recall History of colonic polyps Cirrhosis of liver (HCC) ESOPHAGOGASTRODUODENOSCOPY ( EGD), FLEXIBLE, TRANSORAL, DIAGNOSTIC Recall History of colonic polyps Cirrhosis of liver (HCC) Health Maintenance Due Date Last Done Comments HIV Screening 1984 Zoster Vaccines (1 of 2) 1988 Cologuard 2014 Fecal Occult Blood Test 2014 Sigmoidoscopy 2014 Lung Cancer Screening 07/21/2023 07/20/2022 , 02/19/2022, 03/12/2020, Additional history exists COVID-19 Vaccine ( season) 2023 02/04/2022, 08/02/2020, 07/12/2020 Diabetic Foot Exam 05/20/2024 05/20/2023, 1 06/15/2021, 04/27/2021, Additional history exists Albumin/Creatinine Ratio 06/06/2024 024, 10/07/2021, 01/01/2021, Additional history exists B-12 06/06/2024 06/06/2023, 04/26, 03/14/2020, Additional history exists *NEPHROLOGY REFERRAL DUE TO RESISTANT HTN 06/23/2024 Depression Screening 07/20/2024 07/21/2023 HbA1c 08/13/2024 02/13/2024, 05/26, 06/06/2023, Additional history exists Influenza Vaccine (FLU shot) (Season Ended) 2024 01/04/2022, 03/18/2021, 02/08/2020, Additional history exists GFR 02/12/2025 02/13/2024, 05/26, 05/31/2022, Additional history exists Diabetic Eye Exam 07/12/2025 07/12/2024, , 04/08/2023, Additional history exists Colonoscopy 05/14/2026 05/14/2021, 06/07/2018 Colorectal Cancer Screening 05/14/2026 DTap/Tdap Vaccines (2 - Td or Tdap) 08/12/2026 08/12/2016 Lipid Panel 02/12/2029 02/13/2024, 05/26, 07/27/2021, Additional history exists Hepatitis B Vaccine Completed 01/17/2014, 08/16/2013, 07/16/2013 RETIRED - COLONOSCOPY-EVERY 5 YRS AGES 18-100 Discontinued 05/14/2021, 06/07/2018 Alpha-1 Antitrypsin Completed 05/18/2021 Pneumococcal Vaccine: 50+ Years Completed 10/07/2021, 09/04/2009 HPV (Gardasil) Vaccine Aged Out No lo nger eligible based on patient's age to complete this topic MENINGOCOCCAL (MENACTRA/MENVEO) Aged Out No longer eligible based on patient's age to complete this topic Meningitis B Vaccine (Bexsero/Trumemba) Aged Out No longer eligible based on patient's age to complete this topic documented as of this encounter Medical Devices Not on filedocumented as of this encounter Visit Diagnoses Diagnosis Chest pain, unspecified type- Primary Abnormal stress test Other nonspecific abnormal cardiovascular system function study documented in this encounter Advance Directives * Full Code (Latest Code Status on File) Date Activated Date Inactivated Comments 06/11/2020 2:26 PM 06/15/2020 5:11 PM This order r eflects the patients wishes and were consensually agreed upon. Question Answer Comments Discussion of Advance Directives occurred with: Not Discussed Care Teams Work And Family Life Consultant Relationship Specialty Start Date End Date Damion Cheung MD [address] [place] [address] PCP - General Internal Medicine 12/01/21 documented as of this encounter
--- OUTSIDE RECORDS SUMMARY | 2024-08-14 02:02 | External Medical Summary | Summary of Care ---
Author Name Unknown Organization [facility] Address [address] [place] [address] Phone [phone] Care Team Providers Care Die Cutter Diamond Name Role Phone Damion Cheung MD Primary Care Provider + Reason for Visit * Reason Onset Date Comments Test Results 08/06/2024 Encounter Details Date Type Department Care Team ([facility] st Contact Info) Description 08/06/2024 Telephone Cardiology, [place] [address] [place] [address] Peyton Ingram PA-C [address] [facility] [place] [address] Test Results Allergies Active Allergy Reactions Criticality Noted Date Comments Iodinated Contrast Media Other (Please comment) Low 09/04/2009 Pt stated IV dye made him feel funny. Can't quite remember. documented as of this encounter (statuses as of 08/13/2024) Medications Polyethylene Glycol 3350 17 GM/SCOOP Oral Powder (MiraLax)Indicat ions:Constipatio n, unspecified constipation type Take 17 g by mouth daily. Dissolve one heaping tablespoon in 8 ounces of water or juice. 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 The Fresh Food Farmacy program provides food-insecure diabetics with healthy food for their entire household (2 meals/ day X 5 days/week). The program also provides education on food preparation, healthy living, and diabetes self management. The research measures the effects of the program on patient health and wellbeing. Subject will begin the FFF program (11/2018). Contact Information: Clinical Pharmacy Manager: Dr. Jaleel Harris ([phone]) CRC: Cindy Alonso ([phone]) RA: Lizzie Natarajan ([phone]) Diagnosis changed due to Research Module. Go [...] as of this encounter (statuses as of 08/13/2024) Immunizations Name Administration Dates Next Due COVID-19 mRNA, LNP-s, No Pre serve, 2-Dose Series ([employer]) 08/02/2020,07/12/2020 Covid-19, Mrna, Lnp-s, Pf, B ivalent, 30 Mcg, IM, 12 yrs and above (Pfizer) 02/04/2022 Hepatitis B, 20+ yrs 01/17/2014,08/16/2013,07/16 Pneumococcal Conjugate Vacci ne, 20-valent ([id number]) 10/07/2021 Pneumococcal Polysaccharide PPV23 (Pneumovax) 09/04/2009 Seasonal [...] documented in this encounter Miscellaneous Notes * Telephone Encounter - Taras Vidales CMA - 08/13/2024 9:17 AM EDT Pt has been informed via [employer]-transfection message. * Telephone Encounter - Taras Vidales CMA - 08/13/2024 9:10 AM EDT OUTPATIENT HEART CATHETERIZATION Your Heart catheterization is scheduled on 08/30/[address] Marie arrival time 7:00 AM. Please report to the CARDIAC RECOVERY SUITE on the 3rd floor of the [facility] Medicine ([facility]). Use the [facility] entrance located beside the parking garage. Please make sure to bring a stake driver with you. Prior testin08/13/24 Please have labs drawn at any [facility], orders are in the chart. CBC, BMP, PT/INR 08/13/24 Please have chest xray done, 1st floor of [facility] Radiology dept, order is in your chart. INSTRUCTIONS: * No caffeine for 24 hours prior to your procedure * Nothing solid to eat after midnight prior to your procedure. You may have clear liquids up to 2 hours prior. Clear liquids include tea, soda, broth, water, decaffeinated coffee or jello. * Medication instructions- -NSAIDs (ex: ibuprofen, naproxen, advil or aleve) should be stopped 2 days prior- Tylenol is ok -Diabetic meds Toujeo only take half of your normal dose the night before your catheterization. Metformin should be stopped 2 days prior All other diabetic meds should not be taking the morning of your procedure Bring insulin along -Diuretics Furosemide should not be taken the morning of the procedure -Be sure to take (4) 81mg aspirin (baby) on the morning of your procedure -You may take your other morning medications with a small sip of water at their usual times. -Bring your medications with you in their original containers. It may be necessary for you to take them after your procedure. If you have questions regarding your procedure or are not able to keep your appointment due to illness, bad weather or any other reason, please call [phone] between 7am & 3pm. * Telephone Encounter - Jessica Weinberg OSA - 08/10/2024 2:53 PM EDT Person calling: Hernando Relationship to patient: self Phone/Fax to return call: [phone] Reason for call(brief): schedule cath Pharmacy: [facility] Provider Name:Peyton Ingram Detailed message to office:Patient calling to schedule cath. Please advise. Thanks * Addendum Note - Peyton Ingram PA-C [...] I asked him if he had a stake driver for the cath he yelled againand [...] all in my head". Reviewed risk of [place] and . Patient voiced understanding and accepted risk.Advised patient to call back if he changes his mind. Call was then dropped. * Telephone Encounter - Nathalie Riley OSA - 08/06/2024 2:33 PM EDT Person calling: Hernando Relationship to patient: self Phone/Fax to return call: [phone] Reason for call(brief): returning call Pharmacy: NA Provider Name: Peyton Ingram PA-C Detailed message to office: pt calling for Lianne waldrop transferred to clinic nurse in [place] * Telephone Encounter - Peyton Ingram PA-C - 08/06/2024 1:00 PM EDT Called patient to discuss abnormal nuclear stress test. No answer. LMOM to call back. FYI nurses Peyton Ingram PA-C documented in this encounter Plan of Treatment Upcoming Encounters Date Type Department Care Team (Late st Contact Info) Description 08/15/2024 3:00 PM EDT Pharmacy Pharmacy, [place] [address] [place] [address] [address], [facility] [address] [place] [id number] 08/15/2024 3:30 PM EDT [facility] [address] [place] [address] [address], [facility] [address] [place] [address] 08/30/2024 7:00 AM EDT Hospital Encounter CRS Waiting [facility], Cardiac Recovery Suite Waiting Unit, [address] [place] [address] Aristides Marie MD [address] [place] [address] 08/30/2024 7:00 AM EDT - 08/30/2024 8:00 AM EDT Surgery CRS Waiting [facility], Cardiac Recovery Suite Waiting Unit, [address] [facility] [place] [address] Aristides Marie MD [address] [place] [address] CORONARY ANGIOGRAPHY W/LEFT HEART CATH 08/30/2024 7:00 AM EDT Office Visit Cardiology [facility], [place] [address] [place] [address] [place], Cardiac Recovery [place] [address] [facility], [place] [id number] 09/10/2024 2:00 PM EDT Appointment Cardiac Studies, [facility] [address] [facility] [place] [address] 09/20/2024 1:00 PM EDT [facility] [address] [place] [phone] Efraín Galindo DO [address] [place], [place] [address] Nurse Johnathon Pascal [address] [place], [place] [address] Photographer Jayna Pascal [address] [place], [place] [address] 01/03/2025 3:30 PM EDT Office Visit Cardiology, [place] [address] [place] [address] Peyton Ingram PA[facility]C [address] [facility] [address] Scheduled Orders Name Type Priority Associated Diagnoses [...] Procedures Name Priority Associated Diagnoses Date/Ti me CORONARY ANGIOGRAPHY W/LEFT HEART CATH Abnormal stress test 08/30/2024 7:00 AM EDT COLONOSCOPY FLEXIBLE PROXIMA L DIAGNOSTIC Recall History of colonic polyps Cirrhosis [...] Other nonspecific abnormal cardiovascular system function study Abnormal stress test Other nonspecific abnormal cardiovascular system function study documented in this encounter Advance Directives * Full Code (Latest Code Status on File) Date Activated Date Inactivated Comments 06/11/2020 2:26 PM 06/15/2020 5:11 PM This order r eflects the patients wishes and were consensually agreed upon. Question Answer Comments Discussion of Advance Directives occurred with: Not Discussed Care Teams Die Cutter Diamond Relationship Specialty Start Date End Date Damion Cheung MD [address] [place] [address] PCP - General Internal Medicine 12/01/21 documented as of this encounter
--- OUTSIDE RECORDS SUMMARY | 2024-08-14 02:02 | External Medical Summary | Summary of Care ---
Author Name Unknown Organization [facility] Address [address] [place] [address] Phone [phone] Care Team Providers Care Tank Crewmember Name Role Phone Damion Cheung MD Primary Care Provider + Reason for Visit * Reason Onset Date Comments Test Results 08/06/2024 Encounter Details Date Type Department Care Team ([facility] st Contact Info) Description 08/06/2024 Telephone Cardiology, [place] [address] [place] [address] Peyton Ingram PA-C [address] [facility] [place] [address] Test Results Allergies Active Allergy Reactions [...] hemoglobin A1c goal of less than 7.0% ([facility]) Inject 360 Units under the skin at [...] 2:52 PM EDT 01/19/20 24 Active Nystatin 329262 UNIT/GM External Cream apply to affected area [...] 01/30/2020 Cigarette nicotine dependence in remission 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 The Fresh Food Farmacy program provides food-insecure diabetics with healthy food for their entire household (2 meals/ day X 5 days/week). The program also provides education on food preparation, healthy living, and diabetes self management. The research measures the effects of the program on patient health and wellbeing. Subject will begin the FFF program (11/2018). Contact Information: Desktop Publishing Specialist: Dr. Jaleel Harris ([phone]) CRC: Cindy Alonso ([phone]) RA: Lizzie Natarajan ([phone]) Diagnosis changed due to Research Module. Go [...] mRNA, LNP-s, No Pre serve, 2-Dose Series ([employer]) 08/02/2020,07/12/2020 Covid-19, Mrna, Lnp-s, Pf, B ivalent, 30 Mcg, IM, 12 yrs and above (Pfizer) 02/04/2022 Hepatitis B, 20+ yrs 01/17/2014,08/16/2013,07/16 Pneumococcal Conjugate Vacci ne, 20-valent ([id number]) 10/07/2021 Pneumococcal Polysaccharide PPV23 (Pneumovax) 09/04/2009 Seasonal [...] AM EDT Pt has been informed via [employer] [facility] message. * Telephone Encounter - Taras Vidales CMA - 08/13/2024 9:10 AM EDT OUTPATIENT HEART CATHETERIZATION Your Heart catheterization is scheduled on 08/30/[address] Marie arrival time 7:00 AM. Please report to the CARDIAC RECOVERY SUITE on the 3rd floor of the [facility] Medicine ([facility]). Use the [facility] entrance located beside the parking garage. Please make sure to bring a car driver with you. Prior testin08/13/24 Please have labs drawn at any [facility], orders are in the chart. CBC, BMP, PT/INR 08/13/24 Please have chest xray done, 1st floor of [facility] Radiology dept, order is in your chart. [...] weather or any other reason, please call [phone] between 7am & 3pm. * Telephone Encounter - Jessica Weinberg OSA - 08/10/2024 2:53 PM EDT Person calling: Hernando Relationship to patient: self Phone/Fax to return call: [phone] Reason for call(brief): schedule cath Pharmacy: [facility] [...] I asked him if he had a car driver for the cath he yelled againand [...] all in my head". Reviewed risk of [place] and . Patient voiced understanding and accepted risk.Advised patient to call back if he changes his mind. Call was then dropped. * Telephone Encounter - Nathalie Riley OSA - 08/06/2024 2:33 PM EDT Person calling: Hernando Relationship to patient: self Phone/Fax to return call: [phone] Reason for call(brief): returning call Pharmacy: NA Provider Name: Peyton Ingram PA-C Detailed message to office: pt calling for Lianne waldrop transferred to clinic nurse in [place] * Telephone Encounter - Peyton Ingram PA-C - 08/06/2024 1:00 PM EDT Called patient to discuss abnormal nuclear stress test. No answer. LMOM to call back. FYI nurses Peyton Ingram PA-C documented in this encounter Plan of Treatment Upcoming Encounters Date Type Department Care Team (Late st Contact Info) Description 08/15/2024 3:00 PM EDT Pharmacy Pharmacy, [place] [address] [place] [address] Pharmacist1, [facility] [address] [place] [phone] 08/15/2024 3:30 PM EDT [facility] [address] [place] [address] Pharmacist1, [facility] [address] [place] [address] 08/30/2024 7:00 AM EDT Hospital Encounter CRS Waiting [facility], Cardiac Recovery Suite Waiting Unit, [address] [place] [address] Aristides Marie MD [address] [place] [address] 08/30/2024 7:00 AM EDT - 08/30/2024 8:00 AM EDT Surgery CRS Waiting [facility], Cardiac Recovery Suite Waiting Unit, [address] [place] [facility] [place] [address] Aristides Marie MD [address] [place] [address] CORONARY ANGIOGRAPHY W/LEFT HEART CATH 08/30/2024 7:00 AM EDT Office Visit Cardiology [facility], [place] [address] [place] [address] [place], Cardiac Recovery [place] [address] [facility], [place] [id number] 09/10/2024 2:00 PM EDT Appointment Cardiac Studies, [facility] [address] [facility] [place] [address] 09/20/2024 1:00 PM EDT [facility] [address] [place] [phone] Efraín Galindo DO [address] [place], [place] [address] Nurse Johnathon Pascal [address] [place], [place] [address] Photographer Jayna Pascal [address] [place], [place] [address] 01/03/2025 3:30 PM EDT Office Visit Cardiology, [place] [address] [place] [address] Peyton Ingram PA-C [address] [facility] [address] Scheduled Orders Name Type Priority Associated Diagnoses [...] Directives occurred with: Not Discussed Care Teams Tank Crewmember Relationship Specialty Start Date End Date Damion Cheung MD [address] [place] [facility] [place] [address] PCP - General Internal Medicine 12/01/21 documented as of this encounter
--- OUTSIDE RECORDS SUMMARY | 2024-08-14 02:02 | External Medical Summary | Summary of Care ---
Author Name Unknown Organization [facility] Address [address] [place] [address] Phone [phone] Care Team Providers Care Bobtailer Name Role Phone Damion Cheung MD Primary Care Provider + Reason for Visit * Reason Onset Date Comments Test Results 08/06/2024 Encounter Details Date Type Department Care Team ([facility] st Contact Info) Description 08/06/2024 Telephone Cardiology, [place] [address] [place] [address] Peyton Ingram PA-C [address] [place] [place] [address] Test Results Allergies Active Allergy Reactions [...] goal of less than 7.0% ([facility]) Inject 360 Units under the skin at [...] 2:52 PM EDT 01/19/20 24 Active Nystatin 319145 UNIT/GM External Cream apply to affected area [...] 01/30/2020 Cigarette nicotine dependence in remission 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 The Fresh Food Farmacy program provides food-insecure diabetics with healthy food for their entire household (2 meals/ day X 5 days/week). The program also provides education on food preparation, healthy living, and diabetes self management. The research measures the effects of the program on patient health and wellbeing. Subject will begin the FFF program (11/2018). Contact Information: Rodding Machine Tender: Dr. Jaleel Harris ([phone]) CRC: Cindy Alonso ([phone]) RA: Lizzie Natarajan ([phone]) Diagnosis changed due to Research Module. Go [...] mRNA, LNP-s, No Pre serve, 2-Dose Series ([employer]) 08/02/2020,07/12/2020 Covid-19, Mrna, Lnp-s, Pf, B ivalent, 30 Mcg, IM, 12 yrs and above (Pfizer) 02/04/2022 Hepatitis B, 20+ yrs 01/17/2014,08/16/2013,07/16 Pneumococcal Conjugate Vacci ne, 20-valent ([id number]) 10/07/2021 Pneumococcal Polysaccharide PPV23 (Pneumovax) 09/04/2009 Seasonal [...] Alix Blancas RN * Do you have difficulty dressing [...] encounter Miscellaneous Notes * Telephone Encounter - Jessica Weinberg OSA - 08/10/2024 2:53 PM EDT Person calling: Hernando Relationship to patient: self Phone/Fax to return call: [phone] Reason for call(brief): schedule cath Pharmacy: na Provider Name:Peyton Ingram Detailed message to office:Patient [...] I asked him if he had a otr company driver for the cath he yelled againand [...] all in my head". Reviewed risk of [place] and . Patient voiced understanding and accepted risk.Advised patient to call back if he changes his mind. Call was then dropped. * Telephone Encounter - Nathalie Riley OSA - 08/06/2024 2:33 PM EDT Person calling: Hernando Relationship to patient: self Phone/Fax to return call: [phone] Reason for call(brief): returning call Pharmacy: NA Provider Name: Peyton Ingram PA-C Detailed message to office: pt calling for Lianne waldrop transferred to clinic nurse in [place] * Telephone Encounter - Peyton Ingram PA-C - 08/06/2024 1:00 PM EDT Called patient to discuss abnormal nuclear stress test. No answer. LMOM to call back. FYI nurses Peyton Ingram PA-C documented in this encounter Plan of Treatment Upcoming Encounters Date Type Department Care Team (Late st Contact Info) Description 08/15/2024 3:00 PM EDT Pharmacy Pharmacy, [place] [address] [place] [address] Pharmacist1, [facility] [address] [place] [address] 08/15/2024 3:30 PM EDT Office Visit Pharmacy, [place] [address] [place] [address] Pharmacist1, [facility] [address] [place] [place] [address] 09/10/2024 2:00 PM EDT Appointment Cardiac Studies, [facility] [address] [facility] [address] 09/20/2024 1:00 PM EDT [facility] [address] [place] [address] Efraín Galindo DO [address] [place] [address] Nurse Johnathon Pascal [address] [place] [address] Photographer Jayna Pascal [address] [place] [address] 01/03/2025 3:30 PM EDT Office Visit Cardiology, [place] [address] [place] [address] Peyton Ingram PA-C [address] [place] [address] [place] [address] Scheduled Orders Name Type Priority Associated Diagnoses [...] Directives occurred with: Not Discussed Care Teams Bobtailer Relationship Specialty Start Date End Date Damion Cheung MD [address] [facility], [place] [phone] PCP - General Internal Medicine 12/01/21 documented as of this encounter
--- OUTSIDE RECORDS SUMMARY | 2024-08-14 02:03 | External Medical Summary | Summary of Care ---
Author Name Unknown Organization [facility] Address [address] [place] [address] Phone [phone] Care Team Providers Care Ship Erector Name Role Phone Damion Cheung MD Primary Care Provider + Reason for Visit * Reason Onset Date Comments Health Maintenance 08/03/2024 Encounter Details Date Type Department Care Team ([facility] st Contact Info) Description 08/03/2024 Telephone General Internal Medicine [facility] [address] [place] [address] Damion Cheung MD [address] [place] [address] Health Maintenance Allergies Active Allergy Reactions Criticality Noted Date Comments Iodinated Contrast Media Other (Please comment) Low 09/04/2009 Pt stated IV dye made him feel funny. Can't quite remember. documented as of this encounter (statuses as of 08/03/2024) Medications Polyethylene Glycol 3350 17 GM/SCOOP Oral Powder (MiraLax)Indicat ions:Constipatio n, unspecified constipation type Take 17 g by mouth daily. Dissolve one heaping tablespoon in 8 ounces of water or juice. 578 g 5 1 Active Additional Information Patient not taking.Informant: Patient, Reported on 07/20/2024 Nebulizer Use as directed. Active Magnesium Oxide -Mg Supplement 400 (240 Mg) MG Oral Tablet (Mag-Ox)Indicati ons:Low blood magnesium Take 1 Tablet by mouth in the morning. 90 Tablet 2 4 Active Pantoprazole Sodium 40 MG Oral Tablet Delayed Release (Protonix)Indica tions:Diaphragma tic hernia without obstruction and without gangrene TAKE 1 TABLET BY MOUTH DAILY 30 MINUTES PRIOR TO THE FIRST MEAL OF THE DAY 90 Tablet 1 4 Active OneTouch Delbebeto Lancets 33GIndications:T ype 2 diabetes mellitus with hemoglobin A1c goal of less than 7.0% (HCC) Use to test blood sugar before meals and snacks and as needed up to 4 times a day 400 Each 3 4 Active OneTouch Verio In Vitro StripIndications :Type 2 diabetes mellitus with hemoglobin A1c goal of less than 7.0% (HCC) Test blood sugar before meals and snacks and as needed up to 4 times a day 400 Strip 3 07/28/2023 3:31 PM EDT 4 Active BD Pen Needle Mini U/F 31G X 5 MM (Insulin Pen Needle) Use with pen needles as directed 100 Each 3 02/22/2024 4:20 PM EDT 4 Active Rosuvastatin Calcium 40 MG Oral Tablet (Crestor)Indicat ions:Dyslipidemi a, goal LDL below 100 Take 1 Tablet by mouth daily. 90 Tablet 2 01/24/2024 2:52 PM EDT 4 Active Toujeo Max SoloStar 300 UNIT/ML Subcutaneous Solution Pen-injector (Insulin Glargine (2 Unit Dial))Indication s:Type 2 diabetes mellitus with hemoglobin A1c goal of less than 7.0% (HCC) Inject 360 Units under the skin at bedtime. 108 mL 2 03/02/2024 8:35 AM EST 4 Active Triamcinolone Acetonide 0.5 % External Cream (Aristocort)Viridiana cations:Contact dermatitis of lower leg Apply topically to affected area 2 times a day. To affected area. 60 g 5 01/05/2024 1:00 PM EDT 4 Active Losartan Potassium 100 MG Oral Tablet (Cozaar) Take 1 Tablet by mouth in the morning. 90 Tablet 1 01/24/2024 2:52 PM EDT 4 Active Nystatin 564572 UNIT/GM External Cream apply to affected area twice a day FOR 10 DAYS 30 g 03/06/2024 4:43 PM EST 4 Active Terazosin HCl 1 MG Oral Capsule (Hytrin)Indicati ons:HTN, goal below 140/90 Take 1 Capsule by mouth at bedtime. 100 Capsule 3 4 Active Mucinex DM 30-600 MG Oral Tablet Extended Release 12 HourIndications: Viral URI with cough Take 1 Tablet by mouth 2 times a day as needed for Cough. Take with plenty of water. Do not cut, crush or chew 40 Tablet 2 4 Active Ventolin HFA 108 (90 Base) MCG/ACT Inhalation Aerosol SolutionIndicati ons:Viral URI with cough Inhale 2 Puffs by mouth every 4 hours as needed for Wheezing. 8 g 3 4 Active Additional Information Patient not taking.Reported on 07/20/2024 Spacer/Aero-Hold ing Chambers DeviceIndication s:COPD exacerbation (HCC) Use with inhaler. 1 Each 5 Active Furosemide 20 MG Oral Tablet (Lasix)Indicatio ns:HTN, goal below 140/90 TAKE 1 TABLET BY MOUTH ON Tuesday AND TUESDAY ONLY 40 Tablet 2 5 Active Fluticasone Propionate 50 MCG/ACT Nasal Suspension (Flonase)Indicat ions:Allergy, subsequent encounter Administer 2 Sprays into each nostril in the morning. 16 g 5 5 Active Metoprolol Succinate ER 100 MG Oral Tablet Extended Release 24 Hour (toPROL XL)Indications:H TN, goal below 140/90 Take 1 Tablet by mouth in the morning. 30 Tablet 5 5 Active amLODIPine Besylate 10 MG Oral Tablet (Norvasc)Indicat ions:HTN, goal below 140/90 Take 1 Tablet by mouth in the morning. 90 Tablet 3 5 Active metFORMIN HCl 1000 MG Oral Tablet (Glucophage)Viridiana cations:Type 2 diabetes mellitus with hemoglobin A1c goal of less than 7.0% ([facility]) Take 1 Tablet by mouth in the morning and 1 Tablet before bedtime. With food.. 180 Tablet 2 5 Active NovoLOG FlexPen 100 UNIT/ML Subcutaneous Solution Pen-injectorIndi cations:Type 2 diabetes mellitus with hemoglobin A1c goal of less than 7.0% ([facility]) INJECT 48 UNITS UNDER THE SKIN BEFORE LUNCH, 48 UNITS FOR DINNER AND 35 UNITS FOR EVENING SNACK PLUS CORRECTION CF 1:18 over 140. UP TO 150 UNITS MAX DAILY 45 mL 2 5 Active Aspirin 81 MG Oral Tablet Delayed ReleaseIndicatio ns:Chest pain, unspecified type,Coronary artery calcification,Hy perlipidemia with target LDL less than 70 Take 1 Tablet by mouth in the morning. 5 Active Ezetimibe 10 MG Oral Tablet (Zetia)Indicatio ns:Chest pain, unspecified type,Coronary artery calcification,Hy perlipidemia with target LDL less than 70 Take 1 Tablet by mouth in the morning. 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 The [employer] Farmacy program provides food-insecure diabetics with healthy food for their entire household (2 meals/ day X 5 days/week). The program also provides education on food preparation, healthy living, and diabetes self management. The research measures the effects of the program on patient health and wellbeing. Subject will begin the FFF program (11/2018). Contact Information: Wig Comber: Dr. Jaleel Harris ([phone]) CRC: Cindy Alonso ([phone]) RA: Lizzie Natarajan ([phone]) Diagnosis changed due to Research Module. Go [...] as of this encounter (statuses as of 08/03/2024) Immunizations Name Administration Dates Next Due COVID-19 mRNA, LNP-s, No Pre serve, 2-Dose Series (Pfizer) 08/02/2020,07/12/2020 Covid-19, Mrna, Lnp-s, Pf, B ivalent, 30 Mcg, IM, 12 yrs and above (Pfizer) 02/04/2022 Hepatitis B, 20+ yrs 01/17/2014,08/16/2013,07/16 Pneumococcal Conjugate Vacci ne, 20-valent ([id number]) 10/07/2021 Pneumococcal Polysaccharide PPV23 (Pneumovax) 09/04/2009 Seasonal [...] No 11/15/2023 Does the household have a [facility] source of income? (Household - for ages [...] Alix Colindres RN * Do you have serious difficulty [...] encounter Miscellaneous Notes * Telephone Encounter - Argelia Bunn LPN - 08/03/2024 10:57 AM EDT Care Gaps Comprehensive Care Outreach Last Office/Telemedicine Visit: 06/20/2024 (in office), Visit date not found (telemedicine) Next Office Visit: Visit date not found Hemoglobin AIC Results: Lab Results Component Value Date/Time HEMOGLOBIN A1C - [facility] 10.8 (H) 02/13/2024 01:11 PM HEMOGLOBIN A1C - [facility] 8.1 (H) 06/06/2023 01:09 PM HEMOGLOBIN A1C - [facility] 9.5 (H) 04/14/2022 11:39 AM HEMOGLOBIN A1C - [facility] 9.2 (H) 11/27/2019 02:09 PM HEMOGLOBIN A1C - [facility] 10.6 (H) 12/01/2018 01:08 PM HEMOGLOBIN A1C - [facility] 8.4 (H) 03/29/2018 03:12 PM HEMOGLOBIN A1C POCT - [facility] 9.5 (H) 06/06/2023 12:46 PM HEMOGLOBIN A1C POCT - [facility] 8.9 (H) 08/26/2022 11:37 AM HEMOGLOBIN A1C POCT - [facility] 9.3 (H) 01/04/2022 03:12 PM BP Readings from Last 1 Encounters: 07/31/24 158/70 Reviewed Health Maintenance below: Health Maintenance Topic Date Due HIV Screening Never done Zoster Vaccines (1 of 2) Never done Lung Cancer Screening 07/21/2023 COVID-19 Vaccine ( season) 2023 Diabetic Foot Exam 05/20/2024 Albumin/Creatinine Ratio 06/06/2024 B-12 06/06/2024 *NEPHROLOGY REFERRAL DUE TO RESISTANT HTN Never done Depression Screening 07/20/2024 HbA1c 08/13/2024October Labs already ordered Care Gap Outreach Action Taken: Left message documented in this encounter Plan of Treatment Upcoming Encounters Date Type Department Care Team (Late st Contact Info) Description 08/15/2024 3:00 PM EDT Pharmacy Pharmacy, [place] [address] [place] [address] Pharmacist1, [facility] [address] [place] [address] 08/15/2024 3:30 PM EDT Office Visit Pharmacy, [place] [address] [place] [address] Pharmacist1, [facility] [address] [place] [address] 09/10/2024 2:00 PM EDT Appointment Cardiac Studies, [address] [place] [address] 09/20/2024 1:00 PM EDT Office Visit Ophthalmology, [facility] [address] [place] [phone] Efraín Galindo, [address] [place] [address] Nurse Johnathon Pascal [address] [place] [address] Photographer Jayna Pascal [address] [place] [address] 01/03/2025 3:30 PM EDT [facility] [place] [address] [facility] [address] Stefanie Ingram PA-C 400 [facility] [place] [phone] Scheduled Procedures Name Priority Associated Diagnoses Date/Ti [...] Not on filedocumented as of this encounter Advance Directives * Full Code (Latest Code Status on File) Date Activated Date Inactivated Comments 06/11/2020 2:26 PM 06/15/2020 5:11 PM This order r eflects the patients wishes and were consensually agreed upon. Question Answer Comments Discussion of Advance Directives occurred with: Not Discussed Care Teams Ship Erector Relationship Specialty Start Date End Date Damion Cheung MD [address] [facility] [place] [address] PCP - General Internal Medicine 12/01/21 documented as of this encounter
--- OUTSIDE RECORDS SUMMARY | 2024-08-14 02:03 | External Medical Summary | Summary of Care ---
Author Name Unknown Organization [facility] Address [address] [place] [address] Phone [phone] Care Team Providers Care Polysilicon Preparation Worker Name Role Phone Damion Cheung MD Primary Care Provider + Reason for Visit * Reason Onset Date Comments Test Results 08/06/2024 Encounter Details Date Type Department Care Team ([facility] st Contact Info) Description 08/06/2024 Telephone Cardiology, [place] [address] [place] [address] Stefanie Ingram PA-C [address] [place] [address] Test Results Allergies Active Allergy Reactions Criticality Noted Date Comments Iodinated Contrast Media Other (Please comment) Low 09/04/2009 Pt stated IV dye made him feel funny. Can't quite remember. documented as of this encounter (statuses as of 08/06/2024) Medications Polyethylene Glycol 3350 17 GM/SCOOP Oral Powder (MiraLax)Indicat ions:Constipatio n, unspecified constipation type Take 17 g by mouth daily. Dissolve one heaping tablespoon in 8 ounces of water or juice. 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 The [employer] Farmacy program provides food-insecure diabetics with healthy food for their entire household (2 meals/ day X 5 days/week). The program also provides education on food preparation, healthy living, and diabetes self management. The research measures the effects of the program on patient health and wellbeing. Subject will begin the FFF program (11/2018). Contact Information: Marketing Information Manager: Dr. Jaleel Harris ([phone]) CRC: Cindy Alonso ([phone]) RA: Lizzie Natarajan ([phone]) Diagnosis changed due to Research Module. Go [...] as of this encounter (statuses as of 08/06/2024) Immunizations Name Administration Dates Next Due COVID-19 mRNA, LNP-s, No Pre serve, 2-Dose Series (Pfizer) 08/02/2020,07/12/2020 Covid-19, Mrna, Lnp-s, Pf, B ivalent, 30 Mcg, IM, 12 yrs and above (Pfizer) 02/04/2022 Hepatitis B, 20+ yrs 01/17/2014,08/16/2013,07/16 Pneumococcal Conjugate Vacci ne, 20-valent ([id number]) 10/07/2021 Pneumococcal Polysaccharide PPV23 (Pneumovax) 09/04/2009 Seasonal [...] 11/15/2023 Does the household have a re lar source of income? (Household - for ages [...] 06/11/2020 4:28 PM Alix Colindres RN * Are you blind or do [...] encounter Miscellaneous Notes * Telephone Encounter - Stefanie Ingram PA-C - 08/06/2024 2:45 PM EDT [...] all in my head". Reviewed risk of MD and . Patient voiced understanding and accepted risk.Advised patient to call back if he changes his mind. Call was then dropped. * Telephone Encounter - Nathalie Riley OSA - 08/06/2024 2:33 PM EDT Person calling: [place] Relationship to patient: self Phone/Fax to return call: [phone] Reason for call(brief): returning call Pharmacy: NA Provider Name: Stefanie Ingram PA-C Detailed message to office: pt calling for Lianne waldrop transferred to clinic nurse in [place] * Telephone Encounter - Stefanie Ingram PA-C - 08/06/2024 1:00 PM EDT Called patient to discuss abnormal nuclear stress test. No answer. LMOM to call back. FYI nurses Stefanie Ingram PA-C documented in this encounter Plan of Treatment Upcoming Encounters Date Type Department Care Team (Late st Contact Info) Description 08/15/2024 3:00 PM ED[facility] [address] [place] [address] Pharmacist1, [facility] [address] [place] [address] 08/15/2024 3:30 PM EDT Office Visit Pharmacy [place] [address] [place] [address] Pharmacist1, [facility] [address] [place] [address] 09/10/2024 2:00 PM EDT [facility]ointment [facility] [address] 09/20/2024 1:00 PM EDT [facility] [address] [place] [phone] Efraín Galindo DO [address] [place], [place] [address] Nurse Johnathon Pascal [address] [place] [address] Photographer Jayna Pascal [address] [place], [place] [address] 01/03/2025 3:30 PM EDT Office Visit Cardiology, [place] [address] [place] [address] Stefanie Ingram PA-C [address] [facility] [place] [address] Scheduled Procedures Name Priority Associated Diagnoses Date/Ti [...] 2:26 PM 06/15/2020 5:11 PM This order reflects the patients wishes and were consensually agreed upon. Question Answer Comments Discussion of Advance Directives occurred with: Not Discussed Care Teams Polysilicon Preparation Worker Relationship Specialty Start Date End Date Damion Cheung MD [address] [place] [address] PCP - General Internal Medicine 12/01/21 documented as of this encounter
--- OUTSIDE RECORDS SUMMARY | 2024-08-14 02:03 | External Medical Summary | Summary of Care ---
Author Name Unknown Organization [facility] Address [address] [place] [address] Phone [phone] Care Team Providers Care Blending Plant Operator Name Role Phone Damion Cheung MD Primary Care Provider + Reason for Visit * Precert (Within 10 days (routine)) - Authorized Specialty Diagnoses / Procedures Referred By Contac t Referred To Contact Radiology Diagnoses Chest pain, unspecified type Abnormal EKG HTN, goal below 140/90 Procedures NM MYOCARD PERF IMG SPECT MULT STUDIES WITH PHARM Nathalie Luna CRNP [address] [place] [address] Phone: tel: fax: Referral ID Status Reason Start Date Expiration Date V isits Requested Visits Authorized [id number] Authorized Precert 04/12/2024 [id number] Encounter Details Date Type Department Care Team (Latest Contact Info) Description 07/30/2024 12:42 PM EDT - 07/30/2024 11:59 PM EDT Hospital Encounter Radiology, [address] [phone] Discharge Disposition: Home - Self Care Allergies Active Allergy Reactions Criticality Noted Date Comments Iodinated Contrast Media Other (Please comment) Low 09/04/2009 Pt stated IV dye made him feel funny. Can't quite remember. 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 The [employer] Food Farmacy program provides food-insecure diabetics with healthy food for their entire household (2 meals/ day X 5 days/week). The program also provides education on food preparation, healthy living, and diabetes self management. The research measures the effects of the program on patient health and wellbeing. Subject will begin the FFF program (11/2018). Contact Information: Director Park: Dr. Jaleel Harris ([phone]) CRC: Cindy Alonso ([phone]) RA: Lizzie Natarajan ([phone]) Diagnosis changed due to Research Module. Go [...] Other premature beats 04/23/20082023 HTN, goal below 140/03/04/200805/22 Overview (05/22/2009): Per HTN Taxonomy. Problems with learning 09/13/200605/20 PURE HYPERCHOLESTEROLEM 04/06/200603/25 Overview (04/10/2009): Per Lipid Taxonomy. Type 2 diabetes mellitus wit h hemoglobin A1c goal of less than 7.0% 04/30/2003 02/20/2009 Overview (08/19/2015): Per Diabetes Taxonomy. ICD-10 update of inactive term documented as of this encounter (statuses as of 07/31/2024) Immunizations Name Administration Dates Next Due COVID-19 mRNA, LNP-s, No Pre serve, 2-Dose Series (Pfizer) 08/02/2020,07/12/2020 Covid-19, Mrna, Lnp-s, Pf, B ivalent, 30 Mcg, IM, 12 yrs and above (Pfizer) 02/04/2022 Hepatitis B, 20+ yrs 01/17/2014,08/16/2013,07/16 Pneumococcal Conjugate Vacci ne, 20-valent ([id number]) 10/07/2021 Pneumococcal Polysaccharide PPV23 (Pneumovax) 09/04/2009 Seasonal [...] Alix Colindres RN documented in this encounter Plan of Treatment Upcoming Encounters Date Type Department Care Team (Late st Contact Info) Description 08/15/2024 3:00 PM EDT Pharmacy Pharmacy, [place] [address] [place] [address] Pharmacist1, [facility] [place] [address] [place] [address] 08/15/2024 3:30 PM EDT Office Visit Pharmacy, [place] [address] [place] [address] Pharmacist1, [facility] [address] [place] [address] 09/10/2024 2:00 PM EDT Appointment Cardiac Studies, [facility] [address] [facility] [place] [address] 09/20/2024 1:00 PM EDT [facility] [address] [place], [place] [phone] Efraín Galindo DO [address] [place], [place] [address] Nurse Johnathon Pascal [address] [place] [address] Photographer Jayna Pascal [address] [place] [address] 01/03/2025 3:30 PM EDT Office Visit Cardiology, [place] [address] [facility] [place] [address] Stefanie Ingram PA-C 400 [facility] [place] [address] Scheduled Procedures Name Priority Associated Diagnoses Date/Ti [...] Not on filedocumented as of this encounter Procedures Procedure Name Priority Date/Time Associated Diagnosis Comments NM MYOCARDIAL PERFUSION IMAGING SPECT MULTIPLE STUDIES WITH PHARMACOLOGIC INTERVENTION Routine 07/31/2024 1:01 PM EDT Chest pain, unspecified type Abnormal EKG HTN, goal below 140/90 documented in this encounter Results * NM MYOCARD PERF IMG SPECT MULT STUDIES WITH PHARM INTERV (07/31/2024 1:01 PM EDT) Narrative Scheduling, Silent - 07/31/2024 1:01 PM EDT Results can be viewed in the patient's cardiology tab of Chart Review for this date of service. Nathalie [facility] NUCLEAR MED Final R esult documented in this encounter Visit Diagnoses Diagnosis Chest pain, unspecified type Abnormal EKG Nonspecific abnormal electrocardiogram (ECG) (EKG) HTN, goal below 140/90 Unspecified essential hypertension Chronic diastolic (congestive) heart failure (HCC)- Primary documented in this encounter Administered Medications Inactive Administered Medications - up to 3 most recent administrations Medication Order MAR Action Action Date Dose Rate Site Technetium Tc 99m Sestamibi (Sestamibi) inj 28 millicurie 28 millicurie, Intravenous, ONCE, On 07/30/24 at 1321, For 1 dose, Radiology Medication Routing (Non-IR) Given 07/30/2024 1:21 PM EDT 28 millicuries documented in this encounter Advance Directives * Full Code (Latest Code Status on File) Date Activated Date Inactivated Comments 06/11/2020 2:26 PM 06/15/2020 5:11 PM This order r eflects the patients wishes and were consensually agreed upon. Question Answer Comments Discussion of Advance Directives occurred with: Not Discussed Care Teams Blending Plant Operator Relationship Specialty Start Date End Date Damion Cheung MD [address] [place] [address] PCP - General Internal Medicine 12/01/21 documented as of this encounter
--- OUTSIDE RECORDS SUMMARY | 2024-08-14 02:03 | External Medical Summary | Summary of Care ---
Author Name Unknown Organization [facility] Address [address] [place] [address] Phone [phone] Care Team Providers Care Reeling Machine Operator Name Role Phone Damion Cheung MD Primary Care Provider + Reason for Visit * Reason Onset Date Comments Test Results 08/06/2024 Encounter Details Date Type Department Care Team ([facility] st Contact Info) Description 08/06/2024 Telephone Cardiology, [place] [address] [facility] [place] [address] Stefanie Ingram PA-C [address] [facility] [place] [address] Test Results Allergies Active Allergy Reactions Criticality Noted Date Comments Iodinated Contrast Media Other (Please comment) Low 09/04/2009 Pt stated IV dye made him feel funny. Can't quite remember. 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 The Fresh Food Farmacy program provides food-insecure diabetics with healthy food for their entire household (2 meals/ day X 5 days/week). The program also provides education on food preparation, healthy living, and diabetes self management. The research measures the effects of the program on patient health and wellbeing. Subject will begin the FFF program (11/2018). Contact Information: General Manager: Dr. Jaleel Harris ([phone]) CRC: Cindy Alonso ([phone]) RA: Lizzie Natarajan ([phone]) Diagnosis changed due to Research Module. Go [...] as of this encounter (statuses as of 08/09/2024) Immunizations Name Administration Dates Next Due COVID-19 mRNA, LNP-s, No Pre serve, 2-Dose Series ([employer] 08/02/2020,07/12/2020 Covid-19, Mrna, Lnp-s, Pf, B ivalent, 30 Mcg, IM, 12 yrs and above (Pfizer) 02/04/2022 Hepatitis B, 20+ yrs 01/17/2014,08/16/2013,07/16 Pneumococcal Conjugate Vacci ne, 20-valent ([id number]) 10/07/2021 Pneumococcal Polysaccharide PPV23 (Pneumovax) 09/04/2009 Seasonal [...] Assessment Author No 06/11/2020 4:28 PM Alix Colnidres RN documented as of this encounter Mental Status * Because of a physical, mental, or emotional condition, do you have serious difficulty concentrating, remembering, or making decisions? (5 years old or older) Answer Entry Date Author No 06/11/2020 4:28 PM Alix Colindres RN documented in this encounter Miscellaneous Notes * Addendum Note - Damián Velazco LPN [...] I asked him if he had a cdl bulk driver for the cath he yelled againand [...] tells me that!" * Telephone Encounter - Stefanie Ingram PA-C [...] all in my head". Reviewed risk of [place] and . Patient voiced understanding and accepted risk.Advised patient to call back if he changes his mind. Call was then dropped. * Telephone Encounter - Nathalie Riley OSA - 08/06/2024 2:33 PM EDT Person calling: [place] Relationship to patient: self Phone/Fax to return call: [phone] Reason for call(brief): returning call Pharmacy: NA Provider Name: Stefanie Ingram PA-C Detailed message to office: pt calling for Lianne - palma transferred to clinic nurse in [place] * Telephone Encounter - Stefanie Ingram PA-C - 08/06/2024 1:00 PM EDT Called patient to discuss abnormal nuclear stress test. No answer. LMOM to call back. FYI nurses Stefanie Ingram PA-C documented in this encounter Plan of Treatment Upcoming Encounters Date Type Department Care Team (Late st Contact Info) Description 08/15/2024 3:00 PM ED[facility] [address] [place] [address] Pharmacist1, [facility] [address] [place] [address] 08/15/2024 3:30 PM EDT [facility] [address] [place] [address] Pharmacist1, [facility] [address] [place] [address] 09/10/2024 2:00 PM EDT Appointment Cardiac Studies, [address] [place] [address] 09/20/2024 1:00 PM EDT [facility] [address] [place] [phone] Efraín Galindo DO [address] [place] [address] Nurse Johnathon Pascal [address] [place] [address] Photographer Jayna Pascal [address] [place] [address] 01/03/2025 3:30 PM EDT Office Visit [facility], [place] [address] [facility] [address] Stefanie Ingram PA-C [address] [facility] [place] [phone] Scheduled Procedures Name Priority Associated Diagnoses Date/Ti [...] Directives occurred with: Not Discussed Care Teams Reeling Machine Operator Relationship Specialty Start Date End Date Damion Cheung MD [address] [facility], [place] [id number] PCP - General Internal Medicine 12/01/21 documented as of this encounter
--- OUTSIDE RECORDS SUMMARY | 2024-08-14 02:03 | External Medical Summary | Summary of Care ---
Author Name Unknown Organization [facility] Address [address] [place] [address] Phone [phone] Care Team Providers Care Centrifugal Casting Machine Operator Name Role Phone Damion Cheung MD Primary Care Provider + Reason for Visit * Reason Onset Date Comments Health Maintenance 08/03/2024 Encounter Details Date Type Department Care Team ([facility] st Contact Info) Description 08/03/2024 Telephone General Internal Medicine [facility] [address] [place] [address] Damion Cheung MD [address] [place] [address] Health Maintenance Allergies Active Allergy Reactions Criticality [...] 01/24/2024 2:52 PM EDT 4 Active Nystatin 882384 UNIT/GM External Cream apply to affected area [...] hemoglobin A1c goal of less than 7.0% ([facility]) Take 1 Tablet by mouth in the morning and 1 Tablet before bedtime. With food.. 180 Tablet 2 5 Active NovoLOG FlexPen 100 UNIT/ML Subcutaneous Solution Pen-injectorIndi cations:Type 2 diabetes mellitus with hemoglobin A1c goal of less than 7.0% ([facility]) INJECT 48 UNITS UNDER THE SKIN BEFORE [...] mellitus 05/24/2024 Food insecurity 12/05/2023 Overview: Per [facility] Protocol Chronic diastolic (congestive) heart [...] 01/30/2020 Cigarette nicotine dependence in remission 10/08 [facility] (current) use of insulin 07/03/2019 Type 2 [...] program 11/29/2018 01/28/2020 Overview (08/11/2020): Fresh Food FarmDevver: A Randomized Controlled Trial (Project # [id number]). The [employer] Food Farmacy program provides food-insecure diabetics with healthy food for their entire household (2 meals/ day X 5 days/week). The program also provides education on food preparation, healthy living, and diabetes self management. The research measures the effects of the program on patient health and wellbeing. Subject will begin the FFF program (11/2018). Contact Information: Wellhead Pumper: Dr. Jaleel Harris ([phone]) CRC: Cindy Alonso ([phone]) RA: Lizzie Natarajan ([phone]) Diagnosis changed due to Research Module. Go [...] yrs 01/17/2014,08/16/2013,07/16 Pneumococcal Conjugate Vacci ne, 20-valent ([id number]) 10/07/2021 Pneumococcal Polysaccharide PPV23 (Pneumovax) 09/04/2009 Seasonal [...] No 11/15/2023 Does the household have a [facility] source of income? (Household - for ages [...] Telephone Encounter - Argelia Bunn LPN - 08/06/2024 11:48 AM EDT Patient called back. Declined all HM. * Telephone Encounter - Argelia Bunn LPN [...] HTN Never done Depression Screening 07/20/2024 HbA1c 08/13/2024 Ov October Labs already ordered Care Gap Outreach Action Taken: Left message documented in this encounter Plan of Treatment Upcoming Encounters Date Type Department Care Team (Late st Contact Info) Description 08/15/2024 3:00 PM EDT Pharmacy Pharmacy, [place] [address] [place] [address] Pharmacist1, [facility] [address] [place] [address] 08/15/2024 3:30 PM EDT Office Visit Pharmacy, [place] [address] [place] [address] Pharmacist1, [facility] [address] [place] [address] 09/10/2024 2:00 PM EDT Appointment Cardiac Studies, [address] [place] [address] 09/20/2024 1:00 PM EDT [facility] [address] [place] [phone] Efraín Galindo DO [address] [place] [address] Nurse Johnathon Pascal [address] [place], [place] [address] Photographer Jayna Pascal [address] [place] [address] 01/03/2025 3:30 PM EDT Office Visit Cardiology, [place] [address] [place] [phone] Stefanie Ingram PA-C [address] [facility] [place] [phone] Scheduled Procedures Name Priority Associated Diagnoses Date/Ti [...] Directives occurred with: Not Discussed Care Teams Centrifugal Casting Machine Operator Relationship Specialty Start Date End Date Damion Cheung MD [address] [facility] [place] [address] PCP - General Internal Medicine 12/01/21 documented as of this encounter
--- OUTSIDE RECORDS SUMMARY | 2024-08-14 02:03 | External Medical Summary | Summary of Care ---
Author Name Unknown Organization [facility] Address [address] [place] [address] Phone [phone] Care Team Providers Care Gore Inserter Name Role Phone Damion Cheung MD Primary Care Provider + Reason for Visit * Precert (Within 10 days (routine)) - Authorized Specialty Diagnoses / Procedures Referred By Contac t Referred To Contact Radiology Diagnoses Chest pain, unspecified type Abnormal EKG HTN, goal below 140/90 Procedures NM MYOCARD PERF IMG SPECT MULT STUDIES WITH PHARM Nathalie Luna CRNP [address] [place] [address] Phone: tel: fax: Referral ID Status Reason Start Date Expiration Date V isits Requested Visits Authorized [id number] Authorized Precert 04/12/2024 [id number] Encounter Details Date Type Department Care Team (Latest Contact Info) Description 07/31/2024 8:02 AM EDT - 07/31/2024 11:59 PM EDT Hospital Encounter Radiology, [address] [address] Discharge Disposition: Home - Self Care Allergies Active Allergy Reactions Criticality Noted Date Comments Iodinated Contrast Media Other (Please comment) Low 09/04/2009 Pt stated IV dye made him feel funny. Can't quite remember. documented as of this encounter (statuses as of 08/01/2024) Medications Polyethylene Glycol 3350 17 GM/SCOOP Oral [...] 01/24/2024 2:52 PM EDT 4 Active Nystatin 806038 UNIT/GM External Cream apply to affected area [...] before bedtime. With food.. 180 Tablet 2 Active NovoLOG FlexPen 100 UNIT/ML Subcutaneous Solution [...] 1 Tablet by mouth in the morning. Active Ezetimibe 10 MG Oral Tablet (Zetia)Indicatio ns:Chest pain, unspecified type,Coronary artery calcification,Hy perlipidemia with target LDL less than 70 Take 1 Tablet by mouth in the morning. 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 07/03/2019 Type 2 [...] as of this encounter (statuses as of 08/01/2024) Resolved Problems Problem Noted Date Diagnosed Date [...] 04/27/2021 07/27/2021 Secondary hyperparathyroidism of renal origin 07/04/1906/14/2023 Metastatic renal cell carcin zuleyka to lung, right 07/03/2020 01/05/2024 Type 2 diabetes mellitus wit h chronic kidney disease 01/20/2019 03/13/2019 Stage 3 chronic kidney disease 01/09/2019 03/13/2019 Overview (01/24/2020): ICD-10 update of inactive term Encounter for examination fo r normal comparison and control in clinical research program 11/29/2018 01/28/2020 Overview (08/11/2020): Fresh Food FarmRegister My Info: A Randomized Controlled Trial (Project # [id number]). The Fresh Food Farmacy program provides food-insecure diabetics with healthy food for their entire household (2 meals/ day X 5 days/week). The program also provides education on food preparation, healthy living, and diabetes self management. The research measures the effects of the program on patient health and wellbeing. Subject will begin the FFF program (11/2018). Contact Information: Direct Care Staffer: Dr. Jaleel Harris ([phone]) CRC: Cindy Alonso ([phone]) RA: Lizzie Natarajan ([phone]) Diagnosis changed due to Research Module. Go [...] as of this encounter (statuses as of 08/01/2024) Immunizations Name Administration Dates Next Due COVID-19 mRNA, LNP-s, No Pre serve, 2-Dose Series (Pfizer) 08/02/2020,07/12/2020 Covid-19, Mrna, Lnp-s, Pf, B ivalent, 30 Mcg, IM, 12 yrs and above (Pfizer) 02/04/2022 Hepatitis B, 20+ yrs 01/17/2014,08/16/2013,07/16 Pneumococcal Conjugate Vacci ne, 20-valent ([id number]) 10/07/2021 Pneumococcal Polysaccharide PPV23 (Pneumovax) 09/04/2009 Seasonal [...] PM EDT documented as of this encounter Last Filed Vital Signs Vital Sign Reading Time Taken Comments Blood Pressure 158/70 07/31/2024 8:00 AM EDT Pulse 80 07/31/2024 8:00 AM EDT Temperature - - Respiratory Rate - - Oxygen Saturation - - Inhaled Oxygen Concentration - - Weight - - Height - - Body Mass Index - - documented in this encounter Functional Status * Are you [...] Entry Date Author No 06/11/2020 4:28 PM EST Alix Blancas RN documented in this encounter Miscellaneous Notes * Ancillary Progress Note - Silvana Tracy RN - 07/31/2024 8:45 AM EDT Nuclear stress test complete. documented in this encounter Plan of Treatment Upcoming Encounters Date Type Department Care Team (Late st Contact Info) Description 08/15/2024 3:00 PM EDT Pharmacy Pharmacy, [place] [address] [place] [address] Pharmacist1, [facility] [address] [place] [address] 08/15/2024 3:30 PM EDT Office Visit Pharmacy, [place] [address] [place] [address] Pharmacist1, [facility] [address] [place] [address] 09/10/2024 2:00 PM EDT Appointment Cardiac Studies, [address] [address] 09/20/2024 1:00 PM EDT [facility] [address] [place] [phone] Efraín Galindo DO [address] [place] [address] Nurse Johnathon Pascal [address] [place] [address] Photographer Jayna Pascal [address] [place] [address] 01/03/2025 3:30 PM EDT Office Visit Cardiology, [place] [address] [place] [address] Stefanie Ingram PA-C [address] [place] [address] Scheduled Procedures Name Priority Associated Diagnoses Date/Ti [...] goal below 140/90 documented in this encounter Visit Diagnoses Diagnosis Chronic diastolic (congestive) heart failure (HCC)- Primary documented in this encounter Administered Medications Inactive Administered Medications - up to 3 most recent administrations Medication Order MAR Action Action Date Dose Rate Site Regadenoson (Lexiscan) inj 0.4 mg 0.4 mg, IV Push, ONCE, On Tue07/31/24 at 0812, For 1 dose, Inject over 10 seconds with 5-10 ml saline flush immediately after, Cardiac Studies_HODHOVIndications:C hronic diastolic (congestive) heart failure (HCC) Given 07/31/2024 8:26 AM EDT 0.4 mg sodium chloride 0.9 % flush/inj 10 mL 10 mL, IV Push, ONCE PRN Other, For Nuclear Stress Only - To follow Lexiscan Administration, Starting on Tue07/31/24 at 0809, Until Tue07/31/24 at 1008, For 2 hours, 5-10 ml Saline Flush to Immediately Follow Lexiscan Injection, Cardiac Studies_HODHOVIndications:C hronic diastolic (congestive) heart failure (HCC) Given 07/31/2024 8:26 AM EDT 10 mL Technetium Tc 99m Sestamibi (Sestamibi) inj 28 millicurie 28 millicurie, Intravenous, ONCE, On Tue07/31/24 at 1301, For 1 dose, Radiology Medication Routing (Non-IR) Given 07/31/2024 1:01 PM EDT 28 millicuries documented in this encounter Advance Directives * Full Code (Latest Code Status on File) Date Activated Date Inactivated Comments 06/11/2020 2:26 PM 06/15/2020 5:11 PM This order r eflects the patients wishes and were consensually agreed upon. Question Answer Comments Discussion of Advance Directives occurred with: Not Discussed Care Teams Gore Inserter Relationship Specialty Start Date End Date Damion Cheung MD [address] [place] [address] PCP - General Internal Medicine 12/01/21 documented as of this encounter
--- OUTSIDE RECORDS SUMMARY | 2024-08-14 02:04 | External Medical Summary | Summary of Care ---
Author Name Unknown Organization [facility] Address [address] [place] [address] Phone [phone] Care Team Providers Care Zoo Caretaker Name Role Phone Damion Cheung MD Primary Care Provider + Reason for Visit * Reason Comments Follow Up * Precert (Within 10 days (routine)) - Authorized Specialty Diagnoses / Procedures Referred By Jo morales Referred To Contact Ophthalmology Diagnoses Vitreous hemorrhage, right eye (HCC) Procedures AR BEVACIZUMAB INJECTION AR INTRAVITREAL NJX PHARMACOLOGIC AGT SPX Efraín Galindo DO [address] [place] [address] Phone: tel: fax: Referral ID Status Reason Start Date Expiration Date V isits Requested Visits Authorized [id number] Authorized Precert 10/19/2022 04/24/2099 [id number] Encounter Details Date Type Department Care Team (Late st Contact Info) Description 07/12/2024 9:00 AM EDT Office Visit Ophthalmology, [facility] [address] [place] [address] Efraín Galindo DO [address] [place] [address] Nurse Johnathon Pascal [address] [place] [address] Photographer Jayna Pascal [address] [place] [address] Proliferative diabetic retinopathy of right eye with macular edema associated with type 2 diabetes mellitus (HCC)*; Encounter for diabetes type 2 eye exam ([facility]) Allergies Active Allergy Reactions Criticality Noted Date Comments Iodinated Contrast Media Other (Please comment) Low 09/04/2009 Pt stated IV dye made him feel funny. Can't quite remember. documented as of this encounter (statuses as of 07/12/2024) Medications Polyethylene Glycol 3350 17 GM/SCOOP Oral Powder (MiraLax)Indicati ons:Constipation, unspecified constipation type Take 17 g by mouth daily. Dissolve one heaping tablespoon in 8 ounces of water or juice. 578 g 5 1 Active Nebulizer Use as directed. Active Magnesium Oxide -Mg Supplement 400 (240 Mg) MG Oral Tablet (Mag-Ox)Indicatio ns:Low blood magnesium Take 1 Tablet by mouth in the morning. 90 Tablet 2 4 Active Pantoprazole Sodium 40 MG Oral Tablet Delayed Release (Protonix)Indicat ions:Diaphragmati c hernia without obstruction and without gangrene TAKE 1 TABLET BY MOUTH DAILY 30 MINUTES PRIOR TO THE FIRST MEAL OF THE DAY 90 Tablet 1 4 Active OneTouch Delica Lancets 33GIndications:Ty pe 2 diabetes mellitus with hemoglobin A1c goal of less than 7.0% ([facility]) Use to test blood sugar before meals and snacks and as needed up to 4 times a day 400 Each 3 4 Active OneTouch Verio In Vitro StripIndications: Type 2 diabetes mellitus with hemoglobin A1c goal of less than 7.0% ([facility]) Test blood sugar before meals and snacks and as needed up to 4 times a day 400 Strip 3 07/28/2023 3:31 PM EDT 4 Active BD Pen Needle Mini U/F 31G X 5 MM (Insulin Pen Needle) Use with pen needles as directed 100 Each 3 02/22/2024 4:20 PM EDT 4 Active Rosuvastatin Calcium 40 MG Oral Tablet (Crestor)Indicati ons:Dyslipidemia, goal LDL below 100 Take 1 Tablet by mouth daily. 90 Tablet 2 01/24/2024 2:52 PM EDT 4 Active Toujeo Max SoloStar 300 UNIT/ML Subcutaneous Solution Pen-injector (Insulin Glargine (2 Unit Dial))Indications :Type 2 diabetes mellitus with hemoglobin A1c goal of less than 7.0% ([facility]) Inject 360 Units under the skin at bedtime. 108 mL 2 03/02/2024 8:35 AM EST 4 Active Triamcinolone Acetonide 0.5 % External Cream (Aristocort)Indic ations:Contact dermatitis of lower leg Apply topically to affected area 2 times a day. To affected area. 60 g 5 01/05/2024 1:00 PM EDT 4 Active Losartan Potassium 100 MG Oral Tablet (Cozaar) Take 1 Tablet by mouth in the morning. 90 Tablet 1 01/24/2024 2:52 PM EDT 4 Active Nystatin 479844 UNIT/GM External Cream apply to affected area twice a day FOR 10 DAYS 30 g 03/06/2024 4:43 PM EST 4 Active Terazosin HCl 1 MG Oral Capsule (Hytrin)Indicatio ns:HTN, goal below 140/90 Take 1 Capsule by mouth at bedtime. 100 Capsule 3 4 Active Mucinex DM 30-600 MG Oral Tablet Extended Release 12 HourIndications:V iral URI with cough Take 1 Tablet by mouth 2 times a day as needed for Cough. Take with plenty of water. Do not cut, crush or chew 40 Tablet 2 4 Active Ventolin HFA 108 (90 Base) MCG/ACT Inhalation Aerosol SolutionIndicatio ns:Viral URI with cough Inhale 2 Puffs by mouth every 4 hours as needed for Wheezing. 8 g 3 4 Active Spacer/Aero-Holdi ng Chambers DeviceIndications :COPD exacerbation ([facility]) Use with inhaler. 1 Each 5 Active Furosemide 20 MG Oral Tablet (Lasix)Indication s:HTN, goal below 140/90 TAKE 1 TABLET BY MOUTH ON Tuesday AND TUESDAY ONLY 40 Tablet 2 5 Active Fluticasone Propionate 50 MCG/ACT Nasal Suspension (Flonase)Indicati ons:Allergy, subsequent encounter Administer 2 Sprays into each nostril in the morning. 16 g 5 5 Active Metoprolol Succinate ER 100 MG Oral Tablet Extended Release 24 Hour (toPROL XL)Indications:HT N, goal below 140/90 Take 1 Tablet by mouth in the morning. 30 Tablet 5 5 Active amLODIPine Besylate 10 MG Oral Tablet (Norvasc)Indicati ons:HTN, goal below 140/90 Take 1 Tablet by mouth in the morning. 90 Tablet 3 5 Active metFORMIN HCl 1000 MG Oral Tablet (Glucophage)Indic ations:Type 2 diabetes mellitus with hemoglobin A1c goal of less than 7.0% (HCC) Take 1 Tablet by mouth in the morning and 1 Tablet before bedtime. With food.. 180 Tablet 2 Active NovoLOG FlexPen 100 UNIT/ML Subcutaneous Solution Pen-injectorIndic ations:Type 2 diabetes mellitus with hemoglobin A1c goal of less than 7.0% (HCC) INJECT 48 UNITS UNDER THE SKIN BEFORE LUNCH, 48 UNITS FOR DINNER AND 35 UNITS FOR EVENING SNACK PLUS CORRECTION CF 1:18 over 140. 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 The [employer] program provides food-insecure diabetics with healthy food for their entire household (2 meals/ day X 5 days/week). The program also provides education on food preparation, healthy living, and diabetes self management. The research measures the effects of the program on patient health and wellbeing. Subject will begin the FFF program (11/2018). Contact Information: Brake Repairer Air: Dr. Jaleel Harris ([phone]) CRC: Cindy Alonso ([phone]) RA: Lizzie Natarajan ([phone]) Diagnosis changed due to Research Module. Go [...] as of this encounter (statuses as of 07/12/2024) Immunizations Name Administration Dates Next Due COVID-19 mRNA, LNP-s, No Pre serve, 2-Dose Series (Pfizer) 08/02/2020,07/12/2020 Covid-19, Mrna, Lnp-s, Pf, B ivalent, 30 Mcg, IM, 12 yrs and above (Pfizer) 02/04/2022 Hepatitis B, 20+ yrs 01/17/2014,08/16/2013,07/16 Pneumococcal Conjugate Vacci ne, 20-valent ([id number]) 10/07/2021 Pneumococcal Polysaccharide PPV23 (Pneumovax) 09/04/2009 Seasonal [...] Alix Colindres RN documented in this encounter Progress Notes * Efraín Galindo DO - 07/12/2024 9:00 AM EDT [facility] [place] Nursing Notes: Amie Bolaños, RN 07/12/24 0843 Signed Marco Campos is a 54 year old year old male who presents for High risk PDR OU. Last Office Visit: 04/17/2024 (in office), Visit date not found (telemedicine) Patient currently states "bleed right eye-see it on the side" Are you diabetic? Yes. Do you check your blood sugars daily? YES. Did not measure this morning. Last Hemoglobin A1C: Lab Results Component Value Date/Time HGBA1C 10.8 (H) 02/13/2024 01:11 PM HGBA1C 8.1 (H) 06/06/2023 01:09 PM HGBA1C 9.5 (H) 06/06/2023 12:46 PM HGBA1C 8.9 (H) 08/26/2022 11:37 AM HGBA1C 9.5 (H) 04/14/2022 11:39 AM HGBA1C 9.3 (H) 01/04/2022 03:12 PM HGBA1C 9.2 (H) 11/27/2019 02:09 PM HGBA1C 9.3 (A) 03/13/2019 03:45 PM HGBA1C 10.6 (H) 12/01/2018 01:08 PM HGBA1C 9.8 (A) 06/27/2018 04:15 PM HGBA1C 8.4 (H) 03/29/2018 03:[address]? yes OCT image(s) of both eyes acquired and filed/scanned into chart. Base Eye Exam Visual Acuity (Snellen - Linear) Right Left Dist sc 20/40 -1 20/40 -1 Dist ph sc 20/25 -1 20/30 -1 Tonometry (Tonopen, 8:41 AM) Right Left Pressure 21 21 Pupils Pupils APD Right PERRL None Left PERRL None Visual Walton (Counting fingers) Right Left Full Full Extraocular Movement Right Left Full, Ortho Full, Ortho Neuro/Psych Oriented x3: Yes Mood/Affect: Normal Dilation Both eyes: 0.5% Proparacaine @ 8:41 AM Dilation #2 Both eyes: 1.0% Mydriacyl, 2.5% Phenylephrine @ 8:41 AM Dilation Comments Patient cautioned that effects of dilation may last 2-7 hours dependant upon individual reaction. It was discussed that driving while dilated is not recommended. EXTERNAL: The ocular adnexae are unremarkable. SLE: Lids/Lashes: wnl OU Conjunctiva/Sclera: quiet OU Cornea: clear OU Anterior Chamber: deep and quiet OU Iris: normal OU; no NVI OU Lens: +NSC OU Dilated fundus exam OD: vitreous:, pvd, VH improved optic nerve: 0.3, regressed NVD, no edema/pallor macula: no csme, resolved pre-retinal heme vessels: wnl periphery: PRP, bulldozer/loader/compactor/scraper, no RT/RD Dilated fundus exam OS: 07/19/22; pt refused dilation vitreous: clear optic nerve: 0.3, no edema/pallor/NVD macula: bulldozer/loader/compactor/scraper vessels: wnl periphery: bulldozer/loader/compactor/scraper, no RT/RD OCT Interpretation: OD: dme, +PVD--STABLE, prior STABLE, prior poor scans due to VH OS: no pvd, temporal irf--stable A/P: 1. High Risk Proliferative Diabetic Retinopathy OD -DM2 -recommend HgbA1C <7, BP and lipid control. -Avastin 04/08/23, 10/19/22, 04/30/22 -s/p PRP 09/08/22, 06/09/22 -VH 12/15/2023, 09/07/23, 07/05/2023 , 01/05/2023 -Avastin 04/17/24, 02/13/24, 12/16/23, 09/22/23 -12 weeks -pt noticing new bleeding OD; wants injection 07/12/2024 2. Moderate Nonproliferative Diabetic Retinopathy OS -monitor -recommend HgbA1C <7, BP and lipid control. 3. Posterior Vitreous Detachment OD -no RT/RD -advised to return to clinic if he should experience worsening or new floaters, flashes of light, ashadow in the periphery, or decrease in vision. F/u 10-12 weeks, dilate and OCT OU Efraín Galindo, DO CC: Marina Lovell, OD CC: PCP: Damion Cheung MD TIMEOUT PROCEDURE: correct patient identity-YES correct procedure and consent-YES verified side and site-YES correct patient position-YES all necessary equipment/prior studies present-YES reviewed special requirements of this patient-YES PROCEDURE: Intravitreal injection of Avastin 1.25mg OD INFORMED CONSENT: Patient is aware that this is an off-label use of Avastin and that Avastin is not FDA approved for this use. Risks, benefits and alternatives have been discussed with the patient. Risks include, but are not limited to: retinal tears, detachments, hemorrhage, glaucoma, infection, cataracts, need formore procedures and the potential risk of arterial thromboembolic events following use of intravitreal VEGF inhibitors defined as nonfatal stroke, nonfatal myocardial infarction or vascular . Patient is aware of these risks and consents to the procedure. DESCRIPTION OF PROCEDURE: The procedure site was confirmed. Topical proparacaine was applied to the surface of the eye after which subconjunctival anesthetic was administered. The area was prepped in the standard aseptic manner with 5% Betadine solution. An eyelid speculum was placed and 0.05 ml of a 25mg/ml solution of Avastin was injected 3.75 mm posterior to the limbus into the midvitreous cavity with a 30 gauge short needle. The Betadine was flushed from the eye, the eye speculum was removed and optic nerve perfusion was insured. The patient tolerated the procedure without difficulty and was given followup instructions and instructed to use ophthalmic ointment 3x/day as needed. Efraín Galindo DO, performed the procedure in its entirety. documented in this encounter Nursing Notes * Amie Bolaños RN - 07/12/2024 9:07 AM EDT Marco Campos to receive 11 Avastin 2.75 mg Injection of the Right eye. Correct eye confirmed with patient and marked by Efraín Galindo DO Avastin 2.75 mg lot # [id number] Exp. Date: 08/16/24 * Amie Bolaños RN - 07/12/2024 8:34 AM EDT Marco Campos is a 54 year old year old male who presents for High risk PDR OU. Last Office Visit: 04/17/2024 (in office), Visit date not found (telemedicine) Patient currently states "bleed right eye-see it on the side" Are you diabetic? Yes. Do you check your blood sugars daily? YES. Did not measure this morning. Last Hemoglobin A1C: Lab Results Component Value Date/Time HGBA1C 10.8 (H) 02/13/2024 01:11 PM HGBA1C 8.1 (H) 06/06/2023 01:09 PM HGBA1C 9.5 (H) 06/06/2023 12:46 PM HGBA1C 8.9 (H) 08/26/2022 11:37 AM HGBA1C 9.5 (H) 04/14/2022 11:39 AM HGBA1C 9.3 (H) 01/04/2022 03:12 PM HGBA1C 9.2 (H) 11/27/2019 02:09 PM HGBA1C 9.3 (A) 03/13/2019 03:45 PM HGBA1C 10.6 (H) 12/01/2018 01:08 PM HGBA1C 9.8 (A) 06/27/2018 04:15 PM HGBA1C 8.4 (H) 03/29/2018 03:[address]? yes OCT image(s) of both eyes acquired and filed/scanned into chart. documented in this encounter Plan of Treatment Upcoming Encounters Date Type Department Care Team (Late st Contact Info) Description 07/13/2024 10:30 AM EDT Office Visit Cardiology, [place] [place] [address] Nathalie Jackson CRNP [address] [place] [address] 08/15/2024 3:00 PM EDT Pharmacy Pharmacy, [place] [address] [place] [address] Pharmacist1, [facility] [address] [place] [address] 08/15/2024 3:30 PM EDT Office Visit Pharmacy, [place] [address] [place] [address] Pharmacist1, [facility] [address] [place] [address] 09/20/2024 1:00 PM EDT Office Visit Ophthalmology, [facility] [address] [place] [address] Efraín Galindo DO [address] [place] [address] Nurse Johnathon Pascal [facility] [address] [place] [address] Photographer Jayna Pascal [address] [place] [address] Scheduled Orders Name Type Priority Associated Diagnoses Orde r Schedule RETINA SCAN DIAGNOSTIC IMAGE, POSTERIOR Procedures Routine Proliferative diabetic retinopathy of right eye with macular edema associated with type 2 diabetes mellitus (HCC) Ordered: 07/12/2024 Scheduled Procedures Name Priority Associated Diagnoses Date/Ti me COLONOSCOPY FLEXIBLE PROXIMAL DIAGNOSTIC Recall History of colonic polyps Cirrhosis of liver (HCC) ESOPHAGOGASTRODUODENOSCOPY ( EGD), FLEXIBLE, TRANSORAL, DIAGNOSTIC Recall History of colonic polyps Cirrhosis of liver (HCC) Health Maintenance Due Date Last Done Comments HIV Screening 1984 Zoster Vaccines (1 of 2) 1988 Cologuard 2014 Fecal Occult Blood Test 2014 Sigmoidoscopy 2014 COVID-19 Vaccine ( season) 2023 02/04/2022, 08/02/2020, 07/12/2020 Influenza Vaccine (FLU shot) (#1) 2023 01/04/2022, 03/18/2021, 02/08/2020, Additional history exists Diabetic Foot Exam 05/20/2024 05/20/2023, 1 06/15/2021, 04/27/2021, Additional history exists Albumin/Creatinine Ratio 06/06/2024 024, 10/07/2021, 01/01/2021, Additional history exists B-12 06/06/2024 06/06/2023, 04/26, 03/14/2020, Additional history exists *NEPHROLOGY REFERRAL DUE TO RESISTANT HTN 06/23/2024 Depression Screening 07/20/2024 07/21/2023 HbA1c 08/13/2024 02/13/2024, 05/26, 06/06/2023, Additional history exists GFR 02/12/2025 02/13/2024, 05/26, [...] Pneumococcal Vaccine: 50+ Years Completed 10/07/2021, 09/04/2009 Lung Cancer Screening Completed 07/20/2022 , 02/19/2022, 03/12/2020, Additional history exists HPV (Gardasil) Vaccine Aged Out No lo [...] as of this encounter Visit Diagnoses Diagnosis Proliferative diabetic retinopathy of right eye with macular edema associated with type 2 diabetes mellitus (HCC)- Primary Encounter for diabetes type 2 eye exam (HCC) Type II or unspecified type diabetes mellitus without mention of complication, not stated as uncontrolled documented in this encounter Administered Medications Active Administered Medications - up to 3 most recent administrations Medication Order MAR Action Action Date Dose Rate Site bevaCIZumab (Avastin) inj 1.25 mg 1.25 mg, Intravitreal, PRN Other, Starting on Tue07/12/24 at 0916, Until Tue07/12/25 at 0915, For 365 daysIndications:Proliferative diabetic retinopathy of right eye with macular edema associated with type 2 diabetes mellitus (HCC) Given 07/12/2024 9:37 AM EDT 2.75 mg Eye Right ROPivacaine (Naropin) inj 1.5 mg 1.5 mg, Perineural, PRN Other, Starting on Kelley 07/12/24 at 0916, Until 07/12/25 at 0915, For 365 daysIndications:Proliferative diabetic retinopathy of right eye with macular edema associated with type 2 diabetes mellitus (HCC) Given 07/12/2024 9:37 AM EDT 1.5 mg Eye Right documented in this encounter Advance Directives * Full Code (Latest Code Status on File) Date Activated Date Inactivated Comments 06/11/2020 2:26 PM 06/15/2020 5:11 PM This order r eflects the patients wishes and were consensually agreed upon. Question Answer Comments Discussion of Advance Directives occurred with: Not Discussed Care Teams Zoo Caretaker Relationship Specialty Start Date End Date Damion Cheung MD [address] [place] [address] PCP - General Internal Medicine 12/01/21 documented as of this encounter
--- OUTSIDE RECORDS SUMMARY | 2024-08-14 02:04 | External Medical Summary | Summary of Care ---
Author Name Unknown Organization [facility] Address [address] [place] [address] Phone [phone] Care Team Providers Care Cable Supervisor Name Role Phone Damion Cheung MD Primary Care Provider + Reason for Visit * Reason Onset Date Comments Test Results 06/21/2024 Encounter Details Date Type Department Care Team ([facility] Contact Info) Description 06/21/2024 Telephone General Internal Medicine [facility] [address] [place] [address] Damion Cheung MD [address] [place] [address] Test Results Allergies Active Allergy Reactions Criticality Noted Date Comments Iodinated Contrast Media Other (Please comment) Low 09/04/2009 Pt stated IV dye made him feel funny. Can't quite remember. documented as of this encounter (statuses as of 06/22/2024) Medications Polyethylene Glycol 3350 17 GM/SCOOP Oral [...] Active Rosuvastatin Calcium 40 MG Oral Tablet (Crestor)Kirstenti ons:Dyslipidemia, goal LDL below 100 Take 1 [...] 01/24/2024 2:52 PM EDT 4 Active Nystatin 572307 UNIT/GM External Cream apply to affected area [...] Active Spacer/Aero-Holdi ng Chambers DeviceIndications :COPD exacerbation (HCC) Use with inhaler. 1 Each [...] MAX DAILY 45 mL 2 5 Active Amoxicillin-Pot Clavulanate 875-125 MG Oral Tablet (Augmentin)Indica tions:Acute cough Take 1 Tablet by mouth in the morning and 1 Tablet before bedtime. Do all this for 7 days. 14 Tablet 5 06/28/19 Active Hospital, Clinic, or Other Facility Administered Medication Ordered Dose Route Frequency Start Date End Date Status bevaCIZumab (Avastin) inj 1.25 mgIndications:Prolifer ative diabetic retinopathy of right eye with macular edema associated with type 2 diabetes mellitus (HCC) 1.25 mg IZ PRN 07/05/2023 07/04/2024 Active ROPivacaine (Naropin) inj 1.5 mgIndications:Prolifer ative diabetic retinopathy of right eye with macular edema associated with type 2 diabetes mellitus (HCC) 1.5 mg PERINEURAL PRN 07/05/2023 07/04/2024 Active documented as of this encounter (statuses as of 06/22/2024) Active Problems Problem Noted Date Diagnosed Date [...] 01/30/2020 Cigarette nicotine dependence in remission 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 The [employer] program provides food-insecure diabetics with healthy food for their entire household (2 meals/ day X 5 days/week). The program also provides education on food preparation, healthy living, and diabetes self management. The research measures the effects of the program on patient health and wellbeing. Subject will begin the FFF program (11/2018). Contact Information: Stem Frazer: Dr. Jaleel Harris ([phone]) CRC: Cindy Alonso ([phone]) RA: Lizzie Natarajan ([phone]) Diagnosis changed due to Research Module. Go [...] as of this encounter (statuses as of 06/22/2024) Immunizations Name Administration Dates Next Due COVID-19 mRNA, LNP-s, No Pre serve, 2-Dose Series ([employer]) 08/02/2020,07/12/2020 Covid-19, Mrna, Lnp-s, Pf, B ivalent, 30 Mcg, IM, 12 yrs and above (Pfizer) 02/04/2022 Hepatitis B, 20+ yrs 01/17/2014,08/16/2013,07/16 Pneumococcal Conjugate Vacci ne, 20-valent ([id number]) 10/07/2021 Pneumococcal Polysaccharide PPV23 (Pneumovax) 09/04/2009 Seasonal [...] of Assessment Author No 06/11/2020 4:28 PM Ailx Colindres RN * Are you blind or [...] 4:28 PM EST Alix Blancas RN * Because of a physical, mental, or emotional condition, do you have difficulty doing errands alone such as visiting a doctor’s office or shopping? (15 years old or older) Answer Date of Assessment Author No 06/11/2020 4:28 PM EST Alix Blancas RN documented as of this encounter Mental Status * Because of a physical, mental, or emotional condition, do you have serious difficulty concentrating, remembering, or making decisions? (5 years old or older) Answer Entry Date Author No 06/11/2020 4:28 PM EST Alix Blancas RN documented in this encounter Miscellaneous Notes * Telephone Encounter - Marisela Salter CMA - 06/21/2024 5:16 PM EST Patient aware and voiced understanding. Marisela Salter CMA * Telephone Encounter - Marisela Salter CMA - 06/21/2024 5:15 PM EST ----- Message from Damion Cheung MD sent at 06/21/2024 4:20 PM EST ----- 1. No pneumonia, but has some thickening of airway, which can be bronchitis. Pls finish abx, and follow up if symptoms persist. documented in this encounter Plan of Treatment Upcoming Encounters Date Type Department Care Team (Late st Contact Info) Description 07/10/2024 8:45 AM EDT Office Visit Ophthalmology, [facility] [address] [place] [address] Efraín Galindo DO [address] [place] [address] 07/13/2024 10:30 AM EDT Office Visit Cardiology, [address] [place] [address] Nathalie Jackson CRNP [address] [place] [address] 08/15/2024 3:00 PM EDT Pharmacy Pharmacy, [place] [address] [place] [id number] Pharmacist1, [facility] [address] [place] [address] 08/15/2024 3:30 PM EDT Office Visit Pharmacy, [place] [address] [place] [address] Pharmacist1, [facility] [address] [place] [address] Scheduled Procedures Name Priority Associated Diagnoses Date/Ti [...] 01/04/2022, 03/18/2021, 02/08/2020, Additional history exists Diabetic Eye Exam 04/08/2024 04/08/2023, , 04/08/2023, Additional history exists Diabetic Foot Exam 05/20/2024 05/20/2023, 1 06/15/2021, 04/27/2021, Additional history exists Albumin/Creatinine Ratio 06/06/20242 024, 10/07/2021, 01/01/2021, Additional history exists B-12 06/06/2024 06/06/2023, 04/26, 03/14/2020, Additional history exists Depression Screening 07/20/2024 07/21/2023 HbA1c 08/13/2024 02/13/2024, 05/26, 06/06/2023, Additional history exists GFR 02/12/2025 02/13/2024, 05/26, 05/31/2022, Additional history exists Colonoscopy 05/14/2026 05/14/2021, 06/07/2018 [...] Directives occurred with: Not Discussed Care Teams Cable Supervisor Relationship Specialty Start Date End Date Damion Cheung MD [address] [place] [address] PCP - General Internal Medicine 12/01/21 documented as of this encounter
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
--- OUTSIDE RECORDS SUMMARY | 2024-08-14 02:04 | External Medical Summary | Summary of Care ---
Author Name Unknown Organization [facility] Address [address] [place] [address] Phone [phone] Care Team Providers Care Bean Snapper Name Role Phone Damion Cheung MD Primary Care Provider + Reason for Visit * Reason Comments Cough Productive for brown to green mucous - ongoing since last office visit 05/24/2024 Encounter Details Date Type Department Care Team (Late st Contact Info) Description 06/20/2024 6:00 PM EST Office Visit General Internal Medicine [facility] [address] [place] [address] Damion Cheung MD [address] [place] [id number] Acute cough*; Allergy, subsequent encounter; HTN, goal below 140/90; Type 2 diabetes mellitus with hemoglobin A1c goal of less than 7.0% ([facility]) Allergies Active Allergy Reactions Criticality Noted Date Comments Iodinated Contrast Media Other (Please comment) Low 09/04/2009 Pt stated IV dye made him feel funny. Can't quite remember. documented as of this encounter (statuses as of 06/21/2024) Medications Polyethylene Glycol 3350 17 GM/SCOOP Oral Powder (MiraLax)Indicat ions:Constipatio n, unspecified constipation type Take 17 g by mouth daily. Dissolve one heaping tablespoon in 8 ounces of water or juice. 578 g 5 Active Nebulizer Use as directed. Active Magnesium [...] 01/24/2024 2:52 PM EDT 4 Active Nystatin 601689 UNIT/GM External Cream apply to affected area [...] for Wheezing. 8 g 3 4 Active Spacer/Aero-Hold ing Chambers DeviceIndication s:COPD exacerbation (HCC) [...] this for 7 days. 14 Tablet 5 025 Active amLODIPine Besylate 10 MG Oral Tablet (Norvasc)Indicat ions:HTN, goal below 140/90 Take 1 Tablet by mouth in the morning. 90 Tablet 3 02/24/2024 1:14 PM EDT 4 025 Discontin ued(Refil l) metFORMIN HCl 1000 MG Oral Tablet (Glucophage)Viridiana cations:Type 2 diabetes mellitus with hemoglobin A1c goal of less than 7.0% (HCC) Take 1 Tablet by mouth in the morning and 1 Tablet before bedtime. With food.. 180 Tablet 2 12/13/2023 3:46 PM EDT 4 025 Discontin ued(Refil l) Metoprolol Succinate ER 100 MG Oral Tablet Extended Release 24 Hour (toPROL XL)Indications:H TN, goal below 140/90 Take 1 Tablet by mouth in the morning. 30 Tablet 5 01/24/2024 2:52 PM EDT 4 025 Discontin ued(Refil l) Fluticasone Propionate 50 MCG/ACT Nasal Suspension (Flonase)Indicat ions:Allergy, subsequent encounter Administer 2 Sprays into each nostril in the morning. 16 g 5 11/18/2023 4:08 PM EDT 4 025 Discontin ued(Refil l) NovoLOG FlexPen 100 UNIT/ML Subcutaneous Solution Pen-injectorIndi cations:Type 2 diabetes mellitus with hemoglobin A1c goal of less than 7.0% (HCC) INJECT 48 UNITS UNDER THE SKIN BEFORE LUNCH, 48 UNITS FOR DINNER AND 35 UNITS FOR EVENING SNACK PLUS CORRECTION CF 1:18 over 140. 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 The [employer] program provides food-insecure diabetics with healthy food for their entire household (2 meals/ day X 5 days/week). The program also provides education on food preparation, healthy living, and diabetes self management. The research measures the effects of the program on patient health and wellbeing. Subject will begin the FFF program (11/2018). Contact Information: Circular Gang Saw Operator: Dr. Jaleel Harris ([phone]) CRC: Cindy Alonso ([phone]) RA: Lizzie Natarajan ([phone]) Diagnosis changed due to Research Module. Go [...] as of this encounter (statuses as of 06/21/2024) Immunizations Name Administration Dates Next Due COVID-19 mRNA, LNP-s, No Pre serve, 2-Dose Series ([employer]) 08/02/2020,07/12/2020 Covid-19, Mrna, Lnp-s, Pf, B ivalent, 30 Mcg, IM, 12 yrs and above ([employer]) 02/04/2022 Hepatitis B, 20+ yrs 01/17/2014,08/16/2013,07/16 Pneumococcal Conjugate Vacci ne, 20-valent ([id number]) 10/07/2021 Pneumococcal Polysaccharide PPV23 (Pneumovax) 09/04/2009 Seasonal [...] 1 05/17/1992 - 03/17/2013 Smokeless Tobacco: Never Tobacco Cessation:Counseling Given: Not Answered Alcohol Use Standard Drinks/Week Comments Not Currently [...] Sign Reading Time Taken Comments Blood Pressure 158/58 06/20/2024 6:04 PM EST Pulse 96 06/20/2024 6:04 PM EST Temperature 37 °C (98.6 °F) 06/20/2024 6:04 PM EST Respiratory Rate 20 06/20/2024 6:04 PM EST Oxygen Saturation 97% 06/20/2024 6:04 PM EST Inhaled Oxygen Concentration - - Weight 128.2 kg (282 lb 11.2 oz) 06/20/2024 6:04 PM EST Height - - Body Mass Index 40.56 01/05/2024 12:36 PM EDT documented in this encounter Functional Status [...] documented in this encounter Progress Notes * Damion Cheung MD - 06/20/2024 6:19 PM EST Chief Complaint Patient presents with Cough Productive for brown to green mucous - ongoing since last office visit 05/24/2024 SUBJECTIVE: Marco Campos is a 54 year old male with PMH as below who presents for acute. Has a cough. Started 05/24/24, but resolved with prednisone. Then past week had gi bug with vomiting which resolved, butafter had cough return. Some sputum brown/green. No fevers, chills, but lots of mucous. Some wheezing Patient Active Problem List Diagnosis Diaphragmatic hernia Gastroesophageal reflux disease without esophagitis Type 2 diabetes mellitus with hemoglobin A1c goal of less than 7.0% ([facility]) Mixed hyperlipidemia HTN, goal below 140/90 History of renal cell cancer H/O unilateral nephrectomy COPD, group A, by GOLD 2013 classification ([facility]) half-way (current) use of insulin ([facility]) Type 2 diabetes mellitus with polyneuropathy ([facility]) Cigarette nicotine dependence in remission Allergic rhinitis Diabetes mellitus due to underlying condition with 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, left eye (HCC) History of lobectomy of lung Nodule of lower lobe of right lung Cirrhosis of liver without ascites (HCC) Chronic diastolic (congestive) heart failure (HCC) 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 90 Tablet 2 OneTouch Delica Lancets 33G Use to test [...] pen needles as directed 100 Each 3 Rosuvastatin Calcium 40 MG Oral Tablet (Crestor) Take 1 Tablet by mouth daily. 90 Tablet 2 Toujeo Max SoloStar 300 UNIT/ML Subcutaneous Solution Pen-injector (Insulin Glargine (2 Unit Dial))Inject 360 Units under the skin at bedtime. 108 mL 2 Losartan Potassium 100 MG Oral Tablet (Cozaar) Take 1 Tablet by mouth in the morning. 90 Tablet 1 Nystatin 903787 UNIT/GM External Cream apply to affected area twice a day FOR 10 DAYS 30 g 0 Terazosin HCl 1 MG Oral Capsule (Hytrin) Take 1 Capsule by mouth at bedtime. 100 Capsule 3 Mucinex DM 30-600 MG Oral Tablet Extended Release 12 Hour Take 1 Tablet by mouth 2 times a day as needed for Cough. Take with plenty of water. Do not cut, crush or chew 40 Tablet 2 Ventolin HFA 108 (90 Base) MCG/ACT Inhalation Aerosol Solution Inhale 2 Puffs by mouth every 4 hours as needed for Wheezing. 8 g 3 Furosemide 20 MG Oral Tablet (Lasix) [...] 150 UNITS MAX DAILY 45 mL 2 Amoxicillin-Pot Clavulanate 875-125 MG Oral Tablet (Augmentin) Take 1 Tablet by mouth in the morning and 1 Tablet before bedtime. Do all this for 7 days. 14 Tablet 0 Polyethylene Glycol 3350 17 GM/SCOOP Oral Powder (MiraLax) Take 17 g by mouth daily. Dissolve one heaping tablespoon in 8 ounces of water or juice. 578 g 5 Nebulizer Use as directed. Pantoprazole Sodium 40 MG Oral Tablet Delayed Release (Protonix) TAKE 1 TABLET BY MOUTH DAILY 30 MINUTES PRIOR TO THE FIRST MEAL OF THE DAY 90 Tablet 1 Triamcinolone Acetonide 0.5 % External Cream (Aristocort) Apply topically to affected area 2 times a day. To affected area. 60 g 5 Spacer/Aero-Holding Chambers Device Use with inhaler. 1 Each 0 Current Facility-Administered Medications Medication Dose Route Frequency Provider Last Rate Last Admin bevaCIZumab (Avastin) inj 1.25 mg 1.25 mg Intravitreal PRN Efraín Galindo, DO 1.25 mg at 04/17/24 0946 ROPivacaine (Naropin) inj 1.5 mg 1.5 mg Perineural PRN Efraín Galindo, DO 1.5 mg at 946 Review of patient's allergies indicates: Allergen Reactions Iodinated Contrast Media Other (Please comment) Pt stated IV dye made him feel funny. Can't quite remember. Health Maintenance Due Topic Date Due HIV Screening Never done Zoster Vaccines (1 of 2) Never done Influenza Vaccine (FLU shot) (1) 12/25/2023 COVID-19 Vaccine ( season) 2023 Diabetic Eye Exam 04/08/2024 Diabetic Foot Exam 05/20/2024 Albumin/Creatinine Ratio 06/06/2024 B-12 06/06/2024 ROS: CONSTITUTIONAL: No fevers, sweats, or chills PULMONARY: No rales, No shortness of breath, and No recent change in breathing CARDIOVASCULAR: No chest pain, No shortness of breath, No dyspnea on exertion, No orthopnea, No paroxysmal nocturnal dyspnea, No edema, No palpitations, and No syncope ALL OTHER SYSTEMS NEGATIVE I reviewed social, PMH, PSH, and family history and updated where needed. Social History Socioeconomic History Marital status: Single Spouse name: Not on file Number of children: Not on file Years of education: Not on file Highest education level: Not on file Occupational History Not on file Tobacco Use Smoking status: Former Current packs/day: 0.00 Average packs/day: 2.0 packs/day for 20.0 years (40.0 ttl pk-yrs) Types: Cigarettes Start date: 03/17/1993 Quit date: 03/17/2013 Years since quittin.2 Smokeless tobacco: Never Vaping Use Vaping status: Never Used Substance and Sexual Activity Alcohol use: Not Currently Drug use: Not Currently Sexual activity: Yes Partners: Female Other Topics Concern Not on file Social History Narrative Not on file Social Needs Financial Resource Strain: Low Risk (11/15/2023) Financial Resource Strain Do you have any trouble paying for your medications, or do you think you might in the future? (Adult - for ages 18 years and over): No Does your family have trouble paying for medicine? (Household - for ages 0-17 years): Not on file Food Insecurity: Food Insecurity Present (11/15/2023) Food Insecurity Worried About Running Out of Food in the Last Year: Sometimes true Ran Out of Food in the Last Year: Sometimes true Do you need food for this week? (Adult - for ages 18 years and over): Yes Transportation Needs: No Transportation Needs (11/15/2023) Transportation Needs Do you have trouble getting a ride to medical visits or work? (Adult - for ages 18 years and over):Not on file Does your family have a hard time getting a ride to doctors’ visits? (Household - for ages 0-17 years): Not on file Has lack of transportation kept you from medical appointments, meetings, work, or from getting things needed for daily living? Check all that apply. (Adult - for ages 18 years and over): No Do you (or your family) have trouble finding or paying for a ride (transportation)? (Household - for ages 0-17 years): Not on file Social Connections: Socially Integrated (11/15/2023) Social Connections How often do you feel lonely or isolated from those around you? (Adult - for ages 18 years and over): Rarely Housing Stability: Low Risk (11/15/2023) Housing Stability Do you currently live in a custodial or have no steady place to sleep at night? (Adult - for ages 18 years and over): No Do you think you are at risk of becoming homeless? (Adult - for ages 18 years and over): Not on file Does your family worry about paying for your home or becoming homeless? (Household - for ages 0-17 years): Not on file Are you homeless or worried that you might be in the future? (Adult - for ages 18 years and over): No Are you (or your family) homeless or worried that you might be in the future? 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 Galindo INJECTION OF EYE DRUG Right 10/19/2022 # 2 Avastin OD, Dr. Galindo INJECTION OF EYE DRUG Right 01/05/2023 # 3 Avastin OD, Dr. Galindo INJECTION OF EYE DRUG Right 02/25/2023 #4 Avastin OD; Dr Thompson INJECTION OF EYE DRUG Right 04/08/2023 # 5 Avastin OD, Dr. Thompson INJECTION OF EYE DRUG Right 07/05/2023 # 6 Avastin OD, Dr. Galindo INJECTION OF EYE DRUG Right 09/22/2023 # 7 Avastin OD, Dr. Galindo INJECTION OF EYE DRUG Right 12/16/2023 #8 AVASTIN OD ; DR GALINDO INJECTION OF EYE DRUG Right 02/13/2024 #9 Avastin OD, Dr. Galindo INJECTION OF EYE DRUG Right 04/17/2024 # 10 Avastin OD, Dr. Galindo IR BIOPSY 09/07/2021 LYMPHADENECTOMY VIA THORACOSCOPY Right 06/11/2020 ROBOTIC THORACOSCOPY WITH LYMPHADENECTOMY performed by Kimo Lomax MD at [facility] OTHER (INFORMATION) ACT [address] Galindo (04-30-22) OTHER (INFORMATION) AVASTIN OU CONSENT SIGNED Dr. Galindo/Beatriz (exp 04-30-23) OTHER (INFORMATION) Bilateral AVASTIN OU CONSENT DR. GALINDO/BEATRIZ EXP. 07/04/24 REMOVE GALLBLADDER N/A 07/17/2020 Thoracoscopy w/ Lobectomy Right 06/11/2020 ROBOTIC THORACOSCOPY WITH LOBECTOMY performed by Kimo Lomax MD at [facility] TREATMENT OF EXTENSIVE RETINOPATHY, PHOTOCOAGULATION Right 05/14/2022 Laser OD, Dr. Galindo TREATMENT OF EXTENSIVE RETINOPATHY, PHOTOCOAGULATION Right 06/09/2022 Laser OD, Dr. Galindo TREATMENT OF EXTENSIVE RETINOPATHY, PHOTOCOAGULATION Right 09/08/2022 Laser treatment OD, Dr. Galindo Family History Problem Relation Name Age of Onset Eye Problems Mother catacracts Diabetes Mother Cancer Father Throat, age 73 Diabetes Grandfather (Maternal) leg amputation Other (Has half siblings, but couldn't list them) Other OBJECTIVE: PHYSICAL EXAM: BP 158/58 (BP Site: Left Arm, BP Position: Sitting, BP Cuff Size: Large) | Pulse 96 | Temp 98.6 °F(37 °C) (Tympanic) | Resp 20 | Wt 282 lb 11.2 oz (128.2 kg) | SpO2 97% | BMI 40.56 kg/m² | BSA 2.52 m² General: alert, healthy, and no distress Head: Normocephalic, No masses, lesions, or abnormalities Eye Exam: conjunctiva are pink and non-injected, sclera clear Ears: External ears normal, Canals clear, TM's Normal Heart: regular rate & rhythm, no murmur, no gallops, PMI non-displaced, S-1 normal, and S-2 normal Lungs: normal respiratory rate and rhythm, end expiratory wheeze right side I reviewed last A1c, gfr ASSESSMENT: (R05.1) Acute cough (primary encounter diagnosis) (T78.40XD) Allergy, subsequent encounter (I10) HTN, goal below 140/90 (E11.9) Type 2 diabetes mellitus with hemoglobin A1c goal of less than 7.0% ([facility]) PLAN: Acute cough (Primary) - XR CHEST 2 VIEWS; Future; Expected date: 06/20/2024 - Amoxicillin-Pot Clavulanate 875-125 MG Oral Tablet (Augmentin); Take 1 Tablet by mouth in the morning and 1 Tablet before bedtime. Do all this for 7 days. Possible aspiration, will check cxr Start augmentin Cont inhaler Allergy, subsequent encounter - Fluticasone Propionate 50 MCG/ACT Nasal Suspension (Flonase); Administer 2 Sprays into each nostril in the morning. HTN, goal below 140/90 - Metoprolol Succinate ER 100 MG Oral Tablet Extended Release 24 Hour (toPROL XL); Take 1 Tablet bymouth in the morning. - amLODIPine Besylate 10 MG Oral Tablet (Norvasc); Take 1 Tablet by mouth in the morning. Cont amlodipine, metoprolol, terazosin, losartan, lasix Type 2 diabetes mellitus with hemoglobin A1c goal of less than 7.0% ([facility]) - metFORMIN HCl 1000 MG Oral Tablet (Glucophage); Take 1 Tablet by mouth in the morning and 1 Tablet before bedtime. With food.. - NovoLOG FlexPen 100 UNIT/ML Subcutaneous Solution Pen-injector; INJECT 48 UNITS UNDER THE SKIN BEFORE LUNCH, 48 UNITS FOR DINNER AND 35 UNITS FOR EVENING SNACK PLUS CORRECTION CF 1:18 over 140. UP TO 150 UNITS MAX DAILY Labs soon Follow Up: Return if symptoms worsen or fail to improve and as scheduled.. Damion Cheung MD documented in this encounter Nursing Notes * Kyle Jurado, RN - 06/20/2024 6:07 PM EST Chief Complaint Patient presents with Cough Productive for brown to green mucous - ongoing since last office visit 05/24/2024 documented in this encounter Plan of Treatment Upcoming Encounters Date Type Department Care Team (Late st Contact Info) Description 07/10/2024 8:45 AM EDT Office Visit Ophthalmology, [facility] [address] [facility] [place] [address] Efraín Galindo DO [address] [facility] [place] [address] 07/13/2024 10:30 AM EDT Office Visit Cardiology, [address] [address] Nathalie Jackson CRNP [address] [facility] [place] [address] 08/15/2024 3:00 PM EDT [facility] [address] [place] [address] Pharmacist1, [facility] [address] [place] [address] 08/15/2024 3:30 PM EDT [facility] [address] [place] [id number] Pharmacist1, [facility] [address] [place] [address] Scheduled Orders Name Type Priority Associated Diagnoses Orde r Schedule XR CHEST 2 VIEWS Medical Imaging Routine Acute cough Expected: 06/20/2024, Expires: 07/18/2025 Scheduled Procedures Name Priority Associated Diagnoses Date/Ti [...] as of this encounter Visit Diagnoses Diagnosis Acute cough- Primary Allergy, subsequent encounter HTN, goal below 140/90 Unspecified essential hypertension Type 2 diabetes mellitus with hemoglobin A1c goal of less than 7.0% (HCC) documented in this encounter Advance Directives * Full Code (Latest Code Status on File) Date Activated Date Inactivated Comments 06/11/2020 2:26 PM 06/15/2020 5:11 PM This order r eflects the patients wishes and were consensually agreed upon. Question Answer Comments Discussion of Advance Directives occurred with: Not Discussed Care Teams Bean Snapper Relationship Specialty Start Date End Date Damion Cheung MD [address] [place] [address] PCP - General Internal Medicine 12/01/21 documented as of this encounter"
--- OUTSIDE RECORDS SUMMARY | 2024-08-14 02:04 | External Medical Summary | Summary of Care ---
Author Name Unknown Organization [facility] Address [address] [place] [address] Phone [phone] Care Team Providers Care Health Clinician Name Role Phone Damion Cheung MD Primary Care Provider + Reason for Visit * Reason Comments Follow Up * Precert (Within 10 days (routine)) - Authorized Specialty Diagnoses / Procedures Referred By Jo morales Referred To Contact Ophthalmology Diagnoses Vitreous hemorrhage, right eye (HCC) Procedures IA BEVACIZUMAB INJECTION IA INTRAVITREAL NJX PHARMACOLOGIC AGT SPX Efraín Galindo DO [address] [place] [address] Phone: tel: fax: Referral ID Status Reason Start Date Expiration Date V isits Requested Visits Authorized [id number] Authorized Precert 10/19/2022 04/24/2099 [id number] Encounter Details Date Type Department Care Team (Late st Contact Info) Description 07/12/2024 9:00 AM EDT Office Visit Ophthalmology, [facility] [address] [place] [address] Efraín Galindo DO [address] [place] [address] Nurse Johnathon Pascal [address] [place] [address] Photographer Jayna Pascal [address] [place] [address] Proliferative diabetic retinopathy of right eye with macular edema associated with type 2 diabetes mellitus (HCC)*; Encounter for diabetes type 2 eye exam ([facility]) Allergies Active Allergy Reactions [...] A1c goal of less than 7.0% ([facility]) Use to test blood sugar before meals and snacks and as needed up to 4 times a day 400 Each 3 4 Active OneTouch Verio In Vitro StripIndications: Type 2 diabetes mellitus with hemoglobin A1c goal of less than 7.0% ([facility]) Test blood sugar before meals [...] A1c goal of less than 7.0% ([facility]) Inject 360 Units under the [...] 01/24/2024 2:52 PM EDT 4 Active Nystatin 172952 UNIT/GM External Cream apply to affected area [...] Active Spacer/Aero-Holdi ng Chambers DeviceIndications :COPD exacerbation ([facility]) Use with inhaler. 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 The [employer] program provides food-insecure diabetics with healthy food for their entire household (2 meals/ day X 5 days/week). The program also provides education on food preparation, healthy living, and diabetes self management. The research measures the effects of the program on patient health and wellbeing. Subject will begin the FFF program (11/2018). Contact Information: Alarm Field Technician: Dr. Jaleel Harris ([phone]) CRC: Cindy Alonso ([phone]) RA: Lizzie Natarajan ([phone]) Diagnosis changed due to Research Module. Go [...] yrs 01/17/2014,08/16/2013,07/16 Pneumococcal Conjugate Vacci ne, 20-valent ([id number]) 10/07/2021 Pneumococcal Polysaccharide PPV23 (Pneumovax) 09/04/2009 Seasonal [...] - 07/12/2024 9:00 AM EDT 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 Date: 08/16/24 * Amie Bolaños RN [...] 07/13/2024 10:30 AM EDT Office Visit Cardiology, [place] [place] [address] Nathalie Jackson CRNP [address] [place] [address] 08/15/2024 3:00 PM EDT Pharmacy Pharmacy, [place] [address] [place] [address] Pharmacist1, [facility] [address] [place] [address] 08/15/2024 3:30 PM EDT Office Visit Pharmacy, [place] [address] [place] [address] Pharmacist1, [facility] [address] [place] [address] 09/20/2024 1:00 PM EDT Office Visit Ophthalmology, [facility] [address] [place] [address] Efraín Galindo DO [address] [place] [address] Nurse Johnathon Pascal [facility] [address] [place] [address] Photographer Jayna Pascal [address] [place] [address] Scheduled Orders Name Type Priority Associated Diagnoses [...] Directives occurred with: Not Discussed Care Teams Health Clinician Relationship Specialty Start Date End Date Damion Cheung MD [address] [place] [address] PCP - General Internal Medicine 12/01/21 documented as of this encounter
--- OUTSIDE RECORDS SUMMARY | 2024-08-14 02:05 | External Medical Summary | Summary of Care ---
Author Name Unknown Organization [facility] Address [address] [place] [address] Phone [phone] Care Team Providers Care Sales Team Member Name Role Phone Damion Cheung MD Primary Care Provider + Encounter Details Date Type Department Care Team (Late st Contact Info) Description 06/05/2024 Population Health External Data Unspecified Department Allergies Active Allergy Reactions Criticality Noted Date Comments Iodinated Contrast Media Other (Please comment) Low 09/04/2009 Pt stated IV dye made him feel funny. Can't quite remember. documented as of this encounter (statuses as of 06/06/2024) Medications Polyethylene Glycol 3350 17 GM/SCOOP Oral [...] the morning. 90 Tablet 2 4 Active amLODIPine Besylate 10 MG Oral Tablet (Norvasc)Indicati ons:HTN, goal below 140/90 Take 1 Tablet by mouth in the morning. 90 Tablet 3 02/24/2024 1:14 PM EDT 4 Active Furosemide 20 MG Oral Tablet (Lasix)Indication s:HTN, goal below 140/90 TAKE 1 TABLET BY MOUTH ON Tuesday AND TUESDAY ONLY 40 Tablet 3 02/24/2024 1:14 PM EDT 4 Active metFORMIN HCl 1000 MG Oral Tablet (Glucophage)Indic ations:Type 2 diabetes mellitus with hemoglobin A1c goal of less than 7.0% (HCC) Take 1 Tablet by mouth in the morning and 1 Tablet before bedtime. With food.. 180 Tablet 2 12/13/2023 3:46 PM EDT 4 Active Metoprolol Succinate ER 100 MG Oral Tablet Extended Release 24 Hour (toPROL XL)Indications:HT N, goal below 140/90 Take 1 Tablet by mouth in the morning. 30 Tablet 5 01/24/2024 2:52 PM EDT 4 Active Pantoprazole Sodium 40 MG Oral Tablet Delayed Release (Protonix)Indicat ions:Diaphragmati c hernia without obstruction and without gangrene TAKE 1 TABLET BY MOUTH DAILY 30 MINUTES PRIOR TO THE FIRST MEAL OF THE DAY 90 Tablet 1 4 Active Fluticasone Propionate 50 MCG/ACT Nasal Suspension (Flonase)Indicati ons:Allergy, subsequent encounter Administer 2 Sprays into each nostril in the morning. 16 g 5 11/18/2023 4:08 PM EDT 4 Active OneTouch Delica Lancets 33GIndications:Ty pe [...] 01/24/2024 2:52 PM EDT 4 Active Nystatin 090879 UNIT/GM External Cream apply to affected area [...] Use with inhaler. 1 Each 5 Active NovoLOG FlexPen 100 UNIT/ML Subcutaneous Solution Pen-injectorIndic ations:Type 2 diabetes mellitus with hemoglobin A1c goal of less than 7.0% (HCC) INJECT 48 UNITS UNDER THE SKIN BEFORE LUNCH, 48 UNITS FOR DINNER AND 35 UNITS FOR EVENING SNACK PLUS CORRECTION CF 1:18 over 140. UP TO 150 UNITS MAX DAILY 45 mL 2 5 Active Hospital, Clinic, or Other Facility [...] as of this encounter (statuses as of 06/06/2024) Active Problems Problem Noted Date Diagnosed Date [...] 01/30/2020 Cigarette nicotine dependence in remission 10/08 residential (current) use of insulin 07/03/2019 Type 2 [...] as of this encounter (statuses as of 06/06/2024) Resolved Problems Problem Noted Date Diagnosed Date [...] program 11/29/2018 01/28/2020 Overview (08/11/2020): [email or web address]: A Randomized Controlled Trial (Project # [id number]). The [employer] program provides food-insecure diabetics with healthy food for their entire household (2 meals/ day X 5 days/week). The program also provides education on food preparation, healthy living, and diabetes self management. The research measures the effects of the program on patient health and wellbeing. Subject will begin the FFF program (11/2018). Contact Information: Associate Software Developer: Dr. Jaleel Harris ([phone]) CRC: Cindy Gavin ([phone]) RA: Lizzie Natarajan ([phone]) Diagnosis changed due to Research Module. Go [...] as of this encounter (statuses as of 06/06/2024) Immunizations Name Administration Dates Next Due COVID-19 mRNA, LNP-s, No Pre serve, 2-Dose Series (Pfizer) 08/02/2020,07/12/2020 Covid-19, Mrna, Lnp-s, Pf, B ivalent, 30 Mcg, IM, 12 yrs and above (Slice) 02/04/2022 Hepatitis B, 20+ yrs 01/17/2014,08/16/2013,07/16 Pneumococcal Conjugate Vacci ne, 20-valent ([id number]) 10/07/2021 Pneumococcal Polysaccharide PPV23 (Pneumovax) 09/04/2009 Seasonal [...] 11/15/2023 Transportation Needs Answer Date Record ed READ ONLY Do you have troubl e getting a ride to medical visits or work? Never True 11/15/2023 Does your family have a hard [...] place to sleep at night? No 11/15/2023 READ ONLY Do you think you a re at risk of becoming homeless? No 11/15/2023 Does your family worry about paying [...] 07/10/2024 8:45 AM EDT Office Visit Ophthalmology, [facility] [address] [place] [address] Efraín Galindo DO [address] [place] [address] 07/13/2024 10:30 AM EDT Office Visit Cardiology, [address] [place] [address] Nathalie Jackson CRNP [address] [place] [address] 08/15/2024 3:00 PM EDT Pharmacy Pharmacy, [place] [address] [place] [address] Pharmacist1, [facility] [address] [place] [address] 08/15/2024 3:30 PM EDT Office Visit Pharmacy, [place] [address] [place] [address] Pharmacist1, [facility] [address] [place] [address] Scheduled Procedures Name Priority Associated Diagnoses Date/Ti [...] Not on filedocumented as of this encounter Additional Health Concerns Infection Onset Date Last Indicated Resolved Time Influenza (seasonal) 05/24/2024 05/24/2024 documented as of this encounter Advance Directives * Full Code (Latest Code Status on File) Date Activated Date Inactivated Comments 06/11/2020 2:26 PM 06/15/2020 5:11 PM This order r eflects the patients wishes and were consensually agreed upon. Question Answer Comments Discussion of Advance Directives occurred with: Not Discussed Care Teams Sales Team Member Relationship Specialty Start Date End Date Damion Cheung MD [address] [place] [address] PCP - General Internal Medicine 12/01/21 documented as of this encounter
--- OUTSIDE RECORDS SUMMARY | 2024-08-14 02:05 | External Medical Summary | Summary of Care ---
Author Name Unknown Organization [facility] Address [address] [place] [address] Phone [phone] Care Team Providers Care Materials Technician Name Role Phone Damion Pastrana MD Primary Care Provider + Reason for Visit * Reason Onset Date Comments Medication Refill 06/11/2024 Encounter Details Date Type Department Care Team ([facility] st Contact Info) Description 06/11/2024 Refill General Internal Medicine [facility] [address] [facility] [place] [address] Damion Pastrana MD [address] [place] [address] HTN, goal below 140/90 Allergies Active Allergy Reactions Criticality Noted Date Comments Iodinated Contrast Media Other (Please comment) Low 09/04/2009 Pt stated IV dye made him feel funny. Can't quite remember. documented as of this encounter (statuses as of 06/12/2024) Medications Polyethylene Glycol 3350 17 GM/SCOOP Oral [...] PM EDT 4 Active OneTouch Delica Lancets 33GIndications:T ype [...] 01/24/2024 2:52 PM EDT 4 Active Nystatin 277986 UNIT/GM External Cream apply to affected area [...] MAX DAILY 45 mL 2 5 Active Furosemide 20 MG Oral Tablet (Lasix)Indicatio ns:HTN, goal below 140/90 TAKE 1 TABLET BY MOUTH ON Tuesday AND TUESDAY ONLY 40 Tablet 2 5 Active Furosemide 20 MG Oral Tablet (Lasix)Indicatio ns:HTN, goal below 140/90 TAKE 1 TABLET BY MOUTH ON Tuesday AND TUESDAY ONLY 40 Tablet 3 02/24/2024 1:14 PM EDT 4 025 Discontin ued(Refil l) Hospital, Clinic, or [...] as of this encounter (statuses as of 06/12/2024) Active Problems Problem Noted Date Diagnosed Date [...] Cigarette nicotine dependence in remission 10/08 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 The [employer] program provides food-insecure diabetics with healthy food for their entire household (2 meals/ day X 5 days/week). The program also provides education on food preparation, healthy living, and diabetes self management. The research measures the effects of the program on patient health and wellbeing. Subject will begin the FFF program (11/2018). Contact Information: Recycling Technician: Dr. Jaleel Harris ([phone]) CRC: Cindy Alonso ([phone]) RA: Lizzie Natarajan ([phone]) Diagnosis changed due to Research Module. Go [...] as of this encounter (statuses as of 06/12/2024) Immunizations Name Administration Dates Next Due COVID-19 mRNA, LNP-s, No Pre serve, 2-Dose Series (Pfizer) 08/02/2020,07/12/2020 Covid-19, Mrna, Lnp-s, Pf, B ivalent, 30 Mcg, IM, 12 yrs and above (Pfizer) 02/04/2022 Hepatitis B, 20+ yrs 01/17/2014,08/16/2013,07/16 Pneumococcal Conjugate Vacci ne, 20-valent ([id number]) 10/07/2021 Pneumococcal Polysaccharide PPV23 (Pneumovax) 09/04/2009 Seasonal [...] No 11/15/2023 Does the household have a [facility] source of income? (Household - for ages [...] encounter Miscellaneous Notes * Telephone Encounter - Tomasa Fowler [facility] - 06/12/2024 2:36 PM ESTSigned Prescriptions: Disp Refills Furosemide 20 MG Oral Tablet (Lasix) 40 Tab*2 Sig: TAKE 1 TABLET BY MOUTH ON Tuesday AND TUESDAY ONLY Authorizing Provider: DAMION PASTRANA Ordering User: TOMASA FOWLER * Telephone Encounter - Gail Perez [facility] - 06/11/2024 1:18 PM EST Did you pend patient's preferred pharmacy and medication before forwarding?yes [facility] [address] Pending Prescriptions: Disp Refills Furosemide 20 MG Oral Tablet (Lasix) 40 Tab*3 Sig: TAKE 1 TABLET BY MOUTH ON Tuesday AND TUESDAY ONLY Last Visit: 05/24/2024 (in office), Visit date not found (telemedicine) Next Visit: Visit date not found If no future appointments scheduled, and last appointment is greater than a year ago, please schedule patient for a follow-up appointment Last date the medication was ordered: 06/07/2024 Is this request for a controlled substance?No Urine Drug Screen:No results found. However, due to the size of the patient record, not all encounters were searched. Please check Results Review for a complete set of results. Patient Phone Numbers Labs: Lab Results Component Value Date/Time CREAT 1.3 (H) 02/13/2024 01:11 PM CREAT 1.50 (A) 03/08/2021 12:00 AM CREAT 1.3 (H) 10/05/2019 02:46 PM POTASSIUM 4.8 02/13/2024 01:11 PM POTASSIUM 4.4 10/05/2019 02:46 PM TSH 2.08 10/07/2021 02:52 PM TSH 2.140 01/10/2018 12:00 AM TSH 1.16 08/24/2016 02:40 PM LDL 106 02/13/2024 01:11 PM LDL 81 11/27/2019 02:09 PM LDL UNINTERPRETABLE RESULT 12/01/2018 01:08 PM ALT 91 (H) 02/13/2024 01:11 PM ALT 57 (H) 08/09/2019 05:27 PM HGBA1C 10.8 (H) 02/13/2024 01:11 PM HGBA1C 9.5 (H) 06/06/2023 12:46 PM HGBA1C 9.2 (H) 11/27/2019 02:09 PM documented in this encounter Plan of Treatment Upcoming Encounters Date Type Department Care Team (Late st Contact Info) Description 07/10/2024 8:45 AM EDT Office Visit Ophthalmology, [facility] [address] [place] [address] Efraín Galindo, [address] [place] [address] 07/13/2024 10:30 AM EDT Office Visit Cardiology, [address] [place] [address] Nathalei Jackson CRNP [address] [place] [address] 08/15/2024 3:00 PM EDT Pharmacy Pharmacy, [place] [address] [place] [address] Pharmacist1, [facility] [address] [place] [address] 08/15/2024 3:30 PM EDT Office Visit Pharmacy, [place] [address] [place] [address] Pharmacist1, [facility] [address] [place] [address] Scheduled Procedures Name Priority Associated Diagnoses Date/Ti [...] as of this encounter Visit Diagnoses Diagnosis HTN, goal below 140/90 Unspecified essential hypertension documented in this encounter Advance Directives * Full Code (Latest Code Status on File) Date Activated Date Inactivated Comments 06/11/2020 2:26 PM 06/15/2020 5:11 PM This order r eflects the patients wishes and were consensually agreed upon. Question Answer Comments Discussion of Advance Directives occurred with: Not Discussed Care Teams Materials Technician Relationship Specialty Start Date End Date Damion Pastrana MD [address] [place] [address] PCP - General Internal Medicine 12/01/21 documented as of this encounter
--- OUTSIDE RECORDS SUMMARY | 2024-08-14 02:05 | External Medical Summary | Summary of Care ---
Author Name Unknown Organization [facility] Address [address] [place] [address] Phone [phone] Care Team Providers Care Office Assistant Receptionist Name Role Phone Damion Cheung MD Primary Care Provider + Reason for Visit * Reason Comments Dosage Adjustment In Person (Anticoag Cl inic) Diabetes Follow-Up Encounter Details Date Type Department Care Team (Late st Contact Info) Description 05/30/2024 3:30 PM EST Office Visit Pharmacy, [address] [place] [address] Pharmacist1, [facility] [place] [address] [place] [phone] Type 2 diabetes mellitus with hemoglobin A1c goal of less than 7.0% ([facility])* Allergies Active Allergy Reactions Criticality Noted Date Comments Iodinated Contrast Media Other (Please comment) Low 09/04/2009 Pt stated IV dye made him feel funny. Can't quite remember. documented as of this encounter (statuses as of 05/31/2024) Medications Polyethylene Glycol 3350 17 GM/SCOOP Oral [...] 01/24/2024 2:52 PM EDT 4 Active Nystatin 527557 UNIT/GM External Cream apply to affected area [...] as of this encounter (statuses as of 05/31/2024) Active Problems Problem Noted Date Diagnosed Date [...] 01/30/2020 Cigarette nicotine dependence in remission 10/08 prison (current) use of insulin 07/03/2019 Type 2 [...] as of this encounter (statuses as of 05/31/2024) Resolved Problems Problem Noted Date Diagnosed Date [...] Farmacy: A Randomized Controlled Trial (Project # [id number]). The [employer] program provides food-insecure diabetics with healthy food for their entire household (2 meals/ day X 5 days/week). The program also provides education on food preparation, healthy living, and diabetes self management. The research measures the effects of the program on patient health and wellbeing. Subject will begin the FFF program (11/2018). Contact Information: Software Project Lead: Dr. Jaleel Harris ([phone]) CRC: Cindy Alonso ([phone]) RA: Lizzie Natarajan ([phone]) Diagnosis changed due to Research Module. Go [...] as of this encounter (statuses as of 05/31/2024) Immunizations Name Administration Dates Next Due COVID-19 mRNA, LNP-s, No Pre serve, 2-Dose Series (Pfizer) 08/02/2020,07/12/2020 Covid-19, Mrna, Lnp-s, Pf, B ivalent, 30 Mcg, IM, 12 yrs and above (Pfizer) 02/04/2022 Hepatitis B, 20+ yrs 01/17/2014,08/16/2013,07/16 Pneumococcal Conjugate Vacci ne, 20-valent ([id number]) 10/07/2021 Pneumococcal Polysaccharide PPV23 (Pneumovax) 09/04/2009 Seasonal [...] documented in this encounter Progress Notes * Dorene Montoya, [facility] - 05/30/2024 3:36 PM EST Medication Therapy Disease Management Clinic - Diabetes Management Progress Note Marco Campos, identified by name and date of , is a 54 year old male being seen for diabetes management/education. Patient presents for return diabetic visit. DIABETES: Current diabetic medications: Toujeo U300 240 units daily (2x120 unit injections) Metformin 1000mg - Take 1 tablet twice daily Novolog - Inject 50 units with each meal START: Mounjaro 2.5mg weekly - stopped taking after 2 doses Medication Injection Site: Abdomen Lifestyle: Diet: unchanged Glucose Review/SMBG: did not bring any readings to appointment Hypoglycemia: Does your blood sugar go below 70 mg/dL? No Hyperglycemia symptoms present: none Recent Labs Units 02/13/24 1311 06/06/23 1309 06/06/23 1246 HEMOGLOBIN A1C - [facility] % 10.8* 8.1* -- HEMOGLOBIN A1C POCT - [facility] % -- -- 9.5* Recent Labs Units 02/13/24 1311 06/06/23 1309 05/31/22 1514 ESTIMATED GLOMERULAR FILTRATION RATE - [facility] mL/min 66 60 67 CREATININE - [facility] mg/dL 1.3* 1.4* 1.3* HYPERTENSION: Patient on ACEi/ARB: yes BP Readings from Last 3 Encounters: 05/24/24 138/70 04/26/24 160/64 04/12/24 164/78 Blood pressure at goal: no HYPERLIPIDEMIA: Recent Labs Units 02/13/24 1311 06/06/23 1309 LDL CHOLESTEROL (CALCULATED) - [facility] mg/dL 106 109 Does patient have clinical ASCVD? No, is patient LDL less than 70mg/dL? No: taking Crestor 40mg HEALTH MAINTENANCE REVIEW: Health Maintenance Due Topic Date Due HIV Screening Never done Zoster Vaccines (1 of 2) Never done Influenza Vaccine (FLU shot) (1) 12/25/2023 COVID-19 Vaccine ( season) 2023 Diabetic Eye Exam 04/08/2024 Diabetic Foot Exam 05/20/2024 Albumin/Creatinine Ratio 06/06/2024 ASSESSMENT & PLAN: ICD-10-CM 1. Type 2 diabetes mellitus with hemoglobin A1c goal of less than 7.0% (HCC) E11.9 Therapy considerations - Actos: hepatic disease, CHF Jardiance: FRED UTI Ozempic/Mounjaro/Victoza: FRED Bloating, gas BG Readings - Blood sugars not available. Patient did not bring any BG readings to appointment. Discussed CGM use, but patient is NOT interested at this time. He reported recent BG readings of 180-220. Stated he will be getting fasting labs for PCP soon. Medications - Reviewed current regimen, patient is not adherent to regimen. Patient reported that he can not take Mounjaro - made his abdomen "hard as a rock," and gave him gas. Patient stated he hasbeen following Novolog dosing chart lately. At last MTM appointment, he was using fixed doses. Discussed updating Novolog chart - will increase fixed doses and strengthen correction. Patient agreeable. Diet, Exercise, Lifestyle - No significant lifestyle changes since last visit. Patient plans to look into gym memberships ([facility] helps with membership fees) to help improve his activity level. He feels his BG will be much better controlled with increased activity. Patient is agreeable to SMBG 2-3 time(s) daily. Patient aware to contact clinic if any hypoglycemia before next visit. MEDICATION CHANGES: yes, see below; preferred pharmacy: [facility] ([facility]) Diabetic Medications: Toujeo U300: inject 240 units daily (2x120 unit injections) Metformin 1000mg: take 1 tablet twice daily INC/STR: Novolog: inject 50 units with each meal, 35 units with snack + CF 1:15 over 140 HEALTH MAINTENANCE INTERVENTIONS: Labs: Up to Date Immunizations: defers Foot Exam: due Eye Exam: due Annual Wellness Visit: N/A FOLLOW UP: Return to clinic in 10-12 weeks 08/15/2024 I spent a total of 20-29 minutes (exact time 27 mins) on the date of service in preparation, delivery, and documentation of the care provided to Marco Campos excluding any time spent in the performance of separately billed services. Dorene Montoya [facility] Clinical Pharmacist - Transport Manager Medication Therapy Management Clinic 05/30/2024, 3:36 PM Novolog Doses Blood Sugar levels Lunch Dinner Snack 70 to 79 46 46 31 80 to 94 47 47 32 95 to 109 48 48 33 110 to 124 49 49 34 125 to 139 50 50 35 140 to 154 50 50 35 155 to 169 51 51 36 170 to 184 52 52 37 185 to 199 53 53 38 200 to 214 54 54 39 215 to 229 55 55 40 230 to 244 56 56 41 245 to 259 57 57 42 260 to 274 58 58 43 275 to 289 59 59 44 290 to 304 60 60 45 305 to 319 61 61 46 320 to 334 62 62 47 335 to 349 63 63 48 350 to 364 64 64 49 365 to 379 65 65 50 380 to 394 66 66 51 395 to 409 67 67 52 410 to 424 68 68 53 425 to 439 69 69 54 440 to 454 70 70 55 455 to 469 71 71 56 470 to 484 72 72 57 485 to 499 73 73 58 500 to 514 74 74 59 documented in this encounter Plan of Treatment Upcoming Encounters Date Type Department Care Team (Late st Contact Info) Description 06/06/2024 1:00 PM EST Appointment Cardiac Studies, [address] [place] [address] 07/10/2024 8:45 AM EDT Office Visit Ophthalmology, [facility] [address] [place] [address] Efraín Galindo, DO [address] [place] [address] 07/13/2024 10:30 AM EDT Office Visit Cardiology, [address] [place] [address] Nathalie Jackson CRNP [address] [place] [address] 08/15/2024 3:30 PM EDT Office Visit Pharmacy, [place] [address] [place] [phone] Pharmacist1, [facility] [address] [place] [phone] Scheduled Procedures Name Priority Associated Diagnoses Date/Ti [...] as of this encounter Visit Diagnoses Diagnosis Type 2 diabetes mellitus with hemoglobin A1c goal of less than 7.0% (HCC)- Primary documented in this encounter Additional Health Concerns Infection Onset [...] Directives occurred with: Not Discussed Care Teams Office Assistant Receptionist Relationship Specialty Start Date End Date Damion Cheung MD [address] [place] [address] PCP - General Internal Medicine 12/01/21 documented as of this encounter
--- OUTSIDE RECORDS SUMMARY | 2024-08-14 02:05 | External Medical Summary | Summary of Care ---
Author Name Unknown Organization [facility] Address [address] [place] [address] Phone [phone] Care Team Providers Care Computing Architect Name Role Phone Damion Cheung MD Primary Care Provider + Encounter Details Date Type Department Care Team (Late st Contact Info) Description 05/28/2024 Orders Only PATIENT PORTAL DO NOT DELETE THIS DEPT USED BY [facility] [place] [address] Allergies Active Allergy Reactions Criticality Noted Date Comments Iodinated Contrast Media Other (Please comment) Low 09/04/2009 Pt stated IV dye made him feel funny. Can't quite remember. documented as of this encounter (statuses as of 05/28/2024) Medications Polyethylene Glycol 3350 17 GM/SCOOP Oral [...] 11/18/2023 4:08 PM EDT 4 Active OneTouch Argelia Lancets 33GIndications:Ty pe 2 diabetes mellitus with [...] 90 Tablet 2 01/24/2024 2:52 PM EDT 06/12/202 4 Active Toujeo Max SoloStar 300 UNIT/ML [...] 01/24/2024 2:52 PM EDT 4 Active Nystatin 000023 UNIT/GM External Cream apply to affected area [...] MAX DAILY 45 mL 2 5 Active predniSONE 20 MG Oral Tablet (Deltasone)Indica tions:Acute URI Take 2 Tablets by mouth in the morning for 5 days. 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 The [employer] Farm[employer] program provides food-insecure diabetics with healthy food for their entire household (2 meals/ day X 5 days/week). The program also provides education on food preparation, healthy living, and diabetes self management. The research measures the effects of the program on patient health and wellbeing. Subject will begin the FFF program (11/2018). Contact Information: Tombstone Erector: Dr. Jaleel Harris ([phone]) CRC: Cindy Norriseduard ([phone]) RA: Lizzie Natarajan ([phone]) Diagnosis changed due to Research Module. Go [...] as of this encounter (statuses as of 05/28/2024) Immunizations Name Administration Dates Next Due COVID-19 mRNA, LNP-s, No Pre serve, 2-Dose Series ([employer]) 08/02/2020,07/12/2020 Covid-19, Mrna, Lnp-s, Pf, B ivalent, 30 Mcg, IM, 12 yrs and above (Pfizer) 02/04/2022 Hepatitis B, 20+ yrs 01/17/2014,08/16/2013,07/16 Pneumococcal Conjugate Vacci ne, 20-valent ([id number]) 10/07/2021 Pneumococcal Polysaccharide PPV23 (Pneumovax) 09/04/2009 Seasonal [...] ages 0-17 years) Not on file 11/15/2023 Sex and Gender Information Value Date [...] Alix Blancas RN documented in this encounter Plan of Treatment Upcoming Encounters Date Type Department Care Team (Late st Contact Info) Description 05/30/2024 3:30 PM EST Office Visit Pharmacy, [place] [address] [place] [address] Pharmacist1, [facility] [place] [address] [place] [address] 06/06/2024 1:00 PM EST Appointment Cardiac Studies, [address] [place] [address] 07/10/2024 8:45 AM EDT Office Visit Ophthalmology, [facility] [address] [place] [address] Efraín Galindo DO [address] [place] [address] 07/13/2024 10:30 AM EDT Office Visit Cardiology, [address] [place] [address] Nathalie Jackson CRNP [address] [place] [address] Scheduled Procedures Name Priority Associated Diagnoses Date/Ti [...] 04/08/2024 04/08/2023, , 04/08/2023, Additional history exists *NEPHROLOGY REFERRAL DUE TO RESISTANT HTN 04/14/2024 Diabetic Foot Exam 05/20/2024 05/20/2023, 1 06/15/2021, [...] Directives occurred with: Not Discussed Care Teams Computing Architect Relationship Specialty Start Date End Date Damion Cheung MD [address] [place] [address] PCP - General Internal Medicine 12/01/21 documented as of this encounter
--- OUTSIDE RECORDS SUMMARY | 2024-08-14 02:05 | External Medical Summary | Summary of Care ---
Author Name Unknown Organization [facility] Address [address] [place] [address] Phone [phone] Care Team Providers Care Engine Emission Technician Name Role Phone Damion Cheung MD Primary Care Provider + Encounter Details Date Type Department Care Team (Late st Contact Info) Description 05/14/2024 Population Health External Data Unspecified Department Allergies Active Allergy Reactions Criticality Noted Date Comments Iodinated Contrast Media Other (Please comment) Low 09/04/2009 Pt stated IV dye made him feel funny. Can't quite remember. documented as of this encounter (statuses as of 05/14/2024) Medications Polyethylene Glycol 3350 17 GM/SCOOP Oral [...] 4 Active Furosemide 20 MG Oral Tablet (Lasix)Indicatio [...] 5 11/18/2023 4:08 PM EDT 4 Active Azelastine HCl 0.15 % Nasal SolutionIndicati ons:Rhinorrhea Administer 1 [place] into nostril in the morning and 1 [place] before bedtime. 30 mL 12 4 Active Additional Information Patient not taking.Reported on 04/26/2024 OneTouch Delbebeto Lancets 33GIndications:T ype 2 diabetes [...] 2 01/24/2024 2:52 PM EDT 4 Active Touidalmiso Max SoloStar 300 UNIT/ML Subcutaneous Solution Pen-injector (Insulin Glargine (2 Unit Dial))Indication s:Type 2 diabetes mellitus with hemoglobin A1c goal of less than 7.0% ([facility]) Inject 360 Units under the skin at bedtime. 108 mL 2 03/02/2024 8:35 AM EST 4 Active Triamcinolone Acetonide 0.5 % External Cream (Aristocort)Viridiana cations:Contact dermatitis of lower leg Apply topically to affected area 2 times a day. To affected area. 60 g 5 01/05/2024 1:00 PM EDT 4 Active NovoLOG FlexPen 100 UNIT/ML Subcutaneous Solution Pen-injectorIndi cations:Type 2 diabetes mellitus with hemoglobin A1c goal of less than 7.0% ([facility]) INJECT 48 UNITS UNDER THE SKIN BEFORE LUNCH, 48 UNITS FOR DINNER AND 35 UNITS FOR EVENING SNACK PLUS CORRECTION CF 1:18 over 140. UP TO 150 UNITS MAX DAILY 45 mL 2 02/22/2024 4:20 PM EDT 4 Active Losartan Potassium 100 MG Oral Tablet (Cozaar) Take 1 Tablet by mouth in the morning. 90 Tablet 1 01/24/2024 2:52 PM EDT 4 Active Nystatin 985049 UNIT/GM External Cream apply to affected area twice a day FOR 10 DAYS 30 g 03/06/2024 4:43 PM EST 4 Active Tirzepatide 2.5 MG/0.5ML Subcutaneous Solution Auto-injector (Mounjaro) Inject 2.5 mg under the skin once a week. 2 mL 2 4 03/07/20 25 Active Additional Information Patient not taking.Reported on 04/26/2024 Mounjaro 5 MG/0.5ML Subcutaneous Solution Auto-injector (Tirzepatide) Inject 5 mg under the skin once a week. 2 mL 5 4 03/28/20 25 Active Additional Information Patient not taking.Reported on 04/26/2024 Terazosin HCl 1 MG Oral Capsule (Hytrin)Indicati ons:HTN, goal below 140/90 Take 1 Capsule by mouth at bedtime. 100 Capsule 3 4 Active Additional Information Patient not taking.Reported on 04/26/2024 Mucinex DM 30-600 MG Oral Tablet Extended [...] Use with inhaler. 1 Each 5 Active Azithromycin 250 MG Oral Tablet (Zithromax Z-Leon)Indication s:COPD exacerbation (HCC),Acute non-recurrent frontal sinusitis Take two tablets by mouth on first day, then 1 tablet daily until gone 6 Tablet 5 Active Hospital, Clinic, or Other Facility [...] as of this encounter (statuses as of 05/14/2024) Active Problems Problem Noted Date Diagnosed Date Hypertensive heart disease with congestive heart failure 01/05/2024 Morbid obesity with BMI of 40.0-44.9, adult 12/24 Food insecurity 12/05/2023 Overview: Per [facility] Protocol Chronic diastolic (congestive) heart failure 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, with long-term current use of insulin 05/20/2023 Type 2 diabetes mellitus wit h stage 3 chronic kidney disease, with long-term current use of insulin 05/20/2023 Type 2 diabetes mellitus wit h diabetic cataract, with long-term current use of insulin 05/20/2023 Vitreous hemorrhage of right eye 05/20/2023 Cirrhosis of liver without ascites 02/09/2021 Nodule of lower lobe of right lung 10/14/2020 Diabetes mellitus due to und erlying condition with 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, left eye 07/03/2020 History of lobectomy of lung 07/03/2020 Allergic rhinitis 01/30/2020 Cigarette nicotine dependence in remission 10/08 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 The [employer] Farm[employer] program provides food-insecure diabetics with healthy food for their entire household (2 meals/ day X 5 days/week). The program also provides education on food preparation, healthy living, and diabetes self management. The research measures the effects of the program on patient health and wellbeing. Subject will begin the FFF program (11/2018). Contact Information: Drier Unloader: Dr. Jaleel Harris ([phone]) CRC: Cindy Alonso ([phone]) RA: Lizzie Natarajan ([phone]) Diagnosis changed due to Research Module. Go [...] as of this encounter (statuses as of 05/14/2024) Immunizations Name Administration Dates Next Due COVID-19 mRNA, LNP-s, No Pre serve, 2-Dose Series ([employer]) 08/02/2020,07/12/2020 Covid-19, Mrna, Lnp-s, Pf, B ivalent, 30 Mcg, IM, 12 yrs and above (Pfizer) 02/04/2022 Hepatitis B, 20+ yrs 01/17/2014,08/16/2013,07/16 Pneumococcal Conjugate Vacci ne, 20-valent ([id number]) 10/07/2021 Pneumococcal Polysaccharide PPV23 (Pneumovax) 09/04/2009 Seasonal [...] Care Team (Late st Contact Info) Description 05/24/2024 3:20 PM EST Office Visit General Internal Medicine [facility] [address] [facility] [place] [address] Damion Cheung MD [address] [facility] [place] [address] 05/30/2024 3:30 PM EST Office Visit Pharmacy, [place] [address] [place] [address] Pharmacist1, [facility] [place] [address] [place] [address] 06/06/2024 1:00 PM EST Appointment Cardiac Studies, [address] [place] [address] 07/10/2024 8:45 AM EDT Office Visit Ophthalmology, [facility] [address] [facility] [place] [address] Efraín Galindo, DO [address] [place] [address] 07/13/2024 10:30 AM EDT Office Visit Cardiology, [place] [address] [place] [address] [place] [address] Nathalie Jackson CRNP [address] [place] [address] Scheduled Procedures Name Priority Associated Diagnoses Date/Ti [...] 06/06/2024 06/06/2023, 04/26, 03/14/2020, Additional history exists CKD HGB USE SMARTSET 59726 06/06/202406/06, 06/06/2023, 05/31/2022, Additional history exists CKD PHOS USE SMARTSET 93740 06/06/202405/26, 06/14/2020, 06/13/2020, Additional history exists Depression Screening 07/20/2024 07/21/2023 GFR 08/13/2024 02/13/2024, 05/26, 05/31/2022, Additional history exists HbA1c 08/13/2024 02/13/2024, 05/26, 06/06/2023, Additional history exists Colonoscopy 05/14/2026 05/14/2021, 06/07/2018 [...] Directives occurred with: Not Discussed Care Teams Engine Emission Technician Relationship Specialty Start Date End Date Damion Cheung MD [address] [place] [address] PCP - General Internal Medicine 12/01/21 documented as of this encounter
--- OUTSIDE RECORDS SUMMARY | 2024-08-14 02:05 | External Medical Summary | Summary of Care ---
Author Name Unknown Organization [facility] Address [address] [place] [address] Phone [phone] Care Team Providers Care Legal Mediator Name Role Phone Damion Cheung MD Primary Care Provider + Reason for Visit * Reason Onset Date Comments Medication Refill 05/16/2024 Encounter Details Date Type Department Care Team (Late st Contact Info) Description 05/16/2024 Refill General Internal Medicine [facility] [address] [place] [address] Damion Cheung MD [address] [place] [address] Type 2 diabetes mellitus with hemoglobin A1c goal of less than 7.0% ([facility]) Allergies Active Allergy Reactions Criticality Noted Date Comments Iodinated Contrast Media Other (Please comment) Low 09/04/2009 Pt stated IV dye made him feel funny. Can't quite remember. documented as of this encounter (statuses as of 05/16/2024) Medications Polyethylene Glycol 3350 17 GM/SCOOP Oral Powder (MiraLax)Indicat ions:Constipatio n, unspecified constipation type Take 17 g by mouth daily. Dissolve one heaping tablespoon in 8 ounces of water or juice. 578 g 5 12/18/19 21 Active Nebulizer Use as directed. Active Magnesium Oxide -Mg Supplement 400 (240 Mg) MG Oral Tablet (Mag-Ox)Indicati ons:Low blood magnesium Take 1 Tablet by mouth in the morning. 90 Tablet 2 04/29/19 24 Active amLODIPine Besylate 10 MG Oral Tablet (Norvasc)Indicat ions:HTN, goal below 140/90 Take 1 Tablet by mouth in the morning. 90 Tablet 3 02/24/2024 1:14 PM EDT 06/07/19 24 Active Furosemide 20 MG Oral Tablet (Lasix)Indicatio ns:HTN, goal below 140/90 TAKE 1 TABLET BY MOUTH ON Tuesday AND TUESDAY ONLY 40 Tablet 3 02/24/2024 1:14 PM EDT 06/07/19 24 Active metFORMIN HCl 1000 MG Oral Tablet (Glucophage)Viridiana cations:Type 2 diabetes mellitus with hemoglobin A1c goal of less than 7.0% (HCC) Take 1 Tablet by mouth in the morning and 1 Tablet before bedtime. With food.. 180 Tablet 2 12/13/2023 3:46 PM EDT 06/07/19 24 Active Metoprolol Succinate ER 100 MG Oral Tablet Extended Release 24 Hour (toPROL XL)Indications:H TN, goal below 140/90 Take 1 Tablet by mouth in the morning. 30 Tablet 5 01/24/2024 2:52 PM EDT 06/07/19 24 Active Pantoprazole Sodium 40 MG Oral Tablet Delayed Release (Protonix)Indica tions:Diaphragma tic hernia without obstruction and without gangrene TAKE 1 TABLET BY MOUTH DAILY 30 MINUTES PRIOR TO THE FIRST MEAL OF THE DAY 90 Tablet 1 06/07/19 24 Active Fluticasone Propionate 50 MCG/ACT Nasal Suspension (Flonase)Indicat ions:Allergy, subsequent encounter Administer 2 Sprays into each nostril in the morning. 16 g 5 11/18/2023 4:08 PM EDT 06/14/19 24 Active Azelastine HCl 0.15 % Nasal SolutionIndicati ons:Rhinorrhea Administer 1 [place] into nostril in the morning and 1 [place] before bedtime. 30 mL 12 07/21/19 24 Active Additional Information Patient not taking.Reported on 04/26/2024 BearTojanel Whiteside 33GIndications:T ype 2 diabetes mellitus with hemoglobin A1c goal of less than 7.0% (HCC) Use to test blood sugar before meals and snacks and as needed up to 4 times a day 400 Each 3 07/27/19 24 Active BearTouch Zaid In Vitro StripIndications :Type 2 diabetes mellitus with hemoglobin A1c goal of less than 7.0% ([facility]) Test blood sugar before meals and snacks [...] 2:52 PM EDT 01/19/20 24 Active Nystatin 937133 UNIT/GM External Cream apply to affected area twice a day FOR 10 DAYS 30 g 03/06/2024 4:43 PM EST 03/05/20 24 Active Tirzepatide 2.5 MG/0.5ML Subcutaneous Solution Auto-injector (Mounjaro) Inject 2.5 mg under the skin once a week. 2 mL 2 03/07/20 24 025 Active Additional Information Patient not taking.Reported on 04/26/2024 Mounjaro 5 MG/0.5ML Subcutaneous Solution Auto-injector (Tirzepatide) Inject 5 mg under the skin once a week. 2 mL 5 03/28/20 24 025 Active Additional Information Patient not taking.Reported on 04/26/2024 Terazosin HCl 1 MG Oral Capsule (Hytrin)Indicati ons:HTN, goal below 140/90 Take 1 Capsule by mouth at bedtime. 100 Capsule 3 04/12/20 24 Active Additional Information Patient not taking.Reported [...] Wheezing. 8 g 3 04/21/20 24 Active Spacer/Aero-Hold ing Chambers DeviceIndication s:COPD exacerbation (HCC) Use with inhaler. 1 Each 04/26/19 25 Active Azithromycin 250 MG Oral Tablet (Zithromax Z-Leon)Indication s:COPD exacerbation (HCC),Acute non-recurrent frontal sinusitis Take two tablets by mouth on first day, then 1 tablet daily until gone 6 Tablet 04/26/19 25 Active NovoLOG FlexPen 100 UNIT/ML Subcutaneous Solution Pen-injectorIndi cations:Type 2 diabetes mellitus with hemoglobin A1c goal of less than 7.0% ([facility]) INJECT 48 UNITS UNDER THE SKIN BEFORE LUNCH, 48 UNITS FOR DINNER AND 35 UNITS FOR EVENING SNACK PLUS CORRECTION CF 1:18 over 140. UP TO 150 UNITS MAX DAILY 45 mL 2 05/16/19 25 Active NovoLOG FlexPen 100 UNIT/ML Subcutaneous Solution Pen-injectorIndi cations:Type 2 diabetes mellitus with hemoglobin A1c goal of less than 7.0% ([facility]) INJECT 48 UNITS UNDER THE SKIN BEFORE LUNCH, 48 UNITS FOR DINNER AND 35 UNITS FOR EVENING SNACK PLUS CORRECTION CF 1:18 over 140. UP TO 150 UNITS MAX DAILY 45 mL 2 02/22/2024 4:20 PM EDT 01/14/20 24 025 Discontin ued(Refil l) Hospital, Clinic, or [...] as of this encounter (statuses as of 05/16/2024) Active Problems Problem Noted Date Diagnosed Date [...] 01/30/2020 Cigarette nicotine dependence in remission 10/08 care home (current) use of insulin 07/03/2019 Type 2 [...] as of this encounter (statuses as of 05/16/2024) Resolved Problems Problem Noted Date Diagnosed Date [...] program 11/29/2018 01/28/2020 Overview (08/11/2020): [employer]: A Randomized Controlled Trial (Project # [id number]). The [employer] program provides food-insecure diabetics with healthy food for their entire household (2 meals/ day X 5 days/week). The program also provides education on food preparation, healthy living, and diabetes self management. The research measures the effects of the program on patient health and wellbeing. Subject will begin the FFF program (11/2018). Contact Information: Farm Worker: Dr. Jaleel Harris ([phone]) CRC: Cindy Alonso ([phone]) RA: Lizzie Natarajan ([phone]) Diagnosis changed due to Research Module. Go [...] as of this encounter (statuses as of 05/16/2024) Immunizations Name Administration Dates Next Due COVID-19 mRNA, LNP-s, No Pre serve, 2-Dose Series (MyFab) 08/02/2020,07/12/2020 Covid-19, Mrna, Lnp-s, Pf, B ivalent, 30 Mcg, IM, 12 yrs and above (Pfizer) 02/04/2022 Hepatitis B, 20+ yrs 01/17/2014,08/16/2013,07/16 Pneumococcal Conjugate Vacci ne, 20-valent ([id number]) 10/07/2021 Pneumococcal Polysaccharide PPV23 (Pneumovax) 09/04/2009 Seasonal [...] encounter Miscellaneous Notes * Telephone Encounter - Maddi Quiroz, [facility] - 05/16/2024 3:12 PM EST Signed Prescriptions: Disp Refills NovoLOG FlexPen 100 UNIT/ML Subcutaneous S*45 mL 2 Sig: INJECT 48 UNITS UNDER THE SKIN BEFORE LUNCH, 48 UNITS FOR DINNER AND 35 UNITS FOR EVENING SNACK PLUS CORRECTION CF 1:18 over 140. UP TO 150 UNITS MAX DAILY Authorizing Provider: DAMION CHEUNG Ordering User: MADDI QUIROZ * Telephone Encounter - Lottie Pantoja, reinsurance analyst - 05/16/2024 11:59 AM EST Did you pend patient's preferred pharmacy and medication before forwarding?yes Pharmacy: [facility] - [address] Pending Prescriptions: Disp Refills NovoLOG FlexPen 100 UNIT/ML Subcutaneous *45 mL 2 Sig: INJECT 48 UNITS UNDER THE SKIN BEFORE LUNCH, 48 UNITS FOR DINNER AND 35 UNITS FOR EVENING SNACK PLUS CORRECTION CF 1:18 over 140. UP TO 150 UNITS MAX DAILY Last Visit: 04/26/2024 (in office), Visit date not found (telemedicine) Next Visit: 05/24/2024 If no future appointments scheduled, and last appointment is greater than a year ago, please schedule patient for a follow-up appointment Last date the medication was ordered: 01-14-24 Is this request for a controlled substance?No [...] EST Office Visit General Internal Medicine [facility] [address] [facility] [place] [address] [facility] [address] [facility] [address] 05/30/2024 3:30 PM EST Office Visit Pharmacy, [place] [address] [place] [address] Pharmacist1, [facility] [address] [place] [address] 06/06/2024 1:00 PM EST Appointment Cardiac Studies, [address] [place] [address] 07/10/2024 8:45 AM EDT Office Visit Ophthalmology, [facility] [address] [place] [address] Efraín Galindo DO [address] [place] [address] 07/13/2024 10:30 AM EDT Office Visit Cardiology, [address] [place] [address] Nathalie Jackson CRNP [address] [place] [address] Scheduled Procedures Name Priority Associated Diagnoses Date/Ti [...] Additional history exists CKD HGB USE SMARTSET 62297 06/06/202406/06, 06/06/2023, 05/31/2022, Additional history exists CKD PHOS USE SMARTSET 28914 06/06/202405/26, 06/14/2020, 06/13/2020, Additional history exists Depression [...] Directives occurred with: Not Discussed Care Teams Legal Mediator Relationship Specialty Start Date End Date Damion Cheung MD [address] [place] [address] PCP - General Internal Medicine 12/01/21 documented as of this encounter
--- OUTSIDE RECORDS SUMMARY | 2024-08-14 02:05 | External Medical Summary ---
Author Name Unknown Address Unknown Organization [id number]:LABORATORY [facility] - [address] [facility] [address] Laboratory Report Ordering Provider Test Date Status VICTORIANO JUNIOR 05/24/2024 15:46:00 Final Observation Date Value Abnormality Reference (Units ) Status SARS Coronavirus 2 05/24/2024 15:46:00 Negative N egative Final No SARS-CoV2 Coronavirus RNA detected by PCR (amplified probe).
This express test was developed and its performance characteristics determined by [employer] It has not been cleared or approved by the U.S. Food and Drug Administration (FDA). FDA does not require this test to go thru premarket FDA review. This test is used for clinical purposes. It should not be regarded as investigational or for research. This laboratory is certified under the Clinical Laboratory Improvement Amendments (CLIA) as qualified to perform high complexity clinical laboratory testing.

This test is a nucleic acid amplification test (NAAT), a reverse transcriptase polymerase chain reaction (RT-PCR) test, or a Centers for Disease Control-acceptable equivalent. The test is performed in a high complexity Clinical Laboratory Improvement Amendments-(CLIA) certified laboratory. The test is acceptable for SARS-CoV-2 diagnosis, surveillance, and travel within the [facility] and to most countries. Please check with local testing authorities about requirements before travel.

The validation of bronchial specimens, tracheal aspirates, and sputum for this assay was developed and performance characteristics determined by [employer] The validation of alternate specimen types has not been cleared or approved by the U.S. Food and Drug Administration (FDA). It has been determined that such clearance is not necessary. Influenza virus A RNA [Prese nce] in Specimen by HILARY with probe detection 05/24/2024 15:46:00 Positive Abnormal Negative Final Influenza A RNA detected by PCR (amplified probe). Test results reported to [place] [facility]. Influenza virus B RNA [Prese nce] in Specimen by HILARY with probe detection 05/24/2024 15:46:00 Negative Negative Final No Influenza B RNA detected by PCR (amplified probe) Respiratory syncytial virus RNA [Identifier] in Specimen by HILARY with probe detection 05/24/2024 15:46:00 Negative Negative Final No Respiratory Syncytial Vir us RNA detected by PCR (amplified probe) Performing Location LABORATORY [address] [place] Quiroz. [facility] [address]
--- OUTSIDE RECORDS SUMMARY | 2024-08-14 02:05 | External Medical Summary | Summary of Care ---
Author Name Unknown Organization [facility] Address [address] [place] [address] Phone [phone] Care Team Providers Care Support Analyst Name Role Phone Damion Cheung MD Primary Care Provider + Reason for Visit * Reason Comments Re-Check Encounter Details Date Type Department Care Team (Latest Contact Info) Description 05/24/2024 3:20 PM EST Office Visit General Internal Medicine [facility] [address] 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 Can't quite remember. documented as of this encounter (statuses as of 05/24/2024) Medications Polyethylene Glycol 3350 17 GM/SCOOP Oral [...] 11/18/2023 4:08 PM EDT 4 Active OneTouch Delbebeto Lancets 33GIndications:T ype [...] 01/24/2024 2:52 PM EDT 4 Active Nystatin 138580 UNIT/GM External Cream apply to affected area [...] 5 Active predniSONE 20 MG Oral Tablet (Deltasone)Indic ations:Acute URI Take 2 Tablets by mouth in the morning for 5 days. 10 Tablet 5 025 Active Azelastine HCl 0.15 % Nasal SolutionIndicati ons:Rhinorrhea Administer 1 Levels into nostril in the morning and 1 Levels before bedtime. 30 mL 12 4 025 Discontin ued(Patie nt preferenc e/discont inuation) Tirzepatide 2.5 MG/0.5ML Subcutaneous Solution Auto-injector (Mounjaro) Inject 2.5 mg under the skin once a week. 2 mL 2 4 025 Discontin ued(Patie nt preferenc e/discont inuation) Mounjaro 5 MG/0.5ML Subcutaneous Solution Auto-injector (Tirzepatide) Inject 5 mg under the skin once a week. 2 mL 5 4 025 Discontin ued(Patie nt preferenc e/discont inuation) predniSONE 20 MG Oral Tablet (Deltasone)Indic ations:COPD exacerbation (HCC) Take 2 Tablets by mouth in the morning for 5 days. 10 Tablet 5 025 Discontin ued(Patie nt preferenc e/discont inuation) Azithromycin 250 MG Oral Tablet (Zithromax Z-Leon)Indication s:COPD exacerbation (HCC),Acute non-recurrent frontal sinusitis Take two tablets by mouth on first day, then 1 tablet daily until gone 6 Tablet 01 025 Discontin ued(Patie nt preferenc e/discont inuation) Hospital, Clinic, or Other Facility Administered Medication [...] as of this encounter (statuses as of 05/24/2024) Active Problems Problem Noted Date Diagnosed Date [...] 01/30/2020 Cigarette nicotine dependence in remission 10/08 custodial (current) use of insulin 07/03/2019 Type 2 [...] as of this encounter (statuses as of 05/24/2024) Resolved Problems Problem Noted Date Diagnosed Date [...] program 11/29/2018 01/28/2020 Overview (08/11/2020): [employer]: A Randomized Controlled Trial (Project # [id number]). The [employer] program provides food-insecure diabetics with healthy food for their entire household (2 meals/ day X 5 days/week). The program also provides education on food preparation, healthy living, and diabetes self management. The research measures the effects of the program on patient health and wellbeing. Subject will begin the FFF program (11/2018). Contact Information: Blueprint Cutter: Dr. Jaleel Harris ([phone]) CRC: Cindy Alonso ([phone]) RA: Lizzie Natarajan ([phone]) Diagnosis changed due to Research Module. Go [...] as of this encounter (statuses as of 05/24/2024) Immunizations Name Administration Dates Next Due COVID-19 mRNA, LNP-s, No Pre serve, 2-Dose Series ([facility]) 08/02/2020,07/12/2020 Covid-19, Mrna, Lnp-s, Pf, B ivalent, 30 Mcg, IM, 12 yrs and above ([facility]) 02/04/2022 Hepatitis B, 20+ yrs 01/17/2014,08/16/2013,07/16 Pneumococcal Conjugate Vacci ne, 20-valent ([id number]) 10/07/2021 Pneumococcal Polysaccharide PPV23 (Pneumovax) 09/04/2009 Seasonal [...] Sign Reading Time Taken Comments Blood Pressure 138/70 05/24/2024 3:14 PM EST Pulse 83 05/24/2024 3:14 PM EST Temperature 37.2 °C (98.9 °F) 05/24/2024 3:14 PM ES T Respiratory Rate 18 05/24/2024 3:14 PM EST Oxygen Saturation 96% 05/24/2024 3:14 PM EST Inhaled Oxygen Concentration - - Weight 126.3 kg (278 lb 8 oz) 05/24/2024 3:14 PM EST Height - - Body Mass Index 39.96 01/05/2024 12:36 PM EDT documented in this [...] Progress Notes * Damion Cheung MD - 05/24/2024 3:40 PM EST Chief Complaint Patient presents with Re-Check SUBJECTIVE: Marco Campos is a 54 year old male with PMH as below who presents for follow up DM, HTN, h/o renal cancer with lung met in past. No cp, sob, but has been ill for 4-5 days with cough, nausea, low appetite. Cough worse earlier in week, was gagging after cough, this is better, eating ok. No vomiting. Is wheezing, feels responds to azithromycin and prednisone, asking for this, was on earlier in tue and responded, doing well for 2-3 weeks, until past weekend. Girlfriend also ill. Not really checking sugars. Stopped mounjaro as felt made bloated. Is following with mtm for DM. Sees urology and rad onc for cancer history. Due for stress test with cardiology for abnormal EKG, hasn't scheduled yet Patient Active Problem List Diagnosis Diaphragmatic hernia Gastroesophageal reflux disease without esophagitis Type 2 diabetes mellitus with hemoglobin A1c goal of less than 7.0% ([facility]) Mixed hyperlipidemia HTN, goal below 140/90 History of renal cell cancer H/O unilateral nephrectomy COPD, group A, by GOLD 2013 classification ([facility]) terminal carman (current) use of insulin (HCC) Type 2 diabetes mellitus with polyneuropathy (HCC) Cigarette nicotine dependence in remission Allergic rhinitis [...] with long-term current use of insulin (HCC) Vitreous hemorrhage of right eye (HCC) Food insecurity Diabetes mellitus (HCC) Current Outpatient Medications Medication Sig Dispense Refill Polyethylene Glycol 3350 17 GM/SCOOP Oral Powder (MiraLax) Take 17 g by mouth daily. Dissolve one heaping tablespoon in 8 ounces of water or juice. 578 g 5 Nebulizer Use as directed. Magnesium Oxide -Mg Supplement 400 (240 Mg) MG Oral Tablet (Mag-Ox) Take 1 Tablet by mouth in the morning. 90 Tablet 2 amLODIPine Besylate 10 MG Oral Tablet (Norvasc) Take 1 Tablet by mouth in the morning. 90 Tablet 3 Furosemide 20 MG Oral Tablet (Lasix) TAKE 1 TABLET BY MOUTH ON Tuesday AND TUESDAY ONLY 40 Tablet 3 metFORMIN HCl 1000 MG Oral Tablet (Glucophage) Take 1 Tablet by mouth in the morning and 1 Tablet before bedtime. With food.. 180 Tablet 2 Metoprolol Succinate ER 100 MG Oral Tablet Extended Release 24 Hour (toPROL XL) Take 1 Tablet by mouth in the morning. 30 Tablet 5 Pantoprazole Sodium 40 MG Oral Tablet Delayed Release (Protonix) TAKE 1 TABLET BY MOUTH DAILY 30 MINUTES PRIOR TO THE FIRST MEAL OF THE DAY 90 Tablet 1 Fluticasone Propionate 50 MCG/ACT Nasal Suspension (Flonase) Administer 2 Sprays into each nostril in the morning. 16 g 5 myParcelDeliveryuch Delica Lancets 33G Use to test blood [...] the skin at bedtime. 108 mL 2 Triamcinolone Acetonide 0.5 % External Cream (Aristocort) Apply topically to affected area 2 times a day. To affected area. 60 g 5 Losartan Potassium 100 MG Oral Tablet (Cozaar) Take 1 Tablet by mouth in the morning. 90 Tablet 1 Nystatin 695155 UNIT/GM External Cream apply to affected area twice a day FOR 10 DAYS 30 g 0 Mounjaro 5 MG/0.5ML Subcutaneous Solution Auto-injector (Tirzepatide) Inject 5 mg under the skin once a week. 2 mL 5 Terazosin HCl 1 MG Oral Capsule (Hytrin) [...] as needed for Wheezing. 8 g 3 Spacer/Aero-Holding Chambers Device Use with inhaler. 1 Each 0 NovoLOG FlexPen 100 UNIT/ML Subcutaneous Solution Pen-injector INJECT 48 UNITS UNDER THE SKIN BEFORE LUNCH, 48 UNITS FOR DINNER AND 35 UNITS FOR EVENING SNACK PLUS CORRECTION CF 1:18 over 140. UP TO 150 UNITS MAX DAILY 45 mL 2 predniSONE 20 MG Oral Tablet (Deltasone) Take 2 Tablets by mouth in the morning for 5 days. 10 Tablet 0 Current Facility-Administered Medications Medication Dose Route Frequency Provider Last Rate Last Admin bevaCIZumab (Avastin) inj 1.25 mg 1.25 mg Intravitreal PRN Efraín Galindo, DO 1.25 mg at 04/17/24 5277 ROPivacaine (Naropin) inj 1.5 mg 1.5 mg [...] ( season) 2023 Diabetic Eye Exam 04/08/2024 *NEPHROLOGY REFERRAL DUE TO RESISTANT HTN Never done Diabetic Foot Exam 05/20/2024 Albumin/Creatinine Ratio 06/06/2024 ROS: CONSTITUTIONAL: No fevers, sweats, or chills PULMONARY: No rales CARDIOVASCULAR: No chest pain, No orthopnea, No paroxysmal nocturnal dyspnea, No edema, No palpitations, and No syncope GASTROINTESTINAL: No abdominal pain, No change in bowel habits, No significant heartburn, No significant change in appetite, No nausea, vomiting, diarrhea, or constipation, No hematemesis, No blood in stools or black tarry stools, No abdominal bloating or early satiety, and No dysphagia ALL OTHER SYSTEMS NEGATIVE I reviewed social, [...] date: 03/17/1993 Quit date: 03/17/2013 Years since quittin.1 Smokeless tobacco: Never Vaping Use Vaping status: [...] Insecurity: Food Insecurity Present (11/15/2023) Food Insecurity Do you need food for this week? (Adult - for ages 18 years and over): Yes Are you able to get enough food for your family? (Household - for ages 0-17 years): Not on file Does your family need food this week? (Household - for ages 0-17 years): Not on file Do you always have enough food for your family? (Household - for ages 0-17 years): Not on file Transportation Needs: No Transportation Needs (11/15/2023) Transportation Needs Do you have trouble getting a ride to medical visits or work? (Adult - for ages 18 years and over):Never True Does your family have a hard time [...] Stability Do you currently live in a jail or have no steady place to sleep at night? (Adult - for ages 18 years and over): No Do you think you are at risk of becoming homeless? 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 Galindo (04-30-22) OTHER (INFORMATION) AVASTIN OU CONSENT SIGNED Dr. Galindo/Beatriz (exp 04-30-23) OTHER (INFORMATION) Bilateral AVASTIN OU CONSENT DR. GALINDO/BEATRIZ EXP. 07/04/24 REMOVE GALLBLADDER N/A 07/17/2020 Thoracoscopy w/ Lobectomy Right 06/11/2020 ROBOTIC THORACOSCOPY WITH LOBECTOMY [place] Kimo L[place]ax [place] [facility] [place]REATMENT OF EXTENSIVE RETINOPATHY, PHOTOCOAGULATION Right 05/14/2022 [...] list them) Other OBJECTIVE: PHYSICAL EXAM: BP 138/70 | Pulse 83 | Temp 98.9 °F (37.2 °C) (Tympanic) | Resp 18 | Wt 278 lb 8 oz (126.3 kg) | SpO2 96% | BMI 39.96 kg/m² | BSA 2.5 m² General: alert, healthy, and no distress Head: Normocephalic, No masses, lesions, or abnormalities Eye Exam: conjunctiva are pink and non-injected, sclera clear Ears: External ears normal, Canals clear, TM's Normal Heart: regular rate & rhythm, no murmur, no gallops, PMI non-displaced, S-1 normal, and S-2 normal Lungs: normal respiratory rate and rhythm, expiratory wheezes bilaterally Psych: normal affect, no flight of ideas or tangential thought, good eye contact, no pressured speech 04/12/24 cardiology: 1. Chest pain, unspecified type -Abnormal EKG with associated symptoms as noted above. -Will proceed with resting echocardiogram to assess overall structure and function as well as nuclear stress test to exclude ischemia. Abnormal resting, EKG with T wave changes that suggest possible ischemia. Multiple risk factors including DM, HTN, HLD and increased BMI Decreased functional capacity with recommendations to proceed with nuclear imaging. Also expressed concern that patient's resting blood pressure is too high for exercise tolerance - EKG COMPLETE (TRACING AND INTERP) - ECHO, COMPLETE (2D), TRANS-THORACIC; Future - NM MYOCARD PERF IMG SPECT MULT STUDIES WITH PHARM INTERV; Future 2. Abnormal EKG - ECHO, COMPLETE (2D), TRANS-THORACIC; Future - NM MYOCARD PERF IMG SPECT MULT STUDIES WITH PHARM INTERV; Future 3. Palpitations -Obtain echocardiogram to assess overall structure and function given complaints of palpitations. - ECHO, COMPLETE (2D), TRANS-THORACIC; Future 4. HTN, goal below 140/90 -Well above target. Continue losartan, amlodipine, furosemide, and start Terazosin - ECHO, COMPLETE (2D), TRANS-THORACIC; Future - NM MYOCARD PERF IMG SPECT MULT STUDIES WITH PHARM INTERV; Future - Terazosin HCl 1 MG Oral Capsule (Hytrin); Take 1 Capsule by mouth at bedtime. Dispense: 100 Capsule; Refill: 3 5. Dyslipidemia, goal LDL below 100 -Recommend yearly lipid panel. -Continue Crestor 6. Type 2 diabetes mellitus with hemoglobin A1c goal of less than 7.0% ([facility]) -As per management of primary team. -Significant risk factor for coronary disease. 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, with long-term current use of insulin ([facility]) - HEMOGLOBIN A1C; Future; Expected date: 05/24/2024 - ALBUMIN / CREATININE RATIO, URINE; Future; Expected date: 05/24/2024 Discussed checking sugars reguarly, he will do Increase long acting by 10 units if rise on prednisone Cont metformin Stopped mounjaro on own Sees mtm Follow Labs soon Mixed hyperlipidemia - COMPREHENSIVE METABOLIC PANEL; Future; Expected date: 05/24/2024 - LIPID PANEL WITH DIRECT LDL IF TG IS HIGH; Future; Expected date: 05/24/2024 Cont rosuvastatin Abnormal EKG Await echo Schedule stress History of renal cell cancer Sees urology, rad onc HTN, goal below 140/90 Cont terazosin, losartan, amlodipine, metoprolol, lasix COPD, group A, by GOLD 2013 classification (HCC) Avoid tobacco Cont albuterol Follow, may need to intensify inhalers if persistent symptoms Follow Up: Return in about 6 months (around 11/21/2024), or if symptoms worsen or fail to improve, for Fasting Labs Soon. | For: Fasting Labs Soon | Check-out note: pls schedule stress test from cardiology documented in this encounter Nursing Notes * Jennifer Hurley LPN - 05/24/2024 3:09 PM EST Marco Campos presents for 6 month recheck. Medications & HM reviewed. C/O being sick. Starting on Tuesday developed cough, fever, abdominal pains, sinus congestion., lossof appetite documented in this encounter Plan of Treatment Upcoming Encounters Date Type Department Care Team (Late st Contact Info) Description 05/30/2024 3:30 PM EST Office Visit Pharmacy, [place] [address] [place] [address] Pharmacist1, [facility] [place] [address] [place] [id number] 06/06/2024 1:00 PM EST Appointment [facility] [address] [facility] [address] 07/10/2024 8:45 AM EDT Office Visit Ophthalmology, [facility] [address] [place] [address] Efraín Galindo DO [address] [place] [address] 07/13/2024 10:30 AM EDT Office Visit Cardiology, [address] [place] [address] Nathalie Jackson, JELANI [address] [place] [address] Pending Results Name Type Priority Associated Diagnoses Date /Time INFLUENZA A/B RSV SARS-COV2,PCR Lab Routine Acute URI 05/24/2024 3:46 PM EST Scheduled Orders Name Type Priority Associated Diagnoses Orde r Schedule COMPREHENSIVE METABOLIC PANEL Lab Routine Mixed hyperlipidemia Expected: 05/24/2024 (Approximate), Expires: 05/24/2025 LIPID PANEL WITH DIRECT LDL IF TG IS HIGH Lab Routine Mixed hyperlipidemia Expected: 05/24/2024, Expires: 05/24/2025 HEMOGLOBIN A1C Lab Routine 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, with long-term current use of insulin (HCC) Expected: 05/24/2024 (Approximate), Expires: 05/24/2025 ALBUMIN / CREATININE RATIO, URINE Lab Routine 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, with long-term current use of insulin (HCC) Expected: 05/24/2024 (Approximate), Expires: 05/24/2025 INFLUENZA A/B RSV SARS-COV2,PCR Lab Routine Acute URI Expected: 05/24/2024 (Approximate), Expires: 05/24/2025 VITAMIN B12 Lab Routine Encounter for long-term (current) use of medications Expected: 11/21/2024 (Approximate), Expires: 05/24/2025 MAGNESIUM Lab Routine Encounter for long-term (current) use of medications Expected: 11/21/2024 (Approximate), Expires: 05/24/2025 PSA Lab Routine Screening for prostate cancer Expected: 05/24/2024 (Approximate), Expires: 05/24/2025 CBC WITH WBC DIFFERENTIAL Lab Routine History of renal cell cancer Expected: 05/24/2024 (Approximate), Expires: 05/24/2025 Scheduled Procedures Name Priority Associated Diagnoses Date/Ti [...] of this encounter Visit Diagnoses Diagnosis Acute URI- Primary Acute upper respiratory infections of unspecified site 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, with long-term current use of insulin (HCC) Mixed hyperlipidemia Abnormal EKG Nonspecific abnormal electrocardiogram (ECG) (EKG) History of renal cell cancer HTN, goal below 140/90 Unspecified essential hypertension COPD, group A, by GOLD 2013 classification ([facility]) Encounter for long-term (current) use of medications Encounter for long-term (current) use of other medications Screening for prostate cancer Special screening for malignant neoplasm of prostate documented in this encounter Advance Directives * Full Code (Latest Code Status on File) Date Activated Date Inactivated Comments 06/11/2020 2:26 PM 06/15/2020 5:11 PM This order reflects the patients wishes and were consensually agreed upon. Question Answer Comments Discussion of Advance Directives occurred with: Not Discussed Care Teams Support Analyst Relationship Specialty Start Date End Date Damion Cheung MD [address] [place] [address] PCP - General Internal Medicine 12/01/21 documented as of this encounter"
--- OUTSIDE RECORDS SUMMARY | 2024-08-14 02:06 | External Medical Summary | Summary of Care ---
Author Name Unknown Organization [facility] Address [address] [place] [address] Phone [phone] Care Team Providers Care Teacher Citizenship Name Role Phone Damion Cheung MD Primary Care Provider + Reason for Referral * Precert (Within 10 days (routine)) - Authorized Specialty Diagnoses / Procedures Referred By Contac t Referred To Contact Radiology Diagnoses Chest pain, unspecified type Abnormal EKG HTN, goal below 140/90 Procedures NM MYOCARD PERF IMG SPECT MULT STUDIES WITH PHARM INTERV Nathalie Jackson CRNP [address] [facility] [place] [address] Phone: tel: fax: Referral ID Status Reason Start Date Expiration Date V isits Requested Visits Authorized [id number] Authorized Precert 04/12/2024 999 999 * Precert (Diagnostic Medical) (Within 10 days (routine)) - Authorized Specialty Diagnoses / Procedures Referred By Contac t Referred To Contact Cardiac Studies Diagnoses Chest pain, unspecified type Abnormal EKG Palpitations HTN, goal below 140/90 Procedures ECHO, COMPLETE (2D), TRANS-THORACIC Nathalie Jackson CRNP [address] [place] [address] Phone: tel: fax: Referral ID Status Reason Start Date Expiration Date V isits Requested Visits Authorized [id number] Authorized Precert 04/13/2024 999 999 Reason for Visit * Reason Comments Acute Encounter Details Date Type Department Care Team (Late st Contact Info) Description 04/12/2024 3:00 PM EST Office Visit Cardiology, [facility] [address] [place] [address] Nathalie Jackson CRNP [address] [place] [address] Chest pain, unspecified type*; Abnormal EKG; Palpitations; HTN, goal below 140/90; Dyslipidemia, goal LDL below 100; Type 2 diabetes mellitus with hemoglobin A1c goal of less than 7.0% (HCC) Allergies Active Allergy Reactions Criticality Noted Date Comments Iodinated Contrast Media Other (Please comment) Low 09/04/2009 Pt stated IV dye made him feel funny. Can't quite remember. documented as of this encounter (statuses as of 04/21/2024) Medications Polyethylene Glycol 3350 17 GM/SCOOP Oral [...] 4 Active Azelastine HCl 0.15 % Nasal SolutionIndicatio ns:Rhinorrhea Administer 1 [place] into nostril in the morning and 1 [place] before bedtime. 30 mL 12 4 Active OneTouch Delica Lancets 33GIndications:Ty pe [...] 01/24/2024 2:52 PM EDT 4 Active Nystatin 426529 UNIT/GM External Cream apply to affected area twice a day FOR 10 DAYS 30 g 03/06/2024 4:43 PM EST 4 Active Tirzepatide 2.5 MG/0.5ML Subcutaneous Solution Auto-injector (Mounjaro) Inject 2.5 mg under the skin once a week. 2 mL 2 4 03/07/20 25 Active Mounjaro 5 MG/0.5ML Subcutaneous Solution Auto-injector (Tirzepatide) Inject 5 mg under the skin once a week. 2 mL 5 4 03/28/20 25 Active Terazosin HCl 1 MG Oral Capsule (Hytrin)Indicatio ns:HTN, goal below 140/90 Take 1 Capsule by mouth at bedtime. 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 The [employer] program provides food-insecure diabetics with healthy food for their entire household (2 meals/ day X 5 days/week). The program also provides education on food preparation, healthy living, and diabetes self management. The research measures the effects of the program on patient health and wellbeing. Subject will begin the FFF program (11/2018). Contact Information: Administrative Assistant Data Entry: Dr. Jaleel Harris ([phone]) CRC: Cindy Alonso ([phone]) RA: Lizzie Natarajan ([phone]) Diagnosis changed due to Research Module. Go [...] as of this encounter (statuses as of 04/21/2024) Immunizations Name Administration Dates Next Due COVID-19 mRNA, LNP-s, No Pre serve, 2-Dose Series ([employer]) 08/02/2020,07/12/2020 Covid-19, Mrna, Lnp-s, Pf, B ivalent, 30 Mcg, IM, 12 yrs and above ([employer]) 02/04/2022 Hepatitis B, 20+ yrs 01/17/2014,08/16/2013,07/16 Pneumococcal Conjugate Vacci ne, 20-valent ([id number]) 10/07/2021 Pneumococcal Polysaccharide PPV23 (Pneumovax) 09/04/2009 Seasonal [...] Sign Reading Time Taken Comments Blood Pressure 164/78 04/12/2024 2:54 PM EST Pulse 78 04/12/2024 2:54 PM EST Temperature - - Respiratory Rate 16 04/12/2024 2:54 PM EST Oxygen Saturation - - Inhaled Oxygen Concentration - - Weight 132.1 kg (291 lb 4 oz) 04/12/2024 2:54 PM EST Height - - Body Mass Index 41.79 01/05/2024 12:36 PM EDT documented in this [...] Alix Blancas RN documented in this encounter Patient Instructions * Patient Instructions* Nathalie Jackson CRNP - 04/12/2024 3:17 PM EST Continue current medications as you are Start Terazosin 1mg at bedtime Schedule stress test and echocardiogram (ultrasound of the heart) documented in this encounter Progress Notes * Nathalie Jackson CRNP - 04/12/2024 3:00 PM EST 04/12/2024 Cardiology Follow Up Primary Locomotive Repairer Diesel: CHRISTIANO; formerly Dr. Mares Cardiac Problems: Extensive coronary artery calcifications via 02/19/[address] [facility] Chronic stable atypical chest pain Chronic stable palpitations consistent with sensed ectopy. 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 Last seen in our office approx 9 months ago. He has a history of CAD based on a chest CT obtained in 2021. Patient was recommended to have a nuclear stress test following that and did not do so. He presents today because of acute concerns of chest pain and palpitations. Patient states that he was shoveling snow on Tuesday and developed chest pain and palpitations, resolved with rest. The next night he woke from having a nightmare, heart was racing and he had pain in his chest radiating to his left arm. He states that his vision had changed feeling like his vision was pulsating. BP above target today. Reports compliant on his current medications. REVIEW OF SYSTEMS: See HPI for pertinent positives. All others negative other than those noted in the HPI. CONSTITUTIONAL: No change in weight, No weakness, No fatigue and No fevers, No sweats or chills. PULMONARY: No cough, sputum, or hemoptysis, No wheezing, No shortness or breath and No recent change in breathing. CARDIOVASCULAR: No chest pain, No dyspnea on exertion, No edema, No palpitations and No syncope. GASTROINTESTINAL: No abdominal [...] of water or juice. 578 g 5 Magnesium Oxide -Mg Supplement 400 (240 Mg) [...] nostril in the morning. 16 g 5 Rosuvastatin Calcium 40 MG Oral Tablet (Crestor) Take 1 Tablet by mouth daily. 90 Tablet 2 Toujeo Max SoloStar 300 UNIT/ML Subcutaneous Solution Pen-injector (Insulin Glargine (2 Unit Dial))Inject 360 Units under the skin at bedtime. 108 mL 2 Triamcinolone Acetonide 0.5 % External Cream (Aristocort) Apply topically to affected area 2 times a day. To affected area. 60 g 5 NovoLOG FlexPen 100 UNIT/ML Subcutaneous Solution Pen-injector INJECT 48 UNITS UNDER THE SKIN BEFORE LUNCH, 48 UNITS FOR DINNER AND 35 UNITS FOR EVENING SNACK PLUS CORRECTION CF 1:18 over 140. UP TO 150 UNITS MAX DAILY 45 mL 2 Losartan Potassium 100 MG Oral Tablet (Cozaar) Take 1 Tablet by mouth in the morning. 90 Tablet 1 Nystatin 409648 UNIT/GM External Cream apply to affected area twice a day FOR 10 DAYS 30 g 0 Tirzepatide 2.5 MG/0.5ML Subcutaneous Solution Auto-injector (Mounjaro) Inject 2.5 mg under the skin once a week. 2 mL 2 Mounjaro 5 MG/0.5ML Subcutaneous Solution Auto-injector (Tirzepatide) Inject 5 mg under the skin once a week. 2 mL 5 Terazosin HCl 1 MG Oral Capsule (Hytrin) Take 1 Capsule by mouth at bedtime. 100 Capsule 3 Nebulizer Use as directed. Azelastine HCl 0.15 % Nasal Solution Administer 1 [place] into nostril in the morning and 1 [place] before bedtime. 30 mL 12 OneTouch Delica Lancets 33G Use to test [...] pen needles as directed 100 Each 3 Mucinex DM 30-600 MG Oral Tablet Extended Release 12 Hour Take 1 Tablet by mouth 2 times a day as needed for Cough. Take with plenty of water. Do not cut, crush or chew 40 Tablet 2 Ventolin HFA 108 (90 Base) MCG/ACT Inhalation Aerosol Solution Inhale 2 Puffs by mouth every 4 hours as needed for Wheezing. 8 g 3 Current Facility-Administered Medications Medication Dose Route Frequency Provider Last Rate Last Admin bevaCIZumab (Avastin) inj 1.25 mg 1.25 mg Intravitreal PRN Efraín Galindo DO 1.25 mg at 04/17/24 9903 ROPivacaine (Naropin) inj 1.5 mg 1.5 mg Perineural PRN Efraín Galindo DO 1.5 mg at 946 Past Medical History: Diagnosis Date Calculus of kidney Chest pain, non-cardiac COPD (chronic obstructive pulmonary disease) ([facility]) COPD, group A, by GOLD 2013 classification (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 (Adult - for ages 18 years and over): No Do you think you are at risk of becoming homeless? (Adult - for ages 18 years and over): No Are you homeless or worried that you might be in the future? (Adult - for ages 18 years and over): No OBJECTIVE/PHYSICAL EXAMINATION: BP 164/78 (BP Site: Left Arm) | Pulse 78 | Resp 16 | Wt 132.1 kg (291 lb 4 oz) | BMI 41.79 kg/m² |BSA 2.55 m² General: No acute distress. A+Ox3. HEENT: Normocephalic. Atraumatic. [...] DATA Labs & Imaging Reviewed Below: EKG 07/05/2023 CONCLUSIONS: Normal sinus rhythm Incomplete right bundle branch block Possible Inferior infarct , age undetermined Abnormal ECG When compared with ECG of 17-Nov-2022 15:03, Non-specific change in ST segment in Lateral leads Ventricular Rate: 98 ASSESSMENT/PLAN: 53 year old year old male 1. Chest pain, unspecified type -Abnormal EKG [...] 7.0% ([facility]) -As per management of primary team. -Significant risk factor for coronary disease. DISPOSITION: Follow up 3 months or if symptoms worsen/fail to improve. All questions were answered to the patients satisfaction. Patient advised to report to ED with any and all emergencies. The patient agrees to the above plan and will call with additional questions or concerns. JELANI [facility], [address] [address] I spent a total of 48 minutes on the date of service in preparation, delivery, and documentation ofthe care provided to Marco Campos excluding any time spent in the performance of separately billed services. This chart was completed in part utilizing [employer] Speech Voice Recognition Software. Grammatical errors, random [...] documented in this encounter Nursing Notes * Brie Reis CMA - 04/12/2024 2:49 PM EST Examination Room: 7 Name: Marco Campos Date of : (1970). Reason for Visit: Acute Interim Hospitalization(s): denies Problems/Concerns: Chest pain and arm and should pain after shoveling snow. Reports visual disturbances as well. Chest Pain/SOB: [facility] Discussed: Yes [facility] is a way you can talk to your provider online through e-mail. Would you like to sign up? I can activate it for you? DECLINES Patient was instructed to not get up on the exam table until directed and assisted by their provider; patient is to remain seated in the chair/ wheelchair/ exam table for fall prevention and safety reasons. Patient is aware to have assistance to step down off exam table with personnel. Patient voiced full comprehension of instructions. documented in this encounter Plan of Treatment Upcoming Encounters Date Type Department Care Team (Late st Contact Info) Description 05/24/2024 3:20 PM EST Office Visit General Internal Medicine [facility] [address] [facility] [place] [address] Damion Cheung MD [address] [facility] [place] [address] 05/30/2024 3:30 PM EST Office Visit Pharmacy, [place] [address] [place] [address] Pharmacist1, [facility] [place] [address] [place] [address] 06/06/2024 1:00 PM EST Appointment Cardiac Studies, [address] [place] [address] 07/10/2024 8:45 AM EDT Office Visit Ophthalmology, [facility] [address] [facility] [place] [address] Efraín Galindo, DO [address] [place] [address] 07/13/2024 10:30 AM EDT Office Visit Cardiology, [place] [place] [address] Nathalie Jackson, JELANI [address] [place] [address] Scheduled Orders Name Type Priority Associated Diagnoses Orde r Schedule EKG COMPLETE (TRACING AND INTERP) EKG Routine Chest pain, unspecified type Ordered: 04/12/2024 ECHO, COMPLETE (2D), TRANS-THORACIC Echocardiology Routine Chest pain, unspecified type Abnormal EKG Palpitations HTN, goal below 140/90 Expected: 04/13/2024 (Approximate), Expires: 2026 NM MYOCARD PERF IMG SPECT MULT STUDIES WITH PHARM INTERV Cardiology Routine Chest pain, unspecified type Abnormal EKG HTN, goal below 140/90 Expected: 04/12/2024 (Approximate), Expires: 05/13/2025 Scheduled Procedures Name Priority Associated Diagnoses Date/Ti [...] Additional history exists CKD HGB USE SMARTSET 16881 06/06/202406/06, 06/06/2023, 05/31/2022, Additional history exists CKD PHOS USE SMARTSET 98580 06/06/202405/26, 06/14/2020, 06/13/2020, Additional history exists Depression [...] Diagnosis Chest pain, unspecified type- Primary Abnormal EKG Nonspecific abnormal electrocardiogram (ECG) (EKG) Palpitations HTN, goal below 140/90 Unspecified essential hypertension Dyslipidemia, goal LDL below 100 Other and unspecified hyperlipidemia Type 2 diabetes mellitus with hemoglobin A1c goal of less than 7.0% (HCC) documented in this encounter Advance Directives * Full Code (Latest Code Status on File) Date Activated Date Inactivated Comments 06/11/2020 2:26 PM 06/15/2020 5:11 PM This order r eflects the patients wishes and were consensually agreed upon. Question Answer Comments Discussion of Advance Directives occurred with: Not Discussed Care Teams Teacher Citizenship Relationship Specialty Start Date End Date Damion Cheung MD [address] [place] [address] PCP - General Internal Medicine 12/01/21 documented as of this encounter"
--- OUTSIDE RECORDS SUMMARY | 2024-08-14 02:06 | External Medical Summary | Summary of Care ---
Author Name Unknown Organization [facility] Address [address] [place] [address] Phone [phone] Care Team Providers Care Vehicle Controls Engineer Name Role Phone Damion Cheung MD Primary Care Provider + Reason for Visit * Reason Onset Date Comments Appointment 04/24/2024 Low grade fever, no appetite, cough Encounter Details Date Type Department Care Team ([facility] st Contact Info) Description 04/24/2024 Telephone General Internal Medicine [facility] [address] [place] [address] Damion Cheung MD [address] [place] [address] Appointment (Low grade fever, no appetite,... Allergies Active Allergy Reactions Criticality Noted Date Comments Iodinated Contrast Media Other (Please comment) Low 09/04/2009 Pt stated IV dye made him feel funny. Can't quite remember. documented as of this encounter (statuses as of 04/26/2024) Medications Polyethylene Glycol 3350 17 GM/SCOOP Oral [...] 0.15 % Nasal SolutionIndicatio ns:Rhinorrhea Administer 1 Ot[place] into nostril in the morning and 1 [place]is before bedtime. 30 mL 12 4 Active [...] 01/24/2024 2:52 PM EDT 4 Active Nystatin 868979 UNIT/GM External Cream apply to affected area [...] for Wheezing. 8 g 3 4 Active Hospital, Clinic, or Other [...] as of this encounter (statuses as of 04/26/2024) Active Problems Problem Noted Date Diagnosed Date [...] as of this encounter (statuses as of 04/26/2024) Resolved Problems Problem Noted Date Diagnosed Date [...] program 11/29/2018 01/28/2020 Overview (08/11/2020): [employer]: A Randomized Controlled Trial (Project # [id number]). The [employer] program provides food-insecure diabetics with healthy food for their entire household (2 meals/ day X 5 days/week). The program also provides education on food preparation, healthy living, and diabetes self management. The research measures the effects of the program on patient health and wellbeing. Subject will begin the FFF program (11/2018). Contact Information: Parking Enforcement Specialist: Dr. Jaleel Harris ([phone]) CRC: Cindy Alonso ([phone]) RA: Lizzie Natarajan ([phone]) Diagnosis changed due to Research Module. Go [...] as of this encounter (statuses as of 04/26/2024) Immunizations Name Administration Dates Next Due COVID-19 mRNA, LNP-s, No Pre serve, 2-Dose Series ([employer]) 08/02/2020,07/12/2020 Covid-19, Mrna, Lnp-s, Pf, B ivalent, 30 Mcg, IM, 12 yrs and above ([employer]) 02/04/2022 Hepatitis B, 20+ yrs 01/17/2014,08/16/2013,07/16 Pneumococcal Conjugate Vacci ne, 20-valent ([id number]) 10/07/2021 Pneumococcal Polysaccharide PPV23 (Pneumovax) 09/04/2009 Seasonal [...] encounter Miscellaneous Notes * Telephone Encounter - Kyle Jurado RN - 04/26/2024 4:55 PM EST Patient scheduled to see Dr. Ying today 04/26/2024. * Telephone Encounter - Taras Leyva OSA - 04/24/2024 10:45 AM EST No Appointments Available Patient declined appointments?: No What Visit Type is needed? Acute If Acute Visit Type is needed, were surrounding clinics offered to patient (Yes/No)? Yes Was patient offered appointments with other available providers (Yes/No)? Yes See Call Details? (Yes or No): Yes documented in this encounter Plan of Treatment Upcoming Encounters Date Type Department Care Team (Late st Contact Info) Description 05/24/2024 3:20 PM EST Office Visit General Internal Medicine [facility] [address] [place] [address] Damion Cheung MD [address] [place] [address] [address] [address] 05/30/2024 3:30 PM EST [facility] [address] [place] [address] Pharmacist1, [facility] [address] [place] [address] 06/06/2024 1:00 PM EST Appointment Cardiac Studies, [facility] [address] [facility] [place] [address] 07/10/2024 8:45 AM EDT Office Visit Ophthalmology, [facility] [address] [place] [address] Efraín Galindo DO [address] [place] [address] 07/13/2024 10:30 AM EDT Office Visit Cardiology, [address] [place] [address] Nathalie Jackson CRNP [address] [place] [address] Scheduled Procedures Name Priority Associated Diagnoses Date/Ti [...] Additional history exists CKD HGB USE SMARTSET 60896 06/06/202406/06, 06/06/2023, 05/31/2022, Additional history exists CKD PHOS USE SMARTSET 12989 06/06/202405/26, 06/14/2020, 06/13/2020, Additional history exists Depression [...] Directives occurred with: Not Discussed Care Teams Vehicle Controls Engineer Relationship Specialty Start Date End Date Damion Cheung MD [address] [place] [address] PCP - General Internal Medicine 12/01/21 documented as of this encounter
--- OUTSIDE RECORDS SUMMARY | 2024-08-14 02:06 | External Medical Summary | Summary of Care ---
Author Name Unknown Organization [facility] Address [address] [place] [address] Phone [phone] Care Team Providers Care Bottle Filler Name Role Phone Damion Cheung MD Primary Care Provider + Reason for Visit * Reason Comments Sinus Problem Congestion - symptom s started about 1 week ago - had low grade fever for about 5 days off and on Cough Occasionally product sasha for brown or yellow mucous Short of Breath Encounter Details Date Type Department Care Team (Latest Contact Info) Description 04/26/2024 5:00 PM EST Office Visit General Internal Medicine [facility] [place] [address] [facility] [place] [address] Mayela Ying MD [address] [place] [address] COPD exacerbation (HCC)*; Acute non-recurrent frontal sinusitis; Type 2 diabetes mellitus with hemoglobin A1c goal of less than 7.0% (HCC); COPD, group A, by GOLD 2013 classification (HCC); HTN, goal below 140/90; Type 2 diabetes mellitus with polyneuropathy (HCC); Cirrhosis of liver without ascites, unspecified hepatic cirrhosis type (HCC) Allergies Active Allergy Reactions Criticality Noted Date Comments Iodinated Contrast Media Other (Please comment) Low 09/04/2009 Pt stated IV dye made him feel funny. Can't quite remember. documented as of this encounter (statuses as of 05/07/2024) Medications Polyethylene Glycol 3350 17 GM/SCOOP Oral [...] 0.15 % Nasal SolutionIndicati ons:Rhinorrhea Administer 1 [place] into nostril in the morning and 1 [place] before bedtime. 30 mL 12 4 Active Additional Information Patient not taking.Reported on 04/26/2024 OneTouch Argelia Lancets 33GIndications:T ype 2 diabetes mellitus with [...] hemoglobin A1c goal of less than 7.0% ([facility]) INJECT 48 UNITS UNDER THE SKIN BEFORE [...] 01/24/2024 2:52 PM EDT 4 Active Nystatin 636852 UNIT/GM External Cream apply to affected area twice a day FOR 10 DAYS 30 g 03/06/2024 4:43 PM EST 4 Active Tirzepatide 2.5 MG/0.5ML Subcutaneous Solution Auto-injector (Mounjaro) Inject 2.5 mg under the skin once a week. 2 mL 2 4 025 Active Additional Information Patient not taking.Reported on 04/26/2024 Mounjaro 5 MG/0.5ML Subcutaneous Solution Auto-injector (Tirzepatide) Inject 5 mg under the skin once a week. 2 mL 5 4 025 Active Additional Information Patient not taking.Reported [...] daily until gone 6 Tablet 5 Active predniSONE 20 MG Oral Tablet (Deltasone)Indic ations:COPD exacerbation (HCC) Take 2 Tablets by mouth in the morning for 5 days. 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 The Fresh Food Farmacy program provides food-insecure diabetics with healthy food for their entire household (2 meals/ day X 5 days/week). The program also provides education on food preparation, healthy living, and diabetes self management. The research measures the effects of the program on patient health and wellbeing. Subject will begin the FFF program (11/2018). Contact Information: Manager Med Surg: Dr. Jaleel Harris ([phone]) CRC: Cindy Alonso ([phone]) RA: Lizzie Natarajan ([phone]) Diagnosis changed due to Research Module. Go [...] as of this encounter (statuses as of 05/07/2024) Immunizations Name Administration Dates Next Due COVID-19 mRNA, LNP-s, No Pre serve, 2-Dose Series (Prediculous) 08/02/2020,07/12/2020 Covid-19, Mrna, Lnp-s, Pf, B ivalent, 30 Mcg, IM, 12 yrs and above (Prediculous) 02/04/2022 Hepatitis B, 20+ yrs 01/17/2014,08/16/2013,07/16 Pneumococcal Conjugate Vacci ne, 20-valent ([id number]) 10/07/2021 Pneumococcal Polysaccharide PPV23 (Pneumovax) 09/04/2009 Seasonal [...] Sign Reading Time Taken Comments Blood Pressure 160/64 04/26/2024 5:07 PM EST Pulse 87 04/26/2024 5:07 PM EST Temperature 35.9 °C (96.7 °F) 04/26/2024 5:07 PM ES T Respiratory Rate 16 04/26/2024 5:07 PM EST Oxygen Saturation 96% 04/26/2024 5:07 PM EST room air Inhaled Oxygen Concentration - - Weight 128.9 kg (284 lb 3.2 oz) 04/26/2024 5:07 PM EST Height - - Body Mass Index 40.78 01/05/2024 12:36 PM EDT documented in this [...] documented in this encounter Progress Notes * Mayela Ying MD - 04/26/2024 5:12 PM EST Images from the original note were not included. History of Present Illness Hernando Campos is a 53 year old male that presents for Sinus Problem (Congestion - symptoms started about 1 week ago - had low grade fever for about 5 days off and on), Cough (Occasionally productive for brown or yellow mucous), and Short of Breath BP high Sinus Problem This is a new problem. The current episode started in the past 7 days. The problem has been gradually worsening since onset. There has been no fever (low grade fever). Associated symptoms include chills, congestion, coughing (productive), shortness of breath, sinus pressure, sneezing and a sore throat. Cough This is a new problem. The current episode started in the past 7 days. Associated symptoms include chills, nasal congestion, a sore throat and shortness of breath. He has tried OTC cough suppressant and a beta-agonist inhaler for the symptoms. Physical Exam Vitals: 04/26/24 1707 Temp: 96.7 °F (35.9 °C) Pulse: 87 Resp: 16 SpO2: 96% BP: 160/64 I have reviewed the following results: Assessment and Plan COPD exacerbation (HCC) Mucinex twice a day with a glass of water - Spacer/Aero-Holding Chambers Device; Use with inhaler. - predniSONE 20 MG Oral Tablet (Deltasone); Take 2 Tablets by mouth in the morning for 5 days. - Azithromycin 250 MG Oral Tablet (Zithromax Z-Leon); Take two tablets by mouth on first day, then 1tablet daily until gone Acute non-recurrent frontal sinusitis - Azithromycin 250 MG Oral Tablet (Zithromax Z-Leon); Take two tablets by mouth on first day, then 1tablet daily until gone Type 2 diabetes mellitus with hemoglobin A1c goal of less than 7.0% (HCC) COPD, group A, by GOLD 2013 classification (HCC) HTN, goal below 140/90 Type 2 diabetes mellitus with polyneuropathy (HCC) Cirrhosis of liver without ascites, unspecified hepatic cirrhosis type (HCC) Wrap-Up Time: I spent a total of 30-39 minutes (exact time 32 mins) on the date of service in preparation, delivery, and documentation of the care provided to Marco Campos excluding any time spent in the performance of separately billed services. documented in this encounter Nursing Notes * Kyle Jurado RN - 04/26/2024 5:10 PM EST Chief Complaint Patient presents with Sinus Problem Congestion - symptoms started about 1 week ago - had low grade fever for about 5 days off and on Cough Occasionally productive for brown or yellow mucous Short of Breath documented in this encounter Plan of Treatment Upcoming Encounters Date Type Department Care Team (Late st Contact Info) Description 05/24/2024 3:20 PM EST Office Visit General Internal Medicine [facility] [address] [facility] [place] [address] Damion Cheung MD [address] [facility] [place] [address] 05/30/2024 3:30 PM EST Office Visit Pharmacy, [place] [address] [place] [address] Pharmacist1, [facility] [place] [address] [place] [phone] 06/06/2024 1:00 PM EST Appointment [address] [address] 07/10/2024 8:45 AM EDT Office Visit Ophthalmology, [facility] [address] [place] [address] Efraín Galindo DO [address] [place] [address] 07/13/2024 10:30 AM EDT Office Visit Cardiology, [place] [place] [address] Nathalie Jackson CRNP [address] [place] [address] Scheduled Procedures Name Priority Associated Diagnoses Date/Ti [...] Additional history exists CKD HGB USE SMARTSET 71627 06/06/202406/06, 06/06/2023, 05/31/2022, Additional history exists CKD PHOS USE SMARTSET 01517 06/06/202405/26, 06/14/2020, 06/13/2020, Additional history exists Depression [...] as of this encounter Visit Diagnoses Diagnosis COPD exacerbation (HCC)- Primary Obstructive chronic bronchitis with exacerbation Acute non-recurrent frontal sinusitis Type 2 diabetes mellitus with hemoglobin A1c goal of less than 7.0% (HCC) COPD, group A, by GOLD 2013 classification (HCC) HTN, goal below 140/90 Unspecified essential hypertension Type 2 diabetes mellitus with polyneuropathy (HCC) Type II or unspecified type diabetes mellitus with neurological manifestations, not stated as uncontrolled Cirrhosis of liver without ascites, unspecified hepatic cirrhosis type (HCC) documented in this encounter Advance Directives * Full Code (Latest Code Status on File) Date Activated Date Inactivated Comments 06/11/2020 2:26 PM 06/15/2020 5:11 PM This order r eflects the patients wishes and were consensually agreed upon. Question Answer Comments Discussion of Advance Directives occurred with: Not Discussed Care Teams Bottle Filler Relationship Specialty Start Date End Date Damion Cheung MD [address] [place] [address] PCP - General Internal Medicine 12/01/21 documented as of this encounter
--- OUTSIDE RECORDS SUMMARY | 2024-08-14 02:06 | External Medical Summary | Summary of Care ---
Author Name Unknown Organization [facility] Address [address] [place] [address] Phone [phone] Care Team Providers Care Electromechanical Assembler Name Role Phone Damion Cheung MD Primary Care Provider + Reason for Visit * Reason Onset Date Comments Appointment 04/12/2024 Encounter Details Date Type Department Care Team ([facility] st Contact Info) Description 04/12/2024 Telephone Cardiology, [facility] [address] [place] [address] Nathalie Jackson CRNP [address] [facility] [place] [address] Appointment Allergies Active Allergy Reactions Criticality Noted Date Comments Iodinated Contrast Media Other (Please comment) Low 09/04/2009 Pt stated IV dye made him feel funny. Can't quite remember. documented as of this encounter (statuses as of 04/23/2024) Medications Polyethylene Glycol 3350 17 GM/SCOOP Oral [...] 0.15 % Nasal SolutionIndicatio ns:Rhinorrhea Administer 1 [place] into nostril in the morning and 1 [place] before bedtime. 30 mL 12 4 Active [...] 01/24/2024 2:52 PM EDT 4 Active Nystatin 196612 UNIT/GM External Cream apply to affected area [...] as of this encounter (statuses as of 04/23/2024) Active Problems Problem Noted Date Diagnosed Date [...] 01/30/2020 Cigarette nicotine dependence in remission 10/08 correction (current) use of insulin 07/03/2019 Type 2 [...] as of this encounter (statuses as of 04/23/2024) Resolved Problems Problem Noted Date Diagnosed Date [...] Farmacy: A Randomized Controlled Trial (Project # [id number]). The Fresh Food Farmacy program provides food-insecure diabetics with healthy food for their entire household (2 meals/ day X 5 days/week). The program also provides education on food preparation, healthy living, and diabetes self management. The research measures the effects of the program on patient health and wellbeing. Subject will begin the FFF program (11/2018). Contact Information: Contamination Consultant: Dr. Jaleel Harris ([phone]) CRC: Cindy Norriseduard ([phone]) RA: Lizzie Natarajan ([phone]) Diagnosis changed due to Research Module. Go [...] as of this encounter (statuses as of 04/23/2024) Immunizations Name Administration Dates Next Due COVID-19 mRNA, LNP-s, No Pre serve, 2-Dose Series (Quantance) 08/02/2020,07/12/2020 Covid-19, Mrna, Lnp-s, Pf, B ivalent, 30 Mcg, IM, 12 yrs and above (Pfizer) 02/04/2022 Hepatitis B, 20+ yrs 01/17/2014,08/16/2013,07/16 Pneumococcal Conjugate Vacci ne, 20-valent ([id number]) 10/07/2021 Pneumococcal Polysaccharide PPV23 (Pneumovax) 09/04/2009 Seasonal [...] encounter Miscellaneous Notes * Telephone Encounter - Mireya Romero OSA - 04/23/2024 10:49 AM EST LM for pt to call back to schedule, no MyG * Telephone Encounter - Jennifer St OSA - 04/16/2024 12:37 PM EST 04/16/24 LM for pt to call back to schedule SH * Telephone Encounter - Serge Lagos OSA - 04/12/2024 3:27 PM EST Patient is ordered a cardiac study, please assist patient to schedule, thank you. Patient would like the testing to be done in [place]. Provider is requesting to be done SHAYAN. Or soonest. Thank you. [place] MYOCARD PERF IMG SPECT MULT STUDIES WITH PHARM INTERV [30042.02] (Order [id number] documented in this encounter Plan of Treatment Upcoming Encounters Date Type Department Care Team (Late st Contact Info) Description 05/24/2024 3:20 PM EST Office Visit General Internal Medicine [facility] [place] [address] [facility] [place] [address] Damion Cheung MD [address] [facility] [place] [address] 05/30/2024 3:30 PM EST Office Visit Pharmacy, [place] [address] [place] [phone] Pharmacist1, [facility] [place] [address] [place] [address] 06/06/2024 1:00 PM EST Appointment Cardiac Studies, [facility] [address] [facility] [place] [address] 07/10/2024 8:45 AM EDT Office Visit Ophthalmology, [facility] [address] [place] [address] Efraín Galindo DO [address] [place] [address] 07/13/2024 10:30 AM EDT Office Visit Cardiology, [address] [place] [address] Nathalie Jackson CRNP [address] [place] [address] Scheduled Procedures Name Priority Associated Diagnoses Date/Ti [...] Additional history exists CKD HGB USE SMARTSET 20979 06/06/202406/06, 06/06/2023, 05/31/2022, Additional history exists CKD PHOS USE SMARTSET 63925 06/06/202405/26, 06/14/2020, 06/13/2020, Additional history exists Depression [...] Directives occurred with: Not Discussed Care Teams Electromechanical Assembler Relationship Specialty Start Date End Date Damion Cheung MD 200 [place] [address] PCP - General Internal Medicine 12/01/21 documented as of this encounter
--- OUTSIDE RECORDS SUMMARY | 2024-08-14 02:06 | External Medical Summary | Summary of Care ---
Author Name Unknown Organization [facility] Address [address] [place] [address] Phone [phone] Care Team Providers Care Farm Helper Name Role Phone Damion Cheung MD Primary Care Provider + Encounter Details Date Type Department Care Team (Late st Contact Info) Description 05/08/2024 Population Health External Data Unspecified Department Allergies Active Allergy Reactions Criticality Noted Date Comments Iodinated Contrast Media Other (Please comment) Low 09/04/2009 Pt stated IV dye made him feel funny. Can't quite remember. documented as of this encounter (statuses as of 05/09/2024) Medications Polyethylene Glycol 3350 17 GM/SCOOP Oral [...] 0.15 % Nasal SolutionIndicati ons:Rhinorrhea Administer 1 [place] into nostril in the morning and 1 [place] before bedtime. 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 The Fresh Food Farmacy program provides food-insecure diabetics with healthy food for their entire household (2 meals/ day X 5 days/week). The program also provides education on food preparation, healthy living, and diabetes self management. The research measures the effects of the program on patient health and wellbeing. Subject will begin the FFF program (11/2018). Contact Information: Minor League Baseball Player: Dr. Jaleel Harris ([phone]) CRC: Cindy Alonso ([phone]) RA: Lizzie Natarajan ([phone]) Diagnosis changed due to Research Module. Go [...] as of this encounter (statuses as of 05/09/2024) Immunizations Name Administration Dates Next Due COVID-19 mRNA, LNP-s, No Pre serve, 2-Dose Series (H5) 08/02/2020,07/12/2020 Covid-19, Mrna, Lnp-s, Pf, B ivalent, 30 Mcg, IM, 12 yrs and above (Pfizer) 02/04/2022 Hepatitis B, 20+ yrs 01/17/2014,08/16/2013,07/16 Pneumococcal Conjugate Vacci ne, 20-valent ([id number]) 10/07/2021 Pneumococcal Polysaccharide PPV23 (Pneumovax) 09/04/2009 Seasonal [...] PM EST Office Visit General Internal Medicine [facility] [address] [facility] [place] [address] Damion Cheung MD [address] [facility] [place] [address] 05/30/2024 3:30 PM EST Office Visit Pharmacy, [place] [address] [place] [address] Pharmacist1, [facility] [place] [address] [place] [address] 06/06/2024 1:00 PM EST Appointment Cardiac Studies, [address] [place] [address] 07/10/2024 8:45 AM EDT Office Visit Ophthalmology, [facility] [address] [facility] [place] [address] Efraín Galindo, DO [address] [place] [address] 07/13/2024 10:30 AM EDT Office Visit Cardiology, [place] [address] [place] [address] [place] [address] Nathalie Jackson CRNP [address] [place] [address] Scheduled Procedures Name Priority Associated Diagnoses Date/Ti [...] Additional history exists CKD HGB USE SMARTSET 59602 06/06/202406/06, 06/06/2023, 05/31/2022, Additional history exists CKD PHOS USE SMARTSET 60132 06/06/202405/26, 06/14/2020, 06/13/2020, Additional history exists Depression [...] Directives occurred with: Not Discussed Care Teams Farm Helper Relationship Specialty Start Date End Date Damion Cheung MD [address] [place] [address] PCP - General Internal Medicine 12/01/21 documented as of this encounter
--- OUTSIDE RECORDS SUMMARY | 2024-08-14 02:06 | External Medical Summary | Summary of Care ---
Author Name Unknown Organization [facility] Address [address] [place] [address] Phone [phone] Care Team Providers Care Communication Analyst Name Role Phone Damion Cheung MD Primary Care Provider + Encounter Details Date Type Department Care Team (Late st Contact Info) Description 04/26/2024 Population Health External Data Unspecified Department Allergies Active Allergy Reactions Criticality Noted Date Comments Iodinated Contrast Media Other (Please comment) Low 09/04/2009 Pt stated IV dye made him feel funny. Can't quite remember. documented as of this encounter (statuses as of 05/01/2024) Medications Polyethylene Glycol 3350 17 GM/SCOOP Oral [...] 0.15 % Nasal SolutionIndicati ons:Rhinorrhea Administer 1 [place] into nostril in the morning and 1 [place] before bedtime. 30 mL 12 4 Active [...] of less than 7.0% ([facility]) Inject 360 Units under the [...] 01/24/2024 2:52 PM EDT 4 Active Nystatin 852758 UNIT/GM External Cream apply to affected area [...] Use with inhaler. 1 Each 5 Active predniSONE 20 MG Oral Tablet (Deltasone)Indic ations:COPD exacerbation (HCC) Take 2 Tablets by mouth in the morning for 5 days. 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 The Fresh Food Farmacy program provides food-insecure diabetics with healthy food for their entire household (2 meals/ day X 5 days/week). The program also provides education on food preparation, healthy living, and diabetes self management. The research measures the effects of the program on patient health and wellbeing. Subject will begin the FFF program (11/2018). Contact Information: Cataract Lens Generator: Dr. Jaleel Harris ([phone]) CRC: Cindy Alonso ([phone]) RA: Lizzie Natarajan ([phone]) Diagnosis changed due to Research Module. Go [...] as of this encounter (statuses as of 05/01/2024) Immunizations Name Administration Dates Next Due COVID-19 mRNA, LNP-s, No Pre serve, 2-Dose Series (Pfizer) 08/02/2020,07/12/2020 Covid-19, Mrna, Lnp-s, Pf, B ivalent, 30 Mcg, IM, 12 yrs and above (Pfizer) 02/04/2022 Hepatitis B, 20+ yrs 01/17/2014,08/16/2013,07/16 Pneumococcal Conjugate Vacci ne, 20-valent ([id number]) 10/07/2021 Pneumococcal Polysaccharide PPV23 (Pneumovax) 09/04/2009 Seasonal [...] No 11/15/2023 Does the household have a [facility] source of income? (Household - for ages [...] of Assessment Author No 06/11/2020 4:28 PM Alxi Colindres RN * Because of a physical, [...] PM EST Office Visit General Internal Medicine [facility] [address] [facility] [place] [address] Damion Cheung MD [address] [facility] [place] [address] 05/30/2024 3:30 PM EST Office Visit Pharmacy, [place] [address] [place] [address] Pharmacist1, [facility] [place] [address] [place] [address] 06/06/2024 1:00 PM EST Appointment Cardiac Studies, [address] [place] [address] 07/10/2024 8:45 AM EDT Office Visit Ophthalmology, [facility] [address] [place] [address] Efraín Galindo DO [address] [place] [address] 07/13/2024 10:30 AM EDT Office Visit Cardiology, [place] [place] [address] Nathalie Jackson CRNP [address] [place] [address] Scheduled Procedures Name Priority Associated Diagnoses Date/Ti [...] Additional history exists CKD HGB USE SMARTSET 19947 06/06/202406/06, 06/06/2023, 05/31/2022, Additional history exists CKD PHOS USE SMARTSET 19798 06/06/202405/26, 06/14/2020, 06/13/2020, Additional history exists Depression [...] Directives occurred with: Not Discussed Care Teams Communication Analyst Relationship Specialty Start Date End Date Damion Cheung MD [address] [place] [address] PCP - General Internal Medicine 12/01/21 documented as of this encounter
--- OUTSIDE RECORDS SUMMARY | 2024-08-14 02:07 | External Medical Summary | Summary of Care ---
Author Name Unknown Organization [facility] Address [address] [place] [address] Phone [phone] Care Team Providers Care Process Coordinator Name Role Phone Damion Cheung MD Primary Care Provider + Encounter Details Date Type Department Care Team (Late st Contact Info) Description 04/09/2024 Telephone Access Center, [place] [address] *DO NOT REMOVE THIS DEPARTMENT* [place] [address] Request, External Referral Allergies Active Allergy Reactions Criticality Noted Date Comments Iodinated Contrast Media Other (Please comment) Low 09/04/2009 Pt stated IV dye made him feel funny. Can't quite remember. documented as of this encounter (statuses as of 04/09/2024) Medications Polyethylene Glycol 3350 17 GM/SCOOP Oral [...] 0.15 % Nasal SolutionIndicatio ns:Rhinorrhea Administer 1 [place] into nostril in the morning and 1 [place] before bedtime. 30 mL 12 4 Active [...] 2 01/24/2024 2:52 PM EDT 4 Active Toishan Su SoloStar 300 UNIT/ML Subcutaneous Solution Pen-injector (Insulin [...] 01/24/2024 2:52 PM EDT 4 Active Nystatin 579315 UNIT/GM External Cream apply to affected area [...] 2 mL 5 4 03/28/20 25 Active Hospital, Clinic, or Other Facility [...] as of this encounter (statuses as of 04/09/2024) Active Problems Problem Noted Date Diagnosed Date [...] 01/30/2020 Cigarette nicotine dependence in remission 10/08 shelter (current) use of insulin 07/03/2019 Type 2 [...] as of this encounter (statuses as of 04/09/2024) Resolved Problems Problem Noted Date Diagnosed Date [...] program 11/29/2018 01/28/2020 Overview (08/11/2020): [employer] US[employer]: A Randomized Controlled Trial (Project # [id number]). The [employer] program provides food-insecure diabetics with healthy food for their entire household (2 meals/ day X 5 days/week). The program also provides education on food preparation, healthy living, and diabetes self management. The research measures the effects of the program on patient health and wellbeing. Subject will begin the FFF program (11/2018). Contact Information: Cattle Dealer: Dr. Jaleel Harris ([phone]) CRC: Cindy Alonso ([phone]) RA: Lizzie Natarajan ([phone]) Diagnosis changed due to Research Module. Go [...] as of this encounter (statuses as of 04/09/2024) Immunizations Name Administration Dates Next Due COVID-19 mRNA, LNP-s, No Pre serve, 2-Dose Series (Pfizer) 08/02/2020,07/12/2020 Covid-19, Mrna, Lnp-s, Pf, B ivalent, 30 Mcg, IM, 12 yrs and above ([employer]) 02/04/2022 Hepatitis B, 20+ yrs 01/17/2014,08/16/2013,07/16 Pneumococcal Conjugate Vacci ne, 20-valent ([id number]) 10/07/2021 Pneumococcal Polysaccharide PPV23 (Pneumovax) 09/04/2009 Seasonal [...] encounter Miscellaneous Notes * Telephone Encounter - Amie Bolaños RN - 04/09/2024 11:18 AM EST LVM w/callback information for pt. that appt. Is now rescehduled for 04/17/24 at 9:15. Amie Bolaños RN 04/09/2024 11:19 AM * Telephone Encounter - Yomaira Miller OSA - 04/09/2024 10:59 AM EST Good Afternoon This pt needs to babita his appt for F/u 8-10 weeks, OCT OU // Avastin Needs something next week Please advise documented in this encounter Plan of Treatment Upcoming Encounters Date Type Department Care Team (Late st Contact Info) Description 04/17/2024 9:15 AM EST Office Visit Ophthalmology, [facility] [address] [place] [address] Efraín Galindo DO [address] [place] [address] 05/24/2024 3:20 PM EST Office Visit General Internal Medicine [facility] [address] [place] [address] Damion Cheung MD 200 [place] [address] 05/30/2024 3:30 PM EST Office Visit Pharmacy, [place] [address] [place] [address] Pharmacist1, [facility] [place] [address] [place] [id number] Scheduled Procedures Name Priority Associated Diagnoses Date/Ti [...] Additional history exists CKD HGB USE SMARTSET 00117 06/06/202406/06, 06/06/2023, 05/31/2022, Additional history exists CKD PHOS USE SMARTSET 84613 06/06/202405/26, 06/14/2020, 06/13/2020, Additional history exists Depression [...] 06/07/2018 Alpha-1 Antitrypsin Completed 05/18/2021 Pneumococcal Vaccine: Pediatrics (0 to 5 Years) and At-Risk Patients (6 to 64 Years) Completed 10/07/2021, 09/04/2009 Lung Cancer Screening Completed [...] Directives occurred with: Not Discussed Care Teams Process Coordinator Relationship Specialty Start Date End Date Damion Cheung MD [address] [place] [address] PCP - General Internal Medicine 12/01/21 documented as of this encounter
--- OUTSIDE RECORDS SUMMARY | 2024-08-14 02:07 | External Medical Summary | Summary of Care ---
Author Name Unknown Organization [facility] Address [address] [place] [address] Phone [phone] Care Team Providers Care Watch Crystal Edge Grinder Name Role Phone Damion Cehung MD Primary Care Provider + Reason for Visit * Reason Onset Date Comments FYI 03/28/2024 Encounter Details Date Type Department Care Team ([facility] st Contact Info) Description 03/28/2024 Telephone Pharmacy, [address] [address] Felecia Mccrary, [facility] [address] [facility] [place] [address] FYI Allergies Active Allergy Reactions Criticality Noted Date Comments Iodinated Contrast Media Other (Please comment) Low 09/04/2009 Pt stated IV dye made him feel funny. Can't quite remember. documented as of this encounter (statuses as of 03/28/2024) Medications Polyethylene Glycol 3350 17 GM/SCOOP Oral [...] 0.15 % Nasal SolutionIndicatio ns:Rhinorrhea Administer 1 [place] into nostril in the morning and 1 [place] before bedtime. 30 mL 12 4 Active [...] 01/24/2024 2:52 PM EDT 4 Active Nystatin 403242 UNIT/GM External Cream apply to affected area [...] as of this encounter (statuses as of 03/28/2024) Active Problems Problem Noted Date Diagnosed Date [...] as of this encounter (statuses as of 03/28/2024) Resolved Problems Problem Noted Date Diagnosed Date [...] clinical research program 11/29/2018 01/28/2020 Overview (08/11/2020): [employer]: A Randomized Controlled Trial (Project # [id number]). The [employer] program provides food-insecure diabetics with healthy food for their entire household (2 meals/ day X 5 days/week). The program also provides education on food preparation, healthy living, and diabetes self management. The research measures the effects of the program on patient health and wellbeing. Subject will begin the FFF program (11/2018). Contact Information: Signal Maintainer Helper: Dr. Jaleel Harris ([phone]) CRC: Cindy Norriseduard ([phone]) RA: Lizzie Natarajan ([phone]) Diagnosis changed due to Research Module. Go [...] as of this encounter (statuses as of 03/28/2024) Immunizations Name Administration Dates Next Due COVID-19 mRNA, LNP-s, No Pre serve, 2-Dose Series ([employer]) 08/02/2020,07/12/2020 Covid-19, Mrna, Lnp-s, Pf, B ivalent, 30 Mcg, IM, 12 yrs and above ([employer]) 02/04/2022 Hepatitis B, 20+ yrs 01/17/2014,08/16/2013,07/16 Pneumococcal Conjugate Vacci ne, 20-valent ([id number]) 10/07/2021 Pneumococcal Polysaccharide PPV23 (Pneumovax) 09/04/2009 Seasonal [...] Date Author No 06/11/2020 4:28 PM EST Ustynoski , Alix E, RN documented in this encounter Miscellaneous Notes * Telephone Encounter - Felecia Mccrary RPh - 03/28/2024 1:44 PM EST Spoke with fire alarm technician who relayed message to patient that Mounjaro was approved on 03/19. superintendent electric power Rx for 2.5mg weekly. Take for 4 weeks then increase to 5mg if he tolerates it well. Felecia Mccrary RPH Clinical Pharmacist 03/28/2024, 1:45 PM * Telephone Encounter - Radha Pollock CPhT - 03/28/2024 1:31 PM EST Caller's name: Hernando Preferred call back number(OFFICE NUMBER FOR ): [phone] Reason for call: Pt said he never got his Mounjaro due to a prior auth needed. Please advise. Thank you, Radha Pollock Film Washer [facility] 03/28/2024,1:31 PM * Telephone Encounter - Felecia Mccrary RPh - 03/28/2024 8:28 AM EST Left message for patient on mobile VM inquiring about toleration of Mounjaro 2.5mg weekly. MTDM prefers to have patient increase to Mounjaro 5mg after his 4 weeks of 2.5mg if tolerated. Sending in Rxfor 5mg but left 2.5mg active in the event that patient is NOT tolerating well and needs another 4 weeks. Patient to return call and advise MTDM if he plans to increase to Mounjaro 5mg so med list can be cleaned up. Felecia Mccrary RPH Clinical Pharmacist 03/28/2024, 8:32 AM documented in this encounter Plan of Treatment Upcoming Encounters Date Type Department Care Team (Late st Contact Info) Description 04/09/2024 2:45 PM EST Office Visit Ophthalmology, [facility] [address] [place] [address] Efraín Galindo DO [address] [place] [address] 05/24/2024 3:20 PM EST Office Visit General Internal Medicine [facility] [address] [facility] [place] [address] Damion Cheung MD [address] [place] [address] 05/30/2024 3:30 PM EST Office Visit Pharmacy, [place] [address] [place] [address] Pharmacist, [facility] [place] [address] [place] [address] Scheduled Procedures Name Priority Associated Diagnoses Date/Ti [...] Additional history exists CKD HGB USE SMARTSET 49098 06/06/202406/06, 06/06/2023, 05/31/2022, Additional history exists CKD PHOS USE SMARTSET 54571 06/06/202405/26, 06/14/2020, 06/13/2020, Additional history exists Depression [...] Directives occurred with: Not Discussed Care Teams Watch Crystal Edge Grinder Relationship Specialty Start Date End Date Damion Cheung MD [address] [place] [address] PCP - General Internal Medicine 12/01/21 documented as of this encounter
--- OUTSIDE RECORDS SUMMARY | 2024-08-14 02:07 | External Medical Summary | Summary of Care ---
Author Name Unknown Organization [facility] Address [address] [place] [address] Phone [phone] Care Team Providers Care Carton Filling Machine Operator Name Role Phone Damion Cheung MD Primary Care Provider + Reason for Visit * Reason Onset Date Comments FYI 03/28/2024 Encounter Details Date Type Department Care Team ([facility] st Contact Info) Description 03/28/2024 Telephone Pharmacy, [address] [address] Felecia Mccrary, [facility] [address] [facility] [place] [address] FYI Allergies Active [...] 0.15 % Nasal SolutionIndicatio ns:Rhinorrhea Administer 1 [place] into nostril in the morning and 1 [place] before bedtime. 30 mL 12 4 Active [...] 01/24/2024 2:52 PM EDT 4 Active Nystatin 967525 UNIT/GM External Cream apply to affected area [...] 01/30/2020 Cigarette nicotine dependence in remission 10/08 long-term (current) use of insulin 07/03/2019 Type 2 [...] clinical research program 11/29/2018 01/28/2020 Overview (08/11/2020): [employer]: A Randomized Controlled Trial (Project # [id number]). The Fresh Food [employer] program provides food-insecure diabetics with healthy food for their entire household (2 meals/ day X 5 days/week). The program also provides education on food preparation, healthy living, and diabetes self management. The research measures the effects of the program on patient health and wellbeing. Subject will begin the FFF program (11/2018). Contact Information: Mortgage Loan Computation Clerk: Dr. Jaleel Harris ([phone]) CRC: Cindy Norriseduard ([phone]) RA: Lizzie Natarajan ([phone]) Diagnosis changed due to Research Module. Go [...] mRNA, LNP-s, No Pre serve, 2-Dose Series ([employer]) 08/02/2020,07/12/2020 Covid-19, Mrna, Lnp-s, Pf, B ivalent, 30 Mcg, IM, 12 yrs and above ([employer]) 02/04/2022 Hepatitis B, 20+ yrs 01/17/2014,08/16/2013,07/16 Pneumococcal Conjugate Vacci ne, 20-valent ([id number]) 10/07/2021 Pneumococcal Polysaccharide PPV23 (Pneumovax) 09/04/2009 Seasonal [...] encounter Miscellaneous Notes * Telephone Encounter - Radha Pollock CPhT - 03/28/2024 1:31 PM EST Caller's name: Hernando Preferred call back number(OFFICE NUMBER FOR ): [phone] Reason for call: Pt said he never got his Mounjaro due to a prior auth needed. Please advise. Thank you, Radha Pollock Aerographer [facility] 03/28/2024,1:31 PM * [...] 04/09/2024 2:45 PM EST Office Visit Ophthalmology, [facility] [address] [place] [address] Efraín Galindo DO [address] [place] [address] 05/24/2024 3:20 PM EST Office Visit General Internal Medicine [address] [place] [address] [place] [address] Damion Cheung MD 200 [place] [address] 05/30/2024 3:30 PM EST Office Visit Pharmacy, [place] [address] [place] [address] Pharmacist1, [facility] [place] [address] [place] [address] Scheduled Procedures Name Priority Associated Diagnoses Date/Ti [...] Additional history exists CKD HGB USE SMARTSET 73705 06/06/202406/06, 06/06/2023, 05/31/2022, Additional history exists CKD PHOS USE SMARTSET 49919 06/06/202405/26, 06/14/2020, 06/13/2020, Additional history exists Depression [...] Directives occurred with: Not Discussed Care Teams Carton Filling Machine Operator Relationship Specialty Start Date End Date Damion Cheung MD [address] [place], [place] [address] PCP - General Internal Medicine 12/01/21 documented as of this encounter
--- OUTSIDE RECORDS SUMMARY | 2024-08-14 02:07 | External Medical Summary | Summary of Care ---
Author Name Unknown Organization [facility] Address [address] [place] [address] Phone [phone] Care Team Providers Care Senior Talent Acquisition Specialist Name Role Phone Damion Cheung MD Primary Care Provider + Reason for Visit * Reason Onset Date Comments Appointment 04/12/2024 Encounter Details Date Type Department Care Team (Late st Contact Info) Description 04/12/2024 Telephone Cardiology, [facility] [address] [place] [address] Nathalie Jackson CRNP [address] [employer] [place] [address] Appointment Allergies Active Allergy Reactions Criticality Noted Date Comments Iodinated Contrast Media Other (Please comment) Low 09/04/2009 Pt stated IV dye made him feel funny. Can't quite remember. documented as of this encounter (statuses as of 04/16/2024) Medications Polyethylene Glycol 3350 17 GM/SCOOP Oral [...] 0.15 % Nasal SolutionIndicatio ns:Rhinorrhea Administer 1 [place] into nostril in the morning and 1 [place] before bedtime. 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 The Fresh Food [employer] program provides food-insecure diabetics with healthy food for their entire household (2 meals/ day X 5 days/week). The program also provides education on food preparation, healthy living, and diabetes self management. The research measures the effects of the program on patient health and wellbeing. Subject will begin the FFF program (11/2018). Contact Information: Welder/Fabricator: Dr. Jaleel Harris ([phone]) CRC: Cindy Alonso ([phone]) RA: Lizzie Natarajan ([phone]) Diagnosis changed due to Research Module. Go [...] as of this encounter (statuses as of 04/16/2024) Immunizations Name Administration Dates Next Due COVID-19 mRNA, LNP-s, No Pre serve, 2-Dose Series ([employer]) 08/02/2020,07/12/2020 Covid-19, Mrna, Lnp-s, Pf, B ivalent, 30 Mcg, IM, 12 yrs and above (Pfizer) 02/04/2022 Hepatitis B, 20+ yrs 01/17/2014,08/16/2013,07/16 Pneumococcal Conjugate Vacci ne, 20-valent ([id number]) 10/07/2021 Pneumococcal Polysaccharide PPV23 (Pneumovax) 09/04/2009 Seasonal [...] encounter Miscellaneous Notes * Telephone Encounter - Jennifer St OSA - 04/16/2024 12:37 PM EST 04/16/24 LM for pt to call back to schedule SH * Telephone Encounter - Serge Lagos OSA - 04/12/2024 3:27 PM EST Patient is ordered a cardiac study, please assist patient to schedule, thank you. Patient would like the testing to be done in [place]. Provider is requesting to be done SHAYAN. Or soonest. Thank you. NM MYOCARD PERF IMG SPECT MULT STUDIES WITH PHARM INTERV [85086.02] (Order [id number] documented in this encounter Plan of Treatment Upcoming Encounters Date Type Department Care Team (Late st Contact Info) Description 04/17/2024 9:15 AM EST Office [facility], [facility] [place] [address] Efraín Galindo DO [address] [place] [address] 05/24/2024 3:20 PM EST Office Visit General Internal Medicine [facility] [place] [address] [facility] [place] [address] Damion Cheung MD [address] [facility] [place] [address] 05/30/2024 3:30 PM EST Office Visit Pharmacy, [place] [address] [place] [address] Pharmacist, [facility] [place] [address] [place] [address] 06/06/2024 1:00 PM EST Appointment Cardiac Studies, [address] [place] [address] 07/13/2024 10:30 AM EDT Office Visit Cardiology, [address] [place] [address] Nathalie Jackson CRNP [address] [place] [address] Scheduled Procedures Name Priority Associated Diagnoses Date/Ti [...] Additional history exists CKD HGB USE SMARTSET 91616 06/06/202406/06, 06/06/2023, 05/31/2022, Additional history exists CKD PHOS USE SMARTSET 87189 06/06/202405/26, 06/14/2020, 06/13/2020, Additional history exists Depression [...] Directives occurred with: Not Discussed Care Teams Senior Talent Acquisition Specialist Relationship Specialty Start Date End Date Damion Cheung MD [address] [place] [address] PCP - General Internal Medicine 12/01/21 documented as of this encounter
--- OUTSIDE RECORDS SUMMARY | 2024-08-14 02:07 | External Medical Summary | Summary of Care ---
Author Name Unknown Organization [facility] Address [address] [place] [address] Phone [phone] Care Team Providers Care Heel Molder Name Role Phone Damion Cheung MD Primary Care Provider + Reason for Visit * Reason Comments Acute Encounter Details Date Type Department Care Team ([facility] st Contact Info) Description 04/21/2024 9:00 AM EST [address] [id number] Sarah Burciaga PA-C [address] [place] [address] Viral URI with cough* Allergies Active Allergy Reactions Criticality Noted Date [...] 0.15 % Nasal SolutionIndicatio ns:Rhinorrhea Administer 1 [place] into nostril in the morning and 1 [place] before bedtime. 30 mL 12 4 Active [...] 01/24/2024 2:52 PM EDT 4 Active Nystatin 517569 UNIT/GM External Cream apply to affected area [...] 01/30/2020 Cigarette nicotine dependence in remission 10/08 half-way (current) use of insulin 07/03/2019 Type 2 [...] program 11/29/2018 01/28/2020 Overview (08/11/2020): [employer]: A Randomized Controlled Trial (Project # [id number]). The [employer] Food [employer] program provides food-insecure diabetics with healthy food for their entire household (2 meals/ day X 5 days/week). The program also provides education on food preparation, healthy living, and diabetes self management. The research measures the effects of the program on patient health and wellbeing. Subject will begin the FFF program (11/2018). Contact Information: Linker Up: Dr. Jaleel Harris ([phone]) CRC: Cindy Alonso ([phone]) RA: Lizzie Natarajan ([phone]) Diagnosis changed due to Research Module. Go [...] yrs 01/17/2014,08/16/2013,07/16 Pneumococcal Conjugate Vacci ne, 20-valent ([id number]) 10/07/2021 Pneumococcal Polysaccharide PPV23 (Pneumovax) 09/04/2009 Seasonal [...] of Assessment Author No 06/11/2020 4:28 PM lAix Colindres RN * Are you blind or [...] documented in this encounter Progress Notes * Sarah Burciaga PA-C - 04/21/2024 8:56 AM EST Subjective Hernando Campos is a 53 year old male that presents via telemedicine for Acute Patient location: HOME. I was in a hospital or clinic location. After connecting through [employer],patient was verified with two unique identifiers. Patient (or authorized legal route service representative) was then informed that this was a Telemedicine visit and being conducted confidentially over secure lines. Methods to assure confidentiality were taken. Patient acknowledged consent and understanding of pr ivacy and security of the Telemedicine visit. The patient agreed to participate. Patient c/o chest congestion, cough, sinus congestion, rhinorrhea, sore throat, and low-grade temp (99.6F last night). Symptoms started 2 days ago. (+) sick contact, family members with similar symptoms. Took Mucinex 2 days ago, did not notice much of a difference. Denies N/V/D, rash, chest pain, or dyspnea. Current Outpatient Medications Medication Sig Dispense Refill [...] nostril in the morning. 16 g 5 Azelastine HCl 0.15 % Nasal Solution Administer 1 Gordo into nostril in the morning and 1 Gordo before bedtime. 30 mL 12 OneTouch Delica [...] in the morning. 90 Tablet 1 Nystatin 437174 UNIT/GM External Cream apply to affected area twice a day FOR 10 DAYS 30 g 0 Tirzepatide 2.5 MG/0.5ML Subcutaneous Solution Auto-injector (Alfredo) Inject 2.5 mg under the skin once a week. 2 mL 2 Mounjaro 5 MG/0.5ML Subcutaneous Solution Auto-injector (Tirzepatide) Inject 5 mg under the skin once a week. 2 mL 5 Terazosin HCl 1 MG Oral Capsule (Hytrin) Take 1 Capsule by mouth at bedtime. 100 Capsule 3 Current Facility-Administered Medications Medication Dose Route Frequency Provider Last Rate Last Admin bevaCIZumab (Avastin) inj 1.25 mg 1.25 mg Intravitreal PRN Efraín Galindo, DO 1.25 mg at 04/17/24 0946 ROPivacaine (Naropin) inj 1.5 mg 1.5 mg Perineural PRN CessEfraín chávez, DO 1.5 mg at 946 Objective There were no vitals taken for this visit. There is no height or weight on file to calculate BMI. BP Readings from Last 3 Encounters: 04/12/24 164/78 01/05/24 122/80 11/14/23 144/70 Wt Readings from Last 3 Encounters: 04/12/24 291 lb 4 oz (132.1 kg) 01/05/24 286 lb 6.4 oz (129.9 kg) 11/14/23 284 lb 3.2 oz (128.9 kg) Physical Exam Constitutional: General: He is not in acute distress. Appearance: Normal appearance. HENT: Head: Normocephalic. Right Ear: External ear normal. Left Ear: External ear normal. Nose: Nose normal. Eyes: General: Right eye: No discharge. Left eye: No discharge. Pupils: Pupils are equal, round, and reactive to light. Pulmonary: Effort: Pulmonary effort is normal. No respiratory distress. Abdominal: General: There is no distension. Musculoskeletal: General: No swelling. Normal range of motion. Skin: General: Skin is dry. Findings: No rash. Neurological: General: No focal deficit present. Mental Status: He is alert and oriented to person, place, and time. Psychiatric: Mood and Affect: Mood normal. Behavior: Behavior normal. Assessment and plan 1. Viral URI with cough Advised to continue with Flonase nasal spray, will use Mucinex DM for congestion and ventolin inhaler for chest tightness. Can continue with acetaminophen for fever and myalgias. Advised to be seen in person if symptoms worsen, or if they do not improve in approx 7 days. He voiced understanding. - Mucinex DM 30-600 MG Oral Tablet Extended Release 12 Hour; Take 1 Tablet by mouth 2 times a day as needed for Cough. Take with plenty of water. Do not cut, crush or chew Dispense: 40 Tablet; Refill: 2 - Ventolin HFA 108 (90 Base) MCG/ACT Inhalation Aerosol Solution; Inhale 2 Puffs by mouth every 4 hours as needed for Wheezing. Dispense: 8 g; Refill: 3 Follow up Follow Up: Return if symptoms worsen or fail to improve. I spent a total of 20-29 minutes (exact time 23 mins) on the date of service in preparation, delivery, and documentation of the care provided to Marco Campos excluding any time spent in the performance of separately billed services. The above was discussed and understanding was expressed. Sarah Burciaga PA-C documented in this encounter Plan of Treatment Upcoming Encounters Date Type Department Care Team (Late st Contact Info) Description 05/24/2024 3:20 PM EST Office Visit General Internal Medicine [facility] [address] [facility] [place] [address] Damion Cheung MD [address] [facility] [place] [address] 05/30/2024 3:30 PM EST Office Visit Pharmacy, [place] [address] [place] [address] Pharmacist1, [facility] [place] [address] [place] [address] 06/06/2024 1:00 PM EST Appointment Cardiac Studies, [address] [place] [address] 07/10/2024 8:45 AM EDT Office Visit Ophthalmology, [facility] [address] [place] [address] Efraín Galindo, DO [address] [place] [address] 07/13/2024 10:30 AM EDT Office Visit Cardiology, [place] [address] [place] [address] [place] [address] Nathalie Jackson CRNP [address] [place] [address] Scheduled Procedures Name Priority Associated Diagnoses Date/Ti [...] Additional history exists CKD HGB USE SMARTSET 17661 06/06/202406/06, 06/06/2023, 05/31/2022, Additional history exists CKD PHOS USE SMARTSET 94281 06/06/202405/26, 06/14/2020, 06/13/2020, Additional history exists Depression [...] as of this encounter Visit Diagnoses Diagnosis Viral URI with cough- Primary Acute upper respiratory infections of unspecified site documented in this encounter Advance Directives * Full Code (Latest Code Status on File) Date Activated Date Inactivated Comments 06/11/2020 2:26 PM 06/15/2020 5:11 PM This order r eflects the patients wishes and were consensually agreed upon. Question Answer Comments Discussion of Advance Directives occurred with: Not Discussed Care Teams Heel Molder Relationship Specialty Start Date End Date Damion Cheung MD [address] [place] [address] PCP - General Internal Medicine 12/01/21 documented as of this encounter
--- OUTSIDE RECORDS SUMMARY | 2024-08-14 02:07 | External Medical Summary | Summary of Care ---
Author Name Unknown Organization [facility] Address [address] [place] [address] Phone [phone] Care Team Providers Care Motorcycle Subassembly Repairer Name Role Phone Damion Cheung MD Primary Care Provider + Reason for Visit * Reason Comments Follow Up * Precert (Within 10 days (routine)) - Authorized Specialty Diagnoses / Procedures Referred By oJ morales Referred To Contact Ophthalmology Diagnoses Vitreous hemorrhage, right eye (HCC) Procedures RI BEVACIZUMAB INJECTION RI INTRAVITREAL NJX PHARMACOLOGIC AGT SPX Efraín Galindo DO [address] [place] [address] Phone: tel: fax: Referral ID Status Reason Start Date Expiration Date V isits Requested Visits Authorized [id number] Authorized Precert 10/19/2022 04/24/2099 [id number] Encounter Details Date Type Department Care Team (Late st Contact Info) Description 04/17/2024 9:15 AM EST Office Visit Ophthalmology, [facility] [address] [place] [address] Efraín Galindo DO [address] [place] [address] 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 Can't quite remember. documented as of this encounter (statuses as of 04/17/2024) Medications Polyethylene Glycol 3350 17 GM/SCOOP Oral [...] 0.15 % Nasal SolutionIndicatio ns:Rhinorrhea Administer 1 [place] into nostril in the morning and 1 [place] before bedtime. 30 mL 12 4 Active [...] 01/24/2024 2:52 PM EDT 4 Active Nystatin 295671 UNIT/GM External Cream apply to affected area [...] as of this encounter (statuses as of 04/17/2024) Active Problems Problem Noted Date Diagnosed Date [...] as of this encounter (statuses as of 04/17/2024) Resolved Problems Problem Noted Date Diagnosed Date [...] program 11/29/2018 01/28/2020 Overview (08/11/2020): [employer]: A Randomized Controlled Trial (Project # [id number]). The [employer] program provides food-insecure diabetics with healthy food for their entire household (2 meals/ day X 5 days/week). The program also provides education on food preparation, healthy living, and diabetes self management. The research measures the effects of the program on patient health and wellbeing. Subject will begin the FFF program (11/2018). Contact Information: Pricing Supervisor: Dr. Jaleel Harris ([phone]) CRC: Cindy Alonso ([phone]) RA: Lizzie Natarajan ([phone]) Diagnosis changed due to Research Module. Go [...] as of this encounter (statuses as of 04/17/2024) Immunizations Name Administration Dates Next Due COVID-19 mRNA, LNP-s, No Pre serve, 2-Dose Series (Pfizer) 08/02/2020,07/12/2020 Covid-19, Mrna, Lnp-s, Pf, B ivalent, 30 Mcg, IM, 12 yrs and above (Pfizer) 02/04/2022 Hepatitis B, 20+ yrs 01/17/2014,08/16/2013,07/16 Pneumococcal Conjugate Vacci ne, 20-valent ([id number]) 10/07/2021 Pneumococcal Polysaccharide PPV23 (Pneumovax) 09/04/2009 Seasonal [...] No 11/15/2023 Does the household have a [facility] source of income? (Household - for ages [...] in this encounter Progress Notes * Efraín Galindo, - 04/17/2024 9:15 AM EST [facility] [place] Nursing Notes: Radha Urban TECH 04/17/24 0917 Signed Marco Mara Beth is a 53 year old year old male who presents for High Risk PDR OU. Last Office Visit: 02/13/2024 (in office), Visit date not found (telemedicine) Patient currently states no change in vision. Are you diabetic? Yes. Do you check [...] Right Left Dist sc 20/40 -1 20/40 -2 Tonometry (Tonopen, 9:16 AM) Right Left Pressure 21 23 Pupils Shape React APD Right Round Minimal None Left Round Minimal None Visual Walton (Counting fingers) Right Left Full Full Extraocular Movement Right Left Full, Ortho Full, Ortho Neuro/Psych Oriented x3: Yes Mood/Affect: Normal Dilation Both eyes: 0.5% Proparacaine @ 9:13 AM Dilation #2 Right eye: 1.0% Mydriacyl, 2.5% Phenylephrine @ 9:16 AM Dilation Comments Patient cautioned that effects [...] resolved pre-retinal heme vessels: wnl periphery: PRP, community health representative, no RT/RD Dilated fundus exam OS: 07/19/22; pt refused dilation vitreous: clear optic nerve: 0.3, no edema/pallor/NVD macula: community health representative vessels: wnl periphery: community health representative, no RT/RD OCT Interpretation: OD: dme, +PVD--STABLE, prior STABLE, prior poor scans due to VH OS: no pvd, temporal irf--stable A/P: 1. High Risk Proliferative Diabetic Retinopathy OD -DM2 -recommend HgbA1C <7, BP and lipid control. -Avastin 04/08/23, 10/19/22, 04/30/22 -s/p PRP 09/08/22, 06/09/22 -VH 12/15/2023, 09/07/23, 07/05/2023 , 01/05/2023 -Avastin 02/13/24, 12/16/23, 09/22/23 -9 weeks -was to have PPV w/ Dr. Thompson for recurrent VH but couldn't get a ride to [place] 2. Moderate Nonproliferative Diabetic Retinopathy OS -monitor -recommend HgbA1C <7, BP and lipid control. 3. Posterior Vitreous Detachment OD -no RT/RD -advised to return to clinic if he should experience worsening or new floaters, flashes of light, ashadow in the periphery, or decrease in vision. F/u 10-12 weeks, OCT OU Efraín Galindo DO CC: Marina Lovell, OD CC: PCP: [...] Nursing Notes * Amie Bolaños RN - 04/17/2024 9:45 AM EST Marco Campos to receive 10 Avastin 2.75 mg Injection of the Right eye. Correct eye confirmed with patient and marked by Efraín Galindo, Avastin 2.75 mg lot # [id number] Exp. Date: 06/08/23 * Radha Urban TECH - 04/17/2024 9:08 AM EST Marco Campos is a 53 year old year old male who presents for High Risk PDR OU. Last Office Visit: 02/13/2024 (in office), Visit date not found (telemedicine) Patient currently states no change in vision. Are you diabetic? Yes. Do you check [...] Office Visit General Internal Medicine [address] [place] [address] [place], [place] [address] Damion Cheung MD [address] [place] [address] 05/30/2024 3:30 PM EST Office Visit Pharmacy, [place] [address] [place] [address] Pharmacist1, [facility] [address] [place] [address] 06/06/2024 1:00 PM EST Appointment Cardiac Studies, [facility] [address] [place] [address] 07/10/2024 8:45 AM EDT Office Visit Ophthalmology, [facility] [address] [place] [address] Efraín Galindo DO [address] [place] [address] 07/13/2024 10:30 AM EDT Office Visit Cardiology, [place] [address] [place] [address] Nathalie Jackson CRNP [address] [place] [address] Scheduled Orders Name Type Priority Associated Diagnoses Orde r Schedule RETINA SCAN DIAGNOSTIC IMAGE, POSTERIOR Procedures Routine Proliferative diabetic retinopathy of right eye with macular edema associated with type 2 diabetes mellitus (HCC) Ordered: 04/17/2024 Scheduled Procedures Name Priority Associated Diagnoses Date/Ti [...] Additional history exists CKD HGB USE SMARTSET 32097 06/06/202406/06, 06/06/2023, 05/31/2022, Additional history exists CKD PHOS USE SMARTSET 07871 06/06/202405/26, 06/14/2020, 06/13/2020, Additional history exists Depression [...] with type 2 diabetes mellitus (HCC)- Primary documented in this encounter Administered Medications Active Administered Medications - up to 3 most recent administrations Medication Order MAR Action Action Date Dose Rate Site bevaCIZumab (Avastin) inj 1.25 mg 1.25 mg, Intravitreal, PRN Other, Starting on Tue07/05/23 at 1428, Until Tue07/04/24 at 1427, For 365 daysIndications:Proliferative diabetic retinopathy of right eye with macular edema associated with type 2 diabetes mellitus (HCC) Given 04/17/2024 9:46 AM EST 1.25 mg Eye Right Given 02/13/2024 3:32 PM EDT 1.25 mg Ey e Right Given 12/16/2023 10:45 AM EDT 1.25 mg E ye Right ROPivacaine (Naropin) inj 1.5 mg 1.5 mg, Perineural, PRN Other, Starting on Tue07/05/23 at 1428, Until Tue07/04/24 at 1427, For 365 daysIndications:Proliferative diabetic retinopathy of right eye with macular edema associated with type 2 diabetes mellitus (HCC) Given 04/17/2024 9:46 AM EST 1.5 mg Eye Right Given 02/13/2024 3:31 PM EDT 1.5 mg Ey e Right Given 12/16/2023 10:45 AM EDT 1.5 mg E ye Right documented in this encounter Advance Directives * Full Code (Latest Code Status on File) Date Activated Date Inactivated Comments 06/11/2020 2:26 PM 06/15/2020 5:11 PM This order r eflects the patients wishes and were consensually agreed upon. Question Answer Comments Discussion of Advance Directives occurred with: Not Discussed Care Teams Motorcycle Subassembly Repairer Relationship Specialty Start Date End Date Damion Cheung MD [address] [facility] [place] [address] PCP - General Internal Medicine 12/01/21 documented as of this encounter
--- OUTSIDE RECORDS SUMMARY | 2024-08-14 02:08 | External Medical Summary | Summary of Care ---
Author Name Unknown Organization [facility] Address [address] [place] [address] Phone [phone] Care Team Providers Care Black And White Printer Operator Name Role Phone Damion Cheung MD Primary Care Provider + Reason for Visit * Reason Onset Date Comments Advice 02/15/2024 Encounter Details Date Type Department Care Team (Late st Contact Info) Description 02/15/2024 Telephone General Internal Medicine [facility] [address] [facility] [place] [address] Damion Cheung MD [address] [place] [address] Advice Allergies Active Allergy Reactions Criticality Noted Date Comments Iodinated Contrast Media Other (Please comment) Low 09/04/2009 Pt stated IV dye made him feel funny. Can't quite remember. documented as of this encounter (statuses as of 02/16/2024) Medications Medication Sig Dispensed Refills Start Date End Date Status Polyethylene Glycol 3350 17 GM/SCOOP Oral Powder (MiraLax)Indications :Constipation, unspecified constipation type Take 17 g by mouth daily. Dissolve one heaping tablespoon in 8 ounces of water or juice. 578 g 5 12/17/2020 Active Nebulizer Use as directed. Active Magnesium Oxide -Mg Supplement 400 (240 Mg) MG Oral Tablet (Mag-Ox)Indications: Low blood magnesium Take 1 Tablet by mouth in the morning. 90 Tablet 2 04/29/2023 Active amLODIPine Besylate 10 MG Oral Tablet (Norvasc)Indications :HTN, goal below 140/90 Take 1 Tablet by mouth in the morning. 90 Tablet 3 06/07/2023 Active Furosemide 20 MG Oral Tablet (Lasix)Indications:H TN, goal below 140/90 TAKE 1 TABLET BY MOUTH ON Tuesday AND TUESDAY ONLY 40 Tablet 3 06/07/2023 Active metFORMIN HCl 1000 MG Oral Tablet (Glucophage)Indicati ons:Type 2 diabetes mellitus with hemoglobin A1c goal of less than 7.0% (HCC) Take 1 Tablet by mouth in the morning and 1 Tablet before bedtime. With food.. 180 Tablet 2 06/07/2023 Active Metoprolol Succinate ER 100 MG Oral Tablet Extended Release 24 Hour (toPROL XL)Indications:HTN, goal below 140/90 Take 1 Tablet by mouth in the morning. 30 Tablet 5 06/07/2023 Active Pantoprazole Sodium 40 MG Oral Tablet Delayed Release (Protonix)Indication s:Diaphragmatic hernia without obstruction and without gangrene TAKE 1 TABLET BY MOUTH DAILY 30 MINUTES PRIOR TO THE FIRST MEAL OF THE DAY 90 Tablet 1 06/07/2023 Active Fluticasone Propionate 50 MCG/ACT Nasal Suspension (Flonase)Indications :Allergy, subsequent encounter Administer 2 Sprays into each nostril in the morning. 16 g 5 06/14/2023 Active Azelastine HCl 0.15 % Nasal SolutionIndications: Rhinorrhea Administer 1 [place] into nostril in the morning and 1 [place] before bedtime. 30 mL 12 07/21/2023 Active OneTouch Delica Lancets 33GIndications:Type 2 diabetes mellitus with hemoglobin A1c goal of less than 7.0% (HCC) Use to test blood sugar before meals and snacks and as needed up to 4 times a day 400 Each 07/27/2023 Active OneTouch Verio In Vitro StripIndications:Typ e 2 diabetes mellitus with hemoglobin A1c goal of less than 7.0% (HCC) Test blood sugar before meals and snacks and as needed up to 4 times a day 400 Strip 07/27/2023 Active BD Pen Needle Mini U/F 31G X 5 MM (Insulin Pen Needle) Use with pen needles as directed 100 Each 09/12/2023 Active Rosuvastatin Calcium 40 MG Oral Tablet (Crestor)Indications :Dyslipidemia, goal LDL below 100 Take 1 Tablet by mouth daily. 90 Tablet 2 10/05/2023 Active Toujeo Max SoloStar 300 UNIT/ML Subcutaneous Solution Pen-injector (Insulin Glargine (2 Unit Dial))Indications:Ty pe 2 diabetes mellitus with hemoglobin A1c goal of less than 7.0% (HCC) Inject 360 Units under the skin at bedtime. 108 mL 2 12/19/2023 Active Triamcinolone Acetonide 0.5 % External Cream (Aristocort)Indicati ons:Contact dermatitis of lower leg Apply topically to affected area 2 times a day. To affected area. 60 g 5 01/05/2024 Active NovoLOG FlexPen 100 UNIT/ML Subcutaneous Solution Pen-injectorIndicati ons:Type 2 diabetes mellitus with hemoglobin A1c goal of less than 7.0% (HCC) INJECT 48 UNITS UNDER THE SKIN BEFORE LUNCH, 48 UNITS FOR DINNER AND 35 UNITS FOR EVENING SNACK PLUS CORRECTION CF 1:18 over 140. UP TO 150 UNITS MAX DAILY 45 mL 2 01/14/2024 Active Losartan Potassium 100 MG Oral Tablet (Cozaar) Take 1 Tablet by mouth in the morning. 90 Tablet 1 01/19/2024 Active Hospital, Clinic, or Other Facility Administered [...] as of this encounter (statuses as of 02/16/2024) Active Problems Problem Noted Date Diagnosed Date [...] 01/30/2020 Cigarette nicotine dependence in remission 10/08 snf (current) use of insulin 07/03/2019 Type 2 diabetes mellitus with polyneuropathy 01/2020 COPD, group A, by GOLD 2013 classification 01/20 History of renal cell cancer 12/05/2017 H/O unilateral nephrectomy 12/05/2017 HTN, goal below 140/90 06/30/2015 Overview: Per HTN Protocol #27. Mixed hyperlipidemia 04/10/2009 Overview: Per Lipid Taxonomy. Type 2 diabetes mellitus wit h hemoglobin A1c goal of less than 7.0% 02/20/2009 Overview: Per Diabetes Taxonomy. ICD-10 update of inactive term Gastroesophageal reflux disease without esophagi tis 03/25/2004 Diaphragmatic hernia 04/30/2003 documented as of this encounter (statuses as of 02/16/2024) Resolved Problems Problem Noted Date Diagnosed Date [...] Stage 3 chronic kidney disease 01/09/2019 03/13/2019 Overview: ICD-10 update of inactive term Encounter for examination fo r normal comparison and control in clinical research program 11/29/2018 01/28/2020 Overview: [employer]: A Randomized Controlled Trial (Project # [id number]). The Fresh Food Farmacy program provides food-insecure diabetics with healthy food for their entire household (2 meals/ day X 5 days/week). The program also provides education on food preparation, healthy living, and diabetes self management. The research measures the effects of the program on patient health and wellbeing. Subject will begin the FFF program (11/2018). Contact Information: Manufacturing Associate: Dr. Jaleel Harris ([phone]) CRC: Cindy Alonso ([phone]) RA: Lizzie Natarajan ([phone]) Diagnosis changed due to Research Module. Go to Snapshot for study details. 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 HTN, GOAL BELOW 130/80 05/22/200912/15 Overview: Per HTN Taxonomy. Other premature beats 04/23/20082023 HTN, goal below 140/90 03/04/200805/22 Overview: Per HTN Taxonomy. Problems with learning 09/13/200605/20 PURE HYPERCHOLESTEROLEM 04/06/200603/25 Overview: Per Lipid Taxonomy. Type 2 diabetes mellitus wit h hemoglobin A1c goal of less than 7.0% 04/30/2003 02/20/2009 Overview: Per Diabetes Taxonomy. ICD-10 update of inactive term documented as of this encounter (statuses as of 02/16/2024) Immunizations Name Administration Dates Next Due COVID-19 mRNA, LNP-s, No Pre serve, 2-Dose Series (You.i) 08/02/2020,07/12/2020 Covid-19, Mrna, Lnp-s, Pf, B ivalent, 30 Mcg, IM, 12 yrs and above (Pfizer) 02/04/2022 Hepatitis B, 20+ yrs 01/17/2014,08/16/2013,07/16 Pneumococcal Conjugate Vacci ne, 20-valent ([id number]) 10/07/2021 Pneumococcal Polysaccharide PPV23 (Pneumovax) 09/04/2009 Seasonal [...] No 11/15/2023 Does the household have a [facility] source of income? (Household - for ages [...] Assigned at Male 08/09/2019 4:30 PM EDT Gender Identity Male 08/09/2019 4:30 PM EDT Sexual Orientation Straight 08/09/2019 4: 30 PM EDT Job Start Date Occupation Industry Not on file Not on file Not on file documented as of this encounter Functional Status Functional Status Response Date of Assess ment Are you deaf or do you have serious difficulty h earing? No 06/11/2020 Are you blind or do you have serious difficulty seeing, even when wearing glasses? No 06/11/2020 Do you have serious difficul ty walking or climbing stairs? (5 years old or older) No 06/11/2020 Do you have difficulty dress ing or bathing? (5 years old or older) No 06/11/2020 Because of a physical, menta l, or emotional condition, do you have difficulty doing errands alone such as visiting a doctor s office or shopping? (15 years old or older) No 06/11/19 Cognitive Status Response Date of Assessm ent Because of a physical, menta l, or emotional condition, do you have serious difficulty concentrating, remembering, or making decisions? (5 years old or older) No 06/11/2020 documented as of this encounter Miscellaneous Notes * Telephone Encounter - Yumiko Lopez MED ASSIST - 02/16/2024 7:48 AM EDT Patient scheduled with [facility] on 03/07/24 @ 8:00 AM * Telephone Encounter - Damion Cheung MD - 02/15/2024 1:54 PM EDT See mtm note, pls schedule * Telephone Encounter - Efraín Villalobos [facility] - 02/15/2024 1:16 PM EDT [facility] offered CGM to patient however further management is still possible without CGM but will be more difficult. Efraín Villalobos, PharmD, BCACP, [facility] Clinical Pharmacist 02/15/2024, 1:17 PM * Telephone Encounter - Rochelle Penny LPN - 02/15/2024 1:07 PM EDT Called patient, he stated he stopped seeing [facility] because they wanted him to wear a CGM and refuses to wear one. He states he was told by [facility] they couldn't do anything else for him unless he was agreeable to wear a CGM, he states he will not go to see them. * Telephone Encounter - Rochelle Penny LPN - 02/15/2024 12:58 PM EDT ----- Message from Damion Cheung MD sent at 02/15/2024 12:34 PM EDT ----- Letter sent as most labs stable for him , but A1c just came back, is much higher HE NEEDS TO SCHEDULE WITH [facility] ABOUT THIS and needs to get dm under better control. Referral placed please call him documented in this encounter Plan of Treatment Upcoming Encounters Date Type Department Care Team (Late st Contact Info) Description 03/07/2024 8:00 AM EST Office Visit Pharmacy, [facility] [address] [place] [address] Pharmacist1, [facility] [address] [place] [address] 04/09/2024 2:45 PM EST Office Visit Ophthalmology, [facility] [address] [place] [address] Efraín Galindo DO [address] [place] [address] 05/24/2024 3:20 PM EST Office Visit General Internal Medicine [facility] [address] [place] [address] Damion Cheung MD [address] [place] [address] Scheduled Procedures Name Priority Associated Diagnoses Date/Ti [...] Additional history exists CKD HGB USE SMARTSET 88106 06/06/202406/06, 06/06/2023, 05/31/2022, Additional history exists CKD PHOS USE SMARTSET 98078 06/06/202405/26, 06/14/2020, 06/13/2020, Additional history exists Depression [...] goal of less than 7.0% ([facility])- Primary documented in this encounter Advance Directives * Full Code (Latest Code Status on File) Date Activated Date Inactivated Comments 06/11/2020 2:26 PM 06/15/2020 5:11 PM This order r eflects the patients wishes and were consensually agreed upon. Question Answer Comments Discussion of Advance Directives occurred with: Not Discussed Care Teams Black And White Printer Operator Relationship Specialty Start Date End Date Damion Cheung MD [address] [place] [place] [address] PCP - General Internal Medicine 12/01/21 documented as of this encounter
--- OUTSIDE RECORDS SUMMARY | 2024-08-14 02:08 | External Medical Summary | Summary of Care ---
Author Name Unknown Organization [facility] Address [address] [place] [address] Phone [phone] Care Team Providers Care Software Development Coordinator Name Role Phone Damion Cheung MD Primary Care Provider + Reason for Visit * Reason Onset Date Comments Medication Refill 03/05/2024 Encounter Details Date Type Department Care Team (Late st Contact Info) Description 03/05/2024 Telephone General Internal Medicine [facility] [address] [place] [address] Damion Cheung MD [address] [place] [address] Medication Refill Allergies Active Allergy Reactions Criticality Noted Date Comments Iodinated Contrast Media Other (Please comment) Low 09/04/2009 Pt stated IV dye made him feel funny. Can't quite remember. documented as of this encounter (statuses as of 03/05/2024) Medications Polyethylene Glycol 3350 17 GM/SCOOP Oral [...] 0.15 % Nasal SolutionIndicatio ns:Rhinorrhea Administer 1 [place] into nostril in the morning and 1 [place] before bedtime. 30 mL 12 4 Active [...] of less than 7.0% ([facility]) Inject 360 Units under the skin at [...] of less than 7.0% ([facility]) INJECT 48 UNITS UNDER THE SKIN BEFORE [...] 01/24/2024 2:52 PM EDT 4 Active Nystatin 414528 UNIT/GM External Cream apply to affected area twice a day FOR 10 DAYS 30 g 4 Active Hospital, Clinic, or Other Facility [...] as of this encounter (statuses as of 03/05/2024) Active Problems Problem Noted Date Diagnosed Date [...] 01/30/2020 Cigarette nicotine dependence in remission 10/08 MCC (current) use of insulin 07/03/2019 Type 2 [...] as of this encounter (statuses as of 03/05/2024) Resolved Problems Problem Noted Date Diagnosed Date [...] program 11/29/2018 01/28/2020 Overview (08/11/2020): [employer]Log: A Randomized Controlled Trial (Project # [id number]). The Fresh Food Farmacy program provides food-insecure diabetics with healthy food for their entire household (2 meals/ day X 5 days/week). The program also provides education on food preparation, healthy living, and diabetes self management. The research measures the effects of the program on patient health and wellbeing. Subject will begin the FFF program (11/2018). Contact Information: Employment Assistant: Dr. Jaleel Harris ([phone]) CRC: Cindy Alonso ([phone]) RA: Lizzie Natarajan ([phone]) Diagnosis changed due to Research Module. Go [...] as of this encounter (statuses as of 03/05/2024) Immunizations Name Administration Dates Next Due COVID-19 mRNA, LNP-s, No Pre serve, 2-Dose Series (DrAvailable) 08/02/2020,07/12/2020 Covid-19, Mrna, Lnp-s, Pf, B ivalent, 30 Mcg, IM, 12 yrs and above (Pfizer) 02/04/2022 Hepatitis B, 20+ yrs 01/17/2014,08/16/2013,07/16 Pneumococcal Conjugate Vacci ne, 20-valent ([id number]) 10/07/2021 Pneumococcal Polysaccharide PPV23 (Pneumovax) 09/04/2009 Seasonal [...] encounter Miscellaneous Notes * Telephone Encounter - Lisa Null, technical information specialist - 03/05/2024 3:06 PM EST The following medication is listed as discontinued as of 01/05/2024, due to "None" please review and approve if appropriate. Nystatin 151967 UNIT/GM External Cream Patient has a rash under both under arms. He is asking for a big tube if possible. Lisa Freire Laborer Cement Gun Placing II [facility] 03/05/2024 3:10 PM documented in this encounter Plan of Treatment Upcoming Encounters Date Type Department Care Team (Late st Contact Info) Description 03/07/2024 8:00 AM EST Office Visit Pharmacy, [place] [address] [place] [address] Pharmacist1, [facility] [address] [place] [address] 04/09/2024 2:45 PM EST Office Visit Ophthalmology, [facility] [address] [place] [address] Efraín Galindo, [address] [place] [address] 05/24/2024 3:20 PM EST Office Visit General Internal Medicine [facility] [address] [facility] [place] [address] Damion Cheung MD [address] [place] [address] Scheduled Procedures Name Priority Associated Diagnoses Date/Ti [...] Additional history exists CKD HGB USE SMARTSET 85737 06/06/202406/06, 06/06/2023, 05/31/2022, Additional history exists CKD PHOS USE SMARTSET 64248 06/06/202405/26, 06/14/2020, 06/13/2020, Additional history exists Depression [...] Directives occurred with: Not Discussed Care Teams Software Development Coordinator Relationship Specialty Start Date End Date Damion Cheung MD [address] [facility] [place] [address] PCP - General Internal Medicine 12/01/21 documented as of this encounter
--- OUTSIDE RECORDS SUMMARY | 2024-08-14 02:08 | External Medical Summary | Summary of Care ---
Author Name Unknown Organization [facility] Address [address] [place] [address] Phone [phone] Care Team Providers Care Nursery Hand Name Role Phone Damion Cheung MD Primary Care Provider + Encounter Details Date Type Department Care Team (Late st Contact Info) Description 02/15/2024 Telephone General Internal Medicine [facility] [place] [address] [facility] [place] [id number] Damion Cheung MD [address] [facility] [place], [place] [address] Allergies Active Allergy Reactions Criticality Noted Date Comments Iodinated Contrast Media Other (Please comment) Low 09/04/2009 Pt stated IV dye made him feel funny. Can't quite remember. documented as of this encounter (statuses as of 02/28/2024) Medications Medication Sig Dispensed Refills Start Date [...] 0.15 % Nasal SolutionIndications: Rhinorrhea Administer 1 [place] into nostril in the morning and 1 [place] before bedtime. 30 mL 12 07/21/2023 Active OneTouch Delica Lancets 33GIndications:Type 2 diabetes mellitus with hemoglobin A1c goal of less than 7.0% (HCC) Use to test blood sugar before meals and snacks and as needed up to 4 times a day 400 Each 3 07/27/2023 Active OneTouch Verio In Vitro StripIndications:Typ e 2 diabetes mellitus with hemoglobin A1c goal of less than 7.0% (HCC) Test blood sugar before meals and snacks and as needed up to 4 times a day 400 Strip 3 07/27/2023 Active BD Pen Needle Mini U/F [...] as of this encounter (statuses as of 02/28/2024) Active Problems Problem Noted Date Diagnosed Date [...] as of this encounter (statuses as of 02/28/2024) Resolved Problems Problem Noted Date Diagnosed Date [...] research program 11/29/2018 01/28/2020 Overview: [employer]: A Randomized Controlled Trial (Project # [id number]). The [employer] Farm[employer] program provides food-insecure diabetics with healthy food for their entire household (2 meals/ day X 5 days/week). The program also provides education on food preparation, healthy living, and diabetes self management. The research measures the effects of the program on patient health and wellbeing. Subject will begin the FFF program (11/2018). Contact Information: Plastic Battery Assembler: Dr. Jaleel Harris ([phone]) CRC: Cindy Alonso ([phone]) RA: Lizzie Natarajan ([phone]) Diagnosis changed due to Research Module. Go [...] as of this encounter (statuses as of 02/28/2024) Immunizations Name Administration Dates Next Due COVID-19 mRNA, LNP-s, No Pre serve, 2-Dose Series ([employer]) 08/02/2020,07/12/2020 Covid-19, Mrna, Lnp-s, Pf, B ivalent, 30 Mcg, IM, 12 yrs and above (Pfizer) 02/04/2022 Hepatitis B, 20+ yrs 01/17/2014,08/16/2013,07/16 Pneumococcal Conjugate Vacci ne, 20-valent ([id number]) 10/07/2021 Pneumococcal Polysaccharide PPV23 (Pneumovax) 09/04/2009 Seasonal [...] (15 years old or older) No 06/11/19 21 Cognitive Status Response Date of Assessm ent Because of a physical, menta l, or emotional condition, do you have serious difficulty concentrating, remembering, or making decisions? (5 years old or older) No 06/11/2020 documented as of this encounter Miscellaneous Notes * Telephone Encounter - Cindy Hopkins OSA - 02/15/2024 3:39 PM EDT Set up appt w/ [facility] 03/07. Said he hasn't seen one since they wanted him to wear the DM monitor as they refused to see him since he reused to wear the monitor. documented in this encounter Plan of Treatment Upcoming Encounters Date Type Department Care Team (Late st Contact Info) Description 03/07/2024 8:00 AM EST Office Visit Pharmacy, [place] [address] [place] [address] Pharmacist1, [facility] [place] [address] [place] [address] 04/09/2024 2:45 PM EST Office Visit Ophthalmology, [facility] [address] [place] [address] Efraín Galindo DO [address] [place] [address] 05/24/2024 3:20 PM EST Office Visit General Internal Medicine [facility] 200 [facility] [place] [address] Damion Cheung MD 200 [facility] [place] [address] Scheduled Procedures Name Priority Associated Diagnoses Date/Ti nc COLONOSCOPY FLEXIBLE PROXIMAL DIAGNOSTIC Recall History of [...] Additional history exists CKD HGB USE SMARTSET 60171 06/06/202406/06, 06/06/2023, 05/31/2022, Additional history exists CKD PHOS USE SMARTSET 08878 06/06/202405/26, 06/14/2020, 06/13/2020, Additional history exists Depression [...] Directives occurred with: Not Discussed Care Teams Nursery Hand Relationship Specialty Start Date End Date Damion Cheung MD [address] [facility] [place] [address] PCP - General Internal Medicine 12/01/21 documented as of this encounter
--- OUTSIDE RECORDS SUMMARY | 2024-08-14 02:08 | External Medical Summary | Summary of Care ---
Author Name Unknown Organization [facility] Address [address] [place] [address] Phone [phone] Care Team Providers Care Head Operator Sulfide Name Role Phone Damion Cheung MD Primary Care Provider + Reason for Visit * Reason Comments Dosage Adjustment In Person (Anticoag Cl inic) Diabetes Follow-Up * Evaluate & Treat - Unlimited Visits (Within 30 days (routine)) - Authorized Specialty Diagnoses / Procedures Referred By Contac t Referred To Contact Pharmacist / Pharmacy Diagnoses Type 2 diabetes mellitus with polyneuropathy (HCC) Damion Cheung MD [address] [place] [address] Phone: tel: fax: Referral ID Status Reason Start Date Expiration Date Visits Requested Visits Authorized [id number] Authorized Specialty Services Required 4 08/13/2024 99 99 Encounter Details Date Type Department Care Team (Late st Contact Info) Description 03/07/2024 8:00 AM EST Office Visit Pharmacy, [place] [address] [place] [address] Pharmacist1, [facility] [place] [address] [place] [address] Type 2 diabetes mellitus with hemoglobin A1c goal of less than 7.0% ([facility])* Allergies Active Allergy Reactions Criticality Noted Date Comments Iodinated Contrast Media Other (Please comment) Low 09/04/2009 Pt stated IV dye made him feel funny. Can't quite remember. documented as of this encounter (statuses as of 03/07/2024) Medications Polyethylene Glycol 3350 17 GM/SCOOP Oral [...] 0.15 % Nasal SolutionIndicatio ns:Rhinorrhea Administer 1 [place] into nostril in the morning and 1 [place] before bedtime. 30 mL 12 4 Active [...] 01/24/2024 2:52 PM EDT 4 Active Nystatin 268316 UNIT/GM External Cream apply to affected area twice a day FOR 10 DAYS 30 g 03/06/2024 4:43 PM EST Active Tirzepatide 2.5 MG/0.5ML Subcutaneous Solution Auto-injector (Mounjaro) Inject 2.5 mg under the skin once a week. 2 mL 2 4 03/07/20 Active Hospital, Clinic, or Other Facility Administered [...] as of this encounter (statuses as of 03/07/2024) Active Problems Problem Noted Date Diagnosed Date [...] 01/30/2020 Cigarette nicotine dependence in remission 10/08 [facility] (current) use of insulin 07/03/2019 Type 2 [...] as of this encounter (statuses as of 03/07/2024) Resolved Problems Problem Noted Date Diagnosed Date [...] program 11/29/2018 01/28/2020 Overview (08/11/2020): [employer]: A Randomized Controlled Trial (Project # [id number]). The [employer] program provides food-insecure diabetics with healthy food for their entire household (2 meals/ day X 5 days/week). The program also provides education on food preparation, healthy living, and diabetes self management. The research measures the effects of the program on patient health and wellbeing. Subject will begin the FFF program (11/2018). Contact Information: Event Sales Representative: Dr. Jaleel Harris ([phone]) CRC: Cindy Alonso ([phone]) RA: Lizzie Natarajan ([phone]) Diagnosis changed due to Research Module. Go [...] as of this encounter (statuses as of 03/07/2024) Immunizations Name Administration Dates Next Due COVID-19 mRNA, LNP-s, No Pre serve, 2-Dose Series ([employer] 08/02/2020,07/12/2020 Covid-19, Mrna, Lnp-s, Pf, B ivalent, 30 Mcg, IM, 12 yrs and above (Pfizer) 02/04/2022 Hepatitis B, 20+ yrs 01/17/2014,08/16/2013,07/16 Pneumococcal Conjugate Vacci ne, 20-valent ([id number]) 10/07/2021 Pneumococcal Polysaccharide PPV23 (Pneumovax) 09/04/2009 Seasonal [...] Date Author No 06/11/2020 4:28 PM Alix Hinkle i, RN documented in this encounter Progress Notes * Felecia Mccrary, [facility] - 03/07/2024 8:06 AM EST Medication Therapy Disease Management Clinic - Diabetes Management Progress Note Marco Campos, identified by name and date of , is a 53 year old male being seen for diabetes management/education. Patient presents for return diabetic visit. DIABETES: Current diabetic medications: Toujeo U300 360 units daily (3x120 unit injections) - pt has only been doing 2 full pens Metformin 1000mg - Take 1 tablet twice daily Novolog 48 units before lunch,48 units dinner, 35 units with evening snack + CF 1:18 over 140 (patient given updated chart) - pt hasn't been using chart - mostly using 50 units Therapy considerations - Actos: hepatic disease, CHF Jardiance: FRED UTI Ozempic: FRED Bloating Medication Injection Site: Abdomen Lifestyle: Diet: unchanged Glucose Review/SMBG: Patient feels like his sugars aren't that bad, not nearly as high as what A1C indicates Hypoglycemia: Does your blood sugar go below 70 mg/dL? Yes, sometimes when he's more active Hyperglycemia symptoms present: none Recent Labs Units [...] yes BP Readings from Last 3 Encounters: 01/05/24 122/80 11/14/23 144/70 11/01/23 146/72 Blood pressure at goal: yes HYPERLIPIDEMIA: Recent Labs Units 02/13/24 1311 06/06/23 1309 LDL CHOLESTEROL (CALCULATED) - [facility] mg/dL 106 109 Does patient have clinical ASCVD? No, is patient LDL less than 70mg/dL? No: already optimized HEALTH MAINTENANCE REVIEW: Health Maintenance Due Topic Date Due HIV Screening Never done Zoster Vaccines (1 of 2) Never done Influenza Vaccine (FLU shot) (1) 12/25/2023 COVID-19 Vaccine ( season) 2023 Albumin/Creatinine Ratio 06/06/2024 ASSESSMENT & PLAN: ICD-10-CM 1. Type 2 diabetes mellitus with hemoglobin A1c goal of less than 7.0% (HCC) E11.9 BG Readings - Blood sugars not available. Patient's recent A1C is elevated. Medication regimen is not working. He's so highly dosed with insulin that there is no way he's absorbing it all. Currently using MDI does not seem to be effective in controlling BGs. Patient states his reservations about CGM include having a bunch of alarms and alerts going off. Explained that every single alarm except urgent low can be turned off. He seemed somewhat interested. Follow up on this at next visit. Medications - Reviewed current regimen, patient is not adherent to regimen. Patient states that he doesn't want to inject himself three times with a full dose of Toujeo pen so he's only been doing 2 full pens (240 units, each a separate injection). Patient has some intolerances to some non-insulin options. Because Mounjaro is a much better tolerated GLP1 agonist and patient DID see improved glucoses with Ozempic because he had to discontinue, this may be the best option for now. Patient agreeable to trial Mounjaro. Taught patient how to use Mounjaro pen. Reviewed with patient individual steps to do to prepare Mounjaro prior to use: washing hands; remove teresa end; place end against stomach, outer thigh or back of arm; dial pen from locked to unlocked; press top button; wait for pen to inject and needle to snapback, then remove and throw away. Reviewed proper injection technique. Patient verbalized understanding and displayed successful technique. Also reviewed directions for a missed dose of the medication. Pen can be kept at room temperature for up to 21 days. Confirmed with patient no personal or family history of pancreatitis or medullary thyroid cancer. Likely won't be able to use SGLT2 unless glucoses would become much better controlled and reduce risk of UTI. Actos cannot be used. Beyond Mounjaro, the next two best options would include using concentrated insulin and simplifyingregimen by having only it being used as both the basal and bolus coverage - would likely need threetimes daily dosing. Omnipod 5 might be a good option as well as long as patient 1) would be willing to wear CGM and 2) be able to deal with the technology that comes along with it. Diet, Exercise, Lifestyle - No significant lifestyle changes since last visit. Patient is agreeable to SMBG 1 time(s) daily. Patient aware to contact clinic if any hypoglycemia before next visit. MEDICATION CHANGES: yes, see below; preferred pharmacy: [facility] ([facility]) Diabetic Medications: Toujeo U300 240 units daily (3x120 unit injections) Metformin 1000mg - Take 1 tablet twice daily Novolog - Inject 50 units with each meal START: Mounjaro 2.5mg weekly Therapy considerations - Actos: hepatic disease, CHF Jardiance: FRED UTI Ozempic: FRED Bloating HEALTH MAINTENANCE INTERVENTIONS: Labs: Up to Date Immunizations: Up to Date Foot Exam: Up to Date Eye Exam: Up to Date Annual Wellness Visit: N/A FOLLOW UP: Return to clinic in 10-12 weeks 05/30/2024 I spent a total of 20-29 minutes (exact time 29 mins) on the date of service in preparation, delivery, and documentation of the care provided to Marco Campos excluding any time spent in the performance of separately billed services. Felecia Mccrary RPh Clinical Pharmacist - Senior It Specialist Medication Therapy Management Clinic 03/07/2024, 8:06 AM documented in this encounter Plan of Treatment Upcoming Encounters Date Type Department Care Team (Late st Contact Info) Description 04/09/2024 2:45 PM EST Office Visit Ophthalmology, [facility] [address] [place] [address] Efraín Galindo, DO [address] [place] [address] 05/24/2024 3:20 PM EST Office Visit General Internal Medicine [facility] [place] [address] [facility] [place] [address] Damion Cheung MD [address] [facility] [place] [address] 05/30/2024 3:30 PM EST Office Visit Pharmacy, [place] [address] [place] [address] Pharmacist1, [facility] [place] [address] [place] [address] Scheduled Procedures Name Priority Associated Diagnoses Date/Ti [...] Additional history exists CKD HGB USE SMARTSET 52478 06/06/202406/06, 06/06/2023, 05/31/2022, Additional history exists CKD PHOS USE SMARTSET 02936 06/06/202405/26, 06/14/2020, 06/13/2020, Additional history exists Depression [...] 7.0% (HCC)- Primary documented in this encounter Advance Directives * Full Code (Latest Code Status on File) Date Activated Date Inactivated Comments 06/11/2020 2:26 PM 06/15/2020 5:11 PM This order r eflects the patients wishes and were consensually agreed upon. Question Answer Comments Discussion of Advance Directives occurred with: Not Discussed Care Teams Head Operator Sulfide Relationship Specialty Start Date End Date Damion Cheung MD [address] [facility] [place] [address] PCP - General Internal Medicine 12/01/21 documented as of this encounter
--- OUTSIDE RECORDS SUMMARY | 2024-08-14 02:08 | External Medical Summary | Summary of Care ---
Author Name Unknown Organization [facility] Address [address] [place] [address] Phone [phone] Care Team Providers Care Snath Handle Assembler Name Role Phone Damion Cheung MD Primary Care Provider + Reason for Visit * Reason Onset Date Comments Encounter Created in Error 11/22/2023 Encounter Details Date Type Department Care Team (Late st Contact Info) Description 11/22/2023 Telephone General Internal Medicine [facility] [address] [place] [address] Damion Cheung MD [address] [place] [address] Encounter Created in Error Allergies Active Allergy Reactions Criticality Noted Date Comments Iodinated Contrast Media Other (Please comment) Low 09/04/2009 Pt stated IV dye made him feel funny. Can't quite remember. documented as of this encounter (statuses as of 02/21/2024) Medications Medication Sig Dispensed Refills Start Date [...] 0.15 % Nasal SolutionIndications: Rhinorrhea Administer 1 [place] into nostril in the morning and 1 [place] before bedtime. 30 mL 12 07/21/2023 Active [...] mouth daily. 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 The [employer] program provides food-insecure diabetics with healthy food for their entire household (2 meals/ day X 5 days/week). The program also provides education on food preparation, healthy living, and diabetes self management. The research measures the effects of the program on patient health and wellbeing. Subject will begin the FFF program (11/2018). Contact Information: Treating And Pumping Supervisor: Dr. Jaleel Harris ([phone]) CRC: Cindy Alonso ([phone]) RA: Lizzie Natarajan ([phone]) Diagnosis changed due to Research Module. Go [...] as of this encounter (statuses as of 02/21/2024) Immunizations Name Administration Dates Next Due COVID-19 mRNA, LNP-s, No Pre serve, 2-Dose Series ([employer]) 08/02/2020,07/12/2020 Covid-19, Mrna, Lnp-s, Pf, B ivalent, 30 Mcg, IM, 12 yrs and above (Pfizer) 02/04/2022 Hepatitis B, 20+ yrs 01/17/2014,08/16/2013,07/16 Pneumococcal Conjugate Vacci ne, 20-valent ([id number]) 10/07/2021 Pneumococcal Polysaccharide PPV23 (Pneumovax) 09/04/2009 Seasonal [...] encounter Miscellaneous Notes * Telephone Encounter - Mare Iyer OSA - 11/22/2023 9:44 AM EDT disregard documented in this encounter Plan of Treatment Upcoming Encounters Date Type Department Care Team (Late st Contact Info) Description 03/07/2024 8:00 AM EST Office Visit Pharmacy, [place] [address] [place] [address] Pharmacist1, [facility] [place] [address] [place] [address] 04/09/2024 2:45 PM EST Office Visit Ophthalmology, [address] [place] [address] Efraín Galindo, DO [address] [place] [address] 05/24/2024 3:20 PM EST Office Visit General Internal Medicine [facility] [place] [address] [facility] [place] [address] Damion Cheung MD [address] [facility] [place] [address] Scheduled Procedures Name Priority Associated Diagnoses Date/Ti [...] Additional history exists CKD HGB USE SMARTSET 79758 06/06/202406/06, 06/06/2023, 05/31/2022, Additional history exists CKD PHOS USE SMARTSET 94493 06/06/202405/26, 06/14/2020, 06/13/2020, Additional history exists Depression [...] Directives occurred with: Not Discussed Care Teams Snath Handle Assembler Relationship Specialty Start Date End Date Damion Cheung MD [address] [facility] [address] PCP - General Internal Medicine 12/01/21 documented as of this encounter
--- OUTSIDE RECORDS SUMMARY | 2024-08-14 02:08 | External Medical Summary | Summary of Care ---
Author Name Unknown Organization [facility] Address [address] [place] [address] Phone [phone] Care Team Providers Care Pipe Chipper Name Role Phone Damion Cheung MD Primary Care Provider + Reason for Visit * Reason Onset Date Comments FYI 03/28/2024 Encounter Details Date Type Department Care Team ([facility] st Contact Info) Description 03/28/2024 Telephone Pharmacy, [address] [address] Felecia Mccrary, [facility] [address] [facility] [place] [address] FYI Allergies Active [...] 0.15 % Nasal SolutionIndicatio ns:Rhinorrhea Administer 1 [place] into nostril in the morning and 1 [place] before bedtime. 30 mL 12 4 Active [...] 01/24/2024 2:52 PM EDT 4 Active Nystatin 096154 UNIT/GM External Cream apply to affected area [...] 01/30/2020 Cigarette nicotine dependence in remission 10/08 [facility] (current) use of insulin 07/03/2019 Type 2 [...] clinical research program 11/29/2018 01/28/2020 Overview (08/11/2020): [employer]: A Randomized Controlled Trial (Project # [id number]). The [employer] program provides food-insecure diabetics with healthy food for their entire household (2 meals/ day X 5 days/week). The program also provides education on food preparation, healthy living, and diabetes self management. The research measures the effects of the program on patient health and wellbeing. Subject will begin the FFF program (11/2018). Contact Information: Prepared Foods Supervisor: Dr. Jaleel Harris ([phone]) CRC: Cindy Norriseduard ([phone]) RA: Lizzie Natarajan ([phone]) Diagnosis changed due to Research Module. Go [...] mRNA, LNP-s, No Pre serve, 2-Dose Series ([email or web address]) 08/02/2020,07/12/2020 Covid-19, Mrna, Lnp-s, Pf, B ivalent, 30 Mcg, IM, 12 yrs and above ([email or web address]) 02/04/2022 Hepatitis B, 20+ yrs 01/17/2014,08/16/2013,07/16 Pneumococcal Conjugate Vacci ne, 20-valent ([id number]) 10/07/2021 Pneumococcal Polysaccharide PPV23 (Pneumovax) 09/04/2009 Seasonal [...] Notes * Telephone Encounter - Felecia Mccrary [facility] - 03/28/2024 8:28 AM EST Left message [...] list can be cleaned up. Felecia Mccrary [facility] Clinical Pharmacist 03/28/2024, 8:32 AM documented in this encounter Plan of Treatment Upcoming Encounters Date Type Department Care Team (Late st Contact Info) Description 04/09/2024 2:45 PM EST Office Visit Ophthalmology, [facility] [address] [place] [address] Efraín Galindo DO [address] [place] [address] 05/24/2024 3:20 PM EST Office Visit General Internal Medicine [facility] [address] [facility] [place] [address] Damion Cheung MD [address] [facility] [place] [address] 05/30/2024 3:30 PM EST Office Visit Pharmacy, [place] [address] [place] [phone] Pharmacist1, [facility] [place] [address] [place] [phone] Scheduled Procedures Name Priority Associated Diagnoses Date/Ti [...] Additional history exists CKD HGB USE SMARTSET 86003 06/06/202406/06, 06/06/2023, 05/31/2022, Additional history exists CKD PHOS USE SMARTSET 57391 06/06/202405/26, 06/14/2020, 06/13/2020, Additional history exists Depression [...] Directives occurred with: Not Discussed Care Teams Pipe Chipper Relationship Specialty Start Date End Date Damion Cheung MD [address] [facility] [place] [address] PCP - General Internal Medicine 12/01/21 documented as of this encounter
--- NOTE | 2024-08-14 02:14 | CT Scan Report ---
EXAM: CT abd pelvis IV con only CLINICAL HISTORY: abd pain TECHNIQUE: Multiple contiguous axial images were obtained from the level of diaphragm to the pubis symphysis. This study was acquired after the IV administration of iodinated contrast material, given the patient's indications for the examination. If IV contrast material had not been administered, the likelihood of detecting abnormalities relevant to the patient's condition would have been substantially decreased. Coronal and sagittal reformatted images were generated and reviewed to improve anatomic localization and optimize lesion detection. CT scan was performed according to ALARA (as low as reasonably achievable). COMPARISON: 11/07/2023 15:31:38 BIOLOGICAL SCIENCE TECHNICIAN FINDINGS: The visualized lung bases shows small consolidation patch in right lower lobe. ABDOMEN/PELVIS: The liver is enlarged in size measuring 16.8cm and normal in attenuation. No focal liver lesions are seen. There is no intra or extrahepatic biliary ductal dilatation. Hepatic vasculature is patent. Post cholecystectomy status. The spleen, pancreas, and adrenal glands are unremarkable. Post right nephrectomy status. Left kidney is normal in size and attenuation. There is no hydronephrosis . Mild perinephric fat stranding. No renal calculi or renal masses are identified. Left ureter is normal in caliber and no ureteral calculi are seen. The bladder is partially distended with diffuse wall thickening. No evidence of focal or diffuse bowel wall thickening or evidence of bowel obstruction is seen. Few small diverticuli of 2mm seen in sigmoid colon. No inflammatory changes. The appendix is visualized in the right lower quadrant and appears within normal limits. No adenopathy or fluid collections are seen. The aorta is normal in caliber. No aggressive appearing osseous lesions are identified. IMPRESSION: 1. Mild 2. Uncomplicated sigmoid colon diverticulosis. 3. Mild left perinephric fat stranding. 4. Cystitis. 5. The visualized lung bases shows small consolidation patch in right lower lobe. 6. No interval change. Electronically signed by Byron Thompson 08-14-2024 02:13 AM
--- NOTE | 2024-08-14 02:43 | History & Physical Report ---
Date of Service August 14, 2024 Assessment & Plan (1) Chest pain: Plan: Chest pain Possible unstable angina Abnormal outpatient nuclear stress test History of coronary artery calcification as per records chronic diastolic heart failure, euvolemic Cystitis on imaging rule out UTI ARF on CKD hypertension, stable hyperlipidemia, on statin Rx COPD/RLD, chronic cough symptoms NAFLD cirrhosis, compensated metastatic renal cancer status post surgery/radiation CRI, creatinine at baseline chronic hyponatremia chronic anemia, hemoglobin at baseline Thrombocytopenia possibly from liver disease DM2 insulin requiring, suboptimal control as of last hemoglobin A1c of 10.31 January 2024 past tobacco abuse OBS Admit to PCU Aspirin, beta-salma, statin Rx Follow troponin Cardiology consult re: unstable angina N.p.o. in anticipation of diagnostic cardiac catheterization Baseline UA, monitor creatinine response to IVF, hold ARB interim Update lipid profile Basal bolus insulin adjusted for n.p.o. status, ISS BG goal 110-140, updating A1c DVT prophylaxis. SCDs Re: Thrombocytopenia Full code Text document was generated using [employer] voice recognition software. It may contain grammatical or spelling errors. Kindly contact undersigned for clarification of any documentation item in question. History of Present Illness Chief Complaint: chest pain Primary Care Provider: Damion Cheung MD History obtained from patient and records. Medical history significant for chronic diastolic heart failure, coronary artery calcification as per records, hypertension, hyperlipidemia, COPD/RLD, NAFLD cirrhosis, GERD, metastatic renal cancer status post surgery, CRI (baseline creatinine 1.3-1.4), chronic hyponatremia, chronic anemia (baseline hemoglobin of 13), DM2 insulin requiring, urolithiasis, past tobacco abuse. Last confinement 2020 for cholecystitis status postcholecystectomy. 1 month history of intermittent left-sided chest pain symptoms described as charley horse sensation on the left side. Abnormal outpatient nuclear stress test 2 weeks ago. Cardiology provider recommended cardiac catheterization. Patient initially declined recommendation as per documentation last week. Patient eventually agreed to procedure. Outpatient procedure scheduled next month. Worsening chest pain in the past week. Occasional pain on the right side. No unusual cough symptoms. Patient treated for bronchitis a few months ago with prednisone and Augmentin Rx. Achy abdominal pain without diarrhea symptoms. Patient consulted ER for evaluation. Symptoms somewhat improved after Nitropaste administration at the ER. Medical History as above Surgical History : Robotic thoracoscopy/lobectomy/lymphadenectomy, cholecystectomy Family History : DM, throat cancer Personal/Social history : Past tobacco abuse, no EtOH intake, disabled Allergies Allergy/AdvReac Type Severity Reaction Status Date / Time Iodinated Contrast Media AdvReac Mild Nausea Verified 05/18/23 16:41 Home Medications Medication Instructions Recorded Confirmed Type magnesium oxide 400 mg PO QDL 01/27/18 08/13/24 History metformin 1,000 mg tablet 1,000 mg PO BIDM 01/27/18 08/13/24 History pantoprazole 40 mg tablet,delayed 40 mg PO QAM 01/27/18 08/13/24 History release rosuvastatin 40 mg tablet 40 mg PO HS 01/27/18 08/13/24 History metoprolol succinate 50 mg 100 mg PO QAM 11/05/20 08/13/24 History tablet,extended release 24 hr fluticasone propionate 50 1 spray intranasal Q12H PRN 05/07/21 08/13/24 History mcg/actuation nasal Congestion spray,suspension losartan 100 mg tablet 100 mg PO QAM 05/07/21 08/13/24 History amlodipine 10 mg tablet 10 mg PO DAILY 10/21/21 08/13/24 History insulin aspart U-100 100 unit/mL 48 unit subcut DIRECTED 07/23/22 08/13/24 History (3 mL) subcutaneous pen (Novolog FlexPen U-100 Insulin aspart) insulin degludec 100 unit/mL 360 unit subcut HS 07/23/22 08/13/24 History subcutaneous solution (Tresiba U-100 Insulin) nebulizers (Aeroneb Go Nebulizer) #1 ea 07/27/22 05/18/23 Rx nystatin 100,000 unit/gram topical 1 applic topical BID #15 grams 07/11/24 08/13/24 Rx cream albuterol sulfate 90 mcg/actuation 2 inh inhalation Q4H PRN sob 08/13/24 08/13/24 History aerosol inhaler aspirin 81 mg tablet,delayed 81 mg PO DAILY 08/13/24 08/13/24 History release ezetimibe 10 mg tablet 10 mg PO DAILY 08/13/24 08/13/24 History furosemide 20 mg tablet 20 mg PO 3XWK 08/13/24 08/13/24 History polyethylene glycol 3350 17 17 g PO DAILY 08/13/24 08/13/24 History gram/dose oral powder terazosin 1 mg capsule 1 mg PO DAILY 08/13/24 08/13/24 History Past Med/Surg History Problem List (Updated 08/14/24 @ 09:16 by Yasmani Toscano DO) Coronary artery calcification Abnormal nuclear stress test Chest pain Renal cancer (Acute) CRF (chronic renal failure) (Acute) Palpitations (Acute) Precordial chest pain (Acute) Hypertension Tobacco use disorder Solitary kidney, acquired S/p nephrectomy Hyponatremia Diabetes mellitus Clear cell renal cell carcinoma CKD (chronic kidney disease) stage 3, GFR 30-59 ml/min Metastatic renal cell carcinoma to lung (Chronic 09/07/21) Solitary lung nodule (Chronic) Restrictive lung disease Change in bowel habit Encounter for pre-operative examination Hypertension (Chronic) DM type 2 (diabetes mellitus, type 2) (Chronic) HTN (hypertension) (Chronic) Renal neoplasm (Chronic) GERD (gastroesophageal reflux disease) (Chronic) HLD (hyperlipidemia) (Chronic) Encounter for pre-operative examination Encounter for pre-operative examination Constipation Pulmonary nodule COPD (chronic obstructive pulmonary disease) Allergic rhinitis Renal cell carcinoma Abdominal pain DVT prophylaxis Acute upper abdominal pain (Acute) Nausea (Acute) Leukocytosis (Acute) Acute cholecystitis History of laparoscopic cholecystectomy Post-operative state Acute renal failure Pulmonary nodule Obesity Solitary left kidney Medical History History of COVID-19 12/2020 (COUGH/HEADACHE ONLY>NO CURRENT PROBLEMS) Intellectual disability Per records Irregular heartbeat COPD (chronic obstructive pulmonary disease) no inh Fatty liver disease, nonalcoholic GERD (gastroesophageal reflux disease) Diabetes mellitus, type 2 IDDM Renal cancer 11/2017--Sx, no chemo/radiation Anxiety Hyperlipidemia Cardiac murmur NO CARDS>HAD FOLLOWED WITH [facility] ANDREWS IN PAST Hypertension Surgical History History of anesthesia reaction CONSTIPATION AFTER GENERAL ANESTHESIA History of lung surgery (06/11/20) Robotic Right VATS (Middle Lobectomy + Hayden Dissection) Dr. Kimo Lomax at [facility] laparoscopic cholecystectomy (07/17/20) Laparoscopic Cholecystectomy Dr. Velez 07/17/2020 History of colonoscopy History of esophagogastroduodenoscopy (EGD) History of nephrectomy Right 11/29/2017 @ [facility]--Renal Cancer History of tooth extraction all top teeth Family History Mother Family history of diabetes mellitus Father Esophageal cancer RT/Chemo Sister Breast cancer RT Brother No problems noted. Brother No problems noted. Brother No problems noted. Other Has no children No family history of adverse response to anesthesia Social History Smoking Status: Never smoker Tobacco Type: Cigarettes packs per day: 1.5; Second Hand Exposure: Yes ( A CHILD); Do You Dip or Chew Tobacco: No; Hx Alcohol Use: No Hx Substance Use: No Preferred Language: French Communication Ability: Effective Communication Ability Comment: Has difficulty recalling numbers, letter s....only attended to 5th grade Visual Impairment: Limited Hearing Ability: Hard of Hearing Embalmer Assistant Required: No Beliefs That Will Affect Care: None marital status: Single Current Living Situation: Significant Other Current Living Situation Comment: GIRLFRIEND AND "HER KID" How many Children do You have: 0 Feels Safe at Home: Yes Safety Concerns: Feels Safe At This Time Diet: regular caffeine: Yes (soda) during the past year weight has: remained stable Dental Care, Regularly: No Assistive Devices: Denture - Upper and Glasses Review of Systems Review of Systems: As per HPI, all other systems reviewed and negative Physical Exam Physical Exam: GENERAL: Slightly uncomfortable, slightly anxious, morbidly obese, unkempt, no respiratory distress SKIN: Pallor, warm HEENT: Pale palpebral conjunctivae, no ptosis, dry buccal mucosa NECK : Supple, short neck, no tenderness CHEST : Decreased breath sounds, no tenderness HEART : RRR, no obvious murmurs ABDOMEN: Some distention, nontender EXTREMITIES : Minimal LE swelling, no LE tenderness, palpable pulses, no other conspicuous deformities noted NEUROLOGIC : Coherent, no facial asymmetry, no other gross focality Results & Data Results & Data Vital Signs (Past 12 Hours) Vital Signs Temp Pulse Pulse Resp BP BP Pulse Ox 08/14/24 01:00 156/90 H 08/14/24 00:57 83 20 94 08/14/24 00:30 140/73 08/14/24 00:24 82 20 08/13/24 22:42 76 22 96 08/13/24 22:36 76 20 96 08/13/24 22:30 145/67 H 08/13/24 22:24 74 13 97 08/13/24 22:06 95 08/13/24 22:00 135/67 08/13/24 21:54 98 08/13/24 21:45 77 17 97 08/13/24 21:36 78 16 142/75 H 98 08/13/24 21:25 78 08/13/24 21:10 36.6 C 87 18 177/79 H 95 O2 Del Method 08/14/24 01:00 08/14/24 00:57 Room Air 08/14/24 00:30 08/14/24 00:24 08/13/24 22:42 Room Air 08/13/24 22:36 Room Air 08/13/24 22:30 08/13/24 22:24 Room Air 08/13/24 22:06 Room Air 08/13/24 22:00 08/13/24 21:54 Room Air 08/13/24 21:45 Room Air 08/13/24 21:36 Room Air 08/13/24 21:25 08/13/24 21:10 Room Air Laboratory Results Laboratory Results WBC 6.40 K/ul (4.8-10.8) 08/13/24 21: RBC 4.53 M/uL (4.70-6.10) L 08/13/24 21:20 Hgb 13.7 g/dl (14.0-18.0) L 08/13/24 21: Hct 40.0 % (42.0-52.0) L 08/13/24 21: MCV 88.3 fL (80.0-100.0) 08/13/24 21:20 MCH 30.2 pg (25.0-34.0) 08/13/24 21: MCHC 34.3 g/dL (32.0-36.0) 08/13/24 21:20 RDW Std Deviation 42.9 fL (36.4-46.3) 08/13/24 21:20 RDW Coeff of Faye 13.3 % (11.5-14.5) 08/13/24:20 Plt Count 129 K/uL (130-400) L 08/13/24 21:20 MPV 9.6 fL (9.4-12.4) 08/13/24 21:20 Immature Gran % (Auto) 0.5 % 08/13/24 21:20 Neut % (Auto) 59.1 % 08/13/24 21:20 Lymph % (Auto) 26.7 % 08/13/24 21:20 Meigs % (Auto) 9.2 % 08/13/24 21:20 Eos % (Auto) 3.9 % 08/13/24 21:20 Baso % (Auto) 0.6 % 08/13/24 21:20 Neut # (Auto) 3.78 K/uL (1.40-6.50) 08/13/24 21:20 Lymph # (Auto) 1.71 K/uL (1.20-3.40) 08/13/24 21:20 Meigs # (Auto) 0.59 K/uL (0.11-0.59) 08/13/24 21:20 Eos # (Auto) 0.25 K/uL (0.00-0.50) 08/13/24 21:20 Baso # (Auto) 0.04 K/uL (0.00-0.20) 08/13/24 21:20 Immature Gran # (Auto) 0.03 K/uL (0.01-0.20) 08/13/24 21:20 PT 10.9 Seconds (9.0-12.0) 08/13/24 21:20 INR 1.0 (0.9-1.1) 08/13/24 21:20 APTT 27 Seconds (21-31) 08/13/24 21:20 PTT Ratio 1.0 08/13/24 21:20 Sodium 131 mmol/L (136-145) L 08/13/24 21:20 Potassium 4.8 mmol/L (3.5-5.1) 08/13/24 21:20 Chloride 97 mmol/L (98-107) L 08/13/24 21:20 Carbon Dioxide 27 mmol/L (21-32) 08/13/24 21:20 Anion Gap 7 (3-11) 08/13/24 21:20 BUN 22 mg/dl (6-23) 08/13/24 21:20 Creatinine 1.53 mg/dl (0.6-1.4) H 08/13/24 21:20 Est Cr Clr Drug Dosing 73.6 ml/min 08/13/24 21:20 eGFR 53.36 08/13/24 21:20 BUN/Creatinine Ratio 14.4 (10-20) 08/13/24 21:20 Glucose 210 mg/dl (70-99(Fasting)) H 08/13/24 21:20 POC Glucose 149 mg/dl (70-99) H 08/14/24 00:22 Calcium 9.5 mg/dl (8.6-10.3) 08/13/24 21:20 Magnesium 1.8 mg/dl (1.7-2.4) 08/13/24 21:20 Total Bilirubin 0.9 mg/dl (0.2-1.0) 08/13/24 21:20 AST 53 U/L (13-39) H 08/13/24 21:20 ALT 72 U/L (7-52) H 08/13/24 21:20 Alkaline Phosphatase 89 U/L (34-104) 08/13/24 21:20 Troponin I High Sens 8.1 pg/ml (0-20) 08/13/24 21:20 B-Natriuretic Peptide 15 pg/ml (0-100) 08/13/24 21:20 Total Protein 7.1 gm/dl (6.0-8.3) 08/13/24 21:20 Albumin 3.9 gm/dl (3.4-5.0) 08/13/24 21:20 Globulin 3.2 gm/dl (2.5-4.0) 08/13/24 21:20 Albumin/Globulin Ratio 1.2 (0.9-2) 08/13/24 21:20 Lipase 24 U/L (11-82) 08/13/24 21:20 TSH 2.959 uIu/ml (0.300-4.500) 08/13/24 21:20 Impressions Chest X-Ray 08/13/24 21:19 Exam(s): XR CXR 1 VIEW EXAM: XR Chest, 1 View CLINICAL HISTORY: Reason for exam: Chest pain, nonspecific. TECHNIQUE: Frontal view of the chest. COMPARISON: Chest x-ray 09/23/2020 FINDINGS: Lungs: No consolidation. No overt edema. Pleural space: No pleural effusion. No pneumothorax. Heart: Unremarkable. No cardiomegaly. IMPRESSION: No acute cardiopulmonary abnormality. Electronically signed by: Jaswinder Smallwood MD 08/13/24 23:29 PM Abdomen/Pelvis CT 08/13/24 23:05 EXAM: CT abd pelvis IV con only CLINICAL HISTORY: abd pain TECHNIQUE: Multiple contiguous axial images were obtained from the level of diaphragm to the pubis symphysis. This study was acquired after the IV administration of iodinated contrast material, given the patient's indications for the examination. If IV contrast material had not been administered, the likelihood of detecting abnormalities relevant to the patient's condition would have been substantially decreased. Coronal and sagittal reformatted images were generated and reviewed to improve anatomic localization and optimize lesion detection. CT scan was performed according to ALARA (as low as reasonably achievable). COMPARISON: 11/07/2023 15:31:38 FEED IN WORKER FINDINGS: The visualized lung bases shows small consolidation patch in right lower lobe. ABDOMEN/PELVIS: The liver is enlarged in size measuring 16.8cm and normal in attenuation. No focal liver lesions are seen. There is no intra or extrahepatic biliary ductal dilatation. Hepatic vasculature is patent. Post cholecystectomy status. The spleen, pancreas, and adrenal glands are unremarkable. Post right nephrectomy status. Left kidney is normal in size and attenuation. There is no hydronephrosis . Mild perinephric fat stranding. No renal calculi or renal masses are identified. Left ureter is normal in caliber and no ureteral calculi are seen. The bladder is partially distended with diffuse wall thickening. No evidence of focal or diffuse bowel wall thickening or evidence of bowel obstruction is seen. Few small diverticuli of 2mm seen in sigmoid colon. No inflammatory changes. The appendix is visualized in the right lower quadrant and appears within normal limits. No adenopathy or fluid collections are seen. The aorta is normal in caliber. No aggressive appearing osseous lesions are identified. IMPRESSION: 1. Mild 2. Uncomplicated sigmoid colon diverticulosis. 3. Mild left perinephric fat stranding. 4. Cystitis. 5. The visualized lung bases shows small consolidation patch in right lower lobe. 6. No interval change. Electronically signed by Byron Thompson 08-14-2024 02:13 AM Chest CTA 08/13/24 23:05 EXAM: CT angio chest PE protocol CLINICAL HISTORY: cp TECHNIQUE: Contiguous axial images were obtained from the neck base through the upper abdomen following intravenous administration of iodinated contrast material. Angiographic images were processed, 3D MIP images were acquired for interpretation. If IV contrast material had not been administered, the likelihood of detecting abnormalities relevant to the patient's condition would have been substantially decreased. Coronal and sagittal 3-D MIPs were likewise performed and indicated to increase the sensitivity of detectin diffuse clinically relevant pathology. CT scan was performed according to ALARA (as low as reasonably achievable). COMPARISON: CT , 08/22/2023 14:10:28 FEED IN WORKER FINDINGS: Adequate contrast bolus without evidence of pulmonary embolism. The central airways are patent. Small patchy consolidation in posterobasal segment of right lower lobe. No pleural effusion. The heart, aorta, and pulmonary arteries are of normal size and configuration. There are no appreciable coronary artery and aortic atherosclerotic calcifications. No pericardial effusion is identified. The thyroid is unremarkable. No mediastinal, hilar, or axillary lymphadenopathy is noted. No suspicious lytic or sclerotic osseous lesions are identified. IMPRESSION: 1. No evidence of pulmonary embolism. 2. Small patchy consolidation in posterobasal segment of right lower lobe. No significant interval change. Electronically signed by Byron Thompson 08-14-2024 12:51 AM Diagnostic Findings EKG as per my interpretation :Rate 80, NSR, normal axis, incomplete RBBB, T wave inversion lateral leads
[2024-08-14] MEDS ORDERED: ACETAMINOPHEN 500 MG TAB PO PRN (02:47)
[2024-08-14] MEDS ORDERED: HYDROmorphone INJ 1 MG/ML SYRINGE IM PRN (02:47)
[2024-08-14] MEDS ORDERED: oxyCODONE HCL IR 5 MG TAB (IMMEDIATE RELEASE) PO PRN (02:47)
[2024-08-14] MEDS ORDERED: PROMETHAZINE 12.5 MG/50.5 ML BAG IV PRN (02:47)
[2024-08-14] MEDS ORDERED: FLUTICASONE PROPIONATE NA SPR 16 GM BTL PRN (02:48)
[2024-08-14] MEDS ORDERED: LORazepam 0.5 MG TAB PO PRN (02:50)
[2024-08-14] MEDS ORDERED: DEXTROSE 50% 50 ML SYRINGE IV PRN (04:09)
[2024-08-14] MEDS ORDERED: GLUCAGON FOR INJ 1 MG VIAL SQ PRN (04:09)
[2024-08-14] MEDS ORDERED: CARBOHYDRATES FOR HYPOGLYCEMIA PO PRN (04:09)
[2024-08-14] MEDS ORDERED: GLUCOSE 40% GEL 15 GM TUBE PO PRN (04:09)
[2024-08-14] MEDS ORDERED: GLUCOSE 10 TAB/TUBE PO PRN (04:09)
[2024-08-14 04:18] VITALS: RESP 18
[2024-08-14 04:43] LABS: Basophils # (auto) 0.08 K/uL (0.00-0.20); Basophils % (auto) 1.3 %; Eosinophils # (auto) 0.28 K/uL (0.00-0.50); Eosinophils % (auto) 4.5 %; Hematocrit (blood only) 36.9 % (42.0-52.0); Hemoglobin 12.7 g/dl (14.0-18.0); Immature Granulocytes # (auto) 0.01 K/uL (0.01-0.20); Immature Granulocytes % (auto) 0.2 %; Lymphocytes # (auto) 1.84 K/uL (1.20-3.40); Lymphocytes % (auto) 29.3 %; Mean Corpuscular Hgb Conc 34.4 g/dL (32.0-36.0); Mean Corpuscular Volume 87.2 fL (80.0-100.0); Mean Platelet Volume 9.9 fL (9.4-12.4); Monocytes # (auto) 0.66 K/uL (0.11-0.59); Monocytes % (auto) 10.5 %; Neutrophils % (auto) 54.2 %; Platelet Count 126 K/uL (130-400); RDW Coefficient of Variation 13.4 % (11.5-14.5); RDW Standard Deviation 42.4 fL (36.4-46.3); Red Blood Count 4.23 M/uL (4.70-6.10); White Blood Count 6.27 K/ul (4.8-10.8)
[2024-08-14 04:58] LABS: Albumin Level 3.7 gm/dl (3.4-5.0); BUN Creatinine Ratio 15.1 (10-20); Bilirubin Direct 0.1 mg/dl (0-0.2); Bilirubin,Total 0.8 mg/dl (0.2-1.0); Calcium 9.2 mg/dl (8.6-10.3); Chol HDL Ratio 4.3 (0-5); Creatinine Clr Calc Pharmacy 76.6 ml/min; Potassium 4.4 mmol/L (3.5-5.1); Total Protein 6.7 gm/dl (6.0-8.3)
[2024-08-14 05:04] LABS: Troponin I High Sensitivity 8.6 pg/ml (0-20)
[2024-08-14 05:07] LABS: Partial Thromboplastin Time 27 Seconds (21-31)
[2024-08-14] MEDS: INSULIN ASPART PER UNIT CHARGE SC SCH ×2 (06:07→12:18)
--- NOTE | 2024-08-14 07:11 | Communication Note ---
Date of Service: August 14, 2024
[2024-08-14] MEDS: TERAZOSIN HCL 1 MG CAP PO SCH (08:32)
[2024-08-14] MEDS: ASPIRIN 81 MG ECTAB PO SCH (08:32)
[2024-08-14] MEDS: METOPROLOL SUCC 50MG EXT REL TAB PO SCH (08:32)
[2024-08-14] MEDS: EZETIMIBE 10 MG TAB PO SCH (08:32)
[2024-08-14] MEDS: amLODIPine BESYLATE 5 MG TAB PO SCH (08:33)
[2024-08-14] MEDS: LANTUS PER UNIT CHARGE SQ SCH (08:33)
[2024-08-14] MEDS: PANTOprazole 40 MG TAB PO SCH (08:33)
[2024-08-14] MEDS: POLYETHYLENE (MIRALAX) 17 GM PACK PO SCH (08:33)
[2024-08-14 09:03] LABS: Hematocrit (blood only) 38.3 % (42.0-52.0); Hemoglobin 13.1 g/dl (14.0-18.0)
--- NOTE | 2024-08-14 09:17 | Cardiology Consultation ---
Date of Consultation August 14, 2024 Assessment & Plan (1) Chest pain: (2) Abnormal nuclear stress test: (3) Coronary artery calcification: (4) S/p nephrectomy: (5) CKD (chronic kidney disease) stage 3, GFR 30-59 ml/min: Plan 54-year-old male with coronary calcifications and recent abnormal Lexiscan nuclear stress test presents with atypical chest discomfort. High-sensitivity troponin within normal limits. No ischemic ECG changes. Recommend resting 2D transthoracic echocardiogram. The risk, benefits, alternatives to cardiac catheterization discussed. Patient declines cardiac catheterization today. Agreeable to follow-up for cardiac catheterization as scheduled in [facility] 08/30/2024. Discontinue topical nitrates. Add isosorbide monohydrate 30 mg daily. Continue aspirin, statin, Toprol-XL, and amlodipine as ordered. Addendum: 2D transthoracic echocardiogram reviewed. No regional wall motion abnormality is noted. There is evidence of aortic valve sclerosis without stenosis. Again, I discussed risk versus benefit of cardiac catheterization. Patient declines further procedures at this time. He is adamant he would like to be discharged home and follow-up for cardiac catheterization as scheduled at [facility] in [place]. Continue medications as listed above. I spent a total of 65 minutes on the date of service in preparation, delivery, and documentation of the care provided to this patient, excluding any time spent in the performance of separately billed services. Yasmani Toscano DO, [facility] History of Present Illness Reason for Consultation: Chest pain, abnormal nuclear stress Requesting Physician: Dr. Winston Attending Physician: Brittany Joel MD History of Present Illness 54 presents for department with intermittent chest discomfort. Describes a right-sided and substernal chest pain occurring at rest. Reports associated paresthesias involving the fingers of his left hand. Intermittent chest pain dates back several years as early as age 29. Reports palpitations attributed to PVCs in the past. Recent Lexiscan nuclear stress test demonstrating apical ischemia. Denies exertional chest pain or unusual shortness of breath. Chest discomfort typically occurs at rest and is not associated with activity/exertion. Denies orthopnea, PND, or weight gain. Notes intermittent pedal edema which is currently controlled. History of renal cancer status post right-sided nephrectomy and right sided lower lobectomy due to metastatic disease. Status post radiation treatment as well. Baseline creatinine 1.4-1.5. He received IV contrast yesterday due to CT angiogram of the chest. Patient currently voices a desire for discharge and follow-up as outpatient. Allergies Allergy/AdvReac Type Severity Reaction Status Date / Time Iodinated Contrast Media AdvReac Mild Nausea Verified 05/18/23 16:41 Home Medications Medication Instructions Recorded Confirmed Type magnesium oxide 400 mg PO QDL 01/27/18 08/13/24 History metformin 1,000 mg tablet 1,000 mg PO BIDM 01/27/18 08/13/24 History pantoprazole 40 mg tablet,delayed 40 mg PO QAM 01/27/18 08/13/24 History release rosuvastatin 40 mg tablet 40 mg PO HS 01/27/18 08/13/24 History metoprolol succinate 50 mg 100 mg PO QAM 11/05/20 08/13/24 History tablet,extended release 24 hr fluticasone propionate 50 1 spray intranasal Q12H PRN 05/07/21 08/13/24 History mcg/actuation nasal Congestion spray,suspension losartan 100 mg tablet 100 mg PO QAM 05/07/21 08/13/24 History amlodipine 10 mg tablet 10 mg PO DAILY 10/21/21 08/13/24 History insulin aspart U-100 100 unit/mL 48 unit subcut DIRECTED 07/23/22 08/13/24 History (3 mL) subcutaneous pen (Novolog FlexPen U-100 Insulin aspart) insulin degludec 100 unit/mL 360 unit subcut HS 07/23/22 08/13/24 History subcutaneous solution (Tresiba U-100 Insulin) nebulizers (Aeroneb Go Nebulizer) #1 ea 07/27/22 05/18/23 Rx nystatin 100,000 unit/gram topical 1 applic topical BID #15 grams 07/11/24 08/13/24 Rx cream albuterol sulfate 90 mcg/actuation 2 inh inhalation Q4H PRN sob 08/13/24 08/13/24 History aerosol inhaler aspirin 81 mg tablet,delayed 81 mg PO DAILY 08/13/24 08/13/24 History release ezetimibe 10 mg tablet 10 mg PO DAILY 08/13/24 08/13/24 History furosemide 20 mg tablet 20 mg PO 3XWK 08/13/24 08/13/24 History polyethylene glycol 3350 17 17 g PO DAILY 08/13/24 08/13/24 History gram/dose oral powder terazosin 1 mg capsule 1 mg PO DAILY 08/13/24 08/13/24 History Patient History Medical History History of COVID-19 12/2020 (COUGH/HEADACHE ONLY>NO CURRENT PROBLEMS) Intellectual disability Per records Irregular heartbeat COPD (chronic obstructive pulmonary disease) no inh Fatty liver disease, nonalcoholic GERD (gastroesophageal reflux disease) Diabetes mellitus, type 2 IDDM Renal cancer 11/2017--Sx, no chemo/radiation Anxiety Hyperlipidemia Cardiac murmur NO CARDS>HAD FOLLOWED WITH [facility]RE[facility] IN PAST Hypertension Surgical History History of anesthesia reaction CONSTIPATION AFTER GENERAL ANESTHESIA History of lung surgery (06/11/20) Robotic Right VATS (Middle Lobectomy + Hayden Dissection) Dr. Kimo Lomax at [facility] Hx laparoscopic cholecystectomy (07/17/20) Laparoscopic Cholecystectomy Dr. Velez 07/17/2020 History of colonoscopy History of esophagogastroduodenoscopy (EGD) History of nephrectomy Right 11/29/2017 @ [facility]--Renal Cancer History of tooth extraction all top teeth Family History Mother Family history of diabetes mellitus Father Esophageal cancer RT/Chemo Sister Breast cancer RT Brother No problems noted. Brother No problems noted. Brother No problems noted. Other Has no children No family history of adverse response to anesthesia Social History Smoking Status: Never smoker Tobacco Type: Cigarettes packs per day: 1.5; Second Hand Exposure: Yes ( A CHILD); Do You Dip or Chew Tobacco: No; Hx Alcohol Use: No Hx Substance Use: No Preferred Language: Macedonian Communication Ability: Effective Communication Ability Comment: Has difficulty recalling numbers, letters....only attended to 5th grade Visual Impairment: Limited Hearing Ability: Hard of Hearing [employer] Architect Required: No Beliefs That Will Affect Care: None marital status: Single Current Living Situation: Significant Other Current Living Situation Comment: GIRLFRIEND AND "HER KID" How many Children do You have: 0 Feels Safe at Home: Yes Safety Concerns: Feels Safe At This Time Diet: regular caffeine: Yes (soda) during the past year weight has: remained stable Dental Care, Regularly: No Assistive Devices: Denture - Upper and Glasses Review of Systems Review of Systems: All systems reviewed & are unremarkable except as noted in Subjective Physical Exam Constitutional: well developed, well nourished and + obese Respiratory: + respiratory distress; no labored breat marcos and no retractions Auscultation: no crackles, no rales, no rhonchi and no wheezes Cardiovascular: Rate/Rhythm: regular rate and regular rhythm Heart Sounds: normal S1 and normal S2; no murmur Vessels: femoral pulses present and radial pulses present; no JVD and no carotid bruit Extremities: no edema Gastrointestinal (Abdomen): Inspection/Auscultation: normal bowel sounds; abdomen not distended Percussion/Palpation: abdomen soft; abdomen nontender and abdomen not rigid Neurologic: CN's II-XI intact bilaterally and moves all extremities Results & Data Vital Signs (Past 12 Hours) Vital Signs Temp Pulse Pulse Resp BP BP Pulse Ox 08/14/24 07:01 36.9 C 81 18 156/76 H 97 08/14/24 04:14 36.8 C 77 18 133/75 96 08/14/24 04:04 76 08/14/24 03:54 08/14/24 03:30 148/77 H 08/14/24 03:30 77 16 95 08/14/24 02:36 80 22 94 08/14/24 02:30 131/78 08/14/24 02:27 79 19 08/14/24 02:18 81 18 08/14/24 02:15 150/67 H 08/14/24 01:00 156/90 H 08/14/24 00:57 83 20 94 08/14/24 00:30 140/73 08/14/24 00:24 82 20 08/13/24 22:42 76 22 96 08/13/24 22:36 76 20 96 08/13/24 22:30 145/67 H 08/13/24 22:24 74 13 97 08/13/24 22:06 95 08/13/24 22:00 135/67 08/13/24 21:54 98 08/13/24 21:45 77 17 97 08/13/24 21:36 78 16 142/75 H 98 08/13/24 21:25 78 08/13/24 21:10 36.6 C 87 18 177/79 H 95 O2 Del Method 08/14/24 07:01 Room Air 08/14/24 04:14 Room Air 08/14/24 04:04 08/14/24 03:54 Room Air 08/14/24 03:30 08/14/24 03:30 Room Air 08/14/24 02:36 Room Air 08/14/24 02:30 08/14/24 02:27 08/14/24 02:18 08/14/24 02:15 08/14/24 01:00 08/14/24 00:57 Room Air 08/14/24 00:30 08/14/24 00:24 08/13/24 22:42 Room Air 08/13/24 22:36 Room Air 08/13/24 22:30 08/13/24 22:24 Room Air 08/13/24 22:06 Room Air 08/13/24 22:00 08/13/24 21:54 Room Air 08/13/24 21:45 Room Air 08/13/24 21:36 Room Air 08/13/24 21:25 08/13/24 21:10 Room Air Laboratory Results Cardiac Enzymes 08/13/24 08/14/24 Range/Units 21:20 04:23 AST 53 H 44 H (13-39) U/L Troponin I High Sens 8.1 8.6 (0-20) pg/ml B-Natriuretic Peptide 15 (0-100) pg/ml Coagulation 08/13/24 08/14/24 Range/Units 21:20 04:23 PT 10.9 (9.0-12.0) Seconds APTT 27 27 (21-31) Seconds B-Natriuretic Peptide 15 (0-100) pg/ml Lipids 08/14/24 Range/Units 04:23 Triglycerides 290 H (0-150) mg/dl Cholesterol 112 (0-200) mg/dl HDL Cholesterol 26 mg/dl Cholesterol/HDL Ratio 4.3 (0-5) CBC 08/13/24 08/14/24 08/14/24 Range/Units 21:20 04:23 08:18 WBC 6.40 6.27 (4.8-10.8) K/ul RBC 4.53 L 4.23 L (4.70-6.10) M/uL Hgb 13.7 L 12.7 L 13.1 L (14.0-18.0) g/dl Hct 40.0 L 36.9 L 38.3 L (42.0-52.0) % Plt Count 129 L 126 L (130-400) K/uL Neut # (Auto) 3.78 3.40 (1.40-6.50) K/uL Lymph # (Auto) 1.71 1.84 (1.20-3.40) K/uL [place] # (Auto) 0.59 0.66 H (0.11-0.59) K/uL Eos # (Auto) 0.25 0.28 (0.00-0.50) K/uL Baso # (Auto) 0.04 0.08 (0.00-0.20) K/uL Comprehensive Metabolic Panel 08/13/24 08/14/24 Range/Units 21:20 04:23 Sodium 131 L 134 L (136-145) mmol/L Potassium 4.8 4.4 (3.5-5.1) mmol/L Chloride 97 L 101 (98-107) mmol/L Carbon Dioxide 27 27 (21-32) mmol/L BUN 22 22 (6-23) mg/dl Creatinine 1.53 H 1.46 H (0.6-1.4) mg/dl Glucose 210 H 169 H (70-99(Fasting)) mg/dl Calcium 9.5 9.2 (8.6-10.3) mg/dl Direct Bilirubin 0.1 (0-0.2) mg/dl AST 53 H 44 H (13-39) U/L ALT 72 H 62 H (7-52) U/L Alkaline Phosphatase 89 76 (34-104) U/L Total Protein 7.1 6.7 (6.0-8.3) gm/dl Albumin 3.9 3.7 (3.4-5.0) gm/dl Intake and Output 08/13/24 08/14/24 08/14/24 22:59 06:59 14:59 Intake Total 50.5 / 50.5 Balance 50.5 / 50.5 Intake: IV 50.5 / 50.5 Promethazine 12.5 mg In 50.5 ml 50.5 / 50.5 @ 202 mls/hr IV NOW STA Rx#: [id number] Other: # Unmeasured Voids 1 Weight 128.9 kg 127.414 kg Weight Measurement Method Chair Scale Built in Bedscale ECG Additional Comments: ECG: Normal sinus rhythm, poor R wave progression, cannot exclude age- indeterminate anterior infarct. No change when compared to prior ECG dated 2020. (1) Chest pain Chest pain type: other chest pain Qualified Code(s): R07.89 - Other chest pain
--- NOTE | 2024-08-14 10:20 | Electrocardiogram Report ---
Test Reason : Blood Pressure : */* mmHG Vent. Rate : 82 BPM Atrial Rate : 82 BPM P-R Int : 194 ms QRS Dur : 96 ms QT Int : 354 ms P-R-T Axes : 76 12 104 degrees QTcB Int : 413 ms Normal sinus rhythm Incomplete right bundle branch block Cannot rule out Inferior infarct (cited on or before 17-Nov-2017) Poor R wave progression, consider anterior IN vs. lead placement vs. LVH T wave abnormality, consider lateral ischemia Abnormal ECG When compared with ECG of 23-Sep-2020 15:22, No significant change was found Confirmed by Marco Lilly ([id number]) on 08/14/2024 10:19:56 AM Referred By: REFERRED SELF Confirmed By: Marco Lilly
[2024-08-14] MEDS: ISOSORBIDE MONO EXTENDED REL 30 MG TABCR PO SCH (10:32)
[2024-08-14 11:11] VITALS: BP 145/77; PULSE 79; TEMP 98.2; O2SAT 95
--- NOTE | 2024-08-14 12:34 | Discharge Summary ---
Discharge Summary Date of Service August 14, 2024 Principal Dx & Hospital Course #1 = Principal Diagnosis (1) Chest pain: Chest pain Possible unstable angina Abnormal outpatient nuclear stress test History of coronary artery calcification as per records chronic diastolic heart failure, euvolemic Cystitis on imaging rule out UTI ARF on CKD hypertension, stable hyperlipidemia, on statin Rx COPD/RLD, chronic cough symptoms NAFLD cirrhosis, compensated metastatic renal cancer status post surgery/radiation CRI, creatinine at baseline chronic hyponatremia chronic anemia, hemoglobin at baseline Thrombocytopenia possibly from liver disease DM2 insulin requiring, suboptimal control as of last hemoglobin A1c of 10.31 January 2024 past tobacco abuse OBS Admit to PCU Aspirin, beta-salma, statin Rx Follow troponin Cardiology consult re: unstable angina N.p.o. in anticipation of diagnostic cardiac catheterization Baseline UA, monitor creatinine response to IVF, hold ARB interim Update lipid profile Basal bolus insulin adjusted for n.p.o. status, ISS BG goal 110-140, updating A1c DVT prophylaxis. SCDs Re: Thrombocytopenia Full code Text document was generated using [employer] voice recognition software. It may contain grammatical or spelling errors. Kindly contact undersigned for clarification of any documentation item in question. Plan Pt is a 54yoM with medical history significant for chronic diastolic heart failure, coronary artery calcification, hypertension, hyperlipidemia, COPD/RLD, NAFLD cirrhosis, GERD, metastatic renal cancer status post surgery, Chronic Kidney Disease (baseline creatinine 1.3-1.4), chronic hyponatremia, chronic anemia (baseline hemoglobin of 13), DM2 insulin requiring, urolithiasis, past tobacco abuse presenting with concern for chest pain. Chest pain Possible unstable angina Abnormal outpatient nuclear stress test History of coronary artery calcification as per records Troponin negative EKG without signs of ischemia Echo with EF 60-65%, mild LVH, Grade 1 diastolic dysfunction, moderate aortic valve sclerosis Cardiology consulted, Dr. Yasmani Toscano recommended/stated the following on the day of discharge: "...54-year-old male with coronary calcifications and recent abnormal Lexiscan nuclear stress test presents with atypical chest discomfort. High- sensitivity troponin within normal limits. No ischemic ECG changes. Recommend resting 2D transthoracic echocardiogram. The risk, benefits, alternatives to cardiac catheterization discussed. Patient declines cardiac catheterization today. Agreeable to follow-up for cardiac catheterization as scheduled in [facility] 08/30/2024. Discontinue topical nitrates. Add isosorbide monohydrate 30 mg daily. Continue aspirin, statin, Toprol-XL, and amlodipine as ordered. Addendum: 2D transthoracic echocardiogram reviewed. No regional wall motion abnormality is noted. There is evidence of aortic valve sclerosis without stenosis. Again, I discussed risk versus benefit of cardiac catheterization. Patient declines further procedures at this time. He is adamant he would like t o be discharged home and follow-up for cardiac catheterization as scheduled at [facility] in [place]. Continue medications as listed above..." On the day of discharge pt anxious to leave. He noted no further episodes of chest pain. He was prescribed the Imdur 30mg to be taken daily and advised to hold his home losartan until followup with Cardiology. He was advised to continue with the medications listed above: aspirin, Toprol, rosuvastatin and amlodipine. Pt was discharged in stable condition. Notes For Next Care Provider As above Medication Changes From Visit Imdur 30mg daily Hold Losartan until cardiology followup Admission HPI Per Admitting Provider History obtained from patient and records. Medical history significant for chronic diastolic heart failure, coronary artery calcification as per records, hypertension, hyperlipidemia, COPD/RLD, NAFLD cirrhosis, GERD, metastatic renal cancer status post surgery, CRI (baseline creatinine 1.3-1.4), chronic hyponatremia, chronic anemia (baseline hemoglobin of 13), DM2 insulin requiring, urolithiasis, past tobacco abuse. Last confinement 2020 for cholecystitis status postcholecystectomy. 1 month history of intermittent left-sided chest pain symptoms described as charley horse sensation on the left side. Abnormal outpatient nuclear stress test 2 weeks ago. Cardiology provider recommended cardiac catheterization. Patient initially declined recommendation as per documentation last week. Patient eventually agreed to procedure. Outpatient procedure scheduled next month. Worsening chest pain in the past week. Occasional pain on the right side. No unusual cough symptoms. Patient treated for bronchitis a few months ago with prednisone and Augmentin Rx. Achy abdominal pain without diarrhea symptoms. Patient consulted ER for evaluation. Symptoms somewhat improved after Nitropaste administration at the ER. Medical History as above Surgical History : Robotic thoracoscopy/lobectomy/lymphadenectomy, cholecystectomy Family History : DM, throat cancer Personal/Social history : Past tobacco abuse, no EtOH intake, disabled Admission Exam Per Admitting Provider GENERAL: Slightly uncomfortable, slightly anxious, morbidly obese, unkempt, no respiratory distress SKIN: Pallor, warm HEENT: Pale palpebral conjunctivae, no ptosis, dry buccal mucosa NECK : Supple, short neck, no tenderness CHEST : Decreased breath sounds, no tenderness HEART : RRR, no obvious murmurs ABDOMEN: Some distention, nontender EXTREMITIES : Minimal LE swelling, no LE tenderness, palpable pulses, no other conspicuous deformities noted NEUROLOGIC : Coherent, no facial asymmetry, no other gross focality Discharge Exam General: Alert, oriented. No acute distress HEENT: NC/AT Chest: Nontender to palpation. CV: RRR Resp: Breath sounds clear bilaterally, no increased effort of breathing Abdomen:Soft, nontender Extremities: No edema in lower extremities bilaterally. Updated Medication List Medication Instructions Recorded Confirmed Type magnesium oxide 400 mg PO QDL 01/27/18 08/13/24 History metformin 1,000 mg tablet 1,000 mg PO BIDM 01/27/18 08/13/24 History pantoprazole 40 mg tablet,delayed 40 mg PO QAM 01/27/18 08/13/24 History release rosuvastatin 40 mg tablet 40 mg PO HS 01/27/18 08/13/24 History metoprolol succinate 50 mg 100 mg PO QAM 11/05/20 08/13/24 History tablet,extended release 24 hr fluticasone propionate 50 1 spray intranasal Q12H PRN 05/07/21 08/13/24 History mcg/actuation nasal Congestion spray,suspension losartan 100 mg tablet 100 mg PO QAM 05/07/21 08/13/24 History amlodipine 10 mg tablet 10 mg PO DAILY 10/21/21 08/13/24 History insulin aspart U-100 100 unit/mL 48 unit subcut DIRECTED 07/23/22 08/13/24 History (3 mL) subcutaneous pen (Novolog FlexPen U-100 Insulin aspart) insulin degludec 100 unit/mL 360 unit subcut HS 07/23/22 08/13/24 History subcutaneous solution (Tresiba U-100 Insulin) nebulizers (Aeroneb Go Nebulizer) #1 ea 07/27/22 05/18/23 Rx nystatin 100,000 unit/gram topical 1 applic topical BID #15 grams 07/11/24 08/13/24 Rx cream albuterol sulfate 90 mcg/actuation 2 inh inhalation Q4H PRN sob 08/13/24 08/13/24 History aerosol inhaler aspirin 81 mg tablet,delayed 81 mg PO DAILY 08/13/24 08/13/24 History release ezetimibe 10 mg tablet 10 mg PO DAILY 08/13/24 08/13/24 History furosemide 20 mg tablet 20 mg PO 3XWK 08/13/24 08/13/24 History polyethylene glycol 3350 17 17 g PO DAILY 08/13/24 08/13/24 History gram/dose oral powder terazosin 1 mg capsule 1 mg PO DAILY 08/13/24 08/13/24 History amoxicillin 875 mg-potassium 1 tab PO BID #10 tabs 08/14/24 Rx clavulanate 125 mg tablet isosorbide mononitrate 30 mg 30 mg PO QAM #30 tabs 08/14/24 Rx tablet,extended release 24 hr Hospital Stay Data Consultations 08/13/24 21:58 ED Decision to Admit Stat 08/14/24 02:48 Consult Cardiology Routine Diagnostic Imagining Performed 08/13/24 23:05 CT Abd and Pelvis [CT abd pelvis IV con only] Stat CT angio chest PE protocol Stat Chest X-Ray 08/13/24 21:19 Exam(s): XR CXR 1 VIEW EXAM: XR Chest, 1 View CLINICAL HISTORY: Reason for exam: Chest pain, nonspecific. TECHNIQUE: Frontal view of the chest. COMPARISON: Chest x-ray 09/23/2020 FINDINGS: Lungs: No consolidation. No overt edema. Pleural space: No pleural effusion. No pneumothorax. Heart: Unremarkable. No cardiomegaly. IMPRESSION: No acute cardiopulmonary abnormality. Electronically signed by: Jaswinder Smallwood MD 08/13/24 23:29 PM Abdomen/Pelvis CT 08/13/24 23:05 EXAM: CT abd pelvis IV con only CLINICAL HISTORY: abd pain TECHNIQUE: Multiple contiguous axial images were obtained from the level of diaphragm to the pubis symphysis. This study was acquired after the IV administration of iodinated contrast material, given the patient's indications for the examination. If IV contrast material had not been administered, the likelihood of detecting abnormalities relevant to the patient's condition would have been substantially decreased. Coronal and sagittal reformatted images were generated and reviewed to improve anatomic localization and optimize lesion detection. CT scan was performed according to ALARA (as low as reasonably achievable). COMPARISON: 11/07/2023 15:31:38 TOP LOADER FINDINGS: The visualized lung bases shows small consolidation patch in right lower lobe. ABDOMEN/PELVIS: The liver is enlarged in size measuring 16.8cm and normal in attenuation. No focal liver lesions are seen. There is no intra or extrahepatic biliary ductal dilatation. Hepatic vasculature is patent. Post cholecystectomy status. The spleen, pancreas, and adrenal glands are unremarkable. Post right nephrectomy status. Left kidney is normal in size and attenuation. There is no hydronephrosis . Mild perinephric fat stranding. No renal calculi or renal masses are identified. Left ureter is normal in caliber and no ureteral calculi are seen. The bladder is partially distended with diffuse wall thickening. No evidence of focal or diffuse bowel wall thickening or evidence of bowel obstruction is seen. Few small diverticuli of 2mm seen in sigmoid colon. No inflammatory changes. The appendix is visualized in the right lower quadrant and appears within normal limits. No adenopathy or fluid collections are seen. The aorta is normal in caliber. No aggressive appearing osseous lesions are identified. IMPRESSION: 1. Mild 2. Uncomplicated sigmoid colon diverticulosis. 3. Mild left perinephric fat stranding. 4. Cystitis. 5. The visualized lung bases shows small consolidation patch in right lower lobe. 6. No interval change. Electronically signed by Byron Thompson 08-14-2024 02:13 AM Chest CTA 08/13/24 23:05 EXAM: CT angio chest PE protocol CLINICAL HISTORY: cp TECHNIQUE: Contiguous axial images were obtained from the neck base through the upper abdomen following intravenous administration of iodinated contrast material. Angiographic images were processed, 3D MIP images were acquired for interpretation. If IV contrast material had not been administered, the likelihood of detecting abnormalities relevant to the patient's condition would have been substantially decreased. Coronal and sagittal 3-D MIPs were likewise performed and indicated to increase the sensitivity of detectin diffuse clinically relevant pathology. CT scan was performed according to ALARA (as low as reasonably achievable). COMPARISON: CT , 08/22/2023 14:10:28 TOP LOADER FINDINGS: Adequate contrast bolus without evidence of pulmonary embolism. The central airways are patent. Small patchy consolidation in posterobasal segment of right lower lobe. No pleural effusion. The heart, aorta, and pulmonary arteries are of normal size and configuration. There are no appreciable coronary artery and aortic atherosclerotic calcifications. No pericardial effusion is identified. The thyroid is unremarkable. No mediastinal, hilar, or axillary lymphadenopathy is noted. No suspicious lytic or sclerotic osseous lesions are identified. IMPRESSION: 1. No evidence of pulmonary embolism. 2. Small patchy consolidation in posterobasal segment of right lower lobe. No significant interval change. Electronically signed by Byron Thompson 08-14-2024 12:51 AM Pending Results Patient Have Any Pending Studies at Discharge: No Discharge Instructions Given to Patient (Per Discharging Provider) Marco, You were evaluated for chest pain. You declined a cardiac cath here and would like to get that done as previously scheduled. You were seen by the public employment mediator who recommended the following medication changes listed below. Please keep close follow up with cardiology after discharge. There was also concern for a lung infection based on your CT scan. Please take the short course of antibiotics prescribed called Augmentin to help. Please keep close follow up with your primary care provider after discharge. Please do not hesitate to come back to the emergency room if your symptoms worsen or return. It was a pleasure taking care of you while you were here. Total Time Total Time Spent Total Time Spent (In Minutes): 60
[2024-08-14] MEDS ORDERED: ROSUVASTATIN CALCIUM 20 MG TAB PO SCH (21:00)
== END 2024-08-14 13:34 | disposition home or self-care (01) ==
LOC: 2S 21:09 → ED 21:09 → 2S 08-14 03:54